=== PATIENT | female | born 1965 | race Caucasian/White ===

== ENCOUNTER 2018-04-13 11:20 | Observation (INO) | payer MEDICAID, SELFPAY ==
[2018-04-13] VITALS (14 sets, daily range): BP systolic 123–171; BP diastolic 70–100; PULSE 65–84; RESP 16–21; TEMP 36.6–37.1; O2SAT 92–99; BMI 29.0; BMI 29.3
--- NOTE | 2018-04-13 11:52 | EKG12_ITS ---
Test Reason : CP Blood Pressure : / mmHG Vent. Rate : 072 BPM Atrial Rate : 072 BPM P-R Int : 164 ms QRS Dur : 088 ms QT Int : 410 ms P-R-T Axes : 064 068 076 degrees QTc Int : 448 ms Normal sinus rhythm Normal ECG Confirmed by GABE FITZGERALD, DU ([id number]), editor [employer] MAI POTTS ([id number] on 04/16/2018 10:07:01 AM Referred By: Agustina Fine Confirmed By:DU BERNAL MD
--- NOTE | 2018-04-13 12:14 | RAD_ITS ---
STUDY: X-RAY CHEST REASON FOR EXAM: Female, 52 years old. Chest pain. TECHNIQUE: Single AP portable view of the chest. COMPARISON: 12/28/2013. FINDINGS: The lungs are clear and expanded. There is no demonstrated pleural abnormality. Normal size heart. Normal mediastinum and madhav. Normal visualized pulmonary arteries. Normal visualized aortic arch and descending thoracic aorta. There is mild levoscoliosis probably positional. Normal visualized ribs, clavicles, and shoulders. There is no demonstrated abnormality of the visualized soft tissue structures of the upper abdomen. RAD/Chest 1 View (Portable) IMPRESSION: No active pulmonary disease. Electronically Signed: Chance Menezes MD at 12:31 EDT Tel , Service support ,
[2018-04-13 12:19] LABS: Absolute Lymphocyte Count 3.41 X10^3/ul (0.83-4.51); Absolute Neutrophil Count 5.5 X10^3/uL (2.0-7.7); Basophil# 0.01 X10^3/uL; Basophil% 0.1 % (0-1); Eosinophil# 0.09 X10^3/uL; Eosinophils% 0.9 % (0-5); Hematocrit 44.2 % (37-47); Hemoglobin 14.3 g/dl (12.0-15.0); Lymphocyte # 3.41 X10^3/ul (4.0); Lymphocyte % 34.9 % (19-41); Mean Corp Hgb Conc 32.4 g/gl (32-36); Mean Corpuscular Hgb 30.6 pg (27.0-32.0); Mean Corpuscular Volume 94.6 fL (81-99); Monocyte# 0.72 X10^3/uL; Monocyte% 7.4 % (0-10); Neutrophil # 5.53 X10^3/uL (2.7-7.7); Neutrophil % 56.6 % (47-70); Platelet Count 231 K/mm3 (150-450); RBC Distribution Width SD 47.9 fl (35.1-43.9); Red Blood Count 4.67 M/mm3 (4.2-5.4); White Blood Count 9.8 K/mm3 (4.4-11.0)
[2018-04-13 12:23] LABS: Differential Indicated SCAN CRITERIA MET; POSITIVE COUNT NO; POSITIVE DIFFERENTIAL NO; POSITIVE MORPHOLOGY YES
[2018-04-13] MEDS: Aspirin 81 MG TAB.CHEW 324 MG PO (12:27)
[2018-04-13] MEDS: 0.9% Normal Saline 1,000 ML 150 ML IV ×2 (12:28→21:45)
[2018-04-13 12:35] LABS: Anion Gap 5 (5-15); BUN 13 mg/dL (7-18); BUN/Creat Ratio 15.6 RATIO (10-20); Calcium,Total 8.9 mg/dL (8.5-10.1); Chloride 108 mmol/L (98-107); Creatinine, Serum 0.83 mg/dL (0.55-1.02); EST Glomerular Filtration Rate 77 mL/min (>60); Est Glom Filt Rate - Afr Amer 93 mL/min (>60); Estimated Creatinine Clearance 75.91 ml/min; Glucose 89 mg/dL (74-106); Potassium 3.8 mmol/L (3.5-5.1); Sodium Level 141 mmol/L (136-145)
[2018-04-13 12:39] LABS: D-Dimer Quantitative (DVT/PE) 0.56 FEU/ug/m (0.27-0.49)
[2018-04-13 12:40] LABS: Differential Comment SCANNED
--- NOTE | 2018-04-13 12:40 | ED.RN ---
ELEVATED D-DIMER OF 0.56 RECEIVED FROM LAB. AWARE.
--- NOTE | 2018-04-13 12:50 | CT_ITS ---
STUDY: CTA CHEST REASON FOR EXAM: Female, 52 years old. Chest tightness and left shoulder pain. History of asthma. RADIATION DOSAGE (If Supplied By Facility): CTDIvol = ( 15.09 ) mGy, DLP = ( 601.54 ) mGycm TECHNIQUE: The examination was performed with the intravenous administration of 100 ml of Isovue 370 contrast material. Post-processing of the angiographic images was performed, with multiplanar reformation and 3D reconstruction. Individualized dose optimization techniques were used for this CT. COMPARISON: None. FINDINGS: Normal enhancement of the main pulmonary artery and right and left pulmonary arteries. Normal enhancement of the bilateral peripheral pulmonary arteries. There is no demonstrated pulmonary embolism. Normal thoracic aorta and visualized great vessels. There is no demonstrated aortic dissection. Normal heart and pericardium. Normal mediastinum. Normal hilar regions. Normal visualized trachea and bronchi. The lungs are well expanded. There are no pulmonary infiltrates. There are no pleural effusions. Normal chest wall structures. Normal osseous structures. The visualized portions of the upper abdomen demonstrate cysts in the upper pole of the right kidney, the largest measures about 5.8 cm. The visualized portion of the upper pole of the left kidney is markedly heterogeneous and lobulated. Solid mass cannot be entirely excluded. CT/CTA Chest W/WO Contrast IMPRESSION: 1. No demonstrated pulmonary embolism or dissecting aorta. 2. No infiltrate or pleural effusions are seen. 3. Lobulated heterogeneous upper pole of the left kidney and the right renal cysts. Further investigation is needed with CT scan of the kidneys or ultrasound. Electronically Signed: Chance Menezes MD at 14:17 EDT Tel , Service support ,
--- NOTE | 2018-04-13 15:01 | HP.PCM_ITS ---
Problem List (1) Chest pain Status: Acute History of Present Illness Date of Admission: 04/13/18 Chief Complaint: chest pain The patient is a 52 year old F with a history of asthma and depression. She was admitted through the ED on 04/13/2018 with a complaint of chest pain and tightness which started early this morning. She had assisted shortness of breath but denied any lightheadedness or dizziness or palpitations. She has not had such chest tightness in the past but states she has had pain under her left shoulder blade for a few days now. She denies any fever or chills, any abdominal pain, any diarrhea vomiting. She denies any trauma to her back. Review of systems otherwise negative. Vitals were significant for blood pressure 157/94 at time of admission and was 171/84 at time of my review; vitals were otherwise normal. Blood work was essentially unremarkable initial troponin was less than 0.015. Chest x-ray showed no active cardiopulmonary process, and CTA done showed no demonstrated pulmonary embolism or dissecting aorta or no infiltrate or pleural effusion seen. There was an incidental finding of a lobulated heterogeneous cysts of the upper pole of the left kidney and also right renal cyst. Further investigation recommended with CT of the kidneys ultrasound. She has been admitted for chest pain to rule out ACS. [] Past Medical History Allergies No Known Allergies Allergy (Verified 04/13/18 11:22) Home Medications: Ambulatory Orders Medication Instructions Recorded Albuterol Inhaler [Ventolin Hfa 1 puff INHALATION Q6H PRN PRN 04/13/18 (SP)] Fluoxetine HCl [Prozac] 20 mg PO DAILY 04/13/18 Fluticasone 44 Mcg [Flovent (SP)] 2 puff INHALATION BID 04/13/18 Surgical History: no surgical history Psychiatric History: Depression SOCIAL WORK ASSISTANT History: No pertinent SOCIAL WORK ASSISTANT history Lives: Spouse/ Significant Other Smoking Status: Current every day smoker Tobacco Use: Cigarettes - 1 pack daily Alcohol: Occasional - *Family History Maternal History Items: Unknown - is estranged from her family, so cannot give any history Paternal History Items: Unknown - is estranged from her family Review of Systems Constitutional: Denies: Chills, Fever, Malaise, Weakness, Weight Change Eyes: Denies: Blurred vision HEENT: Denies: Head Aches, Sinus Congestion, Sinus Drainage Cardiovascular: Reports: Chest Pain, Chest Tightness. Denies: Chest Pressure, Edema, Heaviness, Light Headedness, Orthopnea, Palpitations, Paroxysmal Noc. Dyspnea, Syncope Respiratory: Reports: Cough, Wheezing. Denies: Shortness of Breath, Shortness of breath at rest, Sputum production Gastrointestinal: Denies: Abdominal Pain, Nausea, Vomiting Genitourinary: Denies: Dysuria Musculoskeletal: Denies: Joint Pain, Joint Tenderness Skin: Denies: Rash, Wounds Neurological: Denies: Numbness, Tingling, Focal weakness Psychiatric: Denies: Anxiety, Depression, Homicidal Ideations, Suicidal Ideations Hematologic/ Lymphatic: Denies: Easy Bruising, Easy Bleeding VTE Information - Inpt Only VTE Present on Admission: No VTE Pharm Prophylaxis ordered?: Yes Patient Problems: Active and Suspected Problems Chest pain (Acute) - Physical Exam General: Alert, Oriented x3, Cooperative, No apparent distress HEENT: Atraumatic, PERRLA, EOMI, Normocephalic Oral: Dry Mucosa Neck: Supple, No JVD, Negative Carotid Bruits Lungs: - - decreased breath sounds bibasally, with mild wheezing auscultated in all lung gan. Cardiovascular: Regular rate, Regular Rhythm, Normal S1, Normal S2, No murmurs Abdomen: Bowel Sounds Present, Soft, Non Tender, Non-Distended, No Hepato- splenomegaly Extremities: No clubbing, No cyanosis, No edema, Capillary Refill Less than 3 Seconds Skin: No rashes, No breakdown Musculoskeletal: No Tenderness to Palpation of Joints or Extremities Lymphatic: No Cervical, Supraclavicular, or Inguinal Adenopathy Neurological: Cranial nerves II-XII grossly intact, Neuro grossly intact, Motor Exam 5/5 strength throughout Psych/Mental Status: Normal Affect, Appropriate, Alert and oriented to time, place, person, mood and affect Vital Signs Temp Pulse Resp BP Pulse Ox 98.5 F 66 21 H 151/88 H 96 04/13/18 11:21 04/13/18 14:04 04/13/18 14:04 04/13/18 14:04 04/13/18 14:04 Oxygen Delivery Method Room Air Weight: 180 lb Body Mass Index (BMI) 29.0 Finger Stick Blood Glucose 98 Laboratory Tests Past 24 Hrs 04/13/18 04/13/18 04/13/18 12:05 12:05 12:05 WBC 9.8 RBC 4.67 Hgb 14.3 Hct 44.2 MCV 94.6 MCH 30.6 MCHC 32.4 RDW 14.0 RDW Differential 47.9 H Plt Count 231 MPV 11.0 Immature Gran % (Auto) 0.100 Neut % (Auto) 56.6 Lymph % (Auto) 34.9 Sabine % (Auto) 7.4 Eos % (Auto) 0.9 Baso % (Auto) 0.1 Absolute Neuts (auto) 5.5 Absolute Lymphs (auto) 3.41 Total Counted Not Reportable Differential Comment SCANNED D-Dimer Quant (PE/DVT) 0.56 H* Sodium 141 Potassium 3.8 Chloride 108 H Carbon Dioxide 28.0 Anion Gap 5 BUN 13 Creatinine 0.83 Estim Creat Clear Calc 75.91 Est GFR (MDRD) Af Amer 93 Est GFR (MDRD) Non-Af 77 BUN/Creatinine Ratio 15.6 Glucose 89 Calcium 8.9 Troponin I < 0.015 Diagnostic Data Chest X-Ray 04/13/18 12:14 IMPRESSION: No active pulmonary disease. Electronically Signed: Chance Menezes MD at 12:31 EDT Tel , Service support , Chest CTA 04/13/18 12:50 IMPRESSION: 1. No demonstrated pulmonary embolism or dissecting aorta. 2. No infiltrate or pleural effusions are seen. 3. Lobulated heterogeneous upper pole of the left kidney and the right renal cysts. Further investigation is needed with CT scan of the kidneys or ultrasound. Electronically Signed: Chance Menezes MD at 14:17 EDT Tel , Service support , Assessment/Plan All Active Problems Chest pain (Acute) 52 y/o female presenting with chest pain 1. Atypical chest pain, to rule out ACS * States she has chest pain and chest tightness and pain in her left scapula to * Short troponin negative. EKG showed no acute ST changes. * Admit to PCU with telemetry * Cycle troponins. Aspirin 81 mg daily sublingual nitroglycerin as needed. * Check A1c and lipid panel. * For stress test to rule out ACS. * 2. Asthma: * lungs are tight with wheezing. Breathing treatments with duonebs * patient counselled to quit smoking * 4. Depression; on fluoxetine. Will continue 5. Nicotine dependence: Has over [id number] smoking history. Patient counseled extensively to quit. Will offer nicotine patch 21 mg daily. DVT prophylaxis: heparin * * Code status: full code. patient and partner counseled extensively about different types of CODE STATUS including DNR CCA, DNR CC and full code. Patient elects to be full code. Total [id number] time 60 minutes. Code Visit OBSV E&M: 37819 Initial observation care L2 Procedures: 52324 Advncd Care Plan 30 Min
--- NOTE | 2018-04-13 15:11 | ED.VISSUMM ---
- ER Visit Summary Date of Service: 04/13/18 Chief Complaint: [Chest pain] History of Present Illness: The patient is a 52 F [presents the emergency department complaint chest pain that started this morning. It started around 6 AM. Patient describes a tightness across her upper chest. Denies any real radiation of the pain however she states that she has had some discomfort in her left upper back just beneath her scapula for the last 5 or 6 days. Patient denies any trauma. Patient also has had some heartburn symptoms. Patient currently rates her chest pain is a 4 out of 10. Patient denies recent travel or surgery. No cancer history. Patient is a smoker. Patient has a history of asthma and depression. No family history of heart disease.] Physical Examination: [HEENT-PERRLA, EOMI. Cranial nerves II through XII grossly intact. TMs clear. Mucous membranes moist. No adenopathy. Cardiovascular-regular rate and rhythm without murmur or ectopy Lungs-good aeration bilaterally. Patient does have some faint X Tory wheezes bilaterally. No accessory muscle use or retractions. Abdomen-normoactive bowel sounds, soft, nontender, no rebound or rigidity, no peritoneal signs. Extremities-intact ?4, normal range of motion, normal pulses, atraumatic. Negative Homans sign.] Test Results: [EKG obtained on arrival shows sinus rhythm with a ventricular rate of 72 bpm with no acute ST segment changes. CBC with differential was normal. Chemistries unremarkable. Troponin is less than 0.015. D-dimer was 0.56. Chest x-ray showed nothing acute. CTA of the chest obtained showed no evidence of PE or dissection. Patient was noted incidentally to have right renal cysts and also homogenous masslike structure on the left kidney and recommendations were made for ultrasound or CT with IV contrast to evaluate further to rule out malignancy.] Emergency Department Course and Treatment: [Patient received aspirin in the department and nitroglycerin sublingual which really did not improve her pain. Patient was ordered a DuoNeb aerosol. I discussed results with patient.] Treatment Plan: [This point recommended admission for further workup and evaluation of her chest pain. I discussed with hospitalist the concerning findings on CTA of the chest regarding the left kidney mass. This finding will require further evaluation. Etiology of chest pain at this point is unclear.] Disposition: [Admit] Impression: [Chest pain-rule out acute coronary syndrome Left renal mass] This note was generated with [employer] dictation software. It may contain incorrect words, spelling, and punctuation that were not noted in review of the chart prior to signing ED Disposition - Plan for ED Patient: Chief Complaint: Upper Extremity Injury Referrals: Bucky Walters MD [Primary Care Provider] -
[2018-04-13] MEDS: Ipratropium/Albuterol Sulfate 3 ML AMPUL.NEB INHALATION ×2 (15:23→19:05)
[2018-04-13 18:47] LABS: Hemoglobin A1c 5.8 % (4.2-6.3)
[2018-04-13] MEDS: Budesonide Respules 0.5 MG/2 ML AMPUL.NEB. INHALATION (19:05)
[2018-04-13] MEDS: Heparin Injection (Vial) 5,000 UNIT/ML VIAL 5000 UNIT SC (22:14)
[2018-04-14] VITALS (14 sets, daily range): BP systolic 132–145; BP diastolic 62–78; PULSE 57–92; RESP 16–22; TEMP 36.5–37.1; O2SAT 96–98
[2018-04-14] MEDS: 0.9% Normal Saline 1,000 ML 150 ML IV ×2 (04:30→12:12)
[2018-04-14] MEDS: Heparin Injection (Vial) 5,000 UNIT/ML VIAL 5000 UNIT SC ×3 (06:05→21:00)
[2018-04-14 06:06] LABS: Absolute Lymphocyte Count 2.29 X10^3/ul (0.83-4.51); Absolute Neutrophil Count 4.1 X10^3/uL (2.0-7.7); Basophil# 0.01 X10^3/uL; Basophil% 0.1 % (0-1); Eosinophil# 0.04 X10^3/uL; Eosinophils% 0.6 % (0-5); Hematocrit 38.9 % (37-47); Hemoglobin 12.9 g/dl (12.0-15.0); Lymphocyte # 2.29 X10^3/ul (4.0); Lymphocyte % 33.8 % (19-41); Mean Corp Hgb Conc 33.2 g/gl (32-36); Mean Corpuscular Hgb 31.2 pg (27.0-32.0); Mean Corpuscular Volume 94.2 fL (81-99); Mean Platelet Vol. 11.3 fl (6.2-12.0); Monocyte# 0.38 X10^3/uL; Monocyte% 5.6 % (0-10); Neutrophil # 4.05 X10^3/uL (2.7-7.7); Neutrophil % 59.8 % (47-70); Platelet Count 164 K/mm3 (150-450); RBC Distribution Width CV 13.9 % (11.6-14.6); Red Blood Count 4.13 M/mm3 (4.2-5.4); White Blood Count 6.8 K/mm3 (4.4-11.0)
[2018-04-14 06:12] LABS: POSITIVE COUNT NO; POSITIVE DIFFERENTIAL NO; POSITIVE MORPHOLOGY NO
[2018-04-14 06:21] LABS: Anion Gap 7 (5-15); BUN 10 mg/dL (7-18); BUN/Creat Ratio 14.5 RATIO (10-20); Calcium,Total 7.9 mg/dL (8.5-10.1); Chloride 113 mmol/L (98-107); Creatinine, Serum 0.69 mg/dL (0.55-1.02); EST Glomerular Filtration Rate 96 mL/min (>60); Est Glom Filt Rate - Afr Amer 116 mL/min (>60); Estimated Creatinine Clearance 94.86 ml/min; Glucose 82 mg/dL (74-106); Sodium Level 146 mmol/L (136-145)
[2018-04-14 06:31] LABS: Cholesterol 172 mg/dL (200); High Density Lipoprotein 29 mg/dL; Triglycerides 153 mg/dL; Very Low Density Lipoprotein 31 mg/dL (5-40)
[2018-04-14] MEDS: Ipratropium/Albuterol Sulfate 3 ML AMPUL.NEB INHALATION ×4 (06:49→19:14)
[2018-04-14] MEDS: Budesonide Respules 0.5 MG/2 ML AMPUL.NEB. INHALATION ×2 (06:49→19:14)
[2018-04-14] MEDS: Aspirin 81 MG TAB.CHEW PO (08:26)
[2018-04-14] MEDS: amLODIPine 10 MG Tablet PO (08:27)
[2018-04-14] MEDS: FLUoxetine 20 MG Capsule PO (08:27)
--- NOTE | 2018-04-14 14:57 | PCM.PN.HOSP ---
Patient Problems: Active and Suspected Problems Chest pain (Acute) Subjective: Patient is a 52-year-old white female with known history of asthma, depression, who presented to the ED on 04/13/2018 with chest tightness and chest pain. CT of the chest showed some cysts of the kidneys, but no real other pathology. Recommend a ultrasound of the kidneys. Patient did not have stress test today have one tomorrow. Patient offered to do as an outpatient but does not wish. Currently has no nausea vomiting diarrhea constipation. No chest pain, otherwise no other symptoms. Vitals/I&O's: Vital Signs Temp Pulse Resp BP Pulse Ox 98.1 F 89 22 H 145/62 H 98 04/14/18 08:20 04/14/18 12:18 04/14/18 10:39 04/14/18 08:20 04/14/18 08:20 Oxygen Delivery Method Room Air Weight: 85 kg Body Mass Index (BMI) 29.3 Finger Stick Blood Glucose 98 Intake and Output for Last 24 Hours 04/12/18 04/13/18 04/14/18 23:59 23:59 23:59 Intake Total 560 / 560 2650 / 2650 Balance 560 / 560 2650 / 2650 General: Alert, Oriented x3, Cooperative HEENT: Atraumatic, PERRLA, EOMI, Normocephalic Oral: Moist Mucosa, No Gingival or Mucosal Lesions/ Ulcerations Neck: Supple, No JVD, Negative Carotid Bruits Lungs: No rhonchi, No wheeze, No rales, Diminished - Slightly diminished breath sounds bilaterally Cardiovascular: Regular rate, No murmurs Abdomen: Bowel Sounds Present, Soft, Non Tender Extremities: No edema, Capillary Refill Less than 3 Seconds Skin: No rashes, No breakdown Musculoskeletal: No Tenderness to Palpation of Joints or Extremities Lymphatic: No Cervical, Supraclavicular, or Inguinal Adenopathy Neurological: Cranial nerves II-XII grossly intact, Neuro grossly intact Psych/Mental Status: Normal Affect, Appropriate, Alert and oriented to time, place, person, mood and affect Laboratory Results 04/13/18 12:05: Hemoglobin A1c 5.8 04/13/18 17:32: Troponin I < 0.015 04/13/18 20:00: Troponin I < 0.015 04/14/18 05:35: Triglycerides 153, Cholesterol 172, LDL Cholesterol 112, VLDL Cholesterol 31, HDL Cholesterol 29 L 04/14/18 05:35: WBC 6.8, RBC 4.13 L, Hgb 12.9, Hct 38.9, MCV 94.2, MCH 31.2, MCHC 33.2, RDW 13.9, RDW Differential 46.0 H, Plt Count 164, MPV 11.3, Immature Gran % (Auto) 0.100, Neut % (Auto) 59.8, Lymph % (Auto) 33.8, Crisp % (Auto) 5.6, Eos % (Auto) 0.6, Baso % (Auto) 0.1, Absolute Neuts (auto) 4.1, Absolute Lymphs (auto) 2.29, Total Counted Not Reportable 04/14/18 05:35: Sodium 146 H, Potassium 4.0, Chloride 113 H, Carbon Dioxide 26.0, Anion Gap 7, BUN 10, Creatinine 0.69, Estim Creat Clear Calc 94.86, Est GFR (MDRD) Af Amer 116, Est GFR (MDRD) Non-Af 96, BUN/Creatinine Ratio 14.5, Glucose 82, Calcium 7.9 L Current Medications Albuterol Sulfate (Ventolin Aerosols) 2.5 mg INHALATION Q4H PRN PRN PRN Reason: shortness of breath Albuterol/Ipratropium (Duoneb) 3 ml INHALATION Q4HWA.RT ON LICENSE OF [facility] Last Admin: 04/14/18 14:40 Dose: 3 ml Amlodipine Besylate (Norvasc) 10 mg PO DAILY ON LICENSE OF [facility] Last Admin: 04/14/18 08:27 Dose: 10 mg Aspirin (Aspirin, Baby) 81 mg PO DAILY@0800 ON LICENSE OF [facility] Last Admin: 04/14/18 08:26 Dose: 81 mg Budesonide (Pulmicort Aerosol) 0.5 mg INHALATION Q12H.RT ON LICENSE OF [facility] Last Admin: 04/14/18 06:49 Dose: 0.5 mg Fluoxetine HCl (Prozac) 20 mg PO DAILY ON LICENSE OF [facility] Last Admin: 04/14/18 08:27 Dose: 20 mg Heparin Sodium (Porcine) (Heparin Na) 5,000 unit SC Q8 ON LICENSE OF [facility] Last Admin: 04/14/18 13:28 Dose: 5,000 unit Hydralazine HCl (Apresoline Iv) 10 mg IV Q6H PRN PRN PRN Reason: BLOOD PRESSURE ELEVATION Magnesium Hydroxide (Milk Of Magnesia) 30 ml PO DAILY PRN PRN PRN Reason: Constipation Nicotine (Nicoderm Cq (Pbkc)) 21 mg TRANSDERM. DAILY KAMILAH Last Admin: 04/14/18 08:26 Dose: 21 mg Nitroglycerin (Nitrostat) 0.4 mg SUBLINGUAL Q5M PRN PRN Reason: CARDIAC/CHEST PAIN Sodium Chloride () 5 - 30 ml IV UD PRN PRN Reason: SALINE FLUSH Medical Necessity - Tobacco Use Smoking Status: Current every day smoker Tobacco Use: Cigarettes Assessment/Plan All Active Problems Chest pain (Acute) Patient is a 52-year-old white female with known history of asthma, depression, who presented to the ED on 04/13/2018 with chest tightness and chest pain. CT of the chest showed some cysts of the kidneys, but no real other pathology. Recommend a ultrasound of the kidneys. Patient did not have stress test today have one tomorrow. Patient offered to do as an outpatient but does not wish. Atypical chest pain, to rule out ACS Patient unable to get stress test today, will get stress test tomorrow, will continue current treatment panel of aspirin and nitroglycerin as needed. Patient will likely be discharged after stress test. Hemoglobin A1c was 5.8, LDL was 112, Renal cysts Patient has a renal cyst on CT scan and monitor further workup can be probably done as an outpatient. Asthma: Seems to be doing better with breathing treatment and duo nebs, patient has probably increased bronchospasms due to smoking. Have counseled patient again to stop smoking. Depression fluoxetine Nicotine dependence: Has over 24-pcgk-ledq smoking history. Patient counseled extensively to quit. Offered nicotine patch 21 mg daily. Hyperchloremia and hyper natremia: Iatrogenic secondary to fluids have DC'd. DVT prophylaxis: heparin CODE STATUS full Disposition patient like to be discharged after stress tests, offered outpatient stress test but does not wish. We will give patient on low-dose of Lipitor, monitor ultrasound and stress test. Chart is dictated with lieutenant shift supervisor software. Errors may occur in dictation that may change providers meaning. This note was generated with [employer] dictation software. It may contain incorrect words, spelling, and punctuation that were not noted in checking the note before signing. Code Visit OBSV E&M: 28876 Subsequent observation care L3
--- NOTE | 2018-04-14 15:01 | PN_ITS ---
Patient Problems: Active and Suspected Problems Chest pain (Acute) Subjective: Patient is a 52-year-old white female with known history of asthma, depression, who presented to the ED on 04/13/2018 with chest tightness and chest pain. CT of the chest showed some cysts of the kidneys, but no real other pathology. Recommend a ultrasound of the kidneys. Patient did not have stress test today have one tomorrow. Patient offered to do as an outpatient but does not wish. Currently has no nausea vomiting diarrhea constipation. No chest pain, otherwise no other symptoms. Vitals/I&O's: Vital Signs Temp Pulse Resp BP Pulse Ox 98.1 F 89 22 H 145/62 H 98 04/14/18 08:20 04/14/18 12:18 04/14/18 10:39 04/14/18 08:20 04/14/18 08:20 Oxygen Delivery Method Room Air Weight: 85 kg Body Mass Index (BMI) 29.3 Finger Stick Blood Glucose 98 Intake and Output for Last 24 Hours 04/12/18 04/13/18 04/14/18 23:59 23:59 23:59 Intake Total 560 / 560 2650 / 2650 Balance 560 / 560 2650 / 2650 General: Alert, Oriented x3, Cooperative HEENT: Atraumatic, PERRLA, EOMI, Normocephalic Oral: Moist Mucosa, No Gingival or Mucosal Lesions/ Ulcerations Neck: Supple, No JVD, Negative Carotid Bruits Lungs: No rhonchi, No wheeze, No rales, Diminished - Slightly diminished breath sounds bilaterally Cardiovascular: Regular rate, No murmurs Abdomen: Bowel Sounds Present, Soft, Non Tender Extremities: No edema, Capillary Refill Less than 3 Seconds Skin: No rashes, No breakdown Musculoskeletal: No Tenderness to Palpation of Joints or Extremities Lymphatic: No Cervical, Supraclavicular, or Inguinal Adenopathy Neurological: Cranial nerves II-XII grossly intact, Neuro grossly intact Psych/Mental Status: Normal Affect, Appropriate, Alert and oriented to time, place, person, mood and affect Laboratory Results 04/13/18 12:05: Hemoglobin A1c 5.8 04/13/18 17:32: Troponin I < 0.015 04/13/18 20:00: Troponin I < 0.015 04/14/18 05:35: Triglycerides 153, Cholesterol 172, LDL Cholesterol 112, VLDL Cholesterol 31, HDL Cholesterol 29 L 04/14/18 05:35: WBC 6.8, RBC 4.13 L, Hgb 12.9, Hct 38.9, MCV 94.2, MCH 31.2, MCHC 33.2, RDW 13.9, RDW Differential 46.0 H, Plt Count 164, MPV 11.3, Immature Gran % (Auto) 0.100, Neut % (Auto) 59.8, Lymph % (Auto) 33.8, [place] % (Auto) 5.6, Eos % (Auto) 0.6, Baso % (Auto) 0.1, Absolute Neuts (auto) 4.1, Absolute Lymphs (auto) 2.29, Total Counted Not Reportable 04/14/18 05:35: Sodium 146 H, Potassium 4.0, Chloride 113 H, Carbon Dioxide 26.0, Anion Gap 7, BUN 10, Creatinine 0.69, Estim Creat Clear Calc 94.86, Est GFR (MDRD) Af Amer 116, Est GFR (MDRD) Non-Af 96, BUN/Creatinine Ratio 14.5, Glucose 82, Calcium 7.9 L Current Medications Albuterol Sulfate (Ventolin Aerosols) 2.5 mg INHALATION Q4H PRN PRN PRN Reason: shortness of breath Albuterol/Ipratropium (Duoneb) 3 ml INHALATION Q4HWA.RT [facility] Last Admin: 04/14/18 14:40 Dose: 3 ml Amlodipine Besylate (Norvasc) 10 mg PO DAILY [facility] Last Admin: 04/14/18 08:27 Dose: 10 mg Aspirin (Aspirin, Baby) 81 mg PO DAILY@0800 [facility] Last Admin: 04/14/18 08:26 Dose: 81 mg Budesonide (Pulmicort Aerosol) 0.5 mg INHALATION Q12H.RT [facility] Last Admin: 04/14/18 06:49 Dose: 0.5 mg Fluoxetine HCl (Prozac) 20 mg PO DAILY [facility] Last Admin: 04/14/18 08:27 Dose: 20 mg Heparin Sodium (Porcine) (Heparin Na) 5,000 unit SC Q8 [facility] Last Admin: 04/14/18 13:28 Dose: 5,000 unit Hydralazine HCl (Apresoline Iv) 10 mg IV Q6H PRN PRN PRN Reason: BLOOD PRESSURE ELEVATION Magnesium Hydroxide (Milk Of Magnesia) 30 ml PO DAILY PRN PRN PRN Reason: Constipation Nicotine (Nicoderm Cq (Pbkc)) 21 mg TRANSDERM. DAILY [facility] Last Admin: 04/14/18 08:26 Dose: 21 mg Nitroglycerin (Nitrostat) 0.4 mg SUBLINGUAL Q5M PRN PRN Reason: CARDIAC/CHEST PAIN Sodium Chloride () 5 - 30 ml IV UD PRN PRN Reason: SALINE FLUSH Medical Necessity - Tobacco Use Smoking Status: Current every day smoker Tobacco Use: Cigarettes Assessment/Plan All Active Problems Chest pain (Acute) Patient is a 52-year-old white female with known history of asthma, depression, who presented to the ED on 04/13/2018 with chest tightness and chest pain. CT of the chest showed some cysts of the kidneys, but no real other pathology. Recommend a ultrasound of the kidneys. Patient did not have stress test today have one tomorrow. Patient offered to do as an outpatient but does not wish. Atypical chest pain, to rule out ACS Patient unable to get stress test today, will get stress test tomorrow, will continue current treatment panel of aspirin and nitroglycerin as needed. Patient will likely be discharged after stress test. Hemoglobin A1c was 5.8, LDL was 112, Renal cysts Patient has a renal cyst on CT scan and monitor further workup can be probably done as an outpatient. Asthma: Seems to be doing better with breathing treatment and duo nebs, patient has probably increased bronchospasms due to smoking. Have counseled patient again to stop smoking. Depression fluoxetine Nicotine dependence: Has over [id number] smoking history. Patient counseled extensively to quit. Offered nicotine patch 21 mg daily. Hyperchloremia and hyper natremia: Iatrogenic secondary to fluids have DC'd. DVT prophylaxis: heparin CODE STATUS full Disposition patient like to be discharged after stress tests, offered outpatient stress test but does not wish. We will give patient on low-dose of Lipitor, monitor ultrasound and stress test. Chart is dictated with psychologist industrial organizational software. Errors may occur in dictation that may change providers meaning. This note was generated with [employer] dictation software. It may contain incorrect words, spelling, and punctuation that were not noted in checking the note before signing. Code Visit OBSV E&M: 20510 Subsequent observation care L3
[2018-04-14] MEDS: Atorvastatin Calcium 20 MG Tablet PO (21:00)
[2018-04-15] VITALS (7 sets, daily range): BP systolic 124–143; BP diastolic 64–90; PULSE 76–105; RESP 16–18; TEMP 36.5–37.2; O2SAT 94–96
--- NOTE | 2018-04-15 04:40 | RAD_ITS ---
STUDY: X-RAY CHEST REASON FOR EXAM: Female, 52 years old. Cough, chest pain. TECHNIQUE: AP portable chest. COMPARISON: April 13, 2018. FINDINGS: The lungs are clear and expanded. There is no demonstrated pleural abnormality. Normal size heart. Normal mediastinum and madhav. Normal visualized pulmonary arteries. Normal visualized aortic arch and descending thoracic aorta. Normal visualized thoracic spine. Normal visualized ribs, clavicles, and shoulders. There is no demonstrated abnormality of the visualized soft tissue structures of the upper abdomen. RAD/Chest 1 View (Portable) IMPRESSION: Normal x-ray examination of the chest. Electronically Signed: Jose Ramirez MD at 5:43 EDT , Service support ,
--- NOTE | 2018-04-15 05:55 | EKG12_ITS ---
Test Reason : AM EKG Blood Pressure : / mmHG Vent. Rate : 081 BPM Atrial Rate : 081 BPM P-R Int : 158 ms QRS Dur : 086 ms QT Int : 402 ms P-R-T Axes : 077 070 068 degrees QTc Int : 466 ms Normal sinus rhythm Normal ECG Confirmed by GABE FITZGERALD, DU ([id number]), business editor MAI POTTS ([id number] on 04/18/2018 3:58:50 PM Referred By: Agustina Fine Confirmed By:DU BERNAL MD
[2018-04-15 05:57] LABS: Absolute Lymphocyte Count 1.88 X10^3/ul (0.83-4.51); Absolute Neutrophil Count 4.1 X10^3/uL (2.0-7.7); Basophil# 0.01 X10^3/uL; Basophil% 0.2 % (0-1); Eosinophil# 0.05 X10^3/uL; Eosinophils% 0.8 % (0-5); Hemoglobin 12.4 g/dl (12.0-15.0); Lymphocyte # 1.88 X10^3/ul (4.0); Lymphocyte % 29.5 % (19-41); Mean Corp Hgb Conc 32.6 g/gl (32-36); Mean Corpuscular Hgb 30.9 pg (27.0-32.0); Mean Corpuscular Volume 94.8 fL (81-99); Monocyte# 0.29 X10^3/uL; Monocyte% 4.5 % (0-10); Neutrophil # 4.14 X10^3/uL (2.7-7.7); Neutrophil % 64.8 % (47-70); Platelet Count 171 K/mm3 (150-450); RBC Distribution Width CV 13.8 % (11.6-14.6); Red Blood Count 4.01 M/mm3 (4.2-5.4); White Blood Count 6.4 K/mm3 (4.4-11.0)
[2018-04-15 06:07] LABS: AST(SGOT) 10 U/L (15-37); Alanine Aminotransfer ALT/SGPT 17 U/L (13-56); Alkaline Phosphatase 72 U/L (45-117); Anion Gap 8 (5-15); BUN 10 mg/dL (7-18); BUN/Creat Ratio 15.1 RATIO (10-20); Calcium,Total 8.1 mg/dL (8.5-10.1); Chloride 111 mmol/L (98-107); Creatinine, Serum 0.66 mg/dL (0.55-1.02); EST Glomerular Filtration Rate 100 mL/min (>60); Est Glom Filt Rate - Afr Amer 121 mL/min (>60); Estimated Creatinine Clearance 99.17 ml/min; Globulin 3.1 g/dL (2.2-4.2); Glucose 92 mg/dL (74-106); Magnesium 1.8 mg/dL (1.6-2.6); Phosphorus 3.5 mg/dL (2.5-4.9); Potassium 3.6 mmol/L (3.5-5.1); Protein, Total 6.1 g/dL (6.4-8.2); Sodium Level 145 mmol/L (136-145)
[2018-04-15] MEDS: Aspirin 81 MG TAB.CHEW PO (06:08)
[2018-04-15 06:12] LABS: International Normalized Ratio 0.9; Prothrombin Time (Protime)PT. 12.2 SECONDS (11.7-14.9)
[2018-04-15 06:34] LABS: POSITIVE COUNT NO; POSITIVE DIFFERENTIAL NO; POSITIVE MORPHOLOGY NO
[2018-04-15 06:44] LABS: Partial Thromboplast Time 30.3 Seconds (24.1-36.2)
[2018-04-15] MEDS: amLODIPine 10 MG Tablet PO (08:40)
[2018-04-15] MEDS: FLUoxetine 20 MG Capsule PO (08:40)
--- NOTE | 2018-04-15 09:27 | STRESSREP ---
Stress Test Report Date: 04/15/2018 Procedure: Exercise tolerance test/imaging study Indications: Chest pain; shortness of breath/dyspnea Consent: Per the patient Procedure: The patient exercised on a Juliocesar protocol for 5 minutes and 30 seconds completing Stage I and 2 minutes and 30 seconds of Stage II achieving a peak heart rate of 162 bpm (95 % predicted maximal heart rate) with a peak blood pressure 160/80 mmHg and a peak MET capacity of 7 METs. The baseline ECG demonstrated normal sinus rhythm. The peak exercise ECG demonstrated no obvious ECG changes. Was an isolated ventricular couplet during exercise. The functional capacity was considered decreased. There was no complaint of chest discomfort during exercise or recovery. The examination was discontinued secondary to dyspnea. Impression: 1. Technically adequate (percent predicted maximal heart rate greater than 85%) exercise tolerance test 2. Peak exercise ECG demonstrated no obvious ECG changes 3. Isolated ventricular couplet during exercise 4. Nuclear images pending Myocardial perfusion imaging study: Technique: The patient was injected with 11.6 mCi of technetium 99m Cardiolite and subsequently rest SPECT Cardiolite nuclear imaging was obtained in the horizontal long, vertical long, and short axis views. The patient exercised on a Juliocesar protocol for 5 minutes and 30 seconds completing Stage I and 2 minutes and 30 seconds of Stage II achieving a peak heart rate of 162 bpm (95 % predicted maximal heart rate) with a peak blood pressure 160/80 mmHg and a peak MET capacity of 7 METs. The patient was injected with 34.5 mCi of technetium 99m Cardiolite and subsequently stress SPECT Cardiolite nuclear imaging was obtained in the horizontal long, vertical long, and short axis views. A gated Cardiolite study at peak stress was obtained. Interpretation: Rest and stress SPECT Cardiolite nuclear imaging status post realignment, normalization, and attenuation correction, demonstrates the appearance of relative uniform tracer uptake and myocardial perfusion appearing within normal limits. There is end systolic thickening and brightening. The gated Cardiolite study demonstrates myocardial thickening and inward wall motion. The reported LVEF is 68 %. Impression: 1. Rest and stress SPECT Cardiolite nuclear imaging demonstrate relative uniform tracer uptake and myocardial perfusion appearing within normal limits. 2. The gated Cardiolite study reports an LVEF of 68 %. This note was generated with 5 [employer] software. It may contain incorrect words, spelling, and punctuation that were not noted in checking the note before signing.
--- NOTE | 2018-04-15 10:22 | DCINST_ITS ---
- Discharge Diagnoses Current Active Problems: Current Active and Chronic Problems Chest pain (Acute) You will use the following diet at home:: Cardiac Discharge Activity: Return to Normal Activity Call your doctor if you observe: Shortness of breath, Dizziness, Fainting spells, Chest pain Additional Instructions: Recommend kidney ultrasound as outpatient for further evaluation of renal cysts, your primary care physician can order this test. Allergies/Adverse Reactions: Allergies No Known Allergies Allergy (Verified 04/13/18 11:22) Medications to take at Discharge Albuterol Inhaler [Ventolin Hfa] 1 puff INHALATION Q6H PRN PRN 04/13/18 Fluoxetine HCl [Prozac] 20 mg PO DAILY 04/13/18 Fluticasone 44 Mcg [Flovent 44 Mcg] 2 puff INHALATION BID 04/13/18 Amlodipine [Norvasc] 10 mg PO DAILY #30 tablet 04/15/18 The following prescriptions were given: Amlodipine [Norvasc] 10 mg PO DAILY #30 tablet Primary Care Physician: Bucky Walters MD [Primary Care Provider] - Please follow up with your Primary Care Physician in: 1 Week Test Results: Test results from this visit will be discussed in further detail at your follow- up appointment, if applicable. Proposed Discharge Date: 04/15/18
--- NOTE | 2018-04-15 10:38 | DS.PCM_ITS ---
<Rosita Gardner - Last Filed: 04/15/18 10:39> Discharge Date and Diagnosis - Problem List Patient Problems: Active and Suspected Problems Chest pain (Acute) Date of Admission: 04/13/18 Date of Discharge: 04/15/18 - Primary Discharge Diagnosis Active and Suspected Problems 1. Noncardiac chest pain, ACS ruled out 2. Bilateral renal cysts 3. Hypertension, new diagnosis 4. Asthma, no acute exacerbation 5. Tobacco dependence 6. Depression Hospital Course and Treatment Imaging Results: Diagnostic Data Chest CTA 04/13/18 12:50 IMPRESSION: 1. No demonstrated pulmonary embolism or dissecting aorta. 2. No infiltrate or pleural effusions are seen. 3. Lobulated heterogeneous upper pole of the left kidney and the right renal cysts. Further investigation is needed with CT scan of the kidneys or ultrasound. Electronically Signed: Chance Menezes MD at 14:17 EDT Tel , Service support , Chest X-Ray 04/15/18 04:40 IMPRESSION: Normal x-ray examination of the chest. Electronically Signed: Jose Ramirez MD at 5:43 EDT , Service support , Operations: None Procedures: Stress test Summary of Care Provided: The patient is a 52 year old F admitted 04/13/2018 due to chest pain. She has a past medical history of asthma, depression. EKG on admission with no ST-T changes. Troponin negative. Patient underwent stress test which was negative for ischemia. Chest x-ray negative. CT of chest obtained on admission due to elevated d-dimer. CT without evidence of pulmonary embolism or dissecting aorta. No infiltrate or pleural effusions. Lobulated heterogeneous upper pole of the left kidney and right renal cyst. Recommend renal ultrasound as outpatient. Patient was started on amlodipine 10 mg daily for hypertension. Recommend continued monitoring as outpatient with medication adjustments as necessary. Suspect symptoms on admission are due to bronchospasm secondary to history of asthma with heavy tobacco use. Counseled patient on tobacco cessation. Patient can continue home albuterol inhaler as needed at discharge. Follow-up with primary care physician in 1 week. General: Alert, Oriented x3, Cooperative HEENT: Atraumatic, PERRLA, EOMI, Normocephalic Oral: Moist Mucosa Neck: Supple, No JVD, Negative Carotid Bruits Lungs: Clear to auscultation, diminished Cardiovascular: Regular rate, No murmurs Abdomen: Bowel Sounds Present, Soft, Non Tender Extremities: No edema, Capillary Refill Less than 3 Seconds Skin: No rashes, No breakdown Musculoskeletal: No Tenderness to Palpation of Joints or Extremities Lymphatic: No Cervical, Supraclavicular, or Inguinal Adenopathy Neurological: Cranial nerves II-XII grossly intact, Neuro grossly intact Psych/Mental Status: Normal Affect, Appropriate Patient seen and examined prior to discharge. Physical assessment as noted above. Patient stable for discharge home with further follow-up with primary care physician. This patient was seen by KHANG Camacho under the supervision of Dr. Pratt. Patient Problems: Active and Suspected Problems Chest pain (Acute) - Physical Exam Vital Signs Temp Pulse Resp BP Pulse Ox 98.3 F 82 16 124/75 H 96 04/15/18 10:21 04/15/18 10:21 04/15/18 10:21 04/15/18 10:21 04/15/18 10:21 Oxygen Delivery Method Room Air Weight: 187 lb 6.287 oz Body Mass Index (BMI) 29.3 Finger Stick Blood Glucose 98 Intake and Output for Last 24 Hours 04/13/18 04/14/18 04/15/18 23:59 23:59 23:59 Intake Total 560 / 560 2650 / 2650 240 / 240 Balance 560 / 560 2650 / 2650 240 / 240 Laboratory Tests Past 24 Hrs 04/15/18 04/15/18 04/15/18 05:32 05:32 05:32 WBC 6.4 RBC 4.01 L Hgb 12.4 Hct 38.0 MCV 94.8 MCH 30.9 MCHC 32.6 RDW 13.8 RDW Differential 46.0 H Plt Count 171 MPV 11.0 Immature Gran % (Auto) 0.200 Neut % (Auto) 64.8 Lymph % (Auto) 29.5 [place] % (Auto) 4.5 Eos % (Auto) 0.8 Baso % (Auto) 0.2 Absolute Neuts (auto) 4.1 Absolute Lymphs (auto) 1.88 Total Counted Not Reportable PT 12.2 INR 0.9 APTT 30.3 Sodium 145 Potassium 3.6 Chloride 111 H Carbon Dioxide 26.0 Anion Gap 8 BUN 10 Creatinine 0.66 Estim Creat Clear Calc 99.17 Est GFR (MDRD) Af Amer 121 Est GFR (MDRD) Non-Af 100 BUN/Creatinine Ratio 15.1 Glucose 92 Calcium 8.1 L Phosphorus 3.5 Magnesium 1.8 Total Bilirubin 0.30 AST 10 L ALT 17 Alkaline Phosphatase 72 Total Protein 6.1 L Albumin 3.0 L Globulin 3.1 Albumin/Globulin Ratio 1.0 Discharge Diet: Low fat/ Low Cholesterol Discharge Activity: Return to Normal Activity Call your doctor if you observe: Shortness of breath, Dizziness, Fainting spells, Chest pain Home Medications: Medications to take at Discharge Albuterol Inhaler [Ventolin Hfa] 1 puff INHALATION Q6H PRN PRN 04/13/18 Fluoxetine HCl [Prozac] 20 mg PO DAILY 04/13/18 Fluticasone 44 Mcg [Flovent 44 Mcg] 2 puff INHALATION BID 04/13/18 Amlodipine [Norvasc] 10 mg PO DAILY #30 tablet 04/15/18 Following Prescrptions Were Given to Patient: Amlodipine [Norvasc] 10 mg PO DAILY #30 tablet Primary Care Physician: Bucky Walters MD [Primary Care Provider] - Please follow up with your Primary Care Physician in: 1 Week Disposition: Home Minutes spent on discharge:: 35 Patient Condition:: Stable Medical Necessity - Tobacco Use Smoking Status: Current every day smoker Tobacco Use: Cigarettes Meaningful Use Info Meaningful Use Diagnoses (Choose all that apply): None applicable <Jass Pratt - Last Filed: 04/15/18 16:39> Hospital Course and Treatment Operations: None Procedures: Stress test Summary of Care Provided: Patient seen and examined independently. Data reviewed. I agree with the above note by the nurse practitioner. The patient is a 52 year old F presents with left-sided sharp chest pain while coughing. Also, noted reciprocal back pain. Stress test was negative. Chest pain felt to be due to costochondritis. However, patient advised to still discontinue smoking given risks of future CAD, plus COPD, worsening asthma, etc. Discussed going cold turkey or using agents such a patches or Chantix. Advised her to speak further with her PCP. [] - Physical Exam General: Alert, No apparent distress, - - up in bed. no acute distress. HEENT: Atraumatic, Normocephalic Lungs: No rhonchi Psych/Mental Status: Normal Affect, Appropriate Vital Signs Temp Pulse Resp BP Pulse Ox 37.2 C 101 H 18 124/64 H 95 04/15/18 12:47 04/15/18 12:47 04/15/18 12:47 04/15/18 12:47 04/15/18 12:47 Oxygen Delivery Method Room Air Weight: 85 kg Body Mass Index (BMI) 29.3 Finger Stick Blood Glucose 98 Intake and Output for Last 24 Hours 04/13/18 04/14/18 04/15/18 23:59 23:59 23:59 Intake Total 560 / 560 2650 / 2650 490 / 490 Balance 560 / 560 2650 / 2650 490 / 490 Laboratory Tests Past 24 Hrs 04/15/18 04/15/18 04/15/18 05:32 05:32 05:32 WBC 6.4 RBC 4.01 L Hgb 12.4 Hct 38.0 MCV 94.8 MCH 30.9 MCHC 32.6 RDW 13.8 RDW Differential 46.0 H Plt Count 171 MPV 11.0 Immature Gran % (Auto) 0.200 Neut % (Auto) 64.8 Lymph % (Auto) 29.5 [place] % (Auto) 4.5 Eos % (Auto) 0.8 Baso % (Auto) 0.2 Absolute Neuts (auto) 4.1 Absolute Lymphs (auto) 1.88 Total Counted Not Reportable PT 12.2 INR 0.9 APTT 30.3 Sodium 145 Potassium 3.6 Chloride 111 H Carbon Dioxide 26.0 Anion Gap 8 BUN 10 Creatinine 0.66 Estim Creat Clear Calc 99.17 Est GFR (MDRD) Af Amer 121 Est GFR (MDRD) Non-Af 100 BUN/Creatinine Ratio 15.1 Glucose 92 Calcium 8.1 L Phosphorus 3.5 Magnesium 1.8 Total Bilirubin 0.30 AST 10 L ALT 17 Alkaline Phosphatase 72 Total Protein 6.1 L Albumin 3.0 L Globulin 3.1 Albumin/Globulin Ratio 1.0 Discharge Diet: Low fat/ Low Cholesterol Discharge Activity: Return to Normal Activity Call your doctor if you observe: Shortness of breath, Dizziness, Fainting spells, Chest pain Disposition: Home Minutes spent on discharge:: 35 Patient Condition:: Stable Medical Necessity - Tobacco Use Smoking Status: Heavy Smoker (>10/day) Tobacco Use: Cigarettes Meaningful Use Info Meaningful Use Diagnoses (Choose all that apply): None applicable Code Visit OBSV E&M: 52232 Observation care discharge
[2018-04-15] MEDS: Ipratropium/Albuterol Sulfate 3 ML AMPUL.NEB INHALATION (11:19)
== END 2018-04-15 10:20 | disposition home or self-care (01) ==
LOC: ED 12:46 → PCU 15:33
PROVIDERS: Internal Medicine; Admitting Provider Student in an Organized Health Care Education/Training Program; Emergency Provider Emergency Medicine; Family Provider Family Medicine; PCP Family Medicine; Referring Provider Student in an Organized Health Care Education/Training Program
DX: R07.89 Other chest pain (principal); I10 Essential (primary) hypertension; J45.909 Unspecified asthma, uncomplicated; F32.9 Major depressive disorder, single episode, unspecified; Z79.899 Other long term (current) drug therapy; F17.210 Nicotine dependence, cigarettes, uncomplicated; N28.1 Cyst of kidney, acquired
CPT/HCPCS: 36415; 71045; 71275; 78452; 80048; 80053; 80061; 83036; 83735; 84100; 84484; 85025; 85379; 85610; 85730; 93005; 93017; 94640; 96360; 96361; 96372; 99218; 99285; A9500; J7030; Q9967; A4216; G0378

== ENCOUNTER 2021-02-28 12:34 | Emergency (ER) | payer SELFPAY ==
[2021-02-28] VITALS (8 sets, daily range): BP systolic 107–131; BP diastolic 69–83; PULSE 81–107; RESP 16–23; TEMP 38.1–38.7; O2SAT 94–96; BMI 30.7
--- NOTE | 2021-02-28 12:40 | EKG12_ITS ---
Test Reason : CP Blood Pressure : / mmHG Vent. Rate : 109 BPM Atrial Rate : 109 BPM P-R Int : 122 ms QRS Dur : 080 ms QT Int : 374 ms P-R-T Axes : 039 060 085 degrees QTc Int : 503 ms Sinus tachycardia Nonspecific ST and T wave abnormality Abnormal ECG Confirmed by GABE FITZGERALD, DU ([id number]), graphics editor CAMILA ARGUETA ([id number]) on 03/02/2021 10:21:53 AM Referred By: LUIC Confirmed By:DU BERNAL MD
[2021-02-28 13:08] LABS: Absolute Lymphocyte Count 1.19 X10^3/uL (0.83-4.51); Absolute Neutrophil Count 15.4 X10^3/uL (2.0-7.7); Basophil# 0.04 X10^3/uL; Basophil% 0.2 % (0-1); Lymphocyte # 1.19 X10^3/ul (0.83-4.51); Lymphocyte % 6.7 % (19-41); Mean Corp Hgb Conc 33.3 g/dL (32-36); Mean Corpuscular Hgb 30.4 pg (27.0-32.0); Mean Corpuscular Volume 91.1 fL (81-99); Mean Platelet Vol. 10.7 fl (6.2-12.0); Monocyte# 1.03 X10^3/uL; Monocyte% 5.8 % (0-10); NRBC Flagged by Analyzer 0 % (0-5); Neutrophil % 86.8 % (47-70); Platelet Count 240 K/mm3 (150-450); RBC Distribution Width CV 13.4 % (11.6-14.6); RBC Distribution Width SD 45.5 fl (35.1-43.9); Red Blood Count 4.61 M/mm3 (4.2-5.4); White Blood Count 17.7 K/mm3 (4.4-11.0)
[2021-02-28 13:25] LABS: Anion Gap 7 (5-15); BUN 10 mg/dL (7-18); BUN/Creat Ratio 9.9 RATIO (10-20); Calcium,Total 9.5 mg/dL (8.5-10.1); Chloride 102 mmol/L (98-107); Creatinine, Serum 1.01 mg/dL (0.55-1.02); EST Glomerular Filtration Rate 61 mL/min (>60); Est Glom Filt Rate - Afr Amer 74 mL/min (>60); Glucose 118 mg/dL (74-106); Potassium 3.7 mmol/L (3.5-5.1); Sodium Level 137 mmol/L (136-145); Troponin-I HS 6 pg/mL (3.0-54.0)
--- NOTE | 2021-02-28 14:06 | RAD_ITS ---
STUDY: X-RAY CHEST REASON FOR EXAM: Female, 55 years old. Chest pain TECHNIQUE: Single AP portable view of the chest. COMPARISON: Comparison is made with prior study 04/15/2018. FINDINGS: EKG electrodes are seen. The lungs are clear and expanded. There is no demonstrated pleural abnormality. Normal size heart. Normal mediastinum and madhav. Normal visualized pulmonary arteries. Normal visualized aortic arch and descending thoracic aorta. Normal visualized thoracic spine. Normal visualized ribs, clavicles, and shoulders. There is no demonstrated abnormality of the visualized soft tissue structures of the upper abdomen. RAD/Chest 1 View (Portable) IMPRESSION: Normal x-ray examination of the chest. Electronically Signed: Say Ho MD at 14:34 EDT , Service support ,
--- NOTE | 2021-02-28 14:12 | EDS_ITS ---
HPI History of Present Illness Chief Complaint: Chest Pain Informant: patient Narrative Narrative: 55-year-old female presenting with chest pain. She states this started last night. She states she felt okay this morning and was able to go to work. She states she started having more chest pain and shortness of breath at work. She has a cough. She states the chest pain is worsened with coughing. She denies radiation of the pain. Denies nausea, vomiting, diarrhea. She has not been vaccinated for Covid. She did have a fever on arrival to the emergency department. She is a smoker. Denies PE/DVT risk factors. Prior similar symptoms: No Recent Illness/Hospitalization: No PFSH PFSH Medical History (Updated 02/28/21 @ 16:[address] Kenisha Castellon MD) Depression High cholesterol HTN (hypertension) Home Medications albuterol sulfate [Ventolin HFA] 1 puff INHALATION Q6H PRN PRN 04/13/18 [History Last Taken 04/09/18] fluoxetine [Prozac] 20 mg PO DAILY 04/13/18 [History Last Taken 04/13/18 20 MG] fluticasone propionate [Flovent HFA] 2 puff INHALATION BID 04/13/18 [History Last Taken 04/12/18 22:00] amlodipine 10 mg PO DAILY #30 tablet 04/15/18 [Rx Last Taken Unknown] Allergy/AdvReac Type Severity Reaction Status Date / Time No Known Allergies Allergy Verified 04/13/18 11:22 Social History Smoking Status: Current every day smoker tobacco type: cigarettes ROS ROS ED Constitutional Constitutional ED: Reports chills and fever(s) Eyes Eyes: Denies change in vision ENT ENT ED: Denies rhinorrhea or sore throat Cardiovascular Cardiovascular: Reports chest pain; Denies palpitations Respiratory/Chest Respiratory/Chest: Reports cough and dyspnea; Denies sputum Gastrointestinal Gastrointestinal: Denies abdominal pain, diarrhea, nausea or vomiting Genitourinary Genitourinary ED: Denies dysuria Musculoskeletal Musculoskeletal: Reports myalgias Integumentary Denies rash Neurologic Neurologic: Denies headache(s) Psychiatric Psychiatric: Denies suicidal thoughts EXAM Physical Exam Const Vital Signs: 02/28/21 12:37 02/28/21 14:04 02/28/21 14:06 Temperature 100.6 F H Temperature Source Temporal Pulse Rate 107 H 94 Respiratory Rate 20 H 23 H Respiratory Effort Normal Non-Labored Blood Pressure 107/69 130/77 H Blood Pressure Mean 81 94 Pulse Ox 94 96 96 Oxygen Delivery Method Room Air Room Air Room Air 02/28/21 14:08 02/28/21 15:48 02/28/21 16:12 Temperature 100.6 F H 101.6 F H Temperature Source Temporal Oral Pulse Rate 94 96 Respiratory Rate 23 H 20 H 16 Respiratory Effort Blood Pressure 130/77 H 129/83 H Blood Pressure Mean 94 98 Pulse Ox 96 94 Oxygen Delivery Method Room Air Room Air 02/28/21 16:35 Temperature Temperature Source Pulse Rate 81 Respiratory Rate 18 Respiratory Effort Blood Pressure 131/76 H Blood Pressure Mean Pulse Ox 95 Oxygen Delivery Method Positive well nourished and well developed General Appearance ED: well developed HEENT Reports normocephalic and head/scalp atraumatic Eyes PERRL and EOMs intact bilaterally Neck supple General: Negative for tenderness Chest Wall inspection of chest normal Resp normal respiratory effort and clear to auscultation bilaterally Cardio regular rate and regular rhythm GI non-tender and non-distended Palpation: soft; Negative for guarding or rebound tenderness present no CVA tenderness Extremity normal to inspection Neuro oriented x3 Sensorium / Orientation: alert Psych mental status grossly normal MDM MDM MDM Narrative Medical decision making narrative: Patient was given IV fluids. She was given aspirin and Tylenol. CBC shows white count 17.7. Chemistries unremarkable. D- dimer 0.98. Troponin is negative. Covid is negative. Due to elevated D-dimer, CTA chest was obtained and shows no evidence of pulmonary embolism. 3.2 cm x 2.8 cm soft tissue density in the posterior medial segment of the left lower lobe. A neoplastic process should be ruled out. Patient was advised of these findings and importance of close follow-up. Patient understands importance of follow-up. Delta troponin was obtained which was negative. Her ambulatory pulse ox is 94% on room air. She is resting comfortably on reevaluation. Advised to follow-up with her primary care physician. Advised return to ED for worsening complaints. Lab Data Attestation: I reviewed the patient's lab results. Labs: Laboratory Results - last 24 hr 02/28/21 02/28/21 02/28/21 12:55 12:55 14:34 WBC 17.7 H RBC 4.61 Hgb 14.0 Hct 42.0 MCV 91.1 MCH 30.4 MCHC 33.3 RDW Std Deviation 45.5 H RDW Coeff of Adrian 13.4 Plt Count 240 MPV 10.7 Immature Gran % (Auto) 0.500 Neut % (Auto) 86.8 H Lymph % (Auto) 6.7 L [place] % (Auto) 5.8 Eos % (Auto) 0.0 Baso % (Auto) 0.2 Absolute Neuts (auto) 15.4 H Absolute Lymphs (auto) 1.19 Nucleated RBC % 0 D-Dimer Quant (PE/DVT) 0.98 H* Sodium 137 Potassium 3.7 Chloride 102 Carbon Dioxide 28.0 Anion Gap 7 BUN 10 Creatinine 1.01 Estim Creat Clear Calc 60.30 Est GFR (MDRD) Af Amer 74 Est GFR (MDRD) Non-Af 61 BUN/Creatinine Ratio 9.9 L Glucose 118 H Calcium 9.5 Troponin I High Sens 6 02/28/21 15:57 WBC RBC Hgb Hct MCV MCH MCHC RDW Std Deviation RDW Coeff of Adrian Plt Count MPV Immature Gran % (Auto) Neut % (Auto) Lymph % (Auto) [place] % (Auto) Eos % (Auto) Baso % (Auto) Absolute Neuts (auto) Absolute Lymphs (auto) Nucleated RBC % D-Dimer Quant (PE/DVT) Sodium Potassium Chloride Carbon Dioxide Anion Gap BUN Creatinine Estim Creat Clear Calc Est GFR (MDRD) Af Amer Est GFR (MDRD) Non-Af BUN/Creatinine Ratio Glucose Calcium Troponin I High Sens 6 Radiography Chest X-Ray - ED: 1 View, Read by ED Physician and Read by Radiologist Diagnostic Testing: Radiology Impression Chest X-Ray 02/28/21 14:06 IMPRESSION: Normal x-ray examination of the chest. Electronically Signed: Say Ho MD at 14:34 EDT , Service support , Chest CTA 02/28/21 15:05 IMPRESSION: No evidence of pulmonary embolism. 3.2 cm x 2.8 cm soft tissue density in the posterior medial segment of the left lower lobe. A neoplastic process should be ruled out. Electronically Signed: Say Ho MD at 15:41 EDT , Service support , EKG Initial EKG: Attestation: I personally reviewed and interpreted this EKG as follows: Interpretation: Sinus Rhythm and No Acute Injury Pattern Discharge Plan Triage Chief Complaint: Chest Pain ED Provider: Kenisha Castellon Dx/Rx/DC Orders Clinical Impression: Bronchitis Instructions: ED Bronchitis, No Antibiotic (Adult) Prescriptions: No Action fluticasone propionate [Flovent HFA] 1 INHALER inhaler 2 puff inhalation BID RF: 0 albuterol sulfate [Ventolin HFA] 1 INHALER inhaler 1 puff inhalation Q6H PRN PRN (Reason: Shortness Of Breath) RF: 0 fluoxetine [Prozac] 20 MG capsule 20 mg PO DAILY RF: 0 amlodipine 10 MG tablet 10 mg PO DAILY Qty: 30 RF: 0 Primary Care Provider: Bucky Walters Referrals: Bucky Walters MD [Primary Care Provider] - Disposition Disposition: Home, Self Care Discharge Date/Time: 02/28/21 16:42
[2021-02-28] MEDS: Aspirin 81 MG TAB.CHEW 324 MG PO (14:33)
[2021-02-28] MEDS: 0.9% Normal Saline 1,000 ML 999 ML IV (14:33)
[2021-02-28 14:58] LABS: D-Dimer Quantitative (DVT/PE) 0.98 FEU/ug/m (0.27-0.49)
--- NOTE | 2021-02-28 15:05 | CT_ITS ---
STUDY: CTA CHEST REASON FOR EXAM: Female, 55 years old. Elevated d dimer RADIATION DOSAGE (If Supplied By Facility): CTDIvol = ( 9.95 ) mGy, DLP = ( 390.45 ) mGycm TECHNIQUE: The examination was performed with the intravenous administration of IV 100mL Isovue-370. Post-processing of the angiographic images was performed, with multiplanar reformation and 3D reconstruction. Individualized dose optimization techniques were used for this CT. COMPARISON: Comparison is made with prior study dated 04/13/2018. FINDINGS: Normal enhancement of the main pulmonary artery and right and left pulmonary arteries. Normal enhancement of the bilateral peripheral pulmonary arteries. There is no demonstrated pulmonary embolism. Normal thoracic aorta and visualized great vessels. There is no demonstrated aortic dissection. Normal heart and pericardium. Small pericardial effusion. Normal mediastinum. Normal hilar regions. Normal visualized trachea and bronchi. The lungs are well expanded. There now is evidence of a 3.2 cm x 2.8 cm soft tissue density in the posterior medial segment of the left lower lobe. A neoplastic process should be ruled out. Normal pleura. Normal chest wall structures. There are mild degenerative changes of thoracic spine. There are multiple bilateral renal cysts seen in the upper poles of both kidneys. Scattered small hepatic cysts. CT/CTA Chest W/WO Contrast IMPRESSION: No evidence of pulmonary embolism. 3.2 cm x 2.8 cm soft tissue density in the posterior medial segment of the left lower lobe. A neoplastic process should be ruled out. Electronically Signed: Say Ho MD at 15:41 EDT , Service support ,
[2021-02-28] MEDS: Acetaminophen 500 MG Tablet 1000 MG PO (15:49)
[2021-02-28 16:21] LABS: Troponin-I HS 6 pg/mL (3.0-54.0)
== END 2021-02-28 16:42 | disposition home or self-care (01) ==
PROVIDERS: Emergency Provider Emergency Medicine; PCP Family Medicine
DX: J40 Bronchitis, not specified as acute or chronic (principal); R79.89 Other specified abnormal findings of blood chemistry; Z20.822 Contact with and (suspected) exposure to COVID-19; I10 Essential (primary) hypertension; E78.00 Pure hypercholesterolemia, unspecified; F32.9 Major depressive disorder, single episode, unspecified; F17.210 Nicotine dependence, cigarettes, uncomplicated; Z79.51 Long term (current) use of inhaled steroids; Z79.899 Other long term (current) drug therapy
CPT/HCPCS: 71045; 71275; 80048; 84484; 85025; 85379; 87426; 93005; 96360; 99284; J7030; Q9967; A4216

== ENCOUNTER → 2021-11-03 | Outpatient (CLI) | payer MEDICAID, SELFPAY ==
[2021-11-03 13:23] LABS: Vitamin B12 308 pg/mL (211-911)
[2021-11-03 13:25] LABS: Hemoglobin A1c 5.4 % (3.8-5.6)
[2021-11-03 13:38] LABS: ALB/GLOB Ratio 1.1 RATIO (0.9-2.4); AST(SGOT) 13 U/L (15-37); Alanine Aminotransfer ALT/SGPT 21 U/L (13-56); Albumin, Serum 3.6 g/dL (3.2-5.0); Alkaline Phosphatase 107 U/L (45-117); Anion Gap 7 (5-15); BUN 13 mg/dL (7-18); BUN/Creat Ratio 13.9 RATIO (10-20); CRP 3.36 mg/L (0.0-3.0); Calcium,Total 8.4 mg/dL (8.5-10.1); Chloride 105 mmol/L (98-107); Creatinine, Serum 0.94 mg/dL (0.55-1.02); EST Glomerular Filtration Rate 66 mL/min (>60); Est Glom Filt Rate - Afr Amer 80 mL/min (>60); Free T3 2.5 pg/mL (2.18-3.98); Globulin 3.4 g/dL (2.2-4.2); Glucose 103 mg/dL (74-106); Potassium 3.5 mmol/L (3.5-5.1); Sodium Level 140 mmol/L (136-145); T4 Free Direct 0.96 ng/dL (0.76-1.46); T4 Total, Thyroxin 10.2 ug/dL (4.8-13.9); Thyroid Stim Hormone (TSH) 1.23 uIU/mL (0.358-3.74)
[2021-11-04 07:48] LABS: Absolute Lymphocyte Count 2.98 X10^3/uL (0.83-4.51); Absolute Neutrophil Count 4.7 X10^3/uL (2.0-7.7); Basophil# 0.05 X10^3/uL; Basophil% 0.6 % (0-1); Eosinophil# 0.05 X10^3/uL; Eosinophils% 0.6 % (0-5); Hematocrit 38.6 % (37-47); Hemoglobin 12.7 g/dL (12.0-15.0); Lymphocyte # 2.98 X10^3/ul (0.83-4.51); Lymphocyte % 35.9 % (19-41); Mean Corp Hgb Conc 32.9 g/dL (32-36); Mean Corpuscular Hgb 31.4 pg (27.0-32.0); Mean Corpuscular Volume 95.5 fL (81-99); Mean Platelet Vol. 12.2 fl (6.2-12.0); Monocyte# 0.49 X10^3/uL; Monocyte% 5.9 % (0-10); NRBC Flagged by Analyzer 0 % (0-5); Neutrophil # 4.71 X10^3/uL (2.7-7.7); Neutrophil % 56.6 % (47-70); POSITIVE MORPHOLOGY YES; Platelet Count 227 K/mm3 (150-450); RBC Distribution Width CV 13.2 % (11.6-14.6); RBC Distribution Width SD 47.4 fl (35.1-43.9); Red Blood Count 4.04 M/mm3 (4.2-5.4); White Blood Count 8.3 K/mm3 (4.4-11.0)
[2021-11-04 07:52] LABS: Differential Indicated SCAN CRITERIA MET
[2021-11-21 18:26] LABS: VITAMIN B6 4.5 ug/L (3.4-65.2); Vitamin B1, Thiamine 142.7 nmol/L (66.5-200.0)
== END | disposition home or self-care (01) ==
LOC: LAB 12:17
PROVIDERS: PCP Family Medicine; Referring Provider Student in an Organized Health Care Education/Training Program; Visit Provider Student in an Organized Health Care Education/Training Program
DX: G60.8 Other hereditary and idiopathic neuropathies (principal)
CPT/HCPCS: 36415; 80053; 82306; 82607; 82746; 83036; 84207; 84425; 84436; 84439; 84443; 84481; 85025; 86140

== ENCOUNTER → 2021-11-23 | Outpatient (CLI) | payer MEDICAID, SELFPAY ==
--- NOTE | 2021-11-23 10:59 | ART_ITS ---
Reason For Study: PVD Procedure A bilateral lower extremity continuous wave Doppler with analog waveform analysis,segmental pressures,and ankle brachial indexes without exercise. Left Segmental Pressures Left brachial= 143mmHg. Left thigh = 123mmHg. Left calf = 99mmHg. Left posterior tibial artery = 91mmHg. Left dorsalis pedis artery = 91mmHg. Left digit = 81 mmHg. The left dorsalis pedis waveforms are biphasic. The left posterior tibial artery waveforms are biphasic. Right Segmental Pressures Right brachial= 148mmHg. Right posterior tibial artery = 151mmHg. Right dorsalis pedis artery = 145mmHg. Right digit = 126 mmHg. The right dorsalis pedis waveforms are triphasic. The right posterior tibial artery waveforms are triphasic. Indices The right ankle brachial index by the posterior tibial artery is 1.02. The right ankle brachial index by the dorsalis pedis is .98. The right digital-brachial index is .85. The left ankle brachial index by the dorsalis pedis is .61. The left ankle brachial index by the posterior tibial artery is .61. The left digital-brachial index is .55. VL/Lower Ext Art Exam w/o Exercis Interpretation Summary Triphasic Doppler waveforms are noted at ankle level on the right. Biphasic Dop pler waveforms are noted at ankle level on the left. Pulse-volume recordings appear diminished at all levels on the left. The resting right ankle-brachial index is normal. The resting left ankle- brachial index is moderately diminished. The right digital-brachial index is normal. The left dig ital-brachial index is mildly diminished. Arterial flow appears normal in the right lower extremity. 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 Ordering Physician: Travis Brown Referring Physician: Travis Brown Performed By: Jerzy Crowell, RVT
== END | disposition home or self-care (01) ==
LOC: CVS 10:56
PROVIDERS: PCP Family Medicine; Referring Provider Student in an Organized Health Care Education/Training Program; Visit Provider Student in an Organized Health Care Education/Training Program
DX: I73.89 Other specified peripheral vascular diseases (principal)
CPT/HCPCS: 93923

== ENCOUNTER 2023-11-02 12:11 | Emergency (ER) | payer SELFPAY ==
[2023-11-02 12:12] VITALS: BP 139/90; PULSE 103; RESP 16; TEMP 35.9; O2SAT 99
[2023-11-02 12:13] VITALS: BP 139/90; PULSE 103; RESP 16; TEMP 35.8; O2SAT 96; BMI 28.5
--- NOTE | 2023-11-02 13:00 | EKG12_ITS ---
Test Reason : ROSALBA/SUE Blood Pressure : / mmHG Vent. Rate : 079 BPM Atrial Rate : 079 BPM P-R Int : 152 ms QRS Dur : 080 ms QT Int : 378 ms P-R-T Axes : 073 070 098 degrees QTc Int : 433 ms Normal sinus rhythm Nonspecific T wave abnormality Abnormal ECG Confirmed by Travis Montanez ([id number]), editor at large MAURICIO SHELTON ([id number]) on 11/05/2023 8:55:28 AM Referred By: Confirmed By:Travis Montanez
--- NOTE | 2023-11-02 13:01 | EX.ED.DYSGE1 ---
HPI <KHANG Painter - Last Filed: 11/02/23 15:19> History of Present Illness Chief Complaint: Fatigue Narrative Narrative: Patient is a 57-year-old female with history of hypertension, cyst on her kidneys who does not see a primary care physician. Patient states that she is supposed to be on a blood pressure medicine but over the last 2.5 years, she has had no insurance, therefore unable to see a PCP and unable to take her medication. Patient does smoke 1 pack/day. Patient states that this morning, she was feeling dizzy which she described as a lightheadedness feeling. Patient states when she was getting up and working, she felt like she might fall out. Patient denies any chest pain or shortness of breath. Patient states that this scared her because something like this happened 2 weeks ago, she is concerned. She denies any recent fever chills nausea or vomiting. PFS <KHANG Painter - Last Filed: 11/02/23 15:19> [facility] Medical History (Updated 11/02/23 @ 15:19 by KHANG Painter) Depression High cholesterol HTN (hypertension) Home Medications ?Medication ?Instructions ?Recorded ?Last Taken ?Type albuterol sulfate 90 mcg/actuation 1 puff inhalation Q6H PRN PRN 04/13/18 04/09/18 History aerosol inhaler (Ventolin HFA) Shortness Of Breath fluoxetine 20 mg capsule (Prozac) 20 mg PO DAILY 04/13/18 04/13/18 History 20 MG fluticasone propionate 44 2 puff inhalation BID 04/13/18 04/12/18 22:00 History mcg/actuation HFA aerosol inhaler (Flovent HFA) amlodipine 10 mg tablet 10 mg PO DAILY ##30 04/15/18 Unknown Rx Allergy/AdvReac Type Severity Reaction Status Date / Time No Known Allergies Allergy Verified 04/13/18 11:22 Social History Smoking Status: Current every day smoker tobacco type: cigarettes ROS <KHANG Painter - Last Filed: 11/02/23 15:19> ROS ED ROS Narrative Constitutional: Negative for fever, chills, weight loss. Positive for intermittent dizziness Eyes: Negative for vision loss, vision change, double vision ENT: Negative for any sore throat, ear pain, congestion Cardiovascular: Negative for any chest pain, tightness, palpitations. Positive for feeling dizziness, lightheadedness Respiratory: Negative for any cough, sputum production, hemoptysis, dyspnea, dyspnea on exertion, orthopnea Gastrointestinal: Negative for any abdominal pain, nausea, vomiting, diarrhea, constipation, blood in stool, blood in vomit : Negative for any urinary frequency, dysuria, retention, blood in urine Muscle skeletal: Negative for any neck pain, back pain Neurological: Negative for any headache, syncope, dizziness Skin: Negative for any rashes, itching, abrasions, lacerations Psychiatric: Negative for any depression, anxiety, stress, suicidal ideation, homicidal ideation Hematologic: Negative for any excessive bruising, easy bleeding EXAM <KHANG Painter - Last Filed: 11/02/23 15:19> Physical Exam Narrative Exam Narrative: Vital signs reviewed. When patient was sitting up from a laying position, patient had no dizziness. HEET: Head normocephalic atraumatic, TMs clear bilaterally. Posterior pharynx is clear, moist mucous membranes. Nares clear bilaterally. Neck: Supple with no lymphadenopathy or tenderness. No signs of meningismus. Cardiac: Regular rate and rhythm no murmurs gallops or rubs, equal peripheral pulses bilaterally. Respiratory: Lungs clear to auscultation bilaterally. No chest tenderness. Abdomen: Soft, nontender, nondistended. No abdominal bruit or pulsatile masses. No hepatosplenomegaly Extremities: No peripheral edema, no signs of gross trauma or deformity. Active full range of motion of all extremities. Neuro: Cranial nerves II through XII intact, no focal neurological deficits. NIH stroke scale 0. Skin: Clean dry and intact with no rash, purpura, petechiae, vesicles or pustules. Backs/flank: No CVA tenderness, no midline spinal tenderness, no deformity. Psych: Normal mood and affect. No SI, HI or acute psychosis. Const Vital Signs: 11/02/23 12:12 11/02/23 12:13 11/02/23 12:52 Temperature 96.7 F L 96.5 F L Temperature Source Temporal Temporal Pulse Rate 103 H 103 H Respiratory Rate 16 16 Respiratory Effort Normal Non-Labored Blood Pressure 139/90 H 139/90 H Blood Pressure Mean 106 106 Pulse Ox 99 96 Oxygen Delivery Method Room Air Room Air 11/02/23 13:26 11/02/23 14:12 11/02/23 15:35 Temperature 97.5 F L Temperature Source Pulse Rate 83 78 Respiratory Rate 18 19 H Respiratory Effort Blood Pressure 165/96 H 165/84 H Blood Pressure Mean 119 111 Pulse Ox 96 100 Oxygen Delivery Method Room Air Room Air <Dr. Olman Howe DO - Last Filed: 11/02/23 21:22> Physical Exam Const Vital Signs: 11/02/23 12:12 11/02/23 12:13 11/02/23 12:52 Temperature 96.7 F L 96.5 F L Temperature Source Temporal Temporal Pulse Rate 103 H 103 H Respiratory Rate 16 16 Respiratory Effort Normal Non-Labored Blood Pressure 139/90 H 139/90 H Blood Pressure Mean 106 106 Pulse Ox 99 96 Oxygen Delivery Method Room Air Room Air 11/02/23 13:26 11/02/23 14:12 11/02/23 15:35 Temperature 97.5 F L Temperature Source Pulse Rate 83 78 Respiratory Rate 18 19 H Respiratory Effort Blood Pressure 165/96 H 165/84 H Blood Pressure Mean 119 111 Pulse Ox 96 100 Oxygen Delivery Method Room Air Room Air [facility] <KHANG Painter - Last Filed: 11/02/23 15:19> [facility] Lab Data Labs: Laboratory Results - last 24 hr 11/02/23 13:16 WBC 9.7 RBC 4.56 Hgb 14.0 Hct 42.4 MCV 93.0 MCH 30.7 MCHC 33.0 RDW Std Deviation 44.4 H RDW Coeff of Adrian 13.0 Plt Count 238 MPV 10.6 Immature Gran % (Auto) 0.300 Neut % (Auto) 66.7 Lymph % (Auto) 26.6 [place] % (Auto) 5.7 Eos % (Auto) 0.3 Baso % (Auto) 0.4 Absolute Neuts (auto) 6.5 Absolute Lymphs (auto) 2.59 Nucleated RBC % 0 Sodium 141 Potassium 4.2 Chloride 112 H Carbon Dioxide 28.0 Anion Gap 1 L BUN 17 Creatinine 1.15 H Estim Creat Clear Calc 63.22 Est GFR (MDRD) Af Amer 63 Est GFR (MDRD) Non-Af 52 L BUN/Creatinine Ratio 14.8 Glucose 97 Calcium 9.0 Troponin I High Sens 6 TSH 1.15 Radiography Diagnostic Testing: Clinical Impression(s) from Imaging Studies Chest X-Ray 11/02/23 13:25 IMPRESSION: No radiographic evidence of acute cardiopulmonary disease. Electronically Signed: Chance Menezes MD at 13:43 EDT , Treatment and Re-Evaluation :: Differential diagnosis includes however is not limited to: ACS, UT, acute kidney failure, hypertensive urgency, orthostatic hypotension, anxiety Patient appears to be in no obvious respiratory distress vital signs are stable, patient appears nontoxic. Presenting to the emergency department with multiple vague symptoms. Patient is 57, she does not see PCP. Patient had episodes of near syncope today. Patient received a cardiac workup including 2 troponins. Basic laboratory values, CBC, BMP. I will provide a TSH, patient was given 1 L of normal saline as well as Zofran. EKG and a chest x-ray. All radiologic examinations were read, reviewed by the emergency department attending. From these reads, a plan of care will be put in place. Patient's chest x-ray was unremarked for any acute process. Patient's CBC was unremarkable, chemistries showed a creatinine of 1.15, patient's baseline 2 years ago was 0.94, patient's TSH was within normal limits. Patient's GFR is 52, troponin was negative. Repeat troponin will be ordered. On reevaluation, the patient was feeling much better. At this time, patient be stable for discharge. She instructed to follow-up with a PCP. I will give her 1 to follow-up with. She instructed return for any worsening symptoms. Patient is agreeable with the plan, instructed return for any worsening chest pain, shortness of breath. Stable for discharge. <Dr. Olman Howe, DO - Last Filed: 11/02/23 21:22> [facility] Narrative Medical decision making narrative: Differential diagnosis includes however is not limited to: ACS, UT, acute kidney failure, hypertensive urgency, orthostatic hypotension, anxiety Patient appears to be in no obvious respiratory distress vital signs are stable, patient appears nontoxic. Presenting to the emergency department with multiple vague symptoms. Patient is 57, she does not see PCP. Patient had episodes of near syncope today. Patient received a cardiac workup including troponins. Basic laboratory values, CBC, BMP. I will provide a TSH, patient was given 1 L of normal saline as well as Zofran. EKG and a chest x-ray. All radiologic examinations were read, reviewed by the emergency department attending. From these reads, a plan of care will be put in place. Patient's chest x-ray was unremarked for any acute process. Patient's CBC was unremarkable, chemistries showed a creatinine of 1.15, patient's baseline 2 years ago was 0.94, patient's TSH was within normal limits. Patient's GFR is 52, troponin was negative. Repeat troponin will be ordered. On reevaluation, the patient was feeling much better. At this time, patient be stable for discharge. She instructed to follow-up with a PCP. I will give her 1 to follow-up with. She instructed return for any worsening symptoms. Patient is agreeable with the plan, instructed return for any worsening chest pain, shortness of breath. Stable for discharge. This patient was seen with a PA/LEAD JAVA DEVELOPER ARCHITECT Individually assessed they patient including history and physical. I have reviewed everything on the chart that is available and agree with the documentation provided by the PA/LEAD JAVA DEVELOPER ARCHITECT including discussion about the assessment, treatment plan, discussion, and return precautions. Patient presenting with symptoms of generalized weakness. She states she has had some mild nausea headache upon awakening. She does have some dyspnea. Patient had cardiac workup today and her symptoms or not likely based on ACS based fact that her lab work and imaging are all normal. Chest x-ray showed no acute process. EKG normal sinus rhythm at a ventricular rate of 79 bpm without sign of ischemic change. Patient was given Zofran and IV fluids and she feels much better on reevaluation. At this point that she is feeling better I will discharge her home and she will follow-up with her PCP. Patient declines a prescription for Zofran. Lab Data Attestation: I reviewed the patient's lab results. Labs: Laboratory Results - last 24 hr 11/02/23 13:16 WBC 9.7 RBC 4.56 Hgb 14.0 Hct 42.4 MCV 93.0 MCH 30.7 MCHC 33.0 RDW Std Deviation 44.4 H RDW Coeff of Adrian 13.0 Plt Count 238 MPV 10.6 Immature Gran % (Auto) 0.300 Neut % (Auto) 66.7 Lymph % (Auto) 26.6 [place] % (Auto) 5.7 Eos % (Auto) 0.3 Baso % (Auto) 0.4 Absolute Neuts (auto) 6.5 Absolute Lymphs (auto) 2.59 Nucleated RBC % 0 Sodium 141 Potassium 4.2 Chloride 112 H Carbon Dioxide 28.0 Anion Gap 1 L BUN 17 Creatinine 1.15 H Estim Creat Clear Calc 63.22 Est GFR (MDRD) Af Amer 63 Est GFR (MDRD) Non-Af 52 L BUN/Creatinine Ratio 14.8 Glucose 97 Calcium 9.0 Troponin I High Sens 6 TSH 1.15 Radiography Diagnostic Testing: Clinical Impression(s) from Imaging Studies Chest X-Ray 11/02/23 13:25 IMPRESSION: No radiographic evidence of acute cardiopulmonary disease. Electronically Signed: Chance Menezes MD at 13:43 EDT , Discharge Plan Triage Chief Complaint: Fatigue Other Complaint: Dizziness ED Midlevel Provider: Ric Jose ED Provider: Olman Howe Dx/Rx/DC Orders Clinical Impression: Near syncope Instructions: ED Near-Fainting, Uncertain Cause Prescriptions: No Action fluticasone propionate [Flovent HFA] 1 INHALER inhaler 2 puff inhalation BID albuterol sulfate [Ventolin HFA] 1 INHALER inhaler 1 puff inhalation Q6H PRN PRN (Reason: Shortness Of Breath) fluoxetine [Prozac] 20 MG capsule 20 mg PO DAILY amlodipine 10 MG tablet 10 mg PO DAILY Qty: 30 0RF Primary Care Provider: Bucky Walters Referrals: Bucky Walters MD [Primary Care Provider] - Corina Butcher MD [Med Staff - Catalogue Maker] - Activity Restrictions/Additional Instructions: Ensure that you drink fluids. Follow-up with PCP. Print Language: Cuban Disposition Disposition: Home, Self Care Discharge Date/Time: 11/02/23 15:35
[2023-11-02] MEDS: 0.9% Normal Saline (1000mL) 1,000 ML 999 ML IV (13:25)
[2023-11-02] MEDS: Ondansetron 4 MG/2 ML Vial IV (13:25)
--- NOTE | 2023-11-02 13:25 | RAD_ITS ---
INDICATION: chest pain EXAMINATION/TECHNIQUE: X-RAY - XR Chest 1 View COMPARISON: No relevant prior comparison study available FINDINGS: LINES/DEVICES: None. LUNGS: No consolidation, edema or effusion. No pneumothorax. MEDIASTINUM AND CARDIOVASCULAR STRUCTURES: Cardiac silhouette not enlarged. Central airways and mediastinal contour are unremarkable. BONES AND SOFT TISSUES: Unremarkable. RAD/Chest 1 View (Portable) IMPRESSION: No radiographic evidence of acute cardiopulmonary disease. Electronically Signed: Chance Menezes MD at 13:43 EDT ,
[2023-11-02 13:26] LABS: Absolute Lymphocyte Count 2.59 X10^3/uL (0.83-4.51); Absolute Neutrophil Count 6.5 X10^3/uL (2.0-7.7); Basophil# 0.04 X10^3/uL; Basophil% 0.4 % (0-1); Eosinophil# 0.03 X10^3/uL; Eosinophils% 0.3 % (0-5); Hematocrit 42.4 % (37-47); Lymphocyte # 2.59 X10^3/ul (0.83-4.51); Lymphocyte % 26.6 % (19-41); Mean Corpuscular Hgb 30.7 pg (27.0-32.0); Mean Platelet Vol. 10.6 fl (6.2-12.0); Monocyte# 0.55 X10^3/uL; Monocyte% 5.7 % (0-10); NRBC Flagged by Analyzer 0 % (0-5); Neutrophil # 6.49 X10^3/uL (2.7-7.7); Neutrophil % 66.7 % (47-70); Platelet Count 238 K/mm3 (150-450); RBC Distribution Width SD 44.4 fl (35.1-43.9); Red Blood Count 4.56 M/mm3 (4.2-5.4); White Blood Count 9.7 K/mm3 (4.4-11.0)
[2023-11-02 13:52] LABS: Anion Gap 1 (5-15); BUN 17 mg/dL (7-18); BUN/Creat Ratio 14.8 RATIO (10-20); Chloride 112 mmol/L (98-107); Creatinine, Serum 1.15 mg/dL (0.55-1.02); EST Glomerular Filtration Rate 52 mL/min (>60); Est Glom Filt Rate - Afr Amer 63 mL/min (>60); Estimated Creatinine Clearance 63.22 ml/min; Glucose 97 mg/dL (74-106); Potassium 4.2 mmol/L (3.5-5.1); Sodium Level 141 mmol/L (136-145); Thyroid Stim Hormone (TSH) 1.15 uIU/mL (0.358-3.74); Troponin-I HS (w/2H Reflex) 6 pg/mL (3.0-54.0)
[2023-11-02 14:12] VITALS: BP 165/96; PULSE 83; RESP 18; O2SAT 96
[2023-11-02 15:18] LABS: Reflex Troponin-HS? (from REC) Y
[2023-11-02 15:35] VITALS: BP 165/84; PULSE 78; RESP 19; TEMP 36.4; O2SAT 100
== END 2023-11-02 15:35 | disposition home or self-care (01) ==
PROVIDERS: Nurse Practitioner; Emergency Provider Student in an Organized Health Care Education/Training Program; PCP Family Medicine; Visit Provider Student in an Organized Health Care Education/Training Program
DX: R55 Syncope and collapse (principal); F17.210 Nicotine dependence, cigarettes, uncomplicated; R53.83 Other fatigue; I10 Essential (primary) hypertension; R42 Dizziness and giddiness; E78.00 Pure hypercholesterolemia, unspecified
CPT/HCPCS: 71045; 80048; 84443; 84484; 85025; 93005; 96361; 96374; 99284; J7030; A4216; J2405

== ENCOUNTER 2024-11-05 17:12 | Observation (INO) | payer SELFPAY ==
[2024-11-05] VITALS (9 sets, daily range): BP systolic 99–157; BP diastolic 76–95; PULSE 68–144; RESP 11–26; TEMP 36.3–36.9; O2SAT 96–100; BMI 29.5; BMI 30.4
--- NOTE | 2024-11-05 17:19 | EKG12_ITS ---
Test Reason : CP Blood Pressure : */* mmHG Vent. Rate : 132 BPM Atrial Rate : * BPM P-R Int : * ms QRS Dur : 76 ms QT Int : 322 ms P-R-T Axes : * 77 118 degrees QTcB Int : 477 ms Supraventricular tachycardia Nonspecific ST abnormality Abnormal ECG Confirmed by ANDREW FITZGERALD, ELYSIA ([id number]), senior editor CAMILA ARGUETA ([id number]) on 11/11/2024 6:44:50 AM Referred By: Confirmed By: ELYSIA MORALES MD
--- NOTE | 2024-11-05 17:30 | RAD_ITS ---
PROCEDURE: CHEST 1 VIEW (PORTABLE) 11/05/2024 REASON FOR EXAM: CHEST PAIN TECHNIQUE: Frontal view of the chest. COMPARISON: None. FINDINGS: Hardware: None. Heart: The heart size is normal. Lungs: The lungs are clear. Bones: The bones are unremarkable. Other: None. RAD/Chest 1 View (Portable) IMPRESSION: No Acute Findings. Reading Location: [place] [id number]
[2024-11-05 17:47] LABS: Absolute Lymphocyte Count 4.17 X10^3/uL (0.83-4.51); Absolute Neutrophil Count 7.1 X10^3/uL (2.0-7.7); Basophil# 0.05 X10^3/uL; Basophil% 0.4 % (0-1); Eosinophil# 0.04 X10^3/uL; Eosinophils% 0.3 % (0-5); Hemoglobin 13.2 g/dL (12.0-15.0); Lymphocyte # 4.17 X10^3/ul (0.83-4.51); Lymphocyte % 33.8 % (19-41); Mean Corpuscular Hgb 30.6 pg (27.0-32.0); Mean Corpuscular Volume 92.8 fL (81-99); Mean Platelet Vol. 11.3 fl (6.2-12.0); Monocyte# 0.92 X10^3/uL; Monocyte% 7.5 % (0-10); NRBC Flagged by Analyzer 0 % (0-5); Neutrophil # 7.13 X10^3/uL (2.7-7.7); Neutrophil % 57.8 % (47-70); POSITIVE MORPHOLOGY YES; Platelet Count 258 K/mm3 (150-450); RBC Distribution Width CV 13.8 % (11.6-14.6); RBC Distribution Width SD 47.2 fl (35.1-43.9); Red Blood Count 4.31 M/mm3 (4.2-5.4); White Blood Count 12.3 K/mm3 (4.4-11.0)
[2024-11-05 17:52] LABS: Differential Indicated SCAN CRITERIA MET
[2024-11-05] MEDS: 0.9% Normal Saline (500mL Bag) 500 ML 999 ML IV (17:56)
[2024-11-05 17:57] LABS: Anion Gap 10 (5-15); BUN 19 mg/dL (4-19); BUN/Creat Ratio 16.4 RATIO (10-20); Carbon Dioxide 24.6 mmol/L (21.0-32.0); Chloride 107 mmol/L (98-108); Creatinine, Serum 1.17 mg/dL (0.70-1.20); EST Glomerular Filtration Rate 55 (>60); Glucose 104 mg/dL (70-99); Sodium Level 142 mmol/L (133-145); Troponin T High Sensitivity 157 ng/L (<=14)
[2024-11-05] MEDS: Adenosine 6 MG/2 ML Syringe IV (18:27)
--- NOTE | 2024-11-05 18:31 | EKG12_ITS ---
Test Reason : repeat Blood Pressure : */* mmHG Vent. Rate : 82 BPM Atrial Rate : 82 BPM P-R Int : 154 ms QRS Dur : 76 ms QT Int : 394 ms P-R-T Axes : 70 70 101 degrees QTcB Int : 460 ms Normal sinus rhythm Normal ECG Confirmed by ANDREW FITZGERALD, ELYSIA ([id number]), book editor CAMILA ARGUETA ([id number]) on 11/11/2024 6:45:04 AM Referred By: Confirmed By: ELYSIA MORALES MD
--- NOTE | 2024-11-05 18:32 | ED.VIS.CHEST ---
HPI History of Present Illness Chief Complaint: Chest Pain Informant: patient Narrative Narrative: Patient presents with left-sided burning to the chest substernal discomfort 4:30 PM while getting ready for dinner. No pain down the arms no nausea. She has been having on and off palpitations racing heart for last 3 months. Saw her PCP she currently has Zio patch day . Since having onset been more symptomatic. No lightheaded symptoms. No chest pains until today. Tobacco history mother with [place] in her 40s hypertension hyperlipidemia. Denies diabetes. Stress test years ago no history of heart caths. She has had a smoker's cough. No recent travel, surgeries, or immobilizations. No history of PE or DVT. She has had no recent vomiting or diarrhea. CVD Risk Factors: Positive for Hypertension, Hypercholesterolemia, Family History 1' </=55 and Smoking; Negative for Diabetes PE Risk Factors: Negative for Recent Travel/Surgery, Recent Immobilization or Prior DVT or [facility] (Updated 11/05/24 @ 22:[address] Eric Lazcano DO) Depression High cholesterol HTN (hypertension) Home Medications ?Medication ?Instructions ?Recorded ?Last Taken ?Type atorvastatin 20 mg tablet 20 mg PO QHS cholesterol 11/05/24 Unknown History cholecalciferol (vitamin D3) 1,250 1,250 mcg PO QWEEK 11/05/24 Unknown History mcg (50,000 unit) capsule losartan 25 mg tablet 25 mg PO QHS 11/05/24 Unknown History metoprolol succinate 25 mg 50 mg PO DAILY 11/05/24 Unknown History tablet,extended release 24 hr Allergy/AdvReac Type Severity Reaction Status Date / Time No Known Allergies Allergy Verified 11/05/24 17:13 Social History current occupational status: employed Smoking Status: Current every day smoker tobacco type: cigarettes ROS ROS ED Constitutional Constitutional ED: Denies chills, fever(s) or sweats ENT ENT ED: Denies sore throat Cardiovascular Cardiovascular: Reports chest pain, palpitations and racing heartbeat; Denies leg edema Respiratory/Chest Respiratory/Chest: Reports cough; Denies dyspnea or dyspnea on exertion Gastrointestinal Gastrointestinal: Denies abdominal pain, diarrhea, nausea or vomiting Genitourinary Genitourinary ED: Denies dysuria, hematuria or urinary frequency Musculoskeletal Musculoskeletal: Denies back pain, extremity pain or neck pain Integumentary Denies rash or wounds Neurologic Neurologic: Denies headache(s), paresthesias or weakness EXAM Physical Exam Const Vital Signs: 11/05/24 17:13 11/05/24 17:33 11/05/24 18:00 Temperature 97.4 F L Temperature Source Temporal Pulse Rate 144 H 130 H Respiratory Rate 26 H 20 H Blood Pressure 107/76 99/83 H Blood Pressure Mean 86 88 Pulse Ox 100 96 96 Oxygen Delivery Method Room Air Room Air Room Air 11/05/24 18:31 11/05/24 19:00 11/05/24 20:00 Temperature Temperature Source Pulse Rate 81 77 74 Respiratory Rate 11 L 24 H 17 Blood Pressure 120/79 133/86 H 157/93 H Blood Pressure Mean 92 99 113 Pulse Ox 97 96 97 Oxygen Delivery Method Room Air 11/05/24 21:00 Temperature Temperature Source Pulse Rate 73 Respiratory Rate 22 H Blood Pressure 152/84 H Blood Pressure Mean 106 Pulse Ox 98 Oxygen Delivery Method Positive well nourished and well developed General Appearance ED: well developed and NAD HEENT Reports moist mucous membranes normocephalic and atraumatic Eyes General Eye ED: Yes normal appearance of both eyes Neck full ROM Chest Wall Chest: Negative for tenderness Resp normal respiratory effort and normal air movement Effort and Inspection: symmetric chest movement; Negative for respiratory distress Cardio regular rhythm and no murmurs Rate: tachycardic Peripheral Pulses: pulses 2+ throughout GI normal to inspection, nondistended, normoactive bowel sounds and non-tender Palpation: Negative for guarding or rebound tenderness present Extremity normal to inspection General Extremety ED: Negative for edema or tenderness General Extremity: Negative for edema Neuro oriented x3 and no sensory deficits noted Sensorium / Orientation: awake and alert Skin no rashes or lesions noted and no wounds Heart Score History: Slightly/Non-Suspicious ECG: Normal Age: >45 - <65 years Risk Factors: >/= 3 Risk Factors or History of CAD Troponin: >/=3 x Normal Limit Score: 5 MDM MDM MDM Narrative Medical decision making narrative: Interventions / MDM: Differential diagnosis: SVT, a flutter, chest pain, elevated troponin Diagnosis considered but do not suspect: Pulmonary embolism however D-dimer negative. My EKG interpretation: Narrow complex tachycardia rate of 132, no ST changes, T wave inversions leads I and aVL. T wave similar from October 2023 Repeat EKG at 1834: Sinus rhythm rate of 82, no ST changes, T wave inversions noted in leads I and aVL. Imaging independently reviewed and interpreted by myself: 1 view chest x-ray: No acute process. External documents reviewed: N/A Test considered but not ordered:N/A ED course: Patient parent chest pains of burning however said palpitations for months worse over the last 2 weeks. Heart rate presenting 140s 130s in the room narrow complex tachycardia EKG questionable SVT in the 130s. Cardiac workup initiated by nursing. Added D-dimer due to tachycardia. Ordered for 500 cc of normal saline fluid to evaluate if will improve her heart rate. 1800: Initial troponin returned at 157. She is only had chest pain at 430. She has been having racing heart concern likely secondary to heart strain from her tachycardia. Heart rate did not improve with fluids. 1804: I did speak with operations executive Dr. Coburn, EKG sent to him through backline for evaluation. He recommended trial of adenosine 6 and 12 for therapeutic and diagnostic if possible underlying a flutter which show with adenosine. This was prepped. 1826: AP pads were placed, IV fluids, 6 mg adenosine was given. Brief pause return to sinus rhythm. Blood pressure stable. Creatinine 1.17 hemoglobin 13.2 white count 12.3. D-dimer pending. Repeat EKG sinus rhythm. 1939: D-dimer negative. Chest x-ray negative. Discussion with cardiology Dr. Coburn, did not recommend heparin at this time as likely type II strain from her SVT. She was given aspirin. Will plan for admission for echocardiogram with her cardiac risk factors. Repeat troponin up to 190. She had racing heart tachycardia up to chemical cardioversion. Symptom-free since then. I discussed with hospitalist Dr. Lopez for admission to PCU. Patient remains symptom-free. Re-evaluation: stable Disposition discussed with patient/family/significant other: Patient Case discussed with consulting clinician: Cardiology, hospitalist This note was generated with [employer]vt[employer] software. It may contain incorrect words, spelling, and punctuation that were not noted in checking the note before signing. Lab Data Attestation: I reviewed the patient's lab results. Labs: Laboratory Results - last 24 hr 11/05/24 11/05/24 17:20 19:48 WBC 12.3 H RBC 4.31 Hgb 13.2 Hct 40.0 MCV 92.8 MCH 30.6 MCHC 33.0 RDW Std Deviation 47.2 H RDW Coeff of Adrian 13.8 Plt Count 258 MPV 11.3 Immature Gran % (Auto) 0.200 Neut % (Auto) 57.8 Lymph % (Auto) 33.8 [place] % (Auto) 7.5 Eos % (Auto) 0.3 Baso % (Auto) 0.4 Absolute Neuts (auto) 7.1 Absolute Lymphs (auto) 4.17 Nucleated RBC % 0 Platelet Estimate ADEQUATE D-Dimer Quant (PE/DVT) 0.48 Sodium 142 Potassium 4.0 Chloride 107 Carbon Dioxide 24.6 Anion Gap 10 BUN 19 Creatinine 1.17 Estim Creat Clear Calc 62.40 Est GFR (MDRD) Non-Af 55 L BUN/Creatinine Ratio 16.4 Glucose 104 H Calcium 9.0 Troponin T High Sens 157 H* Troponin T Hi Sens 2 Hr 190 H* Critical Care Time Critical Care Time: Yes Critical care time (excluding procedures): 30-74 minutes, Discussing w/Patient &/or Family/Gravel Truck Driver, Discussing w/Consultants, Arranging Admission or Transfer, Performing Direct Patient Care at Bedside and - (40 minutes) Discharge Plan Dx/Rx/DC Orders Clinical Impression: Chest pain, SVT (supraventricular tachycardia), Elevated troponin, Palpitations Disposition Disposition: Acute Care [facility]
[2024-11-05 18:46] LABS: Platelet Estimate ADEQUATE (ADEQ)
[2024-11-05] MEDS: Aspirin 81 MG TAB.CHEW 324 MG PO (18:50)
[2024-11-05 19:09] LABS: D-Dimer Quantitative (DVT/PE) 0.48 FEU/ug/m (0.27-0.49)
[2024-11-05 20:46] LABS: Troponin T High Sens 2 HR 190 ng/L (<=14)
--- NOTE | 2024-11-05 21:29 | PCM.HP.STD ---
[facility] - General General Date of Admission: 11/05/24 Date of Service: 11/05/24 Chief Complaint: Chest Pain, Heart Racing and Palpitations. HPI Narrative SARANYA DONIS, is a 58 F with a past medical history of essential hypertension; on metoprolol, amlodipine and losartan, hyperlipidemia; on atorvastatin, chronic tobacco abuse, overweight; with BMI of 29.6 this admission, asthma; on fluticasone BID, depression; on fluoxetine and history of intermittent but frequent heart racing with palpitations for the past ~3 months; on Zio patch for 12/14 days who presents to [facility] ER complaining of chest pain, palpitations or heart racing. Ms. Donis reports her acute symptoms began around 16:30 hours while she was getting ready for dinner when she suddenly developed substernal chest pain that was moderate, burning and nonradiating and with nothing seeming to make the pain better or worse so she decided to come in for further evaluation and treatment. She denies chest pain until today. She also denies associated fever, chills, diaphoresis, lightheadedness, nausea, vomiting, abdominal pain, SOB, cough, headache, recent injury, recent illness, recent significant travel, HRT, headache or rash. In the ER she was noted to have SVT on her initial EKG @ ~132 bpm which converted back to NSR after adenosine 6 mg IV x 1 and with initial troponin T elevated at 157 pg/L with microfilm operator on-call suspected NSTEMI-II due to Acute Cardiac Strain from persistent SVT with further recommendation made to check echocardiogram in AM to evaluate LVEF. She was then given ECASA and was subsequently admitted to the PCU under observation status for a stay that is expected to be less than 2 midnights. [facility] Medical History (Updated 11/05/24 @ 22:[address] Eric Lazcano, DO) Depression High cholesterol HTN (hypertension) Home Medications ?Medication ?Instructions ?Recorded ?Last Taken ?Type atorvastatin 20 mg tablet 20 mg PO QHS cholesterol 11/05/24 11/04/24 History cholecalciferol (vitamin D3) 1,250 1,250 mcg PO QWEEK 11/05/24 11/01/24 History mcg (50,000 unit) capsule losartan 25 mg tablet 25 mg PO QHS 11/05/24 11/04/24 History metoprolol succinate 25 mg 50 mg PO DAILY 11/05/24 11/04/24 History tablet,extended release 24 hr Allergy/AdvReac Type Severity Reaction Status Date / Time sertraline (From Zoloft) AdvReac Abd Verified 11/05/24 22:58 cramps/diarrhea Social History current occupational status: employed Smoking Status: Current every day smoker tobacco type: cigarettes ROS ROS Narrative Review of Systems: Constitutional: Patient denies fever or chills. Eyes: Patient denies changes in vision or discharge from eyes. ENT: Patient denies runny nose, sore throat or ear pain. Resp: Patient denies SOB or cough. CV: Patient admits to chest pain, palpitations and heart racing as per HPI. She denies LE swlling. GI: Patient denies abdominal pain, nausea, vomiting, diarrhea or constipation. : Patient denies dysuria or hematuria. MSK: Patient denies arthralgias or myalgias. Skin: Patient denies rash, abscess, wounds or jaundice. Psych: Patient denies symptoms of uncontrolled depression or anxiety. Neuro: Patient denies headache, paresthesias or focal neurologic deficits. Allergy: Patient denies lip swelling, tongue swelling or urticaria. Hematology: Patient denies easy bleeding or easy bruisability. Endocrinology: Patient denies polyuria, polydipsia, polyphagia or heat/cold intolerance. 14 point ROS otherwise negative except for positives noted above in HPI. Vital Signs Vital Signs Vital Signs: 11/05/24 17:13 11/05/24 17:33 11/05/24 18:00 Temperature 97.4 F L Temperature Source Temporal Pulse Rate 144 H 130 H Respiratory Rate 26 H 20 H Blood Pressure 107/76 99/83 H Blood Pressure Mean 86 88 Pulse Ox 100 96 96 Oxygen Delivery Method Room Air Room Air Room Air 11/05/24 18:31 11/05/24 19:00 11/05/24 20:00 Temperature Temperature Source Pulse Rate 81 77 74 Respiratory Rate 11 L 24 H 17 Blood Pressure 120/79 133/86 H 157/93 H Blood Pressure Mean 92 99 113 Pulse Ox 97 96 97 Oxygen Delivery Method Room Air 11/05/24 21:00 Temperature Temperature Source Pulse Rate 73 Respiratory Rate 22 H Blood Pressure 152/84 H Blood Pressure Mean 106 Pulse Ox 98 Oxygen Delivery Method Weight Weight: 194 lb 7.163 oz Body Mass Index (BMI) 29.5 Physical Exam Const alert, oriented x3, no apparent distress and average body habitus General Appearance: cooperative HEENT normocephalic, head/scalp atraumatic, hearing grossly normal bilaterally and moist oral mucous membranes Eyes PERRL and EOMs intact bilaterally Neck no lymphadenopathy, supple and no JVD Resp normal respiratory effort, no retractions, no use of accessory muscles and clear to auscultation bilaterally Cardio regular rate and regular rhythm GI normal to inspection, nondistended, normoactive bowel sounds, soft to palpation, non-tender and non-distended Extremity normal to inspection, full ROM and no clubbing, cyanosis or edema Skin Skin Narrative: Patient has no evidence of rash, abscess, wounds or jaundice. Neuro oriented x3, CN's II-XII intact bilaterally, moves all extremities and no focal motor deficits Sensorium / Orientation: awake, alert, oriented to person, oriented to place and oriented to time Speech: speech normal Psych affect normal Results Medical Records Data Attestation: I reviewed the patient's medical records Lab / Micro Data Attestation: I reviewed the patient's lab results. 11/05/24 17:20 11/05/24 17:20 Labs: Laboratory Results - last 24 hr 11/05/24 17:20: WBC 12.3 H, RBC 4.31, Hgb 13.2, Hct 40.0, MCV 92.8, MCH 30.6, MCHC 33.0, RDW Std Deviation 47.2 H, RDW Coeff of Adrian 13.8, Plt Count 258, MPV 11.3, Immature Gran % (Auto) 0.200, Neut % (Auto) 57.8, Lymph % (Auto) 33.8, [place] % (Auto) 7.5, Eos % (Auto) 0.3, Baso % (Auto) 0.4, Absolute Neuts (auto) 7.1, Absolute Lymphs (auto) 4.17, Nucleated RBC % 0, Platelet Estimate ADEQUATE, D-Dimer Quant (PE/DVT) 0.48, Sodium 142, Potassium 4.0, Chloride 107, Carbon Dioxide 24.6, Anion Gap 10, BUN 19, Creatinine 1.17, Estim Creat Clear Calc 62.40, Est GFR (MDRD) Non-Af 55 L, BUN/Creatinine Ratio 16.4, Glucose 104 H, Calcium 9.0, Troponin T High Sens 157 H* 11/05/24 19:48: Troponin T Hi Sens 2 Hr 190 H* Assessment & Plan Assessment/Plan (1) SVT (supraventricular tachycardia): (2) Chest pain: QUALIFIERS: Chest pain type: unspecified Qualified Code(s): R07.9 - Chest pain, unspecified (3) Racing heart beat: (4) Palpitations: (5) Elevated troponin: (6) Tobacco abuse: (7) Overweight (BMI 25.0-29.9): (8) HTN (hypertension): QUALIFIERS: Hypertension type: primary hypertension Qualified Code(s): I10 - Essential (primary) hypertension PLAN: Plan 1. SVT on her initial EKG @ ~132 bpm which converted back to NSR after adenosine 6 mg IV x 1 - Admit to PCU under observation status. Give repeat adenosine IV for recurrent SVT and resume metoprolol as previous. Check echocardiogram to evaluate LVEF. Check TSH and UDS. Give acetaminophen prn for pain or fever. Give morphine IV prn for severe (level 6-10/10) pain. Finally, we will consult [facility] to see this patient on-rounds in the AM for further recommendations with help appreciated in advance. 2. Initial troponin T elevated at 157 pg/L with microfilm operator on-call suspecting NSTEMI-II due to Acute Cardiac Strain from persistent SVT arising from #1 - Serialized troponin with elevation to 190 ng/L and then to 254 ng/L. Continue ECASA plus maintain statin and add enoxaparin 90 mg sq x 1. Check Lipid Profile. 3. History of intermittent but frequent heart racing with palpitations for the past ~3 months; on Zio patch for 12/14 days complicating #1 & #2 - Noted with accelerating symptoms over the past ~2 weeks. 4. Chronic Tobacco Abuse compounding #1 - #3 - Tobacco Cessation will be strongly encouraged with Nicotine patch offered to control cravings. 5. Overweight; with BMI of 29.6 this admission adding to the burden of disease outlined from #1 - #4 - Weight loss will be recommended. Check TSH. Check HgbA1c. 6. Essential hypertension; on metoprolol, amlodipine and losartan - Maintain home regimen. 7. Hyperlipidemia; on atorvastatin - Resume statin and check Lipid Profile in light of #1 & #2. 8. Depression; on fluoxetine - Current therapy to continue as before. 9. DVT prophylaxis - Patient treated with full-dose Enoxaparin 90 mg sq x 1 for #1; plus SCD's. Total time: Approximately (but not less than) 85 minutes. Charges/Coding Visit Charges OBSV E&M: [id number] Observ/hosp same date L3
--- NOTE | 2024-11-05 22:31 | ECHOD_ITS ---
Reason For Study Reason For Study: ARRYTHMIA Procedure This was a 2D Doppler, Color Flow transthoracic echocardiogram. Exam performed portable in patient room. Left Ventricle Normal LV size. The estimated ejection fraction is 60 %. No evidence for diastolic dysfunction. No regional wall motion abnormalities noted. Right Ventricle Normal RV size. Normal systolic function. Atria The left and right atria are normal. No doppler evidence for ASD. Mitral Valve There is no mitral valve stenosis. Trivial mitral valve insufficiency. Tricuspid Valve There is no tricuspid stenosis. Unable to estimate RV systolic pressure due to inadequate jet, pulmonary artery pressure probably normal. Aortic Valve Trisinus/trileaflet aortic valve. There is no aortic stenosis. No aortic valve insufficiency. Pulmonic Valve There is no pulmonic valvular stenosis. No pulmonic valve insufficiency. Great Vessels Normal sized aortic root. Pericardium/Pleural Small (<1.0 cm) pericardial effusion. MMode/2D Measurements & Calculations LVIDd: 5.7 cm IVSd: 0.67 cm LVOT diam: 2.0 cm LVIDs: 4.1 cm LVPWd: 0.84 cm LVOT area: 3.1 cm2 RVDd: 3.2 cm FS: 28.5 % Ao root diam: 3.2 cm LAV(MOD-bp): 42.1 ml LVAd ap4: 23.7 cm2 LAV(MOD-bp) Indexed: 20.9 ml/m2 LVLd ap4: 7.1 cm LAV(MOD-sp2): 35.5 ml EDV(MOD-sp4): 68.7 ml LAV(MOD-sp4): 41.3 ml EDV(sp4-el): 67.0 ml LVAs ap4: 14.4 cm2 LVLs ap4: 5.8 cm ESV(MOD-sp4): 32.0 ml ESV(sp4-el): 30.4 ml EF(MOD-sp4): 53.4 % EF(sp4-el): 54.6 % SV(MOD-sp4): 36.7 ml SV(sp4-el): 36.6 ml LA A4 area: 15.4 cm2 SI(MOD-sp4): 18.2 ml/m2 LA dimension(2D): 3.1 cm RA A4 area: 9.2 cm2 Time Measurements MV dec time: 0.22 sec Doppler Measurements & Calculations MV E max marcus: 68.8 cm/sec Lat Peak E' Marcus: 7.5 cm/sec Med Peak E' Marcus: 5.4 cm/sec MV A max marcus: 78.0 cm/sec E/E' lat: 9.1 E/E' med: 12.8 MV E/A: 0.88 MV V2 max: 83.6 cm/sec Ao V2 max: 103.4 cm/sec MV max P.8 mmHg MV dec slope: 334.4 cm/sec2 Ao max P.3 mmHg MV V2 mean: 51.9 cm/sec Ao V2 mean: 72.7 cm/sec MV mean P.2 mmHg Ao mean P.4 mmHg MV V2 VTI: 23.3 cm Ao V2 VTI: 25.7 cm AV (velocity ratio): 0.83 MVA(VTI): 2.9 cm2 ALEXX(I,D): 2.6 cm2 ALEXX(V,D): 2.7 cm2 LV V1 max: 87.7 cm/sec SV(LVOT): 67.2 ml PA V2 max: 60.0 cm/sec LV V1 max P.1 mmHg PA V2 mean: 45.7 cm/sec LV V1 mean P.8 mmHg LV V1 mean: 63.5 cm/sec LV V1 VTI: 21.4 cm ECHO/Echo Complete Interpretation Summary The estimated ejection fraction is 60 %. No evidence for diastolic dysfunction. Trivial mitral valve insufficiency. Small (<1.0 cm) pericardial effusion. Ordering Physician: Stefan Armstrong Referring Physician: SHASTA ALTAMIRANO Performed By: Maren Garnett RCS
[2024-11-05 22:39] LABS: Troponin T High Sens 4 HR 254 ng/L (<=14)
[2024-11-05 22:41] LABS: Magnesium 1.8 mg/dL (1.5-2.2)
[2024-11-05 23:28] LABS: Hemoglobin A1c 5.9 % (<=5.6)
[2024-11-05] MEDS: 0.9% Normal Saline (1000mL) 1,000 ML 70 ML IV (23:33)
[2024-11-05] MEDS: Enoxaparin 100 MG/ML Syringe 90 MG SC (23:47)
[2024-11-05] MEDS: Losartan Potassium 25 MG Tablet PO (23:48)
[2024-11-05] MEDS: Atorvastatin Calcium 20 MG Tablet PO (23:48)
[2024-11-06] VITALS (8 sets, daily range): BP systolic 138–154; BP diastolic 84–95; PULSE 63–115; RESP 16–17; TEMP 36.5–36.9; O2SAT 94–97; BMI 30.5
[2024-11-06] MEDS: Metoprolol(XL)Succ 50 MG Tablet PO ×2 (00:19→10:18)
[2024-11-06 04:55] LABS: Absolute Lymphocyte Count 2.86 X10^3/uL (0.83-4.51); Absolute Neutrophil Count 7.3 X10^3/uL (2.0-7.7); Basophil# 0.01 X10^3/uL; Basophil% 0.1 % (0-1); Eosinophil# 0.05 X10^3/uL; Eosinophils% 0.5 % (0-5); Hematocrit 36.8 % (37-47); Lymphocyte # 2.86 X10^3/ul (0.83-4.51); Mean Corp Hgb Conc 32.6 g/dL (32-36); Mean Corpuscular Hgb 29.7 pg (27.0-32.0); Mean Corpuscular Volume 91.1 fL (81-99); Mean Platelet Vol. 11.1 fl (6.2-12.0); Monocyte# 0.75 X10^3/uL; Monocyte% 6.8 % (0-10); NRBC Flagged by Analyzer 0 % (0-5); Neutrophil # 7.29 X10^3/uL (2.7-7.7); Neutrophil % 66.2 % (47-70); Platelet Count 190 K/mm3 (150-450); RBC Distribution Width CV 13.6 % (11.6-14.6); RBC Distribution Width SD 46.1 fl (35.1-43.9); Red Blood Count 4.04 M/mm3 (4.2-5.4)
[2024-11-06] MEDS: Aspirin 325 MG Tablet PO (05:14)
[2024-11-06 05:33] LABS: ALB/GLOB Ratio 1.5 RATIO (0.9-2.4); AST(SGOT) 26 U/L (<=31); Alanine Aminotransfer ALT/SGPT 9 U/L (<=34); Albumin, Serum 3.3 g/dL (3.5-5.0); Alkaline Phosphatase 76 U/L (35-104); Anion Gap 9 (5-15); BUN 15 mg/dL (4-19); BUN/Creat Ratio 15.9 RATIO (10-20); Calcium,Total 8.1 mg/dL (7.6-11.0); Carbon Dioxide 20.8 mmol/L (21.0-32.0); Chloride 112 mmol/L (98-108); Cholesterol 105 mg/dL (<=200); Creatinine, Serum 0.91 mg/dL (0.70-1.20); EST Glomerular Filtration Rate 74 (>60); Estimated Creatinine Clearance 78.77 ml/min (50-250); Globulin 2.3 g/dL (2.2-4.2); Glucose 86 mg/dL (70-99); High Density Lipoprotein 29 mg/dL; Low Density Lipoprotein Calc. 52 mg/dL; Phosphorus 3.5 mg/dL (2.7-4.5); Potassium 3.9 mmol/L (3.3-5.1); Protein, Total 5.6 g/dL (5.9-8.4); Sodium Level 142 mmol/L (133-145); Total Bilirubin 0.24 mg/dL (0.00-1.30); Triglycerides 117 mg/dL; Very Low Density Lipoprotein 23 mg/dL (5-40); cholesterol:hdl ratio screen 3.57
[2024-11-06 05:37] LABS: Troponin T High Sens 4 HR 455 ng/L (<=14)
--- NOTE | 2024-11-06 05:55 | EKG12_ITS ---
Test Reason : AM EKG Blood Pressure : */* mmHG Vent. Rate : 72 BPM Atrial Rate : 72 BPM P-R Int : 164 ms QRS Dur : 82 ms QT Int : 424 ms P-R-T Axes : 72 75 97 degrees QTcB Int : 464 ms Normal sinus rhythm Normal ECG When compared with ECG of 05-Nov-2024 18:35, MANUAL COMPARISON REQUIRED DATA IS UNCONFIRMED Confirmed by ANDREW FITZGERALD, ELYSIA ([id number]), editor in chief newspaper CAMILA ARGUETA ([id number]) on 11/11/2024 6:57:27 AM Referred By: Confirmed By: ELYSIA MORALES MD
--- NOTE | 2024-11-06 07:16 | PCM.CONS.C ---
Assessment & Plan Assessment/Plan (1) SVT (supraventricular tachycardia): PLAN: She presents with a narrow complex tachycardia which is deemed to be a supraventricular tachycardia likely short RP tachycardia. I suspect the above will be amenable to ablation I have discussed with her about arranging for her to get this ablated as an outpatient. In the meantime she will continue on the beta-kristina with Toprol XL 50 mg a day Obtain an echocardiogram to assess her ventricular function. (2) Elevated troponin: PLAN: Her elevated troponin is likely secondary to demand ischemia with her persistent tachycardia. Will review the results of the echocardiogram and depending on those findings further recommendations will be made. (3) HTN (hypertension): QUALIFIERS: Hypertension type: primary hypertension Qualified Code(s): I10 - Essential (primary) hypertension PLAN: Her blood pressure is elevated at this time. My recommendation will be to continue with the losartan, obtain an echocardiogram and the beta-kristina. HPI Consult Data Date of Consult: 11/06/24 HPI Narrative HPI Narrative: SARANYA BERMUDEZ, is a 58 F who presents to the emergency room wearing a Zio patch who says that she has been having palpitations over the last 3 months or so. It comes and goes. Occasionally it has some chest burning with it. She had seen her primary care physician and they have put the above device on her. She presented to the emergency room and emergency room physician called me with concerns about her rhythm. Initially they thought it was a sinus tachycardia and on faxing the EKGs to me it was very suggestive of a supraventricular tachycardia, 6 mg of adenosine was given and the patient broke into sinus rhythm and is feeling much better. She says that she does not have any palpitations or chest discomfort anymore. She denies any neck arm or jaw discomfort suggest angina she has had no dizziness or diaphoresis near syncope or syncope. [facility] Medical History Depression High cholesterol HTN (hypertension) Home Medications ?Medication ?Instructions ?Recorded ?Last Taken ?Type atorvastatin 20 mg tablet 20 mg PO QHS cholesterol 11/05/24 11/04/24 History cholecalciferol (vitamin D3) 1,250 1,250 mcg PO QWEEK 11/05/24 11/01/24 History mcg (50,000 unit) capsule losartan 25 mg tablet 25 mg PO QHS 11/05/24 11/04/24 History metoprolol succinate 25 mg 50 mg PO DAILY 11/05/24 11/04/24 History tablet,extended release 24 hr Allergy/AdvReac Type Severity Reaction Status Date / Time sertraline (From Zoloft) AdvReac Abd Verified 11/05/24 22:58 cramps/diarrhea Social History current occupational status: employed Smoking Status: Current every day smoker tobacco type: cigarettes ROS Constitutional Constitutional: Denies fever(s) or weight loss Eyes Eyes: Reports systems reviewed and no addt'l complaints, except as documented ENT HEENT: Reports systems reviewed and no addt'l complaints, except as documented Cardiovascular Cardiovascular: Reports palpitations; Denies chest pain at rest, chest pain with activity, dyspnea at rest, dyspnea on exertion, edema or paroxysmal nocturnal dyspnea Respiratory/Chest Respiratory/Chest: Denies dyspnea on exertion, productive cough, shortness of breath at rest or shortness of breath with exertion Gastrointestinal Gastrointestinal: Denies change in bowel habits, nausea, vomiting or weight changes Genitourinary Genitourinary: Denies difficulty urinating Musculoskeletal Musculoskeletal: Denies joint stiffness or muscle weakness Integumentary Integumentary: Denies lesions Neurologic Neurologic: Denies dizziness or syncope Psychiatric Psychiatric: Denies anxiety Endocrine Endocrinology: Denies excessive sweating or fatigue Hematologic/Lymphatic Hematologic/Lymphatic: Denies anemia Allergic/Immunologic Allergic/Immunologic: Denies seasonal rhinorrhea Physical Exam Const alert, oriented x3 and no apparent distress General Appearance: cooperative HEENT hearing grossly normal bilaterally Head and Scalp: atraumatic Eyes EOMs intact bilaterally Neck General: normal visual inspection Chest inspection of chest normal and palpation of chest normal Resp normal respiratory effort Auscultation: clear to auscultation bilaterally Cardio regular rate, regular rhythm, S1 normal heart sound and S2 normal heart sound Jugular Venous Distention: JVD GI normal to inspection, nondistended, normoactive bowel sounds Extremity normal capillary refill and no pedal edema Peripheral Pulses: Yes pulses 2+ throughout and femoral pulses present Skin no rashes or lesions noted Neuro oriented x3 and CN's II-XII intact bilaterally Psych Appearance: grossly normal and appropriate Risk Stratification Risk Stratification Applicable: No Objective Data Vital Signs: Vital Signs Temp Pulse Resp BP Pulse Ox O2 Del Method 97.9 F 70 16 139/84 H 97 Room Air 11/06/24 04:20 11/06/24 04:20 11/06/24 04:20 11/06/24 04:20 11/06/24 05:45 11/06/24 05:45 Oxygen Delivery Method Room Air Weight: 195 lb 1.745 oz Body Mass Index (BMI) 30.5 Intake & Output: Intake and Output for Last 24 Hours 11/04/24 11/05/24 11/06/24 23:59 23:59 23:59 Intake Total 500 / 500 Balance 500 / 500 Lab / Micro Data 11/06/24 04:40 11/06/24 04:40 Labs: Laboratory Results - last 24 hr 11/05/24 17:20: WBC 12.3 H, RBC 4.31, Hgb 13.2, Hct 40.0, MCV 92.8, MCH 30.6, MCHC 33.0, RDW Std Deviation 47.2 H, RDW Coeff of Adrian 13.8, Plt Count 258, MPV 11.3, Immature Gran % (Auto) 0.200, Neut % (Auto) 57.8, Lymph % (Auto) 33.8, [place] % (Auto) 7.5, Eos % (Auto) 0.3, Baso % (Auto) 0.4, Absolute Neuts (auto) 7.1, Absolute Lymphs (auto) 4.17, Nucleated RBC % 0, Platelet Estimate ADEQUATE, D-Dimer Quant (PE/DVT) 0.48, Sodium 142, Potassium 4.0, Chloride 107, Carbon Dioxide 24.6, Anion Gap 10, BUN 19, Creatinine 1.17, Estim Creat Clear Calc 62.40, Est GFR (MDRD) Non-Af 55 L, BUN/Creatinine Ratio 16.4, Glucose 104 H, Calcium 9.0, Magnesium 1.8, Troponin T High Sens 157 H* 11/05/24 19:48: Troponin T Hi Sens 2 Hr 190 H* 11/05/24 21:50: Hemoglobin A1c 5.9 H, Troponin T Hi Sens 4Hr 254 H*, TSH 2.070 11/06/24 04:40: WBC 11.0, RBC 4.04 L, Hgb 12.0, Hct 36.8 L, MCV 91.1, MCH 29.7, MCHC 32.6, RDW Std Deviation 46.1 H, RDW Coeff of Adrian 13.6, Plt Count 190, MPV 11.1, Immature Gran % (Auto) 0.400, Neut % (Auto) 66.2, Lymph % (Auto) 26.0, [place] % (Auto) 6.8, Eos % (Auto) 0.5, Baso % (Auto) 0.1, Absolute Neuts (auto) 7.3, Absolute Lymphs (auto) 2.86, Nucleated RBC % 0, Sodium 142, Potassium 3.9, Chloride 112 H, Carbon Dioxide 20.8 L, Anion Gap 9, BUN 15, Creatinine 0.91, Estim Creat Clear Calc 78.77, Est GFR (MDRD) Non-Af 74, BUN/Creatinine Ratio 15.9, Glucose 86, Calcium 8.1, Phosphorus 3.5, Total Bilirubin 0.24, AST 26, ALT 9, Alkaline Phosphatase 76, Troponin T Hi Sens 4Hr 455 H*, Total Protein 5.6 L, Albumin 3.3 L, Globulin 2.3, Albumin/Globulin Ratio 1.5, Triglycerides 117, Cholesterol 105, LDL Cholesterol, Calc 52, VLDL Cholesterol 23, HDL Cholesterol 29 L, Cholesterol/HDL Ratio 3.57 Cardiology Labs/Tests 11/05/24 17:20: WBC 12.3 H, RBC 4.31, Hgb 13.2, Hct 40.0, MCV 92.8, MCH 30.6, MCHC 33.0, Plt Count 258, MPV 11.3, Immature Gran % (Auto) 0.200, Neut % (Auto) 57.8, Lymph % (Auto) 33.8, [place] % (Auto) 7.5, Eos % (Auto) 0.3, Baso % (Auto) 0.4, Absolute Neuts (auto) 7.1, Nucleated RBC % 0, D-Dimer Quant (PE/DVT) 0.48, Sodium 142, Potassium 4.0, Chloride 107, Carbon Dioxide 24.6, Anion Gap 10, BUN 19, Creatinine 1.17, Est GFR (MDRD) Non-Af 55 L, BUN/Creatinine Ratio 16.4, Glucose 104 H, Calcium 9.0, Magnesium 1.8 11/05/24 21:50: Hemoglobin A1c 5.9 H 11/06/24 04:40: WBC 11.0, RBC 4.04 L, Hgb 12.0, Hct 36.8 L, MCV 91.1, MCH 29.7, MCHC 32.6, Plt Count 190, MPV 11.1, Immature Gran % (Auto) 0.400, Neut % (Auto) 66.2, Lymph % (Auto) 26.0, [place] % (Auto) 6.8, Eos % (Auto) 0.5, Baso % (Auto) 0.1, Absolute Neuts (auto) 7.3, Nucleated RBC % 0, Sodium 142, Potassium 3.9, Chloride 112 H, Carbon Dioxide 20.8 L, Anion Gap 9, BUN 15, Creatinine 0.91, Est GFR (MDRD) Non-Af 74, BUN/Creatinine Ratio 15.9, Glucose 86, Calcium 8.1, Phosphorus 3.5, Total Bilirubin 0.24, Triglycerides 117, Cholesterol 105, VLDL Cholesterol 23, HDL Cholesterol 29 L, Cholesterol/HDL Ratio 3.57 Rhythm: EKG: ECHO: Stress Test: Cardiac Cath: PCI: CT Surgery: Holter monitor: EPS: PPM: CXR: Chest CT Scan: Radiography Diagnostic Testing: Radiology Impression Chest X-Ray 11/05/24 17:30 IMPRESSION: No Acute Findings. Reading Location: [place] [id number]
[2024-11-06 07:48] LABS: Bacteria 0 SEEN /hpf (None Seen); Mucous, Urine 0 SEEN /hpf (<or=2+); Red Blood Cells-Urine 0 SEEN /hpf (0-5); White Blood Cells 0 SEEN /hpf (0-5)
[2024-11-06 07:54] LABS: Troponin T High Sens 4 HR 518 ng/L (<=14)
[2024-11-06 08:53] LABS: Color, Urine Yellow (Yellow); Glucose, Dipstick Normal (Normal); Ketone-Dipstick Negative (Negative); Leukocyte Esterase-Dipstick Negative /ul (Negative); Nitrite-Dipstick Negative (Negative); Occult Blood-Urine 10 /ul (Negative); Protein-Dipstick 15 mg/dl (Negative); Urine Bilirubin Dipstick Negative (Negative); Urine Clarity Clear (Clear); Urine Urobilinogen Normal (Normal)
[2024-11-06 09:11] LABS: Squamous Epithelial Cells - UA 0-5 SEEN /hpf (5-10)
[2024-11-06] MEDS: 0.9% Saline Lock 10 ML Syringe IV (14:05)
--- NOTE | 2024-11-06 14:39 | CASEMGMT ---
SW spoke with Aisha from [employer] and she is over income for Medicaid. SW met with patient as she does not have insurance. SW introduced self and role at [facility]. Patient has a primary care doctor at [facility] and utilizes their financial assistance program. Patient has been okay with paying for scripts as she has only been on a couple of medications. SW provided patient with information on [employer], [employer], and a list of prescription assistance programs. Patient was appreciative. Khushbu BRITO
--- NOTE | 2024-11-06 16:16 | DS.PCM_ITS ---
Providers Date of Admission: 11/05/24 Date of Discharge: 11/06/24 Primary Care Physician: Dr. Bucky Walters MD Consultations 11/05/24 22:31 Consult: Cardiology Routine Consulting Provider: [facility] Reason for Consult: SVT, Chest Pain, Palpitations, Heart Racing and Elevated Troponin. EMERGENT Consult: No MD Notified: Yes Date Notified: 11/05/24 Time Notified: 22:02 Method of Notification: ED Physician Initiated Reason For Visit: SVT, CHEST PAIN, PALPATATIONS, HEART RACING Diagnosis Discharge Diagnosis (1) SVT (supraventricular tachycardia): Status: Acute Code(s): I47.10 - Supraventricular tachycardia, unspecified (2) Elevated troponin: Status: Acute Code(s): R79.89 - Other specified abnormal findings of blood chemistry (3) HTN (hypertension): Status: Chronic Code(s): I10 - Essential (primary) hypertension Qualifiers: Hypertension type: primary hypertension Qualified Code(s): I10 - Essential (primary) hypertension Medications at Discharge Home Medications atorvastatin 20 mg tablet 20 mg PO QHS cholesterol 11/05/24 cholecalciferol (vitamin D3) 1,250 mcg (50,000 unit) capsule 1,250 mcg PO QWEEK 11/05/24 losartan 25 mg tablet 25 mg PO QHS 11/05/24 metoprolol succinate 25 mg tablet,extended release 24 hr 50 mg PO DAILY 11/05/24 Hospital Course Operations None Procedures 2-D Echocardiogram, Cardioversion and - (CXR) Summary of Care Provided Minutes Spent on Discharge: 33 Hospital Course: Ms. Donis is a 58-year-old white female who presented to the emergency department at [facility] on 11/05/2024 with chief complaint of chest pain. Patient reported substernal chest pain at about 4:30 PM while she was getting dinner ready. She had no pain that radiated and no associated nausea or shortness of breath. Patient reported that she been having palpitations with a racing heart symptoms for about 3 months prior to presentation. She denied any lightheadedness. She never had chest pains associated with it until on the day of presentation. She does smoke and her mother had an OR in her 40s. She also has hypertension hyperlipidemia. She had a stress test about 10 years ago but no history of cardiac catheterization. She has a chronic cough associated with her tobacco abuse but nothing acute. Vital signs on presentation showed a temperature of 97.4, heart rate was 144, respiratory was 26, blood pressure was 107/76, pulse ox was 100% on room air. CBC showed a mild leukocytosis but was otherwise unremarkable. Initial troponin was 157 with a delta troponin of 190. Chemistry panel showed normal renal function, normal electrolytes and a blood glucose of 104. Due to her tachycardia she was given adenosine in the emergency department 6 mg IV push x 1 dose which converted her back into normal sinus rhythm. On-call supervisor home energy consultant suspected type II NSTEMI due to demand ischemia from persistent SVT and it was recommended she be admitted for echocardiogram and evaluation. She was admitted to telemetry and cardiology was consulted. She is on chronic metoprolol and losartan for her blood pressure at home. Echocardiogram was performed and showed an EF of 60% with no evidence of diastolic dysfunction and a small pericardial effusion. Case was discussed further with cardiology and the overall plan is to continue her outpatient beta-kristina and have her follow-up with cardiology for consideration of ablation for SVT. She has been instructed to come back to the emergency department if she has recurrent symptoms. No new prescriptions were given at the time of discharge and I have asked her to call the supervisor home energy consultant office on Sunday if they do not call her tomorrow to assist with outpatient follow-up for SVT ablation with EP. Patient discharged home in stable condition on 11/06/2024. Discharge diagnoses: Chest pain secondary to SVT Trope elevation secondary to demand ischemia from SVT Small pericardial effusion Essential hypertension Hyperlipidemia Tobacco abuse Obesity Physical Exam Const alert, oriented x3, no apparent distress, no limitations and well nourished; Negative for average body habitus or healthy appearing Constitutional Narrative: Obese, middle-aged, white female, appears older than stated age, sitting up in bed watching television, appears comfortable, nontoxic General Appearance: cooperative, comfortable, well kempt and well developed Exam Limitations: no limitations Nutritional Appearance: obese HEENT normocephalic, head/scalp atraumatic and moist oral mucous membranes HEENT Narrative: Edentulous, Mallampati 3, no thrush Neck supple Neck Narrative: Neck is short thick, trachea midline Resp normal respiratory effort, no retractions, no use of accessory muscles and No clear to auscultation bilaterally Resp Narrative: Few scattered end expiratory wheezes with no rales or rhonchi Cardio regular rate, regular rhythm, S1 normal heart sound, S2 normal heart sound, no murmurs, no rub, no gallops and no clicks GI normal to inspection, nondistended, normoactive bowel sounds, soft to palpation and non-tender Extremity no clubbing, cyanosis or edema Extremity Narrative: Pedal and radial pulses are 2+ Neuro oriented x3, moves all extremities and no focal motor deficits Speech: speech normal Psych affect normal Psych Narrative: Very pleasant, interacts appropriately Weight / BMI Weight Weight: 88.5 kg Body Mass Index (BMI) 30.5 ABG / Lab / Microbiology Data 11/06/24 04:40 11/06/24 04:40 Laboratory: Laboratory Results - last 24 hr 11/05/24 17:20: WBC 12.3 H, RBC 4.31, Hgb 13.2, Hct 40.0, MCV 92.8, MCH 30.6, MCHC 33.0, RDW Std Deviation 47.2 H, RDW Coeff of Adrian 13.8, Plt Count 258, MPV 11.3, Immature Gran % (Auto) 0.200, Neut % (Auto) 57.8, Lymph % (Auto) 33.8, [place] % (Auto) 7.5, Eos % (Auto) 0.3, Baso % (Auto) 0.4, Absolute Neuts (auto) 7.1, Absolute Lymphs (auto) 4.17, Nucleated RBC % 0, Platelet Estimate ADEQUATE, D-Dimer Quant (PE/DVT) 0.48, Sodium 142, Potassium 4.0, Chloride 107, Carbon Dioxide 24.6, Anion Gap 10, BUN 19, Creatinine 1.17, Estim Creat Clear Calc 62.40, Est GFR (MDRD) Non-Af 55 L, BUN/Creatinine Ratio 16.4, Glucose 104 H, Calcium 9.0, Magnesium 1.8, Troponin T High Sens 157 H* 11/05/24 19:48: Troponin T Hi Sens 2 Hr 190 H* 11/05/24 21:50: Hemoglobin A1c 5.9 H, Troponin T Hi Sens 4Hr 254 H*, TSH 2.070 11/06/24 04:40: WBC 11.0, RBC 4.04 L, Hgb 12.0, Hct 36.8 L, MCV 91.1, MCH 29.7, MCHC 32.6, RDW Std Deviation 46.1 H, RDW Coeff of Adrian 13.6, Plt Count 190, MPV 11.1, Immature Gran % (Auto) 0.400, Neut % (Auto) 66.2, Lymph % (Auto) 26.0, [place] % (Auto) 6.8, Eos % (Auto) 0.5, Baso % (Auto) 0.1, Absolute Neuts (auto) 7.3, Absolute Lymphs (auto) 2.86, Nucleated RBC % 0, Sodium 142, Potassium 3.9, Chloride 112 H, Carbon Dioxide 20.8 L, Anion Gap 9, BUN 15, Creatinine 0.91, Estim Creat Clear Calc 78.77, Est GFR (MDRD) Non-Af 74, BUN/Creatinine Ratio 15.9, Glucose 86, Calcium 8.1, Phosphorus 3.5, Total Bilirubin 0.24, AST 26, ALT 9, Alkaline Phosphatase 76, Troponin T Hi Sens 4Hr 455 H*, Total Protein 5.6 L, Albumin 3.3 L, Globulin 2.3, Albumin/Globulin Ratio 1.5, Triglycerides 117, Cholesterol 105, LDL Cholesterol, Calc 52, VLDL Cholesterol 23, HDL Cholesterol 29 L, Cholesterol/HDL Ratio 3.57 11/06/24 06:45: Troponin T Hi Sens 4Hr 518 H* 11/06/24 07:15: Urine Color Yellow, Urine Clarity Clear, Urine pH 6.0, Ur Specific [place] 1.010, Urine Protein 15 H, Urine Glucose (UA) Normal, Urine Ketones Negative, Urine Occult Blood 10 H, Urine Nitrite Negative, Urine Bilirubin Negative, Urine Urobilinogen Normal, Ur Leukocyte Esterase Negative, Urine RBC 0 SEEN, Urine WBC 0 SEEN, Ur Squamous Epith Cells 0-5 SEEN, Urine Bacteria 0 SEEN, Urine Mucus 0 SEEN Radiography Diagnostic Testing: Radiology Impression Chest X-Ray 11/05/24 17:30 IMPRESSION: No Acute Findings. Reading Location: [id number] Echocardiogram 11/05/24 22:31 Interpretation Summary The estimated ejection fraction is 60 %. No evidence for diastolic dysfunction. Trivial mitral valve insufficiency. Small (<1.0 cm) pericardial effusion. Ordering Physician: Stefan Armstrong Referring Physician: SHASTA ALTAMIRANO Performed By: Maren Garnett RCS D/C Instructions Discharge Diet: Low fat / Low cholesterol Discharge Activity: Return to Normal Activity Return to work on: 11/07/24 DC O2, CPAP, BIPAP Needs Home O2 Discharge instructions: No Meaningful Use Info Meaningful Use Meaningful Use Diagnoses (Choose all that apply): None applicable Ischemic Stroke Statin Dosing Therapy Reference: STATIN DOSE THERAPY REFERENCE: * Patients > 75 years receive moderate or high dose statin therapy. * Patients 75 years or YOUNGER should receive HIGH intensity statin dose unless contraindicated. You will be required to document reason for non-treatment if statin daily dose does not meet guidelines. HIGH DOSE STATIN THERAPY DAILY Atorvastatin > than or = to 40 mg Rosuvastatin > than or = to 20 mg Amlodipine + Atorvastatin > than or = to 2.5/40 mg Ezetimibe + Simvastatin 10/80 mg Simvastatin 80mg Discharge Plan Admission Admit Date/Time: 11/05/24 21:59 Primary Reason for Your Visit: palpitations Attending Provider: Glenny Moore Primary Care Provider: Bucky Walters Consulting Providers: Daria Jacques; Dereje Holguin; Ching San; Jonathan Smith; Micah Stahl; Jones Coburn; Bette Maier; Travis Montanez; Pablo Samano; Jonah Justice; Angel Hu; Jelani Abdi NP; Lorrie Dawkins; Jacob Pope; Stefan Armstrong Instructions Additional Instructions / Restrictions: 1. Continue all medications as noted below and you should hear from the Administrative Services Officer's office to set up ablation. If you don't hear from them tomorrow, call office on Sunday. Discharge Orders/Prescriptions Prescriptions: Continued atorvastatin 20 mg tablet 20 mg PO QHS losartan 25 mg tablet 25 mg PO QHS metoprolol succinate 25 mg tablet extended release 24 hr 50 mg PO DAILY cholecalciferol (vitamin D3) 1,250 mcg (50,000 unit) capsule 1,250 mcg PO QWEEK Referrals / Follow Up: Bucky Walters MD [Primary Care Provider] - Within 1 Week Jones Coburn MD [Med Staff - Active Staff] - Within 1 Week Disposition Disposition (needs filled in before D/C Order can be placed): Home, Self Care Charges/Coding Visit Charges Inpatient E&M: 13390 Disch Hosp
[2024-11-06 23:45] LABS: Amphetamine Urine NEGATIVE (<1000 ng/mL); Barbiturate Urine NEGATIVE (< 200 ng/mL); Benzodiazepine Urine NEGATIVE (< 200 ng/mL); Buprenorphine Urine NEGATIVE (< 200 ng/mL); Cocaine Urine NEGATIVE (< 300 ng/mL); Fentanyl, Urine NEGATIVE; Methadone Urine NEGATIVE (< 300 ng/mL); Opiates Urine NEGATIVE (< 300 ng/mL); Oxycodone, Urine NEGATIVE (< 100 ng/mL); PCP Urine NEGATIVE (< 25 ng/mL); THC Urine NEGATIVE (< 50 ng/mL)
== END 2024-11-06 16:23 | disposition home or self-care (01) ==
LOC: ED 19:42 → PCU 22:26
PROVIDERS: Admitting Provider Internal Medicine; Emergency Provider Emergency Medicine; PCP Family Medicine; Visit Provider Internal Medicine
DX: I47.10 Supraventricular tachycardia, unspecified (principal); J41.0 Simple chronic bronchitis; I24.89 Other forms of acute ischemic heart disease; E78.00 Pure hypercholesterolemia, unspecified; R79.89 Other specified abnormal findings of blood chemistry; Z68.29 Body mass index [BMI] 29.0-29.9, adult; I10 Essential (primary) hypertension; J45.909 Unspecified asthma, uncomplicated; E78.5 Hyperlipidemia, unspecified; E66.9 Obesity, unspecified; F32.A Depression, unspecified; F17.210 Nicotine dependence, cigarettes, uncomplicated; Z79.899 Other long term (current) drug therapy; Z82.49 Family history of ischemic heart disease and other diseases of the circulatory system
CPT/HCPCS: 36415; 71045; 80048; 80053; 80061; 80307; 81001; 83036; 83735; 84100; 84443; 84484; 85025; 85379; 93005; 93306; 94668; 96372; 96374; 97802; 99221; 99285; 99406; A4216; G0378; J0153

== ENCOUNTER 2025-01-06 16:41 | Observation (INO) | payer SELFPAY ==
[2025-01-06 07:53] LABS: Hematocrit 40.0 % (37-47); Hemoglobin 13.2 g/dL (12.0-15.0); Immature Granulocytes Count 0.030 X10^3/uL (0.0-0.0); Mean Corp Hgb Conc 33.0 g/dL (32-36); Mean Corpuscular Volume 91.7 fL (81-99); Mean Platelet Vol. 10.4 fl (6.2-12.0); NRBC Flagged by Analyzer 0 % (0-5); Platelet Count 222 K/mm3 (150-450); RBC Distribution Width CV 14.3 % (11.6-14.6); RBC Distribution Width SD 48.8 fl (35.1-43.9); Red Blood Count 4.36 M/mm3 (4.2-5.4); White Blood Count 8.8 K/mm3 (4.4-11.0)
--- OUTSIDE RECORDS SUMMARY | 2025-01-06 08:05 | XMS RPT_ITS | CCD ---
Author Organization [facility] Care Team Providers Care Powerhouse Tender Name Role Phone Shasta Walters MD Primary Care Provider SELF Referring Unavailable SHASTA WALTERS Primary Care Unavailab Shasta Hale MD Primary Care Provider Podlogar DERRICK BOAT LEVERMAN.MEMBER SERVICES COORDINATOR, Marilou Unavailable Knoble DERRICK BOAT LEVERMAN.MEMBER SERVICES COORDINATOR, Angelita Unavailable Dr. Bucky Walters MD Primary Care Provider Dr. Eric Lazcano DO Emergency Provider Armstrong DO, Dr. Aviles Admit Provider Unavail able Dr. Stefan Armstrong DO Attending Provider Unav saloniable Georgie FITZGERALD, Dr. Huff Other Provider Unavailable Chelsie FITZGERALD, Dr. Reyez Other Provider [phone] Ching San MD Other Provider Dr. Jonathan Smith MD Other Provider Maribeth FITZGERALD, Dr. Obrien Other Provider Unavailable Almas FITZGERALD, Dr. Goldman Other Provider Darrion FITZGERALD, Dr. Amos Other Provider Dr. Travis Montanez MD Other Provider Selwyn FITZGERALD, Dr. Shah Other Provider Vinh FITZGERALD, Dr. Mckenzie Other Provider Fritz FITZGERALD, Dr. Ortiz Other Provider Trinidad POLYMERIZATION ENGINEER-C, Jelani Davis Other Provider Lorrie Lamb Other Provider Jacob Clifford Other Provider Dr. Stefan Armstrong DO Other Provider Unavail able Oscar THORNTON, Dr. Murrieta Attending Provider Selwyn FITZGERALD, Dr. Shah Attending Provider Dr. Glenny Moore DO Other Provider Selena FITZGERALD, Dr. Lawler Referring Provider [phone] Lorrie Lamb Attending Provider Liana DERRICK BOAT LEVERMAN.MEMBER SERVICES COORDINATOR, Angelita Unavailable Liana DERRICK BOAT LEVERMAN.MEMBER SERVICES COORDINATOR, Angelita Unavailable SHASTA WALTERS Primary Care Unavailab le GEORGIA WHITE Referring Unavailable SHASTA WALTERS Primary Care Unavailab le SHASTA WALTERS Referring Unavailab le SHASTA WALTERS Primary Care Unavailab le SHASTA WALTERS Referring Unavailab le SHASTA WALTERS Primary Care Unavailab le SHASTA WALTERS Referring Unavailab le SHASTA WALTERS Primary Care Unavailab VALERIE Joseph Referring Unavailable SHASTA WALTERS Primary Care Unavailab le VALERIE CANTU Referring Unavailable SHASTA WALTERS Primary Care Unavailab le SELF Referring Unavailable SHASTA WALTERS Attending Unavailab le SHASTA WALTERS Primary Care Unavailab le SHASTA WALTERS Referring Unavailab le SHASTA WALTERS Primary Care Unavailab le JACINDA WALTERSER Dory Primary Care Unavailab le SELF Referring Unavailable SHASTA WALTERS Attending Unavailab le SHASTA WALTERS Primary Care Unavailab CELESTE Perez Attending Unavailable SHASTA WALTERS Primary Care Unavailab le PODLOGARMARILOU Referring Unavailable SHASTA WALTERS Primary Care Unavailab le PODLOGAR, MARILOU Referring Unavailable VALERIE CANTU Attending Unavailable SHASTA WALTERS Primary Care Unavailab le PODLOGARMARILOU Referring Unavailable BURSLEY, CHRISTOPHER B Primary Care Unavailab le HARPSTER, [place] Referring Unavailable SHASTA WALTERS Primary Care Unavailab le PODLOGAR, MARILOU Attending Unavailable SHASTA WALTERS Primary Care Unavailab le PODLOGAR, MARILOU Attending Unavailable SHASTA WALTERS Primary Care Unavailab le VALERIE CANTU Referring Unavailable VALERIE CANTU Attending Unavailable SELF Referring Unavailable JACINDA WALTERSER B Primary Care Unavailab le SHASTA WALTERS Attending Unavailab le SELENA, JACINDAER B Primary Care Unavailab le PODLOGAR, MARILOU Referring Unavailable HARPSTER, GEOR[place]IA Attending Unavailable Darrion FITZGERALD, Dr. Amos Other Provider Ar POLYMERIZATION ENGINEER-C, Reena Attending Provider Bucky Walters Referring Unavailable Selena, Bucky Primary Care Unavailable Ar RUIZ, Reena Attending Unavailable Selena, Bucky Primary Care Unavailable Pablo Samano Attending Unavailabl e Amro, Ahmed Consulting Unavailable Bursina, Bucky Primary Care Unavailable Stefan Armstrong Attending Unavailable Stefan Armstrong Admitting Unavailable Mostafa, Dereje Consulting Unavailable Jaswinder, Ching Consulting Unavailable Luis, Jonathan Consulting Unavailable Maribeth, Micah Consulting Unavailable Almas, Jones Consulting Unavailable Belal, Farouk Consulting Unavailable Travis Montanez Consulting Unavailable Nagajothi, Nagapradee Consulting Unavailabl e Satti, Ojnah Consulting Unavailable Corsica, Angel Consulting Unavailable Jelani Abid Consulting Unavailable Mariza PEREZ, Lorrie Crooks Consulting Unavail able Jacob Pope Consulting Unavailable Stefan Armstrong Consulting Unavailable Glenny Moore Attending Unavailable Glenny Moore Consulting Unavailable Corsica, Angel Attending Unavailable Bursley, Bucky Primary Care Unavailable Amro, Ahmed Consulting Unavailable Glenny Moore Attending Unavailable Selena, Bucky Primary Care Unavailable Stefan Armstrong Admitting Unavailable Mostafa, Dereje Consulting Unavailable Jaswinder, Ching Consulting Unavailable Smith, Jonathan Consulting Unavailable Maribeth, Micah Consulting Unavailable Almas, Pana Consulting Unavailable Belal, Farouk Consulting Unavailable Travis Montanez Consulting Unavailable Nagajothi, Nagapradee Consulting Unavailabl e Satti, Jonah Consulting Unavailable Angel Hu Consulting Unavailable Jelani Abdi Consulting Unavailable Lorrie Lamb Consulting Unavail Jacob Ellison Consulting Unavailable Stefan Armstrong Consulting Unavailable Lorrie Lamb Attending Unavail Bucky Alexander Primary Care Unavailable Bucky Walters Referring Unavailable Allergies Allergy Classification Reported Allergen(s) Allergy Type Date of Onset Reaction(s) Facility Serotonin Reuptake Inhibitors (SSRIs) (3 sources) Sertraline Drug Allergy 8 Diarrhea, GI Upset [facility] Work Phone: (20 sources) Sertraline; Translations: [SERTRALINE HCL] Drug Allergy 8 Diarrhea, GI Upset [facility] Work Phone: (2 sources) Sertraline Drug Allergy 5 Abd cramps/diarrhea [facility] (1 source) Sertraline Drug Allergy 5 [facility] Repository Medications Current Medications Medication Drug Class(es) Dates Sig (Normalized) Sig (Original) atorvastatin 20 mg oral tablet (20 sources) HMG-CoA Reductase Inhibitor Start: 12-26-2024 End: 06-24-2025 take 1 tablet by mouth once daily at bedtime for hyperlipidemia atorvastatin (LIPITOR) 20 mg tablet Indications: Mixed hyperlipidemia Take 1 tablet by mouth daily at bedtime. For cholesterol. 90 tablet 1 12/26/2024 06/24/2025 Active Start: 12-07-2023 End: 12-06-2024 take 1 tablet by mouth at bedtime Atorvastatin 20 mg t ablet Active 20 mg PO AT BEDTIME November 05, 2024 12:00am cholesterol Start: 09-25-2020 End: 11-06-2023 take 1 tablet by mouth once daily at bedtime for hyperlipidemia atorvastatin (LIPITOR) 20 mg tablet Indications: Mixed hyperlipidemia Take 1 tablet by mouth daily at bedtime. For cholesterol. 30 tablet 5 04/19/2021 12/09/2021 Discontinued Comment on above: Take 1 tablet by yvonne th daily at bedtime. For cholesterol. Blood Pressure Monitor kit (20 sources) Start: 05-16-2018 Blood Pressure Monitor kit Check BP at home. 1 Kit 05/16/2018 Active Start: 05-16-2018 Blood Pressure Monitor kit Check BP at home. 1 Kit 0 05/16/2018 Active Comment on above: Check BP at home. cholecalciferol 1.25 mg oral capsule (9 sources) Vitamin D Start: 11-06-19 take 1 capsule by mouth every week Cholecalciferol (Vitamin D3) 1,250 mcg (50,000 unit) capsule Active 1250 ug PO EVERY WEEK November 05, 2024 12:00am Start: 10-23-2024 End: 01-21-2025 take 1 capsule by mouth every week cholecalciferol, Vitamin D3, (VITAMIN D3) 1,250 mcg (50,000 unit) cap capsule Indications: Vitamin D deficiency Take 1 capsule by mouth one time a week. 12 capsule 10/23/2024 01/21/2025 Active ergocalciferol 1.25 mg oral capsule (20 sources) Provitamin D2 Compound Start: 12-07-2023 End: 06-09-2024 take 1 capsule by mouth every week ergocalciferol 50,000 unit capsule (VITAMIN D2, DRISDOL) Indications: Vitamin D deficiency Take 1 capsule by mouth one time a week. 12 capsule 12/07/2023 06/09/2024 Discontinued (Course of therapy completed) losartan potassium 25 mg oral tablet (20 sources) Angiotensin 2 Receptor Kristina Start: 12-26-2024 End: 06-24-2025 take 1 tablet by mouth once daily at bedtime losartan (COZAAR) 25 mg tablet Indications: Hypertension, essential Take 1 tablet by mouth daily at bedtime. 90 tablet 1 12/26/2024 06/24/2025 Active Start: 09-25-2020 End: 12-06-2024 take 1 tablet by mouth at bedtime Losartan 25 mg table t Active 25 mg PO AT BEDTIME November 05, 2024 12:00am Comment on above: Take 1 tablet by yvonne th daily at bedtime. 24 hr metoprolol succinate 25 mg extended release oral tablet (14 sources) beta-Adrenergic Kristina Start: 12-03-2024 take 1 tablet by mouth once daily Metoprolol Succinate 25 mg tablet extended release 24 hr Active 25 mg PO DAILY 1 December 03, 2024 7:08pm Start: 11-04-2024 End: 02-02-2025 take 1 tablet by mouth once daily metoprolol succinate ER (TOPROL XL) 50 mg 24 hr tablet Take 1 tablet by mouth once daily. 30 tablet 2 11/04/2024 02/02/2025 Active Start: 10-21-2024 End: 11-13-2024 Metoprolol Succinate 25 mg t ablet extended release 24 hr Discontinued 50 mg PO DAILY November 05, 2024 12:00am November 13, 2024 3:04pm Completed/Discontinued Medications Medication Drug Class(es) Dates Sig (Normalized) Sig (Original) [id number] 200 actuat albuterol 0.09 mg/actuat metered dose inhaler (17 sources) beta2-Adrenergic Agonist Start: 09-25-2020 End: 11-06-2023 take 2 puff(s) by inhalation every four hours as needed albuterol HFA (PROAIR HFA) 90 mcg/actuation inhaler Indications: Moderate persistent asthma without complication Inhale 2 Puffs as instructed every 4 hours as needed. 18 g 5 02/08/2021 11/06/2023 Discontinued (Course of therapy completed) Start: 04-13-2018 take 1 puff(s) by in halation every six hours as needed Albuterol Sulfate (Ventolin Hfa) 1 INHALER inhaler Active 1 PUFF INHALATION EVERY 6 HOURS NEEDED April 13, 2018 4:06pm Start: 04-13-2018 End: 11-05-2024 Albuterol Sulfate (Ventolin Hfa) 1 INHALER inhaler Discontinued 1 NMA INHALATION EVERY 6 HOURS NEEDED as needed for Shortness Of Breath April 13, 2018 12:00am November 05, 2024 9:51pm Comment on above: Inhale 2 Puffs as in structed every 4 hours as needed. amLODIPine 10 mg oral tablet (5 sources) Dihydropyridine Calcium Channel Kristina Start: 04-15-20 End: 11-06-19 take 1 tablet by mouth once daily Amlodipine 10 MG tablet Discontinued 10 mg PO DAILY 30 0 April 15, 2018 12:00am November 05, 2024 9:51pm aspirin 81 mg oral tablet (10 sources) Platelet Aggregation Inhibitor, Nonsteroidal Anti-inflammatory Drug End: 11-06-19 take 1 capsule by mouth once daily aspirin 81 mg cap Take 81 mg by mouth once daily. 11/06/2023 Discontinued (Course of therapy completed) Comment on above: Take 81 mg by mouth once daily. FLUoxetine 40 mg oral capsule (15 sources) Serotonin Reuptake Inhibitor Start: 09-26-19 End: 11-06-19 take 2 capsules by mouth once daily FLUoxetine HCl (PROZAC) 40 mg capsule Take 2 capsules by mouth once daily. 60 capsule 5 04/19/2021 12/09/2021 Discontinued Start: 04-13-2018 End: 11-05-2024 take 1 capsule by mouth once daily Fluoxetine (Prozac) 20 MG capsule Discontinued 20 mg PO DAILY April 13, 2018 12:00am November 05, 2024 9:50pm Comment on above: Take 2 capsules by m out once daily. 120 actuat fluticasone propionate 0.044 mg/actuat metered dose inhaler (17 sources) Corticosteroid Start: 09-26-19 End: 11-06-19 take 2 puff(s) by inhalation twice daily fluticasone (FLOVENT) 44 mcg/actuation inhaler Indications: Moderate persistent asthma without complication Inhale 2 Puffs as instructed twice daily. 1 Inhaler 5 02/08/2021 11/06/2023 Discontinued (Discontinued by Patient) Start: 04-13-2018 take 1 puff(s) by in halation twice daily Fluticasone Propionate (Flovent Hfa) 1 INHALER inhaler Active 2 PUFF INHALATION TWICE A DAY April 13, 2018 4:06pm Start: 04-13-2018 End: 11-05-2024 Fluticasone Propionate (Flov ent Hfa) 1 INHALER inhaler Discontinued 2 NMA INHALATION TWICE A DAY April 13, 2018 12:00am November 05, 2024 9:51pm Comment on above: Inhale 2 Puffs as in structed twice daily. 60 actuat formoterol fumarate 0.005 mg/actuat / mometasone furoate 0.1 mg/actuat metered dose inhaler (1 source) Corticosteroid, beta2-Adrenergic Agonist Start: End: take 2 puff(s) by inhalation twice daily mometasone-formotero l (DULERA) 100-5 mcg/actuation inhaler Indications: Moderate persistent asthma without complication Inhale 2 Puffs as instructed twice daily. 1 Inhaler 01/14/2021 04/19/2021 Discontinued hydrOXYzine pamoate 25 mg oral capsule (13 sources) Antihistamine Start: End: take 1 capsule by mouth every twelve hours as needed hydrOXYzine pamoate (VISTARIL) 25 mg capsule Take 1 capsule by mouth twice daily as needed for anxiety. 30 capsule 04/19/2021 12/09/2021 Discontinued Comment on above: Take 1 capsule by [facility] twice daily as needed for anxiety. 10 ml lidocaine hydrochloride 10 mg/ml injection (1 source) Antiarrhythmic, Amide Local Anesthetic Start: End: SUBCUTANEOUS, NEEDED, Starting on Sun02/19/24 at 1348, Until Sun02/19/24 at 1348, Intraprocedure pentoxifylline 400 mg extended release oral tablet (20 sources) Blood Viscosity Victims Advocate Clerk/Specialist Start: End: take 1 tablet by mouth three times daily at mealtime pentoxifylline ER (TRENTAL) 400 mg CR tablet Indications: PAD (peripheral artery disease) Take 1 tablet by mouth three times a day with meals. 90 tablet 1 12/07/2023 11/04/2024 Discontinued (Course of therapy completed) Start: 04-19-2021 End: 10-16-2021 take 1 tablet by mouth three times daily at mealtime pentoxifylline ER (TRENTAL) 400 mg CR tablet Take 1 tablet by mouth three times daily with meals. 90 tablet 5 04/19/2021 10/16/2021 Problems Active Problems Problem Classification Problem Date Documented Date Episodic/Chronic Acute myocardial infarction (2 sources) Myocardial infarction; Translations: [Non-ST elevation (NSTEMI) myocardial infarction] Onset: 11-18-2024 11-18-2024 Chronic Adjustment disorders (20 sources) Adjustment disorder with mixed anxiety and depressed mood; Translations: [Adjustment disorder with mixed anxiety and depressed mood] Onset: 12-13-2012 12-13-2012 Chronic Asthma (20 sources) Uncomplicated moderate persistent asthma; Translations: [Moderate persistent asthma, uncomplicated] Onset: 05-15-2005 11-05-2017 Chronic Cardiac dysrhythmias (20 sources) Paroxysmal tachycardia; Translations: [Paroxysmal tachycardia, unspecified] Onset: 10-24-2024 10-21-2024 Chronic Cardiac dysrhythmias (14 sources) Palpitations; Translations: [Palpitations] Onset: 11-06-2024 11-05-2024 Episodic Chronic obstructive pulmonary disease and bronchiectasis (20 sources) Chronic obstructive asthma co-occurrent with acute exacerbation of asthma; Translations: [Chronic obstructive pulmonary disease, unspecified] 01-25-2010 Chronic Chronic obstructive pulmonary disease and bronchiectasis (5 sources) Bronchitis; Translations: [Bronchitis, not specified as acute or chronic] 03-08-2021 Episodic Conditions associated with dizziness or vertigo (6 sources) Dizziness; Translations: [Dizziness and giddiness] Onset: 10-21-2024 11-02-2023 Episodic Disorders of lipid metabolism (20 sources) Hyperlipidemia; Translations: [Hyperlipidemia, unspecified] Onset: 08-28-2019 08-28-2019 Chronic Essential hypertension (20 sources) Essential hypertension; Translations: [Essential (primary) hypertension] Onset: 05-16-2018 05-16-2018 Chronic Fracture of lower limb (2 sources) Closed fracture of fifth metatarsal bone; Translations: [Nondisplaced fracture of fifth metatarsal bone, right foot, initial encounter for closed fracture] 08-19-2021 Episodic Genitourinary congenital anomalies (20 sources) Multiple renal cysts; Translations: [Polycystic kidney, unspecified] 05-03-2018 Chronic Malaise and fatigue (3 sources) Fatigue; Translations: [Other fatigue] Onset: 10-21-2024 10-21-2024 Episodic Mood disorders (20 sources) Major depression, single episode; Translations: [Major depressive disorder, single episode, unspecified] 01-25-2010 Chronic Nonmalignant breast conditions (3 sources) Mammographic calcification of right breast; Translations: [Mammographic calcification found on diagnostic imaging of breast] Onset: 02-19-2024 01-14-2024 Episodic Nonspecific chest pain (12 sources) Chest pain; Translations: [Chest pain, unspecified] Onset: 11-06-2024 11-05-2024 Episodic Nutritional deficiencies (3 sources) Vitamin D deficiency; Translations: [Vitamin D deficiency, unspecified] Onset: 03-22-2024 12-07-2023 Chronic Occlusion or stenosis of precerebral arteries (2 sources) Bilateral stenosis of carotid arteries; Translations: [Occlusion and stenosis of bilateral carotid arteries] 01-29-2024 Chronic Other aftercare (1 source) Post-discharge follow-up; Translations: [Encounter for follow-up examination after completed treatment for conditions other than malignant neoplasm] 11-18-2024 Episodic Other aftercare (1 source) Encounter for follow-up examination after completed treatment for conditions other than malignant neoplasm; Translations: [Hospital discharge follow-up] Onset: 11-18-2024 Episodic Other connective tissue disease (1 source) Pain in right foot; Translations: [Pain in right foot] 06-02-2021 Episodic Other lower respiratory disease (1 source) Multiple nodules of lung; Translations: [Other nonspecific abnormal finding of lung field] 02-25-2024 Episodic Other lower respiratory disease (1 source) Cough; Translations: [Cough] 01-12-2021 Episodic Other non-traumatic joint disorders (1 source) Acute ankle pain; Translations: [Pain in right ankle and joints of right foot] 06-02-2021 Episodic Other non-traumatic joint disorders (1 source) Hip pain; Translations: [Pain in left hip] 02-08-2021 Episodic Other nutritional; endocrine; and metabolic disorders (20 sources) Obese class I; Translations: [Obesity, unspecified] Onset: 05-16-2018 05-16-2018 Chronic Other nutritional; endocrine; and metabolic disorders (6 sources) Body mass index 25-29 - overweight; Translations: [Overweight] 11-05-2024 Episodic Other nutritional; endocrine; and metabolic disorders (1 source) Overweight; Translations: [Overweight] Onset: 11-06-2024 Episodic Other screening for suspected conditions (not mental disorders or infectious disease) (20 sources) Patient encounter status; Translations: [Encounter for screening mammogram for malignant neoplasm of breast] Onset: 12-12-2023 Episodic Peripheral and visceral atherosclerosis (20 sources) Peripheral vascular disease, unspecified; Translations: [Peripheral vascular disease, unspecified] Onset: 02-18-2021 04-19-2021 Chronic Residual codes; unclassified (2 sources) Tobacco use; Translations: [Tobacco use current] Onset: 04-02-2024 Episodic Syncope (3 sources) Near syncope; Translations: [Syncope and collapse] 11-10-2023 Episodic Unclassified (2 sources) Supraventricular tachycardia, unspecified; Translations: [Supraventricular tachycardia, unspecified] Onset: 11-06-2024 Past or Other Problems Problem Classification Problem Date Documented Da te Episodic/Chronic Deficiency and other anemia (20 sources) Iron deficiency anemia; Translations: [Iron deficiency anemia, unspecified] Onset: 01-06-2012 01-06-2012 Episodic Other diseases of kidney and ureters (20 sources) Hydronephrosis; Translations: [Unspecified hydronephrosis] Onset: 05-16-2018 05-16-2018 Episodic Other diseases of kidney and ureters (20 sources) Acquired renal cystic disease; Translations: [Cyst of kidney, acquired] Resolved: 05-16-2018 05-16-2018 Episodic Residual codes; unclassified (20 sources) Tobacco user; Translations: [Tobacco use] Onset: 05-16-2018 05-16-2018 Episodic Screening and history of mental health and substance abuse codes (1 source) Encounter for screening examination for other mental health and behavioral disorders; Translations: [Encounter for screening examination for other mental health and behavioral disorders] Onset: 06-09-2024 Episodic Results Test Name Value Interpretation Reference Range Facility Cardiology Visit Reporton Cardiology Visit Report [facility] [address] [place], [place] [address] OFFICE VISIT Date of Service: 12/16/24 MR#: [id number] Acct: [id number] Name: SARANYA BERMUDEZ Rep #: [id number] : 1965 Provider: KHANG diane Age/Sex: 59/F Location: [facility] [place] Status: Signed HPI HPI History of Present Illness Surgical H P: Yes Details: Saranya Bermudez is a 59-year-old female who presents to the office today for cardiovascular follow- up visit. She had presented to [facility] on 11/05/2024 for palpitations and chest pain. Initial troponin was 157, delta troponin was 190. She did require an adenosine cardioversion for her SVT. It was felt that her troponins were elevated to her tachycardia. She did undergo an echocardiogram which demonstrated an EF of 60% with small pericardial effusion and evidence of diastolic dysfunction. Patient was started on a beta-kristina and recommended to follow-up with us in the office for possible EP referral for ablation. From a cardiac standpoint, the patient is doing well. She does acknowledge palpitations-racing sensation. She denies any palpitations, chest pain, pressure or heaviness. She denies SOB, Orthopnea, and PND. She does not have bleeding issues; no blood in urine, stool, or nosebleeds. She does acknowledge fatigue, sakina. after heart racing. She denies myalgias, or claudication. She does not have edema, or sudden weight gain. She denies lightheadedness, dizziness, syncopal or near syncopal episodes, and headaches. Intake Vital Signs 11/13/24 09:37 12/16/24 07:43 12/16/24 09:11 Height 5 ft 7 in 5 ft 7 in 5 ft 7 in Weight: 194 lb BMI 30.4 BP 132/85 H Blood Pressure Location Lt brachial Position Sitting Respiration 18 Pulse 70 Pulse Source Monitor Pulse Oximetry (%) 99 Intake Visit Reasons: UPDATE H P Database Design Analyst Required: No Is patient in pain?: No Allergies sertraline (From Zoloft) Adverse Reaction (Verified 12/16/24 09:26) Abd cramps/diarrhea Medications ???Medication ???Instructions ???Recorded ???Confirmed ???Type atorvastatin 20 mg tablet 20 mg PO QHS cholesterol 11/05/24 12/16/24 History cholecalciferol (vitamin D3) 1,250 1,250 mcg PO QWEEK 11/05/2407/12 History mcg (50,000 unit) capsule losartan 25 mg tablet 25 mg PO QHS 11/05/24 12/16/24 His tory metoprolol succinate 25 mg 25 mg PO DAILY #1 TAB 12/03/2407/12 Rx tablet,extended release 24 hr Have you fallen in the past year?: No PFSH Medical History (Reviewed 12/16/24 @ 09:48 by Reena Joyner POLYMERIZATION ENGINEER, POLYMERIZATION ENGINEER-C) HTN (hypertension) Overweight (BMI 25.0-29.9) Tobacco abuse SVT (supraventricular tachycardia) Depression High cholesterol Social History current occupational status: employed Smoking Status: Current every day smoker tobacco type: cigarettes ROS Const Const: Positive for fatigue; Negative for weakness, headache(s) or frequent falls Eyes Eyes: Negative for blurry vision ENT ENT: Negative for headache(s), dizziness or Nosebleed/epistaxis Cardio Chest Pain: No Palpitations: Yes feels like its: fast Edema: None Muscle aches with walking: None Resp Respiratory: Negative for SOB with activity, SOB at rest or SOB orthopnea SOB lying down GI GI: Negative nausea, vomiting, heartburn, bright, red blood in stools or black,tarry stools : Negative for hematuria Neuro Neuro: Negative for dizziness, lightheadedness, near syncope, syncope, frequent falls, headache(s), weakness or blurry vision Endo Endo: Positive for fatigue Cardiology Exam Const Appearance: cooperative, no acute distress and well developed Nutritional Appearance: obese Orientation: alert, awake and oriented x3 Head Head: normocephalic and atraumatic Ears: hearing grossly normal bilaterally Nose: external nose normal Face and Sinus: face symmetric Eyes General: appearance normal, both eyes and all related structures Eyelids: eyelids normal Conjunctivae: conjunctivae normal Pupils: PERRL EOM: EOM intact bilaterally Neck Neck: normal visual inspection, no lymphadenopathy and no JVD Carotids: Negative bruit Neck Mass: Negative Neck mass Chest Chest inspection: normal inspection of the chest and symmetric chest movement Auscultation: Bilateral: Clear to Auscultation Cardio Palpation: normal PMI Rate: regular rate Rhythm: regular rhythm Heart sounds: S1 normal and S2 normal; Negative rub, gallop or murmur GI GI: normal to inspection, soft and obese; Negative tender Neuro General: patient alert, patient awake, patient oriented x3, CN's II-XI intact bilaterally and moves all extremities Skin Skin: no rashes or lesions noted Extremities Pulses: Normal: Right Posterior Tibial Pu (more content not included)... [facility] Telephone (FAMPWS) SARANYA BERMUDEZ ([id number]) 1965 F Date Time Provider Department 12/01/24 SHASTA WALTERSWS During your visit today, we recorded the following information about you: Keyur Whitaker RN 12/01/2024 2:01 PM Signed Sushila- I Rhythm- reporting zio results show SVT 171 bpm for 60 sec on 10-30-24 @ 4:11 pm. Doctor can find these results on page 15 strip # 6. Reports patient had 71 episodes throughout the 2 weeks of wear. Shasta Walters MD 12/01/2024 2:08 PM Signed Reviewed. Patient was admitted for this on 11/05. Allergies As of Date: 12/01/2024 Noted Allergy Reaction ZOLOFT (SERTRALINE HCL) 12/03/2017 6 - Diarrhea 8 - GI Upset Date Reviewed: 11/18/2024 Reviewed by: Roma Bolaños LPN - Fully Assessed Reason for Visit: Zio patch report [Other] Prescriptions as of 12/02/2024 - metoprolol succinate ER (TOPROL XL) 50 mg 24 hr tablet Take 1 tablet by mouth once daily. - cholecalciferol, Vitamin D3, (VITAMIN D3) 1,250 mcg (50,000 unit) cap capsule Take 1 capsule by mouth one time a week. - atorvastatin (LIPITOR) 20 mg tablet Take 1 tablet by mouth daily at bedtime. For cholesterol. - losartan (COZAAR) 25 mg tablet Take 1 tablet by mouth daily at bedtime. - Blood Pressure Monitor kit Check BP at home. Problem List As Of Date 12/01/2024 Noted Resolved Moderate persistent asthma without complication* 5 Major Depressive Disorder, Single Episode, Unsp* Acquired cyst of kidney [N28.1] 05/16/2018 Chronic Obstructive Asthma with Status Asthmati* Routine Gynecological Examination [Z01.419] 01/25/2010 Class: Chronic Iron deficiency anemia [D50.9] 01/06/2012 Adjustment disorder with mixed anxiety and depr*12/13/2012 Polycystic kidney disease [Q61.3] Obesity, Class I, BMI 30-34.9 [E66.811] 05/16/2018 Hypertension, essential [I10] 05/16/2018 Tobacco abuse [Z72.0] 05/16/2018 Hydronephrosis, left [N13.30] 05/16/2018 Hyperlipidemia [E78.5] PAD (peripheral artery disease) ([facility]) [I73.9] 02/18/2021 SVT (supraventricular tachycardia) ([facility]) [I47.1* Encounter Status:Closed by Keyur WHITAKER on 12/02/24 [facility] CNOVon 11-18-2024 CNOV Office Visit (FAMPWS ) SARANYA BERMUDEZ ([id number]) 1965 F Date Time Provider Department 11/18/24 7:20 AM [facility] During your visit today, we recorded the following information about you: Pulse Respiration Blood pressure Weight 62/minute 16/minute 120/70 87 kg Shasta Walters MD 11/18/2024 8:32 AM Signed Chief Complaint Patient presents with: Transition Of Care Blood Pressure: recheck Follow Up: HR and BP recheck Recording using Tivity software for draft documentation of the visit was discussed with the patient/authorized customer operations representative; all questions welcomed and answered. Patient/authorized customer operations representative agreed to proceed HPI Saranya Bermudez is a 58 year old female who presents here today for Above Complaints. SVT: - Hospitalized at [facility] from 11/05 to 11/06 for SVT with HR of 144 bpm. - Treated with adenosine, which restored normal sinus rhythm. - Echocardiogram showed EF of 60% and a small pericardial effusion. - No changes made to current medication regimen. - Follow-up with cardiology; ablation scheduled for 01/06. - Two episodes of palpitations since discharge, lasting all day. - HR reached 150 bpm during the most recent episode. Has not had any symptoms in over a week. - Cardiology recommended using ice on neck and breathing through a straw provided some relief. - Denies current chest pain, palpitations, dyspnea, lightheadedness, or dizziness. - No side effects from medications; adherent to metoprolol 50 mg. - Zio patch returned a week ago; awaiting results. - Denies fevers, chills, nausea, emesis, or rashes. - Avoiding caffeine. Continues to smoke and is refusing help with cessation today. TRANSITION CARE MANAGEMENT (TCM) INITIAL CONTACT Micro Paleontologist Outreach Provider Action/FYI: 11/06/24 [facility] Discharge Initial contact with patient post discharge, spoke to patient. Patient identified by name and . TRANSITION CARE MANAGEMENT INITIAL OUTREACH DOCUMENTATION: 11/07/2024 Date of Outreach: Outreach Attempt 1: Contact Made Date of Discharge 11/06/2024 SUMMARY: -Pt discharged from [facility] on 11/06/24. -Admitted for: SVT, chest pain, palpitations, racing heart Do you have a hospital follow up appointment with your PCP? Appointment on 11/18/[address] Walters. Yes. Remind patient of appointment date, time, and location. If not within 14 calendar days of discharge - please reschedule accordingly. MEDICATIONS: Many patients have questions or concerns about their medications once they are home. Were you prescribed any new medications? No Were you told to hold any medications? No Were any of your medications discontinued? No Do you have any questions about getting or taking your medications? No Your discharge instructions/After visit Summary (AVS) are important in guiding you through the recovery process. Is there anything I might help you understand? No Do you have all the necessary equipment and supplies at home? Yes Medical records from recent hospitalization: Received and placed on provider's desk for review. Past medical history, appointments, medications, allergies reviewed. Previous Medical History PAST MEDICAL HISTORY Diagnosis Date Anxiety Chronic obstructive asthma with status asthmaticus (HCC) DVT (deep venous thrombosis) (HCC) History of COVID-19 03/2021 History of heavy periods s/p hysterectomy Hyperlipidemia Hypertension 2016 Iron deficiency anemia 01/06/2012 Major depressive disorder, single episode, unspecified Obesity (BMI 30.0-34.9) PAD (peripheral artery disease) 02/18/2021 moderate on left LE Polycystic kidney disease SVT (supraventricular tachycardia) (HCC) Tobacco use Previous Surgical History PAST SURGICAL HISTORY Procedure Laterality Date COLONOSCOPY FLX DX W/COLLJ SPEC WHEN PFRMD 11/04/2018 Colonoscopy DILATION AND CURETTAGE DXAND/THER NONOBSTETRIC LAPARO-VAG HYST, COMPLEX 10/19/11 vag hysterectomy with bladder sling and posterior repair, bladder tear repaired LIG/TRNSXJ FLP TUBE ABDL/VAG APPR UNI/BI PAST SURGICAL HISTORY OF 2006 upper teeth removed UNSPECIFIED ORAL SURGERY PROCEDURE, BY REPORT WISDOM TEETH REMOVED Family History FAMILY HISTORY Problem Relation Age of Onset Heart Mother no communication with patient, doesn't have details Drug abuse Sister ??? patient doesn't know for sure. Colon Cancer Maternal Grandmother Diabetes Other no details known Colon Cancer Other no details known Coronary Artery Disease Other no details known Patient Allergies ALLERGIES Allergen Reactions Zoloft [Sertraline * Diarrhea, GI Upset Current Medications Current Outpatient Medications on File Prior to Visit Medication Sig metoprolol succinate ER (TOPROL XL) 50 mg 24 hr tablet Take 1 tablet by mouth once daily. ch (more content not included)... Normal [facility] Cardiology Visit Reporton Cardiology Visit Report [facility] [address] [place] [address] OFFICE VISIT Date of Service: 11/13/24 MR#: [id number] Acct: [id number] Name: SARANYA BERMUDEZ Rep #: [id number] : 1965 Provider: ANA Woo Age/Sex: 58/F Location: [facility] Status: Signed HPI HPI History of Present Illness Details: Saranya Bermudez is a 58-year-old female who presented to [facility] on 11/05/2024 for palpitations and chest pain. Initial troponin was 157, delta troponin was 190. She did require an adenosine cardioversion for her SVT. It was felt that her troponins were elevated to her tachycardia. She did undergo an echocardiogram which demonstrated an EF of 60% with small pericardial effusion and evidence of diastolic dysfunction. Patient was started on a beta-kristina and recommended to follow-up with us in the office for possible EP referral for ablation. Pt notes that this past sunday she had an episode that lasted most of the day. Her HRs were around 130-150. She notes that she was having an increase in this over the last few months. Earlier is was a few times a month now its a few times a week.These can last several hours. What brought her into the ER on 11/05, was that it was going faster, she was tired and just felt off. She did have a zio patch on at the time of her hospital stay that was ordered by her PCP. Intake Vital Signs 11/06/24 10:58 11/13/24 09:37 Height 5 ft 7 in 5 ft 7 in Weight: 195 lb 1.745 oz 192 lb BMI 30.0 BP 119/77 Blood Pressure Location Lt brachial Position Sitting Respiration 18 Pulse 74 Pulse Source Monitor Pulse Oximetry (%) 95 Intake Visit Reasons: S/P [facility] 11/06 Database Design Analyst Required: No Is patient in pain?: No Allergies sertraline (From Zoloft) Adverse Reaction (Verified 11/13/24 14:36) Abd cramps/diarrhea Medications ???Medication ???Instructions ???Recorded ???Confirmed ???Type atorvastatin 20 mg tablet 20 mg PO QHS cholesterol 11/05/24 11/13/24 History cholecalciferol (vitamin D3) 1,250 1,250 mcg PO QWEEK 11/05/2410/17 History mcg (50,000 unit) capsule losartan 25 mg tablet 25 mg PO QHS 11/05/24 11/13/24 His tory metoprolol succinate 50 mg 50 mg PO DAILY #30 tabs 11/13/24 0 11/13/24 Rx tablet,extended release 24 hr Have you fallen in the past year?: No [facility] (Updated 11/13/24 @ 14:48 by Lorrie PEREZ, PA) SVT (supraventricular tachycardia) Depression High cholesterol HTN (hypertension) Social History current occupational status: employed Smoking Status: Current every day smoker tobacco type: cigarettes ROS Const Const: Negative for fatigue, weakness, headache(s) or frequent falls Eyes Eyes: Negative for blurry vision ENT ENT: Negative for headache(s), dizziness or Nosebleed/epistaxis Cardio Chest Pain: No Palpitations: Yes Edema: None Muscle aches with walking: None Resp Respiratory: Negative for SOB with activity, SOB at rest or SOB orthopnea SOB lying down GI GI: Negative nausea, vomiting, heartburn, bright, red blood in stools or black,tarry stools : Negative for hematuria Neuro Neuro: Negative for dizziness, lightheadedness, near syncope, syncope, frequent falls, headache(s), weakness or blurry vision Endo Endo: Negative for fatigue Cardiology Exam Const Appearance: cooperative, no acute distress and well developed Orientation: alert, awake and oriented x3 Head Head: normocephalic and atraumatic Mouth: moist mucous membranes Eyes General: appearance normal, both eyes and all related structures Conjunctivae: conjunctivae normal Pupils: PERRL EOM: EOM intact bilaterally Neck Neck: normal visual inspection, no lymphadenopathy and no JVD Carotids: Negative bruit Neck Mass: Negative Neck mass Chest Chest inspection: normal inspection of the chest and symmetric chest movement Auscultation: Bilateral: Clear to Auscultation Cardio Palpation: normal PMI Rate: regular rate Rhythm: regular rhythm Heart sounds: S1 normal and S2 normal; Negative rub, gallop or murmur GI GI: normal to inspection, soft, no hepatosplenomegaly and bowel sounds present; Negative tender Neuro General: patient alert, patient awake, patient oriented x3, CN's II-XI intact bilaterally and moves all extremities Extremities Pulses: Normal: Right Posterior Tibial Pulse, Left Posterior Tibial Pulse, Right Radial Pulse and Left Radial Pulse Lower Extremity Edema: None: Bilateral Psych Psychological: normal affect Supplemental Info Supplemental Information Echo Complete 10/2024 Interpretation Summary The estimated ejection fraction is 60 %. No evidence for diastolic dysfunction. Trivial mitral valv (more content not included)... Normal [facility] 12 Lead EKGon 11-06-2024 12 Lead EKG [facility] Cardi[facility] Services [address] [place] [address] 12 Lead EKG 11/06/24 0550 MR#: [id number] Acct: [id number] Name: SARANYA BERMUDEZ Rep #: [id number] : 1965 58 From: Pablo Samano MD Attending Dr: Dr. Glenny Moore, Status: DIS I NO Ordering Dr: Stefan Armstrong DO Date: 11/06/24 Location: [facility] Sex: F C Admitted: 11/05/24 Test Reason : AM EKG Blood Pressure : */* mmHG Vent. Rate : 72 BPM Atrial Rate : 72 BPM P-R Int : 164 ms QRS Dur : 82 ms QT Int : 424 ms P-R-T Axes : 72 75 97 degrees QTcB Int : 464 ms Normal sinus rhythm Normal ECG When compared with ECG of 05-Nov-2024 18:35, MANUAL COMPARISON REQUIRED DATA IS UNCONFIRMED Confirmed by SELWYN FITZGERALD, DIAMOND ([id number]), photograph editor JANEL ARGUETA ([id number]) on 11/11/2024 6:57:27 AM Referred By: Confirmed By: DIAMOND SAMANO MD 11/11/24656 Date Pablo Samano MD CC: Dr. Bucky Walters MD; Dr. Stefan Armstrong DO; Dr. Glenny Moore DO Signed Normal [facility] Absolute lymphocyte countOrd ered By: Stefan Jerez on 11-06-2024 Lymphocytes Auto (Unsp spec) [#/Vol] 2.86 10*3/uL 0.83-4.51 [facility] Absolute neutrophil countOrd ered By: Stefan Jerez on 11-06-2024 Neutrophils (Bld) [#/Vol] 7.3 10*3/uL 2.0-7.7 [facility] Anion gap in Serum or Plasma Ordered By: Stefan Jerez on 11-06-2024 Anion gap [Moles/Vol] 9 mmol/L 5- [facility] Automated lymphocyte count a s percentage of total leukocytesOrdered By: Stefan Jerez on 11-06-2024 Lymphocytes/100 WBC Auto (Unsp spec) 26.0 % - [facility] BUN/creatinine ratioOrdered By: Stefan Jerez on 11-06-2024 Urea nitrogen/Creatinine [Mass ratio] 15.9 mg/mg 10- [facility] Basophil percentageOrdered B y: Stefan Jerez on 11-06-2024 Basophils/100 WBC (Bld) 0.1 % 0-1 [facility] Bilirubin Test strip Ql (U)O rdered By: Stefan Jerez on 05-22-2025 Bilirubin Ql (U) Negative Negative [facility] Bilirubin, totalOrdered By: Stefan Jerez on 11-06-2024 Bilirubin [Mass/Vol] 0.24 mg/dL 0.00-1.30 [facility] CBC W/Diff, Automatedon 10-17 Absolute Lymph 2.86 X10 3/uL Normal 0.83-4.51 [facility] Comment on above: Performed By: #### L 500.4100, L501.2300, L100.0100, L500.4050 #### [facility] [address] [place], [address] Absolute Neut 7.3 X10 3/uL Normal 2.0-7.7 [facility] Comment on above: Performed By: #### L 500.4100, L501.2300, L100.0100, L500.4050 #### [facility] [address] [place], [address] Basophils/100 WBC (Bld) 0.1 % Normal 0-1 [facility] Comment on above: Performed By: #### L 500.4100, L501.2300, L100.0100, L500.4050 #### [facility] [address] [place], [address] Eosinophils/100 WBC (Bld) 0.5 % Normal 0-5 [facility] Comment on above: Performed By: #### L 500.4100, L501.2300, L100.0100, L500.4050 #### [facility] [address] [place], [address] Erythrocyte distribution width (RBC) [Ratio] 13.6 % Normal 11.6-14.6 [facility] Comment on above: Performed By: #### L 500.4100, L501.2300, L100.0100, L500.4050 #### [facility] [address] [place], [address] Hematocrit (Bld) [Volume fraction] 36.8 % Low 37-47 [facility] Comment on above: Performed By: #### L 500.4100, L501.2300, L100.0100, L500.4050 #### [facility] [address] [place], [address] Hemoglobin (Bld) [Mass/Vol] 12.0 g/dL Normal 12.0-15.0 [facility] Comment on above: Performed By: #### L 500.4100, L501.2300, L100.0100, L500.4050 #### [facility] [address] [place], [address] IG% 0.400 Normal 0.0-0.9 [facility] Comment on above: Result Comment: IG% - Immature Granulocytes (promyelocytes, myelocytes and metamyelocytes) > 1% indicates that a LEFT SHIFT is Present. Performed By: #### L 500.4100, L501.2300, L100.0100, L500.4050 #### [facility] [address] [place], [address] Lymphocytes/100 WBC (Bld) 26.0 % Normal 19-41 [facility] Comment on above: Performed By: #### L 500.4100, L501.2300, L100.0100, L500.4050 #### [facility] [address] [place], [address] MCH (RBC) [Entitic mass] 29.7 pg Normal 27.0-32.0 [facility] Comment on above: Performed By: #### L 500.4100, L501.2300, L100.0100, L500.4050 #### [facility] [address] [place], [address] MCHC (RBC) [Mass/Vol] 32.6 g/dL Normal 32-36 [facility] Comment on above: Performed By: #### L 500.4100, L501.2300, L100.0100, L500.4050 #### [facility] [address] [place], [address] MCV (RBC) [Entitic vol] 91.1 fL Normal 81-99 [facility] Comment on above: Performed By: #### L 500.4100, L501.2300, L100.0100, L500.4050 #### [facility] [address] [place], [address] Monocytes/100 WBC (Bld) 6.8 % Normal 0-10 [facility] Comment on above: Performed By: #### L 500.4100, L501.2300, L100.0100, L500.4050 #### [facility] [address] [place], [address] Neutrophils/100 WBC (Bld) 66.2 % Normal 47-70 [facility] Comment on above: Performed By: #### L 500.4100, L501.2300, L100.0100, L500.4050 #### [facility] [address] [place], [address] Nucleated RBC (Bld) [#/Vol] 0 10*3/uL Normal 0-5 [facility] Comment on above: Performed By: #### L 500.4100, L501.2300, L100.0100, L500.4050 #### [facility] [address] [place], [address] Platelet mean volume (Bld) [Entitic vol] 11.1 fL Normal 6.2-12.0 [facility] Comment on above: Performed By: #### L 500.4100, L501.2300, L100.0100, L500.4050 #### [facility] [address] [place], [address] Platelets (Bld) [#/Vol] 190 10*3/uL Normal 150-450 [facility] Comment on above: Performed By: #### L 500.4100, L501.2300, L100.0100, L500.4050 #### [facility] [address] [place], [address] RBC (Bld) [#/Vol] 4.04 10*6/uL Low 4.2-5.4 [facility] Comment on above: Performed By: #### L 500.4100, L501.2300, L100.0100, L500.4050 #### [facility] [address] [place], [address] RDW SD 46.1 fl High 35.1-43.9 [facility] Comment on above: Performed By: #### L 500.4100, L501.2300, L100.0100, L500.4050 #### [facility] [address] [place], [address] WBC (Bld) [#/Vol] 11.0 10*3/uL Normal 4.4-11.0 [facility] Comment on above: Performed By: #### L 500.4100, L501.2300, L100.0100, L500.4050 #### [facility] [address] [place], [address] Calculated very low density lipoprotein (VLDL) cholesterol measurementOrdered By: Stefan Jerez on 11-06-2024 Calculated very low density lipoprotein (VLDL) cholesterol measurement 23 mg/dL 5-40 [facility] Carbon dioxide, total [Moles /volume] in Central venous bloodOrdered By: Stefan Jerez on 11-06-2024 CO2 [Moles/Vol] 20.8 mmol/L Low 21.0-32.0 [facility] Chloride assayOrdered By: Tereso Jerez on 11-06-2024 Chloride [Moles/Vol] 112 mmol/L High 98-108 [facility] Comprehensive Metabolic Prof ilon 11-06-2024 Albumin [Mass/Vol] 3.3 g/dL Low 3.5-5.0 [facility] Comment on above: Performed By: #### L 500.4100, L501.2300, L100.0100, L500.4050 #### [facility] [address] [place], [address] Albumin/Globulin [Mass ratio] 1.5 {ratio} Normal 0.9-2.4 [facility] Comment on above: Performed By: #### L 500.4100, L501.2300, L100.0100, L500.4050 #### [facility] [address] [place], [address] ALK PHOS 76 U/L Normal 35-104 [facility] Comment on above: Performed By: #### L 500.4100, L501.2300, L100.0100, L500.4050 #### [facility] [address] [place], [address] ALT [Catalytic activity/Vol] 9 U/L Normal <=34 [facility] Comment on above: Performed By: #### L 500.4100, L501.2300, L100.0100, L500.4050 #### [facility] [address] [place], [address] AST [Catalytic activity/Vol] 26 U/L Normal <=31 [facility] Comment on above: Performed By: #### L 500.4100, L501.2300, L100.0100, L500.4050 #### [facility] [address] [place], [address] Bilirubin [Mass/Vol] 0.24 mg/dL Normal 0.00-1.30 [facility] Comment on above: Performed By: #### L 500.4100, L501.2300, L100.0100, L500.4050 #### [facility] [address] [place], [address] BUN/CRE 15.9 RATIO Normal 10-20 [facility] Comment on above: Performed By: #### L 500.4100, L501.2300, L100.0100, L500.4050 #### [facility] [address] [place], [address] Calcium [Mass/Vol] 8.1 mg/dL Normal 7.6-11.0 [facility] Comment on above: Performed By: #### L 500.4100, L501.2300, L100.0100, L500.4050 #### [facility] [address] [place], [address] Chloride [Moles/Vol] 112 mmol/L High 98-108 [facility] Comment on above: Performed By: #### L 500.4100, L501.2300, L100.0100, L500.4050 #### [facility] [address] [place], [address] CO2 [Moles/Vol] 20.8 mmol/L Low 21.0-32.0 [facility] Comment on above: Performed By: #### L 500.4100, L501.2300, L100.0100, L500.4050 #### [facility] [address] [place], [address] Creatinine [Mass/Vol] 0.91 mg/dL Normal 0.70-1.20 [facility] Comment on above: Performed By: #### L 500.4100, L501.2300, L100.0100, L500.4050 #### [facility] [address] [place], [address] ECRCL 78.77 ml/min Normal 50-250 [facility] Comment on above: Performed By: #### L 500.4100, L501.2300, L100.0100, L500.4050 #### [facility] [address] [place], [address] GAP 9 Normal 5-15 [facility] Comment on above: Performed By: #### L 500.4100, L501.2300, L100.0100, L500.4050 #### [facility] [address] [place], [address] GFR/1.73 sq M.predicted among non-blacks MDRD (S/P/Bld) [Vol rate/Area] 74 mL/min/{1.73_m2} Normal >60 [facility] Comment on above: Result Comment: mL/m in/1.73m2 CKD-EPI Creatinine Equation (2020) Performed By: #### L 500.4100, L501.2300, L100.0100, L500.4050 #### [facility] [address] [place], [address] Globulin (S) [Mass/Vol] 2.3 g/dL Normal 2.2-4.2 [facility] Comment on above: Performed By: #### L 500.4100, L501.2300, L100.0100, L500.4050 #### [facility] [address] [place], [address] Glucose [Mass/Vol] 86 mg/dL Normal 70-99 [facility] Comment on above: Performed By: #### L 500.4100, L501.2300, L100.0100, L500.4050 #### [facility] Laboratory [address] [place], [address] Potassium [Moles/Vol] 3.9 mmol/L Normal 3.3-5.1 [facility] Comment on above: Performed By: #### L 500.4100, L501.2300, L100.0100, L500.4050 #### [facility] [address] [place], [address] Sodium [Moles/Vol] 142 mmol/L Normal 133-145 [facility] Comment on above: Performed By: #### L 500.4100, L501.2300, L100.0100, L500.4050 #### [facility] [address] [place], [address] T PROT 5.6 g/dL Low 5.9-8.4 [facility] Comment on above: Performed By: #### L 500.4100, L501.2300, L100.0100, L500.4050 #### [facility] [address] [place], [address] Urea nitrogen [Mass/Vol] 15 mg/dL Normal 4-19 [facility] Comment on above: Performed By: #### L 500.4100, L501.2300, L100.0100, L500.4050 #### [facility] [address] [place], [address] Consultation - Cardiologyon 11-06-2024 Consultation - Cardiology [facility] Medical Records Department [address] [place] [address] Consultation - Cardiology 11/06/24 0716 MR#: [id number] Acct: [id number] Name: SARANYA BERMUDEZ Rep #: [id number] : 1965 58 From: Jones Coburn MD PCP: Dr. Bucky Walters MD Status:DIS CHERYL Location: [place] [address] Assessment Plan Assessment/Plan (1) SVT (supraventricular tachycardia): PLAN: She presents with a narrow complex tachycardia which is deemed to be a supraventricular tachycardia likely short RP tachycardia. I suspect the above will be amenable to ablation I have discussed with her about arranging for her to get this ablated as an outpatient. In the meantime she will continue on the beta-kristina with Toprol XL 50 mg a day Obtain an echocardiogram to assess her ventricular function. (2) Elevated troponin: PLAN: Her elevated troponin is likely secondary to demand ischemia with her persistent tachycardia. Will review the results of the echocardiogram and depending on those findings further recommendations will be made. (3) HTN (hypertension): QUALIFIERS: Hypertension type: primary hypertension Qualified Code(s): I10 - Essential (primary) hypertension PLAN: Her blood pressure is elevated at this time. My recommendation will be to continue with the losartan, obtain an echocardiogram and the beta-kristina. HPI Consult Data Date of Consult: 11/06/24 HPI Narrative HPI Narrative: SARANYA BERMUDEZ, is a 58 F who presents to the emergency room wearing a Zio patch who says that she has been having palpitations over the last 3 months or so. It comes and goes. Occasionally it has some chest burning with it. She had seen her primary care physician and they have put the above device on her. She presented to the emergency room and emergency room physician called me with concerns about her rhythm. Initially they thought it was a sinus tachycardia and on faxing the EKGs to me it was very suggestive of a supraventricular tachycardia, 6 mg of adenosine was given and the patient broke into sinus rhythm and is feeling much better. She says that she does not have any palpitations or chest discomfort anymore. She denies any neck arm or jaw discomfort suggest angina she has had no dizziness or diaphoresis near syncope or syncope. [facility] Medical History Depression High cholesterol HTN (hypertension) Home Medications ???Medication ???Instructions ???Recorded ???Last Taken ???Type atorvastatin 20 mg tablet 20 mg PO QHS cholesterol 11/05/24 11/04/24 History cholecalciferol (vitamin D3) 1,250 1,250 mcg PO QWEEK 11/05/2410/16 History mcg (50,000 unit) capsule losartan 25 mg tablet 25 mg PO QHS 11/05/24 11/04/24 His tory metoprolol succinate 25 mg 50 mg PO DAILY 11/05/24 11/04/24 H istory tablet,extended release 24 hr Allergy/AdvReac Type Severity Reaction Status Date / Time sertraline (From Zoloft) AdvReac Abd Verified 11/05/24 22:58 cramps/diarrhea Social History current occupational status: employed Smoking Status: Current every day smoker tobacco type: cigarettes ROS Constitutional Constitutional: Denies fever(s) or weight loss Eyes Eyes: Reports systems reviewed and no addt'l complaints, except as documented ENT HEENT: Reports systems reviewed and no addt'l complaints, except as documented Cardiovascular Cardiovascular: Reports palpitations; Denies chest pain at rest, chest pain with activity, dyspnea at rest, dyspnea on exertion, edema or paroxysmal nocturnal dyspnea Respiratory/Chest Respiratory/Chest: Denies dyspnea on exertion, productive cough, shortness of breath at rest or shortness of breath with exertion Gastrointestinal Gastrointestinal: Denies change in bowel habits, nausea, vomiting or weight changes Genitourinary Genitourinary: Denies difficulty urinating Musculoskeletal Musculoskeletal: Denies joint stiffness or muscle weakness Integumentary Integumentary: Denies lesions Neurologic Neurologic: Denies dizziness or syncope Psychiatric Psychiatric: Denies anxiety Endocrine Endocrinology: Denies excessive sweating or fatigue Hematologic/Lymphatic Hematologic/Lymphatic: Denies anemia Allergic/Immunologic Allergic/Immunologic: Denies seasonal rhinorrhea Physical Exam Const alert, oriented x3 and no apparent distress General Appearance: cooperative HEENT hearing grossly normal bilaterally Head and Scalp: atraumatic Eyes EOMs intact bilaterally Neck General: normal visual inspection Chest inspection of chest normal and palpation of chest normal Resp normal respiratory effort Auscultation: clear to auscultation bilaterally Cardio regular rate, regular rhythm, S1 normal heart sound and S2 normal heart sound Jugul (more content not included)... Normal [facility] Eosinophil percentageOrdered By: Stefan Jerez on 11-06-2024 Eosinophils/100 WBC (Bld) 0.5 % 0-5 [facility] Erythrocyte distribution wid th ratioOrdered By: Stefan Jerez on 11-06-2024 Erythrocyte distribution width (RBC) [Ratio] 13.6 % 11.6-14.6 [facility] Erythrocyte distribution wid th standard deviationOrdered By: Stefan Jerez on 11-06-2024 Erythrocyte distribution width (RBC) [Ratio] 46.1 fl High 35.1-43.9 [facility] Glomerular filtration rate ( GFR) estimation/1.73 sq m using serum, plasma, or whole bOrdered By: Stefan Jerez on 11-06-2024 GFR/1.73 sq M.predicted among non-blacks MDRD (S/P/Bld) [Vol rate/Area] 74 mL/min/{1.73_m2} >60 [facility] Comment on above: mL/min/1.73m2 CKD-EP I Creatinine Equation (2020) Hematocrit Auto (Bld) [Volum e fraction]Ordered By: Stefan Jerez on 11-06-2024 Hematocrit (Bld) [Volume fraction] 36.8 % Low 37-47 [facility] Hemoglobin measurementOrdere d By: Stefan Jerez on 11-06-2024 Hemoglobin (Bld) [Mass/Vol] 12.0 g/dL 12.0-15.0 [facility] Immature granulocytes/100 WB C Auto (Bld)Ordered By: Stefan Jerez on 11-06-2024 Immature granulocytes/100 WBC (Bld) 0.400 % 0.0-0.9 [facility] Comment on above: IG% - Immature Granu locytes (promyelocytes, myelocytes and metamyelocytes) > 1% indicates that a LEFT SHIFT is Present. Ketones Test strip Ql (U)Ord ered By: Stefan Jerez on 11-06-2024 Ketones Ql (U) Negative Negative [facility] L499.0043on 11-06-2024 Trop T High Sen 518 ng/L Invalid Interpretation Code <=14 [facility] Comment on above: Result Comment: CRIT ICAL RESULT CALLED TO [facility] BY DEMETRICE WOOD. RESULTS READ BACK BY SAME. 0754 Performed By: #### L 499.0043 ####[facility] [address] [place], [place], [id number] Trop T High Sen 455 ng/L Invalid Interpretation Code <=14 [facility] Comment on above: Result Comment: Crit ical Result(s) Called at:0536 by:??IRA HAVEN TO [facility] [place] Results read back by same. Performed By: #### L 499.0043 ####[facility] [address] [place], [place], [id number] LDL calc ser/plasOrdered By: Stefan Jerez on 11-06-2024 Cholesterol in LDL [Mass/Vol] 52 mg/dL [facility] Comment on above: Cafbzeugas=987-005 m g/dL & Higher Wkbq=521 mg/dL or greater Laboratory - Chemistry and C hemistry - challengeOrdered By: Stefan Jerez on 11-06-2024 AST [Catalytic activity/Vol] 26 U/L <32 [facility] Lipid Profileon 11-06-2024 CHOL:HDL 3.57 Normal [facility] Comment on above: Performed By: #### L 500.4100, L501.2300, L100.0100, L500.4050 #### [facility] [address] [place], [address] Cholesterol [Mass/Vol] 105 mg/dL Normal <=200 [facility] Comment on above: Result Comment: Chol esterol level, Desirable <200 mg/dL Borderline high cholesterol 200-239 mg/dL High cholesterol >=240 mg/dL Recommendations of the NCEP Adult Treatment Panel for the following risk-cutoff thresholds for the [place] population. Performed By: #### L 500.4100, L501.2300, L100.0100, L500.4050 #### [facility] [address] [place], [address] Cholesterol in HDL [Mass/Vol] 29 mg/dL Low [facility] Comment on above: Result Comment: Jia onal Cholesterol Education Program (NCEP) guidelines: <40 mg/dL: Low HDL-cholesterol (major risk factor for CHD) >= 60 mg/dL: High HDL-cholesterol (negative risk factor for CHD) HDL-cholesterol is affected by a number of factors, e.g. smoking, exercise, hormones, sex and age. Performed By: #### L 500.4100, L501.2300, L100.0100, L500.4050 #### [facility] [address] [place], [address] Cholesterol in LDL [Mass/Vol] 52 mg/dL Normal [facility] Comment on above: Result Comment: Bord goyhjt=681-137 mg/dL Higher Eopb=417 mg/dL or greater Performed By: #### L 500.4100, L501.2300, L100.0100, L500.4050 #### [facility] [address] [place], [address] Cholesterol in VLDL [Mass/Vol] 23 mg/dL Normal 5-40 [facility] Comment on above: Performed By: #### L 500.4100, L501.2300, L100.0100, L500.4050 #### [facility] [address] [place], [address] Triglyceride [Mass/Vol] 117 mg/dL Normal [facility] Comment on above: Result Comment: The drugs N-Acetylcysteine and Metamizole may falsely depress this assay. Normal range: <150 mg/dL Borderline High: 150-199 mg/dL High: 200-499 mg/dL Very High: >500 mg/dL Performed By: #### L 500.4100, L501.2300, L100.0100, L500.4050 #### [facility] [address] [place], [address] MCV (mean corpuscular volume ) determinationOrdered By: Stefan Jerez on 11-06-2024 MCV (RBC) [Entitic vol] 91.1 fL 81-99 [facility] Mean corpuscular hemoglobin (MCH) determinationOrdered By: Stefan Jerez on 11-06-2024 MCH (RBC) [Entitic mass] 29.7 pg 27.0-32.0 [facility] Mean corpuscular hemoglobin concentration (MCHC) determinationOrdered By: Stefan Jerez on 11-06-2024 MCHC (RBC) [Mass/Vol] 32.6 g/dL 32-36 [facility] Mean platelet volume determi nationOrdered By: Stefan Jerez on 11-06-2024 Platelet mean volume (Bld) [Entitic vol] 11.1 fL 6.2-12.0 [facility] Microscopic analysis of urin e for red blood cells (RBC)Ordered By: Stefan Jerez on 11-06-2024 Microscopic analysis of urine for red blood cells (RBC) 0 SEEN /hpf 0-5 [facility] Monocyte percentageOrdered B y: Stefan Jerez on 11-06-2024 Monocytes/100 WBC (Bld) 6.8 % 0-10 [facility] Mucus LM Ql (Urine sed)Order ed By: Stefan Jerez on 11-06-2024 Mucus Ql (Urine sed) 0 SEEN /hpf [facility] Neutrophil percentageOrdered By: Stefan Jerez on 11-06-2024 Neutrophils/100 WBC (Bld) 66.2 % 47-70 [facility] Nitrite Test strip Ql (U)Ord ered By: Stefan Jerez on 11-06-2024 Nitrite Ql (U) Negative Negative [facility] Nucleated red blood cell per centageOrdered By: Stefan Jerez on 11-06-2024 Nucleated RBC/100 WBC (Bld) [Ratio] 0 % 0-5 [facility] Phosphoruson 11-06-2024 Phosphate [Mass/Vol] 3.5 mg/dL Normal 2.7-4.5 [facility] Comment on above: Performed By: #### L 500.4100, L501.2300, L100.0100, L500.4050 #### [facility] [address] [place], [address] Platelet countOrdered By: Tereso Jerez on 11-06-2024 Platelets (Bld) [#/Vol] 190 10*3/uL 150-450 [facility] Potassium measurement (mass/ volume)Ordered By: Stefan Jerez on 11-06-2024 Potassium (Unsp spec) [Mass/Vol] 3.9 mmol/L 3.3-5.1 [facility] Protein Test strip Ql (U)Ord ered By: Stefan Jerez on 11-06-2024 Protein Ql (U) 15 mg/dl High Negative [facility] RBC Auto (Bld) [#/Vol]Ordere d By: Stefan Jerez on 11-06-2024 RBC (Bld) [#/Vol] 4.04 10*6/uL Low 4.2-5.4 [facility] Screening total cholesterol/ high density lipoprotein (HDL) cholesterol ratioOrdered By: Stefan Jerez on 11-06-2024 Cholesterol.total/Marina sterol in HDL [Mass ratio] 3.57 {ratio} [facility] Serum creatinine measurement (mass/volume)Ordered By: Stefan Jerez on 11-06-2024 Creatinine [Mass/Vol] 0.91 mg/dL 0.70-1.20 [facility] Serum globulin measurementOr dered By: Stefan Jerez on 11-06-2024 Globulin (S) [Mass/Vol] 2.3 g/dL 2.2-4.2 [facility] Serum glucose measurement (m ass/volume)Ordered By: Stefan Jerez on 11-06-2024 Glucose [Mass/Vol] 86 mg/dL 70-99 [facility] Serum or plasma alanine purvis otransferase (ALT) measurementOrdered By: Stefan Jerez on 11-06-2024 ALT [Catalytic activity/Vol] 9 U/L <35 [facility] Serum or plasma albumin bernard urement (mass/volume)Ordered By: Stefan Jerez on 11-06-2024 Albumin [Mass/Vol] 3.3 g/dL Low 3.5-5.0 [facility] Serum or plasma albumin/glob ulin mass ratioOrdered By: Stefan Jerez on 11-06-2024 Albumin/Globulin [Mass ratio] 1.5 {ratio} 0.9-2.4 [facility] Serum or plasma alkaline mateus sphatase measurementOrdered By: Stefan Jerez on 11-06-2024 ALP [Catalytic activity/Vol] 76 U/L 35-104 [facility] Serum or plasma calcium bernard urement (mass/volume)Ordered By: Stefan Jerez on 11-06-2024 Calcium [Mass/Vol] 8.1 mg/dL 7.6-11.0 [facility] Serum or plasma cholesterol in HDL measurement (mass/volume)Ordered By: Stefan Jerez on 11-06-2024 Cholesterol in HDL [Mass/Vol] 29 mg/dL Low >40 [facility] Comment on above: National Cholesterol Education Program (NCEP) guidelines:<40 mg/dL: Low HDL-cholesterol (major risk factor for CHD)>= 60 mg/dL: High HDL-cholesterol (negative risk factor for CHD)HDL-cholesterol is affected by a number of factors, e.g. smoking, exercise, hormones, sex and age. Serum or plasma cholesterol measurement (mass/volume)Ordered By: Stefan Jerez on 11-06-2024 Cholesterol [Mass/Vol] 105 mg/dL <201 [facility] Comment on above: Cholesterol level, D esirable <200 mg/dLBorderline high cholesterol 200-239 mg/dLHigh cholesterol >=240 mg/dLRecommendations of the NCEP Adult Treatment Panel for the following risk-cutoff thresholds for the [place] population. Serum or plasma urea nitroge n measurement (mass/volume)Ordered By: Stefan Jerez on 11-06-2024 Urea nitrogen [Mass/Vol] 15 mg/dL 4-19 [facility] Sodium levelOrdered By: Michael Jerez on 11-06-2024 Sodium [Moles/Vol] 142 mmol/L 133-145 [facility] Squamous epithelial cells de tection in urine sediment by light microscopyOrdered By: Stefan Jerez on 11-06-2024 Epithelial cells.squamous LM Ql (Urine sed) 0-5 SEEN /hpf 5-10 [facility] Total proteinOrdered By: Lucas Jerez on 11-06-2024 Protein [Mass/Vol] 5.6 g/dL Low 5.9-8.4 [facility] Triglycerides measurementOrd ered By: Stefan Jerez on 11-06-2024 Triglyceride [Mass/Vol] 117 mg/dL <199 [facility] Comment on above: The drugs N-Acetylcy steine and Metamizole may falsely depress this assay. Normal range: <150 mg/dLBorderline High: 150-199 mg/dLHigh: 200-499 mg/dLVery High: >500 mg/dL Troponin T.cardiac [Mass/vol ume] in Serum or Plasma by High sensitivity methodOrdered By: Stefan Jerez on 11-06-2024 Troponin T.cardiac High sensitivity method [Mass/Vol] 518 ng/L High <14 [facility] Comment on above: CRITICAL RESULT CALL ED TO [facility] BY DEMETRICE WOOD. RESULTS READ BACK BY SAME. 0754 Urinalysis, Completeon 05-22 -2025 EPI,SQUAMOUS 0-5 SEEN Normal 5-10 [facility] Comment on above: Order Comment: CLEAN CATCH Performed By: #### L 400.0001 #### [facility] [address] [place], [address] BACTERIA 0 SEEN Normal None Seen [facility] Comment on above: Order Comment: CLEAN CATCH Performed By: #### L 400.0001 #### [facility] [address] [place], [address] Mucus Ql (Urine sed) 0 SEEN Normal [facility] Comment on above: Order Comment: CLEAN CATCH Performed By: #### L 400.0001 #### [facility] [address] [place], [address] RBC 0 SEEN Normal 0-5 [facility] Comment on above: Order Comment: CLEAN CATCH Performed By: #### L 400.0001 #### [facility] [address] [place], [address] WBC 0 SEEN Normal 0-5 [facility] Comment on above: Order Comment: CLEAN CATCH Performed By: #### L 400.0001 #### [facility] [address] [place], [address] Urine Drug Screen (VISTA)on 11-06-2024 AMPHETAMINES Negative Normal <1000 ng/mL [facility] Comment on above: Performed By: #### L 501.9985, L505.5000, L501.9520 ####[facility] [address] [place], [address] BARBITIURATES Negative Normal < 200 ng/mL [facility] Comment on above: Performed By: #### L 501.9985, L505.5000, L501.9520 ####[facility] [address] [place], [address] BENZODIAZIPINE Negative Normal < 200 ng/mL [facility] Comment on above: Performed By: #### L 501.9985, L505.5000, L501.9520 ####[facility] [address] [place], [address] BUP Ur Drug Scr Negative Normal < 200 ng/mL [facility] Comment on above: Performed By: #### L 501.9985, L505.5000, L501.9520 ####[facility] [address] [place], [address] COCAINE Negative Normal < 300 ng/mL [facility] Comment on above: Performed By: #### L 501.9985, L505.5000, L501.9520 ####[facility] [address] [place], [address] Fentanyl Negative Normal [facility] Comment on above: Performed By: #### L 501.9985, L505.5000, L501.9520 ####[facility] [address] [place], [address] METHADONE Negative Normal < 300 ng/mL [facility] Comment on above: Performed By: #### L 501.9985, L505.5000, L501.9520 ####[facility] [address] [place], [address] OPIATES Negative Normal < 300 ng/mL [facility] Comment on above: Performed By: #### L 501.9985, L505.5000, L501.9520 ####[facility] [address] [place], [address] OXYCODONE Negative Normal < 100 ng/mL [facility] Comment on above: Performed By: #### L 501.9985, L505.5000, L501.9520 ####[facility] [address] [place], [address] PCP Negative Normal < 25 ng/mL [facility] Comment on above: Performed By: #### L 501.9985, L505.5000, L501.9520 ####[facility] [address] [place], [address] THC Negative Normal < 50 ng/mL [facility] Comment on above: Performed By: #### L 501.9985, L505.5000, L501.9520 ####[facility] [address] [place] [place], [address] Urine clarityOrdered By: Lucas Jerez on 11-06-2024 Clarity (U) Clear Clear [facility] Urine color determinationOrd ered By: Stefan Jerez on 11-06-2024 Color (U) Yellow Yellow [facility] Urine glucose detectionOrder ed By: Stefan Jerez on 11-06-2024 Glucose Ql (U) Normal mg/dl Normal [facility] Urine leukocyte esterase det ection by dipstickOrdered By: Stefan Jerez on 11-06-2024 Leukocyte esterase Test strip Ql (U) Negative Negative [facility] Urine pHOrdered By: Stefan corona on 11-06-2024 pH (U) 6.0 [pH] 5.0 - 8.0 [facility] Urine sediment bacteria coun t by microscopy (number/high power field)Ordered By: Stefan Jerez on 11-06-2024 Bacteria LM.HPF (Urine sed) [#/Area] 0 /[HPF] None Seen [facility] Urine specific gravity measu rementOrdered By: Stefan Jerez on 11-06-2024 Specific gravity (U) [Rel density] 1.010 1.002-1.030 [facility] Urine urobilinogen measureme ntOrdered By: Stefan Jerez on 11-06-2024 Urobilinogen Ql (U) Normal mg/dl Normal [facility] White blood cell (WBC) count Ordered By: Stefan Jerez on 11-06-2024 WBC (Bld) [#/Vol] 11.0 10*3/uL 4.4-11.0 [facility] White blood cell countOrdere d By: Stefan Jerez on 11-06-2024 White blood cell count 0 SEEN /hpf 0-5 [facility] 12 Lead EKGon 11-05-2024 12 Lead EKG [facility] Cardiovascular Services [address] [place] [address] 12 Lead EKG 11/05/24 1835 MR#: [id number] Acct: [id number] Name: LAURABEBASARANYA Rep #: [id number] : 1965 58 From: Pablo Samano MD Attending Dr: Dr. Glenny Moore DO Status: DIS I NO Ordering Dr: Eric Lazcano DO Date: 11/05/24 Location: U Sex: F C Admitted: 11/05/24 Test Reason : repeat Blood Pressure : */* mmHG Vent. Rate : 82 BPM Atrial Rate : 82 BPM P-R Int : 154 ms QRS Dur : 76 ms QT Int : 394 ms P-R-T Axes : 70 70 101 degrees QTcB Int : 460 ms Normal sinus rhythm Normal ECG Confirmed by SELWYN FITZGERALD, DIAMOND ([id number]), photograph editor JANEL ARGUETA ([id number]) on 11/11/2024 6:45:04 AM Referred By: Confirmed By: DIAMOND SAMANO MD 11/11/24 0645 Date Pablo Samano MD CC: Dr. Bucky Walters MD; Dr. Glenny Moore DO; Dr. Eric Lazcano DO Signed Normal [facility] 12 Lead EKG [facility] Cardiovascular Services [address] [place] [address] 12 Lead EKG 11/05/24 1724 MR#: [id number] Acct: [id number] Name: AIDANSARANYA L Rep #: [id number] : 1965 58 From: Pablo Samano MD Attending Dr: Dr. Glenny Moore DO Status: DIS I NO Ordering Dr: Eric Lazcano DO Date: 11/05/24 Location: [facility] Sex: F C Admitted: 11/05/24 Test Reason : CP Blood Pressure : */* mmHG Vent. Rate : 132 BPM Atrial Rate : * BPM P-R Int : * ms QRS Dur : 76 ms QT Int : 322 ms P-R-T Axes : * 77 118 degrees QTcB Int : 477 ms Supraventricular tachycardia Nonspecific ST abnormality Abnormal ECG Confirmed by SELWYN FITZGERALD, DIAMOND ([id number]), photograph editor JANEL ARGUETA ([id number]) on 11/11/2024 6:44:50 AM Referred By: Confirmed By: DIAMOND SAMANO MD 11/11/24 0644 Date Pablo Samano MD CC: Dr. Bucky Walters MD; Dr. Glenny Moore DO; Dr. Eric Lazcano DO Signed Normal [facility] Absolute lymphocyte countOrd ered By: Eric Lazcano on 11-05-2024 Lymphocytes Auto (Unsp spec) [#/Vol] 4.17 10*3/uL 0.83-4.51 [facility] Absolute neutrophil countOrd ered By: Eric Lazcano on 11-05-2024 Neutrophils (Bld) [#/Vol] 7.1 10*3/uL 2.0-7.7 [facility] Amphetamine detection with 1 000 ng/mL as cutoffOrdered By: Stefan Jerez on 11-05-2024 Amphetamines Screen method >1000 ng/mL Ql (U) Negative < 200 ng/mL [facility] Anion gap in Serum or Plasma Ordered By: Eric Lazcano on 11-05-2024 Anion gap [Moles/Vol] 10 mmol/L 10-30 [facility] Automated lymphocyte count a s percentage of total leukocytesOrdered By: Eric Lazcano on 11-05-2024 Lymphocytes/100 WBC Auto (Unsp spec) 33.8 % [facility] BUN/creatinine ratioOrdered By: Eric Lazcano on 11-05-2024 Urea nitrogen/Creatinine [Mass ratio] 16.4 mg/mg - [facility] Basic Metabolic Profile (BMP )on 11-05-2024 BUN/CRE 16.4 RATIO Normal 10-20 [facility] Comment on above: Performed By: #### L 500.2500, L501.4021, L100.0100 #### [facility] [address] [place], [address] Calcium [Mass/Vol] 9.0 mg/dL Normal 7.6-11.0 [facility] Comment on above: Performed By: #### L 500.2500, L501.4021, L100.0100 #### [facility] [address] [place], [address] Chloride [Moles/Vol] 107 mmol/L Normal 98-108 [facility] Comment on above: Performed By: #### L 500.2500, L501.4021, L100.0100 #### [facility] [address] [place], [address] CO2 [Moles/Vol] 24.6 mmol/L Normal 21.0-32.0 [facility] Comment on above: Performed By: #### L 500.2500, L501.4021, L100.0100 #### [facility] [address] [place], [address] Creatinine [Mass/Vol] 1.17 mg/dL Normal 0.70-1.20 [facility] Comment on above: Performed By: #### L 500.2500, L501.4021, L100.0100 #### [facility] [address] [place], [address] ECRCL 62.40 ml/min Normal 50-250 [facility] Comment on above: Performed By: #### L 500.2500, L501.4021, L100.0100 #### [facility] [address] [place], [address] GAP 10 Normal 5-15 [facility] Comment on above: Performed By: #### L 500.2500, L501.4021, L100.0100 #### [facility] [address] [place], [address] GFR/1.73 sq M.predicted among non-blacks MDRD (S/P/Bld) [Vol rate/Area] 55 mL/min/{1.73_m2} Low >60 [facility] Comment on above: Result Comment: mL/m in/1.73m2 CKD-EPI Creatinine Equation (2020) Performed By: #### L 500.2500, L501.4021, L100.0100 #### [facility] [address] [place], [address] Glucose [Mass/Vol] 104 mg/dL High 70-99 [facility] Comment on above: Performed By: #### L 500.2500, L501.4021, L100.0100 #### [facility] [address] [place], [address] Potassium [Moles/Vol] 4.0 mmol/L Normal 3.3-5.1 [facility] Comment on above: Performed By: #### L 500.2500, L501.4021, L100.0100 #### [facility] [address] [place], [address] Sodium [Moles/Vol] 142 mmol/L Normal 133-145 [facility] Comment on above: Performed By: #### L 500.2500, L501.4021, L100.0100 #### [facility] [address] [place], [address] Urea nitrogen [Mass/Vol] 19 mg/dL Normal 4-19 [facility] Comment on above: Performed By: #### L 500.2500, L501.4021, L100.0100 #### [facility] [address] [place], [address] Basophil percentageOrdered B y: Eric Lazcano on 11-05-2024 Basophils/100 WBC (Bld) 0.4 % 0-1 [facility] CBC W/Diff, Automatedon 05-2 PLT EST ADEQUATE Normal ADEQ [facility] Comment on above: Performed By: #### L 500.2500, L501.4021, L100.0100 #### [facility] [address] [facility] [place], [place], [address] Carbon dioxide, total [Moles /volume] in Central venous bloodOrdered By: Eric Lazcano on 11-05-2024 CO2 [Moles/Vol] 24.6 mmol/L 21.0-32.0 [facility] Chest 1 View (Portable)on Chest 1 View (Portable) [facility] Imaging Services [address] [place], [place] [address] Chest 1 View (Portable) MR#: [id number] Acct: [id number] Name: SARANYA BERMUDEZ Rep #: [id number] : 1965 F 58 From: Deandre Howard MD PCP: Dr. Bucky Walters MD Status: ADM CHERYL Study: Chest 1 View (Portable) Date of Exam: 11/05/24 Exam# [id number] Ordering Dr: Eric Lazcano DO PROCEDURE: CHEST 1 VIEW (PORTABLE) 11/05/2024 REASON FOR EXAM: CHEST PAIN TECHNIQUE: Frontal view of the chest. COMPARISON: None. FINDINGS: Hardware: None. Heart: The heart size is normal. Lungs: The lungs are clear. Bones: The bones are unremarkable. Other: None. RAD/Chest 1 View (Portable) IMPRESSION: No Acute Findings. Reading Location: [id number] CC: Dr. Bucyk Walters MD; Dr. Eric Lazcano DO Maid Housekeeper: Signed Normal [facility] Chloride assayOrdered By: Sarath Lazcano on 11-05-2024 Chloride [Moles/Vol] 107 mmol/L 98-108 [facility] D-Dimer Quantitative (DVT/PE )on 11-05-2024 D-DIMER QUANT 0.48 FEU/ug/m Normal 0.27-0.49 [facility] Comment on above: Result Comment: NORM AL D-Dimer level (<0.50) indicates no DVT or PE. Performed By: #### L 300.8000 ####[facility] [address] [place], [address] Echo Completeon 11-05-2024 Echo Complete [facility] [address] [place] [address] Echo Complete 11/06/24 0954 MR#: [id number] Acct: [id number] Name: SARANYA BERMUDEZ Rep #: [id number] : 1965 58 From: Pablo Samano MD Attending Dr: Dr. Glenny Moore DO Status: ADM I NO Ordering Dr: Stefan Armstrong DO Date: 11/05/24 Location: [facility] Sex: F C Admitted: 11/05/24 Reason For Study Reason For Study: ARRYTHMIA Procedure This was a 2D Doppler, Color Flow transthoracic echocardiogram. Exam performed portable in patient room. Left Ventricle Normal LV size. The estimated ejection fraction is 60 %. No evidence for diastolic dysfunction. No regional wall motion abnormalities noted. Right Ventricle Normal RV size. Normal systolic function. Atria The left and right atria are normal. No doppler evidence for ASD. Mitral Valve There is no mitral valve stenosis. Trivial mitral valve insufficiency. Tricuspid Valve There is no tricuspid stenosis. Unable to estimate RV systolic pressure due to inadequate jet, pulmonary artery pressure probably normal. Aortic Valve Trisinus/trileaflet aortic valve. There is no aortic stenosis. No aortic valve insufficiency. Pulmonic Valve There is no pulmonic valvular stenosis. No pulmonic valve insufficiency. Great Vessels Normal sized aortic root. Pericardium/Pleural Small (<1.0 cm) pericardial effusion. MMode/2D Measurements Calculations LVIDd: 5.7 cm IVSd: 0.67 cm LVOT diam: 2.0 cm LVIDs: 4.1 cm LVPWd: 0.84 cm LVOT area: 3.1 cm2 RVDd: 3.2 cm FS: 28.5 % Ao root diam: 3.2 cm LAV(MOD-bp): 42.1 ml LVAd ap4: 23.7 cm2 LAV(MOD-bp) Indexed: 20.9 ml/m2 LVLd ap4: 7.1 cm LAV(MOD-sp2): 35.5 ml EDV(MOD-sp4): 68.7 ml LAV(MOD-sp4): 41.3 ml EDV(sp4-el): 67.0 ml LVAs ap4: 14.4 cm2 LVLs ap4: 5.8 cm ESV(MOD-sp4): 32.0 ml ESV(sp4-el): 30.4 ml EF(MOD-sp4): 53.4 % EF(sp4-el): 54.6 % SV(MOD-sp4): 36.7 ml SV(sp4-el): 36.6 ml LA A4 area: 15.4 cm2 SI(MOD-sp4): 18.2 ml/m2 LA dimension(2D): 3.1 cm RA A4 area: 9.2 cm2 Time Measurements MV dec time: 0.22 sec Doppler Measurements Calculations MV E max sloane: 68.8 cm/sec Lat Peak E' Sloane: 7.5 cm/sec Med Peak E' Sloane: 5.4 cm/sec MV A max sloane: 78.0 cm/sec E/E' lat: 9.1 E/E' med: 12.8 MV E/A: 0.88 MV V2 max: 83.6 cm/sec Ao V2 max: 103.4 cm/sec MV max P.8 mmHg MV dec slope: 334.4 cm/sec2 Ao max P.3 mmHg MV V2 mean: 51.9 cm/sec Ao V2 mean: 72.7 cm/sec MV mean P.2 mmHg Ao mean P.4 mmHg MV V2 VTI: 23.3 cm Ao V2 VTI: 25.7 cm AV (velocity ratio): 0.83 MVA(VTI): 2.9 cm2 ALEXX(I,D): 2.6 cm2 ALEXX(V,D): 2.7 cm2 LV V1 max: 87.7 cm/sec SV(LVOT): 67.2 ml PA V2 max: 60.0 cm/sec LV V1 max P.1 mmHg PA V2 mean: 45.7 cm/sec LV V1 mean P.8 mmHg LV V1 mean: 63.5 cm/sec LV V1 VTI: 21.4 cm ECHO/Echo Complete Interpretation Summary The estimated ejection fraction is 60 %. No evidence for diastolic dysfunction. Trivial mitral valve insufficiency. Small (<1.0 cm) pericardial effusion. Ordering Physician: Stefan Armstrong Referring Physician: SHASTA ALTAMIRANO Performed By: Maren Garnett RCS 11/06/24 1141 Date Pablo Samano MD CC: Dr. Bucky Walters MD; Dr. Stefan Armstrong DO; Dr. Glenny Moore DO Date Dictated: 11/06/24 0954 Date Transcribed: 11/06/24 1141 Maid Housekeeper: Signed [facility] Emergency Department Summary on 11-05-2024 Emergency Department Summary [facility] Medical Records Department [address] [place] [id number] Emergency Department Summary 11/05/24 MR#: [id number] Acct: [id number] Name: SARANYA BERMUDEZ Rep #: [id number] : 1965 58 From: Eric Loaiza PCP: Dr. Bucky Walters MD Status:ADM CHERYL Location: [address] History of Present Illness Chief Complaint: Chest Pain Informant: patient Narrative Narrative: Patient presents with left-sided burning to the chest substernal discomfort 4:30 PM while getting ready for dinner. No pain down the arms no nausea. She has been having on and off palpitations racing heart for last 3 months. Saw her PCP she currently has Serena patch day . Since having onset been more symptomatic. No lightheaded symptoms. No chest pains until today. Tobacco history mother with [place] in her 40s hypertension hyperlipidemia. Denies diabetes. Stress test years ago no history of heart caths. She has had a smoker's cough. No recent travel, surgeries, or immobilizations. No history of PE or DVT. She has had no recent vomiting or diarrhea. CVD Risk Factors: Positive for Hypertension, Hypercholesterolemia, Family History 1' Smoking; Negative for Diabetes PE Risk Factors: Negative for Recent Travel/Surgery, Recent Immobilization or Prior DVT or PE [facility] Medical History (Updated 11/05/24 @ 22:[address] Eric Lazcano, DO) Depression High cholesterol HTN (hypertension) Home Medications ???Medication ???Instructions ???Recorded ???Last Taken ???Type atorvastatin 20 mg tablet 20 mg PO QHS cholesterol 11/05/24 Unknown History cholecalciferol (vitamin D3) 1,250 1,250 mcg PO QWEEK 11/05/24 Unkn own History mcg (50,000 unit) capsule losartan 25 mg tablet 25 mg PO QHS 11/05/24 Unknown Hist ory metoprolol succinate 25 mg 50 mg PO DAILY 11/05/24 Unknown Hi story tablet,extended release 24 hr Allergy/AdvReac Type Severity Reaction Status Date / Time No Known Allergies Allergy Verified 11/05/24 17:13 Social History current occupational status: employed Smoking Status: Current every day smoker tobacco type: cigarettes ROS ROS ED Constitutional Constitutional ED: Denies chills, fever(s) or sweats ENT ENT ED: Denies sore throat Cardiovascular Cardiovascular: Reports chest pain, palpitations and racing heartbeat; Denies leg edema Respiratory/Chest Respiratory/Chest: Reports cough; Denies dyspnea or dyspnea on exertion Gastrointestinal Gastrointestinal: Denies abdominal pain, diarrhea, nausea or vomiting Genitourinary Genitourinary ED: Denies dysuria, hematuria or urinary frequency Musculoskeletal Musculoskeletal: Denies back pain, extremity pain or neck pain Integumentary Denies rash or wounds Neurologic Neurologic: Denies headache(s), paresthesias or weakness EXAM Physical Exam Const Vital Signs: 11/05/24 17:13 11/05/24 17:33 11/05/24 18:00 Temperature 97.4 F L Temperature Source Temporal Pulse Rate 144 H 130 H Respiratory Rate 26 H 20 H Blood Pressure 107/76 99/83 H Blood Pressure Mean 86 88 Pulse Ox 100 96 96 Oxygen Delivery Method Room Air Room Air Room Air 11/05/24 18:31 11/05/24 19:00 11/05/24 20:00 Temperature Temperature Source Pulse Rate 81 77 74 Respiratory Rate 11 L 24 H 17 Blood Pressure 120/79 133/86 H 157/93 H Blood Pressure Mean 92 99 113 Pulse Ox 97 96 97 Oxygen Delivery Method Room Air 11/05/24 21:00 Temperature Temperature Source Pulse Rate 73 Respiratory Rate 22 H Blood Pressure 152/84 H Blood Pressure Mean 106 Pulse Ox 98 Oxygen Delivery Method Positive well nourished and well developed General Appearance ED: well developed and NAD HEENT Reports moist mucous membranes normocephalic and atraumatic Eyes General Eye ED: Yes normal appearance of both eyes Neck full ROM Chest Wall Chest: Negative for tenderness Resp normal respiratory effort and normal air movement Effort and Inspection: symmetric chest movement; Negative for respiratory distress Cardio regular rhythm and no murmurs Rate: tachycardic Peripheral Pulses: pulses 2+ throughout GI normal to inspection, nondistended, normoactive bowel sounds and non-tender Palpation: Negative for guarding or rebound tenderness present Extremity normal to inspection General Extremety ED: Negative for edema or tenderness General Extremity: Negative for edema Neuro oriented x3 and no sensory deficits noted Sensorium / Orientation: awake and alert Skin no rashes or lesions noted and no wounds Heart Score History: Slightly/Non-Suspiciou s ECG: Normal Age: >45 - <65 years Risk Factors: >/= 3 Risk Factors or History of CAD Troponin: >/=3 x Normal Limit Score: 5 MD (more content not included)... Normal [facility] Eosinophil percentageOrdered By: Eric Lazcano on 11-05-2024 Eosinophils/100 WBC (Bld) 0.3 % 0-5 [facility] Erythrocyte distribution wid th ratioOrdered By: Eric Lazcano on 11-05-2024 Erythrocyte distribution width (RBC) [Ratio] 13.8 % 11.6-14.6 [facility] Erythrocyte distribution wid th standard deviationOrdered By: Eric Lazcano on 11-05-2024 Erythrocyte distribution width (RBC) [Ratio] 47.2 fl High 35.1-43.9 [facility] Glomerular filtration rate ( GFR) estimation/1.73 sq m using serum, plasma, or whole bOrdered By: Eric Lazcano on 11-05-2024 GFR/1.73 sq M.predicted among non-blacks MDRD (S/P/Bld) [Vol rate/Area] 55 mL/min/{1.73_m2} Low >60 [facility] Comment on above: mL/min/1.73m2 CKD-EP I Creatinine Equation (2020) H AND P Exam - [facility] 11-05-2024 H&P Exam - Hospitalist [facility] Medical Records Department [address] [place] [address] H P Exam - Hospitalist 11/05/242128 MR#: [id number] Acct: [id number] Name: SARANYA BERMUDEZ Rep #: [id number] : 1965 58 From: Stefan Armstrong DO PCP: Dr. Bucky Walters MD Status:ADM CHERYL Location: [place] [address] HPI - General General Date of Admission: 11/05/24 Date of Service: 11/05/24 Chief Complaint: Chest Pain, Heart Racing and Palpitations. HPI Narrative SARANYA BERMUDEZ, is a 58 F with a past medical history of essential hypertension; on metoprolol, amlodipine and losartan, hyperlipidemia; on atorvastatin, chronic tobacco abuse, overweight; with BMI of 29.6 this admission, asthma; on fluticasone BID, depression; on fluoxetine and history of intermittent but frequent heart racing with palpitations for the past 3 months; on Zio patch for 12/14 days who presents to [facility] ER complaining of chest pain, palpitations or heart racing. Ms. Bermudez reports her acute symptoms began around 16:30 hours while she was getting ready for dinner when she suddenly developed substernal chest pain that was moderate, burning and nonradiating and with nothing seeming to make the pain better or worse so she decided to come in for further evaluation and treatment. She denies chest pain until today. She also denies associated fever, chills, diaphoresis, lightheadedness, nausea, vomiting, abdominal pain, SOB, cough, headache, recent injury, recent illness, recent significant travel, HRT, headache or rash. In the ER she was noted to have SVT on her initial EKG @ 132 bpm which converted back to NSR after adenosine 6 mg IV x 1 and with initial troponin T elevated at 157 pg/L with senior quality control inspector on-call suspected NSTEMI-II due to Acute Cardiac Strain from persistent SVT with further recommendation made to check echocardiogram in AM to evaluate LVEF. She was then given ECASA and was subsequently admitted to the PCU under observation status for a stay that is expected to be less than 2 midnights. [facility] Medical History (Updated 11/05/24 @ 22:[address] Eric Lazcano, DO) Depression High cholesterol HTN (hypertension) Home Medications ???Medication ???Instructions ???Recorded ???Last Taken ???Type atorvastatin 20 mg tablet 20 mg PO QHS cholesterol 11/05/24 11/04/24 History cholecalciferol (vitamin D3) 1,250 1,250 mcg PO QWEEK 11/05/2410/16 History mcg (50,000 unit) capsule losartan 25 mg tablet 25 mg PO QHS 11/05/24 11/04/24 His tory metoprolol succinate 25 mg 50 mg PO DAILY 11/05/24 11/04/24 H istory tablet,extended release 24 hr Allergy/AdvReac Type Severity Reaction Status Date / Time sertraline (From Zoloft) AdvReac Abd Verified 11/05/24 22:58 cramps/diarrhea Social History current occupational status: employed Smoking Status: Current every day smoker tobacco type: cigarettes ROS ROS Narrative Review of Systems: Constitutional: Patient denies fever or chills. Eyes: Patient denies changes in vision or discharge from eyes. ENT: Patient denies runny nose, sore throat or ear pain. Resp: Patient denies SOB or cough. CV: Patient admits to chest pain, palpitations and heart racing as per HPI. She denies LE swlling. GI: Patient denies abdominal pain, nausea, vomiting, diarrhea or constipation. : Patient denies dysuria or hematuria. MSK: Patient denies arthralgias or myalgias. Skin: Patient denies rash, abscess, wounds or jaundice. Psych: Patient denies symptoms of uncontrolled depression or anxiety. Neuro: Patient denies headache, paresthesias or focal neurologic deficits. Allergy: Patient denies lip swelling, tongue swelling or urticaria. Hematology: Patient denies easy bleeding or easy bruisability. Endocrinology: Patient denies polyuria, polydipsia, polyphagia or heat/cold intolerance. 14 point ROS otherwise negative except for positives noted above in HPI. Vital Signs Vital Signs Vital Signs: 11/05/24 17:13 11/05/24 17:33 11/05/24 18:00 Temperature 97.4 F L Temperature Source Temporal Pulse Rate 144 H 130 H Respiratory Rate 26 H 20 H Blood Pressure 107/76 99/83 H Blood Pressure Mean 86 88 Pulse Ox 100 96 96 Oxygen Delivery Method Room Air Room Air Room Air 11/05/24 18:31 11/05/24 19:00 11/05/24 20:00 Temperature Temperature Source Pulse Rate 81 77 74 Respiratory Rate 11 L 24 H 17 Blood Pressure 120/79 133/86 H 157/93 H Blood Pressure Mean 92 99 113 Pulse Ox 97 96 97 Oxygen Delivery Method Room Air 11/05/24 21:00 Temperature Temperature Source Pulse Rate 73 Respiratory Rate 22 H Blood Pressure 152/84 H Blood Pressure Mean 106 Pulse Ox 98 Oxygen Delivery Method Weight We (more content not included)... Normal [facility] Hematocrit Auto (Bld) [Volum e fraction]Ordered By: Eric Lazcano on 11-05-2024 Hematocrit (Bld) [Volume fraction] 40.0 % 37-47 [facility] Hemoglobin A1con 11-05-2024 HbA1c (Bld) [Mass fraction] 5.9 % High <=5.6 [facility] Comment on above: Result Comment: Norm al < 5.7 % Prediabetic 5.7 - 6.4 % Diabetic >or= 6.5 % Please note range changes. Performed By: #### L 501.5168, L505.5000, L501.6723 ####[facility] [address] [place], [place], [id number] Hemoglobin A1c percentageOrd ered By: Stefan Jerez on 11-05-2024 HbA1c (Bld) [Mass fraction] 5.9 % High <5.7 [facility] Comment on above: Normal < 5.7 % Predi abetic 5.7 - 6.4 % Diabetic >or= 6.5 % Please note range changes. Hemoglobin measurementOrdere d By: Eric Lazcano on 11-05-2024 Hemoglobin (Bld) [Mass/Vol] 13.2 g/dL 12.0-15.0 [facility] Immature granulocytes/100 WB C Auto (Bld)Ordered By: Eric Lazcano on 11-05-2024 Immature granulocytes/100 WBC (Bld) 0.200 % 0.0-0.9 [facility] Comment on above: IG% - Immature Granu locytes (promyelocytes, myelocytes and metamyelocytes) > 1% indicates that a LEFT SHIFT is Present. L499.0042on 11-05-2024 Trop T High Sen 190 ng/L Invalid Interpretation Code <=14 [facility] Comment on above: Result Comment: Crit ical Result(s) Called at: 2044 by:??IRA DUNHAMN TO ROJELIO BECK Results read back by same. Performed By: #### L 499.0042 #### [facility] [address] [place], [address] L499.0043on 11-05-2024 Trop T High Sen 254 ng/L Invalid Interpretation Code <=14 [facility] Comment on above: Order Comment: CHECK ED WITH FLOOR, STILL IN ED AT 2200. SENT STICKER Result Comment: Crit ical Result(s) Called at:2238 by: IRA DUNHAMN SARATH WORTHINGTON??Results read back by same. Performed By: #### L 499.0043 ####[facility] [address] [place], [address] L501.4021on 11-05-2024 Trop T High Sen 157 ng/L Invalid Interpretation Code <=14 [facility] Comment on above: Result Comment: Crit ical Result(s) Called to Adolfo RN (ER): by Phani:??Results read back by same. Performed By: #### L 500.2500, L501.4021, L100.0100 ####[facility] [address] [place], [place], [id number] MCV (mean corpuscular volume ) determinationOrdered By: Eric Lazcano on 11-05-2024 MCV (RBC) [Entitic vol] 92.8 fL 81-99 [facility] Magnesiumon 11-05-2024 Magnesium [Mass/Vol] 1.8 mg/dL Normal 1.5-2.2 [facility] Comment on above: Performed By: #### L 400.0001 #### [facility] [address] [place], [place], [id number] Magnesium measurement (mass/ volume)Ordered By: Stefan Jerez on 11-05-2024 Magnesium (Unsp spec) [Mass/Vol] 1.8 mg/dL 1.5-2.2 [facility] Mean corpuscular hemoglobin (MCH) determinationOrdered By: Eric Lazcano on 11-05-2024 MCH (RBC) [Entitic mass] 30.6 pg 27.0-32.0 [facility] Mean corpuscular hemoglobin concentration (MCHC) determinationOrdered By: Eric Lazcano on 11-05-2024 MCHC (RBC) [Mass/Vol] 33.0 g/dL 32-36 [facility] Mean platelet volume determi nationOrdered By: Eric Lazcano on 11-05-2024 Platelet mean volume (Bld) [Entitic vol] 11.3 fL 6.2-12.0 [facility] Monocyte percentageOrdered B y: Eric Lazcano on 11-05-2024 Monocytes/100 WBC (Bld) 7.5 % 0-10 [facility] Neutrophil percentageOrdered By: Eric Lazcano on 11-05-2024 Neutrophils/100 WBC (Bld) 57.8 % 47-70 [facility] No Panel InformationOrdered By: Stefan Jerez on 11-05-2024 Urine Buprenorphine Qualitative Negative < 200 ng/mL [facility] Urine Oxycodone Screen Negative < 100 ng/mL [facility] Nucleated red blood cell per centageOrdered By: Eric Lazcano on 11-05-2024 Nucleated RBC/100 WBC (Bld) [Ratio] 0 % 0-5 [facility] Platelet countOrdered By: Sarath Lazcano on 11-05-2024 Platelets (Bld) [#/Vol] 258 10*3/uL 150-450 [facility] Platelet estimateOrdered By: Eric Lazcano on 11-05-2024 Platelets LM Ql (Bld) ADEQUATE ADEQ [facility] Potassium measurement (mass/ volume)Ordered By: Eric Lazcano on 11-05-2024 Potassium (Unsp spec) [Mass/Vol] 4.0 mmol/L 3.3-5.1 [facility] Quantitative urine opiates m easurementOrdered By: Stefan Jerez on 11-05-2024 Opiates Ql (U) Negative < 300 ng/mL [facility] RBC Auto (Bld) [#/Vol]Ordere d By: Eric Lazcano on 11-05-2024 RBC (Bld) [#/Vol] 4.31 10*6/uL 4.2-5.4 [facility] Screening urine fentanyl ginger surementOrdered By: Stefan Jerez on 11-05-2024 fentaNYL Screen Ql (U) Negative [facility] Serum creatinine measurement (mass/volume)Ordered By: Eric Lazcano on 11-05-2024 Creatinine [Mass/Vol] 1.17 mg/dL 0.70-1.20 [facility] Serum glucose measurement (m ass/volume)Ordered By: Eric Lazcano on 11-05-2024 Glucose [Mass/Vol] 104 mg/dL High 70-99 [facility] Serum or plasma calcium bernard urement (mass/volume)Ordered By: Eric Lazcano on 11-05-2024 Calcium [Mass/Vol] 9.0 mg/dL 7.6-11.0 [facility] Serum or plasma urea nitroge n measurement (mass/volume)Ordered By: Eric Lazcano on 11-05-2024 Urea nitrogen [Mass/Vol] 19 mg/dL 4-19 [facility] Sodium levelOrdered By: Eric Lazcano on 11-05-2024 Sodium [Moles/Vol] 142 mmol/L 133-145 [facility] TSH DL <= 0.005 mIU/L QnOrde red By: Stefan Jerez on 11-05-2024 TSH Qn 2.070 uIU/mL 0.300-4.200 [facility] Thyroid Stim Hormone (TSH)on 11-05-2024 TSH 2.070 uIU/mL Normal 0.300-4.200 [facility] Comment on above: Performed By: #### L 501.9985, L505.5000, L501.9520 ####[facility] [id number] [place], [address] Troponin T.cardiac [Mass/vol ume] in Serum or Plasma by High sensitivity methodOrdered By: Eric Lazcano on 11-05-2024 Troponin T.cardiac High sensitivity method [Mass/Vol] 254 ng/L High <14 [facility] Comment on above: Critical Result(s) C alled at:2238 by: IRA KING TO MITCHELL WORTHINGTON Results read back by same. Troponin T.cardiac High sensitivity method [Mass/Vol] 190 ng/L High <14 [facility] Comment on above: Critical Result(s) C alled at: 2044 by: IRA KING TO ROJELIO BECK Results read back by same. Troponin T.cardiac High sensitivity method [Mass/Vol] 157 ng/L High <14 [facility] Comment on above: Critical Result(s) C alled to Adolfo CALLE (ER): by Phani: Results read back by same. Urine benzodiazepine levelOr dered By: Stefan Jerez on 11-05-2024 Benzodiazepines Ql (U) Negative < 200 ng/mL [facility] Urine cocaine levelOrdered B y: Stefan Jerez on 11-05-2024 Cocaine Ql (U) Negative < 300 ng/mL [facility] Urine lutwa-4-wbiitstxehzkgy abinol (THC) measurementOrdered By: Stefan Jerez on 11-05-2024 Cannabinoids Screen Ql (U) Negative < 50 ng/mL [facility] Urine phencyclidine (PCP) de tectionOrdered By: Stefan Jerez on 11-05-2024 Phencyclidine Ql (U) Negative < 25 ng/mL [facility] White blood cell (WBC) count Ordered By: Eric Laczano on 11-05-2024 WBC (Bld) [#/Vol] 12.3 10*3/uL High 4.4-11.0 [facility] CNOVon 11-04-2024 CNOV Office Visit (FAMPWS ) SARANYA BERMUDEZ ([id number]) 1965 F Date Time Provider Department 11/04/24 7:00 AM [facility] During your visit today, we recorded the following information about you: Pulse Respiration Blood pressure Weight 71/minute 16/minute 128/74 87 kg Shasta Walters MD 11/04/2024 7:24 AM Signed Chief Complaint Patient presents with: Follow Up: HR and BP recheck Recording using Tivity software for draft documentation of the visit was discussed with the patient/authorized customer operations representative; all questions welcomed and answered. Patient/authorized customer operations representative agreed to proceed HPI Saranya Bermudez is a 58 year old female who presents here today for Above Complaints. Tachycardia: - Previously reported heart rates of 150-160 bpm. - Started on metoprolol; taking 25 mg daily. - Current heart rates range from 70-85 bpm. - Occasional episodes of tachycardia up to 120 bpm, 1-2 times per week, lasting ~15 minutes. - Sometimes experiences fatigue during episodes. - Denies chest pain, dyspnea, or palpitations. - Wearing a Zio patch for 2 weeks; has been on for 1 week. - Contact [employer] appointment scheduled for February. - Decreased caffeine intake; continues to smoke cigarettes. Hypertension: - Home blood pressure readings: 120s/80s mmHg. - Denies lightheadedness, dizziness, or leg swelling. Past medical history, appointments, medications, allergies reviewed. Previous Medical History PAST MEDICAL HISTORY Diagnosis Date Anxiety Chronic obstructive asthma with status asthmaticus (HCC) DVT (deep venous thrombosis) ([facility]LY [facility]) History of COVID-19 03/2021 History of heavy periods s/p hysterectomy Hyperlipidemia Hypertension 2016 Iron deficiency anemia 01/06/2012 Major depressive disorder, single episode, unspecified Obesity (BMI 30.0-34.9) PAD (peripheral artery disease) ([facility]) 02/18/2021 moderate on left LE Polycystic kidney disease Tobacco use Previous Surgical History PAST SURGICAL HISTORY Procedure Laterality Date COLONOSCOPY FLX DX W/COLLJ SPEC WHEN PFRMD 11/04/2018 Colonoscopy DILATION AND CURETTAGE DXAND/THER NONOBSTETRIC LAPARO-VAG HYST, COMPLEX 10/19/11 vag hysterectomy with bladder sling and posterior repair, bladder tear repaired LIG/TRNSXJ FLP TUBE ABDL/VAG APPR UNI/BI PAST SURGICAL HISTORY OF 2006 upper teeth removed UNSPECIFIED ORAL SURGERY PROCEDURE, BY REPORT WISDOM TEETH REMOVED Family History FAMILY HISTORY Problem Relation Age of Onset Heart Mother no communication with patient, doesn't have details Drug abuse Sister ??? patient doesn't know for sure. Colon Cancer Maternal Grandmother Diabetes Other no details known Colon Cancer Other no details known Coronary Artery Disease Other no details known Patient Allergies ALLERGIES Allergen Reactions Zoloft [Sertraline * Diarrhea, GI Upset Current Medications Current Outpatient Medications on File Prior to Visit Medication Sig cholecalciferol, Vitamin D3, (VITAMIN D3) 1,250 mcg (50,000 unit) cap capsule Take 1 capsule by mouth one time a week. metoprolol succinate ER (TOPROL XL) 25 mg 24 hr tablet Take 1 tablet by mouth once daily. atorvastatin (LIPITOR) 20 mg tablet Take 1 tablet by mouth daily at bedtime. For cholesterol. losartan (COZAAR) 25 mg tablet Take 1 tablet by mouth daily at bedtime. pentoxifylline ER (TRENTAL) 400 mg CR tablet Take 1 tablet by mouth three times a day with meals. (Patient not taking: Reported on 10/21/2024) Blood Pressure Monitor kit Check BP at home. No current facility-administered medications on file prior to visit. Social History Social History Tobacco Use Smoking status: Every Day Current packs/day: 1.00 Average packs/day: 1 pack/day for 30.0 years (30.0 ttl pk-yrs) Types: Cigarettes Smokeless tobacco: Never Vaping Use Vaping status: Never Used Substance Use Topics Alcohol use: No Drug use: No Review of Symptoms REVIEW OF SYSTEMS GENERAL: No weight loss, malaise or fevers RESPIRATORY: Negative for cough, hemoptysis, wheezing, COPD, dyspnea or shortness of breath CARDIOVASCULAR: Negative for chest pain, leg swelling, hypertension, CHF or palpitations GI: No nausea, vomiting, or diarrhea SKIN: Negative for lesions, rash, and itching EXAM: BP 128/74 Pulse 71 Resp 16 Wt 87 kg (191 lb 12.8 oz) LMP 05/05/2011 SpO2 98% BMI 31.92 kg/m? General Appearance: Well appearing, alert, in no acute distress, well-hydrated, well nourished.. Skin: Skin color, texture, turgor normal, no suspicious rashes or lesions. Lungs: Lungs clear to auscultation. No wheezing, rhonchi, rales.. Heart: RRR without murmur, gallop, or rubs. No ectopy. Extremities: No deformities, edema, skin discoloration, clubbing or cyanosis. Good capillary refill. Health Maintenance List Hepati (more content not included)... Normal [facility] ECHOon 10-24-2024 Echocardiography Echocardiography Report: Transthoracic Echo [facility] Date of service: 10/24/2024 7:57:45 AM OPERATOR FINISHING Indication: Palpitations Technologist: Fabiola Antonio [facility] Interpreting physician: John Monroe MD PATIENT: Name: SARANYA BERMUDEZ : 1965 Age: 58 years Gender: F History of hypertension and dyslipidemia. Primary rhythm: sinus. Height: 165.10 cm BSA: 2.01 m Weight: 88.00 kg BMI: 32.3 kg/m Heart rate 67 bpm Blood pressure 151/84 mmHg Color Doppler was utilized to interrogate the cardiac valves assessed and spectral Doppler was utilized to determine the flow velocities and pressure gradients reported in this exam. Myocardial strain analysis was performed in this exam to aid in the assessment of cardiac function. MEASUREMENTS: Value Indexed Normal Max aortic dimension 3.3 cm Ao < 3.8 Left atrial volume 41 ml (biplane A-L) 20 ml/m Demetrio <= 34 LV ID (diastole) 4.8 cm (2D) 2.40 cm/m LV ID (systole) 3.3 cm (2D) 1.64 cm/m IVS, leaflet tips 1.0 cm (2D) Posterior wall thickness 0.9 cm (2D) Left ventricular mass 166 g (2D) 83 g/m Global peak long strain -18.3 % LV stroke volume 52 ml (2D biplane) LV end diastolic volume 94 ml (2D biplane) 46.6 ml/m 29<=EDVi<62 LV end systolic volume 41 ml (2D biplane) 20.5 ml/m Ejection Fraction 56 % (2D biplane) EF > 54 FINDINGS: LEFT VENTRICLE The left ventricle is normal in size. Left ventricular systolic function is normal. Global LV myocardial strain is normal. Grade I left ventricular diastolic dysfunction. Mitral annular lateral E/e': 8.6. Mitral annular septal E/e': 10.0. Wall Motion: All scored segments are normal. RIGHT VENTRICLE The right ventricle is normal in size. Right ventricular systolic function is normal. RV systolic tissue Doppler velocity is 10.0 cm/s. Tricuspid annular displacement is 1.8 cm. Estimated right atrial pressure is 3 mmHg (although IVC not seen). LEFT ATRIUM The left atrial cavity is normal in size. RIGHT ATRIUM The right atrial cavity is normal in size. Inferior Vena Cava: The inferior vena cava appears normal measuring 1.4 cm. MITRAL VALVE The mitral valve leaflets are structurally normal. There is no mitral valve regurgitation. The pressure half time is 69 msec. The peak mitral E/A ratio is 0.71. The average mitral E/e' ratio is 9.3. The mitral flow deceleration time is 238 msec. TRICUSPID VALVE The tricuspid valve leaflets are structurally normal. There is no tricuspid valve regurgitation. AORTIC VALVE The aortic valve cusps are structurally normal. There is no aortic valve regurgitation. Tricuspid aortic valve. The peak gradient is 7 mmHg (peak velocity = 128.3 cm/s). PULMONIC VALVE The pulmonic valve cusps are structurally normal. There is trace pulmonic valve regurgitation. AORTA The visualized aorta is normal in size. Measurements - Mid ascending aorta 3.3 cm. INTERATRIAL SEPTUM There is no evidence of intracardiac shunting as detected by Doppler. PERICARDIUM There is a small pericardial effusion adjacent to the right ventricle and right atrium. CONCLUSIONS: - Exam indication: Palpitations - The left ventricle is normal in size. Left ventricular systolic function is normal. EF = 56 5% (2D biplane) Grade I left ventricular diastolic dysfunction. - The right ventricle is normal in size. Right ventricular systolic function is normal. - There are no significant valvular abnormalities. - The patient has not had a prior CC echocardiographic exam for comparison. * * * Final * * * CC [email or web address] [facility] Image : [id number] [id number] Normal [facility] 25(OH)D3 SerPl-mCncon 2024 25-hydroxyvitamin D3 [Mass/Vol] 16.6 ng/mL Low 31.0-80.0 [facility] Comment on above: Order Comment: Speci men Type: BLOOD SPECIMENOrdering Facility: [facility] Address: [address] [place] [address] Performed By: #### 1 989-3 ####[facility] LABCLIA [id number] [place] [address] [place] CBC W Auto Differential pane l (Bld)on 10-21-2024 Basophils (Bld) [#/Vol] 0.03 10*3/uL [facility] Basophils/100 WBC (Bld) 0.4 % [facility] Differential cell count method Nom (Bld) Auto [facility] Eosinophils (Bld) [#/Vol] [facility] Eosinophils/100 WBC (Bld) 0.2 % [facility] Erythrocyte distribution width (RBC) [Ratio] 13.6 % 11.5 - 15.0 % [facility] Hematocrit (Bld) [Volume fraction] 38.5 % 36.0 - 46.0 % [facility] Hemoglobin (Bld) [Mass/Vol] 12.5 g/dL 11.5 - 15.5 g/dL [facility] Immature granulocytes (Bld) [#/Vol] [facility] Immature granulocytes/100 WBC (Bld) 0.2 % [facility] Lymphocytes (Bld) [#/Vol] 2.83 10*3/uL [facility] Lymphocytes/100 WBC (Bld) 33 % [facility] MCH (RBC) [Entitic mass] 30.2 pg 26.0 - 34.0 pg [facility] MCHC (RBC) [Mass/Vol] 32.5 g/dL 30.5 - 36.0 g/dL [facility] MCV (RBC) [Entitic vol] 93 fL 80.0 - 100.0 fL [facility] Monocytes (Bld) [#/Vol] 0.57 10*3/uL [facility] Monocytes/100 WBC (Bld) 6.7 % C [facility] Neutrophils (Bld) [#/Vol] 5.1 10*3/uL [facility] Neutrophils/100 WBC (Bld) 59.5 % [facility] Nucleated RBC (Bld) [#/Vol] NINF [facility] Nucleated RBC/100 WBC (Bld) [Ratio] 0 % /100 WBC [facility] Platelet mean volume (Bld) [Entitic vol] 11.7 fL 9.0 - 12.7 fL [facility] Platelets (Bld) [#/Vol] 257 10*3/uL [facility] RBC (Bld) [#/Vol] 4.14 10*6/uL 3.90 - 5.2 0 m/uL [facility] WBC (Bld) [#/Vol] 8.57 10*3/uL [facility] Basophils (Bld) [#/Vol] 0.03 10*3/uL Normal <0.11 [facility] Comment on above: Order Comment: Speci men Type: BLOOD SPECIMENOrdering Facility: [facility] Address: [address] [place] [address] Performed By: #### 5 7021-8 ####[facility] LABCLIA [id number] [place] [address] [place] Basophils/100 WBC (Bld) 0.4 % Normal [place] Comment on above: Order Comment: Speci men Type: BLOOD SPECIMENOrdering Facility: [facility] Address: [address] [place] [address] Performed By: #### 5 7021-8 ####[facility] LABCLIA [id number] [place] [address] [place] Differential cell count method Nom (Bld) Auto Normal [facility] Comment on above: Order Comment: Speci men Type: BLOOD SPECIMENOrdering Facility: [facility] Address: [address] [place] [address] Performed By: #### 5 7021-8 ####[facility] LABCLIA [id number] [address] [address] [place] Eosinophils (Bld) [#/Vol] 10*3/uL Normal <0.46 [facility] Comment on above: Order Comment: Speci men Type: BLOOD SPECIMENOrdering Facility: [facility] Address: [address] [place] [address] Performed By: #### 5 7021-8 ####[facility] LABCLIA [id number] [place] [address] [place] Eosinophils/100 WBC (Bld) 0.2 % Normal [facility] Comment on above: Order Comment: Speci men Type: BLOOD SPECIMENOrdering Facility: [facility] Address: [address] [place] [address] Performed By: #### 5 7021-8 ####[facility] LABCLIA [id number] [place] [address] [place] Erythrocyte distribution width (RBC) [Ratio] 13.6 % Normal 11.5-15.0 [facility] Comment on above: Order Comment: Speci men Type: BLOOD SPECIMENOrdering Facility: [facility] Address: [address] [place] [address] Performed By: #### 5 7021-8 ####[facility] LABCLIA [id number] [place] [id number] [place] Hematocrit (Bld) [Volume fraction] 38.5 % Normal 36.0-46.0 [facility] Comment on above: Order Comment: Speci men Type: BLOOD SPECIMENOrdering Facility: [facility] Address: [address] [place] [address] Performed By: #### 5 7021-8 ####[facility] LABCLIA [id number] [address] [address] [place] Hemoglobin (Bld) [Mass/Vol] 12.5 g/dL Normal 11.5-15.5 [facility] Comment on above: Order Comment: Speci men Type: BLOOD SPECIMENOrdering Facility: [facility] Address: [address] [place] [address] Performed By: #### 5 7021-8 ####[facility] LABCLIA [id number] [place] [address] [place] Immature granulocytes (Bld) [#/Vol] 10*3/uL Normal <0.10 [facility] Comment on above: Order Comment: Speci men Type: BLOOD SPECIMENOrdering Facility: [facility] Address: [address] [place] [address] Performed By: #### 5 7021-8 ####[facility] LABCLIA [id number] [place] [address] [place] Immature granulocytes/100 WBC (Bld) 0.2 % Normal [facility] Comment on above: Order Comment: Speci men Type: BLOOD SPECIMENOrdering Facility: [facility] Address: [address] [place] [address] Performed By: #### 5 7021-8 ####[facility] LABCLIA [id number] [place] [address] [place] Lymphocytes (Bld) [#/Vol] 2.83 10*3/uL Normal 1.00-4.00 [facility] Comment on above: Order Comment: Speci men Type: BLOOD SPECIMENOrdering Facility: [facility] Address: [address] [place] [address] Performed By: #### 5 7021-8 ####[facility] LABCLIA [id number] [place] [id number] [place] Lymphocytes/100 WBC (Bld) 33.0 % Normal [facility] Comment on above: Order Comment: Speci men Type: BLOOD SPECIMENOrdering Facility: [facility] Address: [address] [place] [address] Performed By: #### 5 7021-8 ####[facility] [id number] [place] [address] [place] MCH (RBC) [Entitic mass] 30.2 pg Normal 26.0-34.0 [facility] Comment on above: Order Comment: Speci men Type: BLOOD SPECIMENOrdering Facility: [facility] Address: [address] [place] [address] Performed By: #### 5 7021-8 ####[facility] [id number] [place] [address] [place] MCHC (RBC) [Mass/Vol] 32.5 g/dL Normal 30.5-36.0 [facility] Comment on above: Order Comment: Speci men Type: BLOOD SPECIMENOrdering Facility: [facility] Address: [address] [place] [address] Performed By: #### 5 7021-8 ####[facility] [id number] [place] [address] [place] MCV (RBC) [Entitic vol] 93.0 fL Normal 80.0-100.0 C [facility] Comment on above: Order Comment: Speci men Type: BLOOD SPECIMENOrdering Facility: [facility] Address: [address] [place] [address] Performed By: #### 5 7021-8 ####[facility] [id number] [place] [address] [place] Monocytes (Bld) [#/Vol] 0.57 10*3/uL Normal <0.87 [facility] Comment on above: Order Comment: Speci men Type: BLOOD SPECIMENOrdering Facility: [facility] Address: [address] [place] [address] Performed By: #### 5 7021-8 ####[facility] LABCLIA [id number] [place] [address] [place] Monocytes/100 WBC (Bld) 6.7 % Normal [place] Comment on above: Order Comment: Speci men Type: BLOOD SPECIMENOrdering Facility: [facility] Address: [address] [place] [address] Performed By: #### 5 7021-8 ####[facility] LABCLIA [id number] [place] [address] [place] Neutrophils (Bld) [#/Vol] 5.10 10*3/uL Normal 1.45-7.50 [facility] Comment on above: Order Comment: Speci men Type: BLOOD SPECIMENOrdering Facility: [facility] Address: [address] [place] [address] Performed By: #### 5 7021-8 ####[facility] LABIA [id number] [place] [address] [place] Neutrophils/100 WBC (Bld) 59.5 % Normal [facility] Comment on above: Order Comment: Speci men Type: BLOOD SPECIMENOrdering Facility: [facility] Address: [address] [place] [address] Performed By: #### 5 7021-8 ####[facility] LABCLIA [id number] [place] [address] [place] Nucleated RBC (Bld) [#/Vol] 10*3/uL Normal <0.01 [facility] Comment on above: Order Comment: Speci men Type: BLOOD SPECIMENOrdering Facility: [facility] Address: [address] [place] [address] Performed By: #### 5 7021-8 ####[facility] LABCLIA [id number] [place] [address] [place] Nucleated RBC/100 WBC (Bld) [Ratio] 0.0 /100 WBC Normal [facility] Comment on above: Order Comment: Speci men Type: BLOOD SPECIMENOrdering Facility: [facility] Address: [address] [place] [address] Performed By: #### 5 7021-8 ####[facility] LABCLIA [id number] [place] [id number] [place] Platelet mean volume (Bld) [Entitic vol] 11.7 fL Normal 9.0-12.7 [facility] Comment on above: Order Comment: Speci men Type: BLOOD SPECIMENOrdering Facility: [facility] Address: [address] [place] [address] Performed By: #### 5 7021-8 ####[facility] LABIA [id number] [place] [address] [place] Platelets (Bld) [#/Vol] 257 10*3/uL Normal 150-400 [facility] Comment on above: Order Comment: Speci men Type: BLOOD SPECIMENOrdering Facility: [facility] Address: [address] [place] [address] Performed By: #### 5 7021-8 ####[facility] LABCLIA [id number] [place] [address] [place] RBC (Bld) [#/Vol] 4.14 10*6/uL Normal 3.90-5.20 [facility] Comment on above: Order Comment: Speci men Type: BLOOD SPECIMENOrdering Facility: [facility] Address: [address] [place] [address] Performed By: #### 5 7021-8 ####[facility] LABCLIA [id number] [place] [address] [place] WBC (Bld) [#/Vol] 8.57 10*3/uL Normal 3.70-11.00 [facility] Comment on above: Order Comment: Speci men Type: BLOOD SPECIMENOrdering Facility: [facility] Address: [facility] [place] [address] Performed By: #### 5 7021-8 ####[facility] COURTNEY [id number] [place] [address] [place] CNOVon 10-21-2024 CNOV Office Visit (FAMPWS ) SARANYA BERMUDEZ ([id number]) 1965 F Date Time Provider Department 10/21/24 7:20 AM [facility] During your visit today, we recorded the following information about you: Pulse Respiration Blood pressure Weight 80/minute 16/minute 150/84 88 kg Shasta Walters MD 10/21/2024 10:26 AM Signed Chief Complaint Patient presents with: Dizziness Fatigue elevated heart rate HPI Saranya Neftaly Patelfeng is a 58 year old female who presents here today for Above Complaints. Patient here today with complaint of episodes of feeling lightheaded and fatigue which started about 4 months ago. Episodes occur about every 2 weeks and can last a couple of hours. Most recent episode was yesterday. States that she got a watch yesterday which showed her HR was in the 150's to 160's. Was sitting at her desk while this was going on. Drinks 2 cups of coffee in the morning. Does smoke 1 pack per day. Denies chest pain, SOB, palpitations, nausea, vomiting, diarrhea, syncope, anxiety symptoms, bleeding/bruising. BP elevated today. Compliant with losartan as prescribed. Past medical history, appointments, medications, allergies reviewed. Previous Medical History PAST MEDICAL HISTORY Diagnosis Date Anxiety Chronic obstructive asthma with status asthmaticus (HCC) DVT (deep venous thrombosis) ([facility]) History of COVID-19 03/2021 History of heavy periods s/p hysterectomy Hyperlipidemia Hypertension 2016 Iron deficiency anemia 01/06/2012 Major depressive disorder, single episode, unspecified Obesity (BMI 30.0-34.9) PAD (peripheral artery disease) ([facility]) 02/18/2021 moderate on left LE Polycystic kidney disease Tobacco use Previous Surgical History PAST SURGICAL HISTORY Procedure Laterality Date COLONOSCOPY FLX DX W/COLLJ SPEC WHEN PFRMD 11/04/2018 Colonoscopy DILATION AND CURETTAGE DXAND/THER NONOBSTETRIC LAPARO-VAG HYST, COMPLEX 10/19/11 vag hysterectomy with bladder sling and posterior repair, bladder tear repaired LIG/TRNSXJ FLP TUBE ABDL/VAG APPR UNI/BI PAST SURGICAL HISTORY OF 2006 upper teeth removed UNSPECIFIED ORAL SURGERY PROCEDURE, BY REPORT WISDOM TEETH REMOVED Family History FAMILY HISTORY Problem Relation Age of Onset Heart Mother no communication with patient, doesn't have details Drug abuse Sister ??? patient doesn't know for sure. Colon Cancer Maternal Grandmother Diabetes Other no details known Colon Cancer Other no details known Coronary Artery Disease Other no details known Patient Allergies ALLERGIES Allergen Reactions Zoloft [Sertraline * Diarrhea, GI Upset Current Medications Current Outpatient Medications on File Prior to Visit Medication Sig atorvastatin (LIPITOR) 20 mg tablet Take 1 tablet by mouth daily at bedtime. For cholesterol. losartan (COZAAR) 25 mg tablet Take 1 tablet by mouth daily at bedtime. pentoxifylline ER (TRENTAL) 400 mg CR tablet Take 1 tablet by mouth three times a day with meals. (Patient not taking: Reported on 10/21/2024) Blood Pressure Monitor kit Check BP at home. No current facility-administered medications on file prior to visit. Social History Social History Tobacco Use Smoking status: Every Day Current packs/day: 1.00 Average packs/day: 1 pack/day for 30.0 years (30.0 ttl pk-yrs) Types: Cigarettes Smokeless tobacco: Never Vaping Use Vaping status: Never Used Substance Use Topics Alcohol use: No Drug use: No Review of Symptoms REVIEW OF SYSTEMS See HPI EXAM: BP 150/84 Pulse 80 Resp 16 Wt 88 kg (194 lb) LMP 05/05/2011 SpO2 99% BMI 32.28 kg/m? BP w/Orthostatic Vitals Date and Time Orthostatic BP Orthostatic Pulse BP Pulse BP Position BP Site BP Cuff Size 10/21/24 0758 142/94 79 -- -- Standing Right Arm Large Adult 10/21/24 0757 138/86 72 -- -- Sitting Right Arm Large Adult 10/21/24 0756 142/90 72 -- -- Supine Right Arm Large Adult 10/21/24 0711 -- -- 150/84 80 -- -- -- Peak Flow Date and Time PF Resp 10/21/24 0711 -- 16 General Appearance: Well appearing, alert, in no acute distress, well-hydrated, well nourished.. Skin: Skin color, texture, turgor normal, no suspicious rashes or lesions. Neck: Supple, no adenopathy; thyroid symmetric, normal size, no bruits. Lungs: Lungs clear to auscultation. No wheezing, rhonchi, rales.. Heart: RRR without murmur, gallop, or rubs. No ectopy. Abdomen: Normal abdominal exam, Abdomen soft, non-tender. Bowel sounds normal. No masses, organomegaly. Extremities: No deformities, edema, skin discoloration, clubbing or cyanosis. Good capillary refill. . Health Maintenance List Hepatitis B Vaccine(1 of 3 - 19+ 3-dose series) Never done Mammogram Screening due on 12/11/2024 Shingrix Vaccine(1 of 2) due on 12/06/2024 Covid-19 Vaccine(2023- season) due on 06/09/2025 Pneumococcal V (more content not included)... Normal [facility] Comprehensive metabolic 2000 panelon 10-21-2024 Albumin [Mass/Vol] 4.2 g/dL Normal 3.9-4.9 [facility] Comment on above: Order Comment: Speci men Type: BLOOD SPECIMENOrdering Facility: [facility] Address: [address] [place] [address] Performed By: #### 3 016-3, 81290-1, 2132-9, 72430-1 ####[facility] LABCLIA [id number] [place] [address] [place] ALP [Catalytic activity/Vol] 94 U/L Normal 34-123 [facility] Comment on above: Order Comment: Speci men Type: BLOOD SPECIMENOrdering Facility: [facility] Address: [address] [place] [address] Performed By: #### 3 016-3, 35512-9, 2132-02, 58337-7 ####[facility] LABCLIA [id number] [address] [address] [place] ALT [Catalytic activity/Vol] 9 U/L Normal 7-38 [facility] Comment on above: Order Comment: Speci men Type: BLOOD SPECIMENOrdering Facility: [facility] Address: [address] [place], [place] [address] Performed By: #### 3 016-3, 67405-0, 2132-02, 51005-3 ####[facility] LABIA [id number] [place] [id number] [place] Anion gap [Moles/Vol] 12 mmol/L Normal 8-15 [facility] Comment on above: Order Comment: Speci men Type: BLOOD SPECIMENOrdering Facility: [facility] Address: [address] [place], [place] [address] Performed By: #### 3 016-3, , 2132-02, 44934-5 ####[facility] LABIA [id number] [place] [id number] [place] AST [Catalytic activity/Vol] 16 U/L Normal 13-35 [facility] Comment on above: Order Comment: Speci men Type: BLOOD SPECIMENOrdering Facility: [facility] Address: [address] [place], [place] [address] Performed By: #### 3 016-3, , 2132-02, 35082-2 ####[facility] LABIA [id number] [address] [address] [place] Bilirubin [Mass/Vol] 0.2 mg/dL Normal 0.2-1.3 [facility] Comment on above: Order Comment: Speci men Type: BLOOD SPECIMENOrdering Facility: [facility] Address: [address] [place], [place] [address] Performed By: #### 3 016-3, 91519-1, 2132-02, 36088-4 ####[facility] LABCLIA [id number] [address] [address] [place] Calcium [Mass/Vol] 9.4 mg/dL Normal 8.5-10.2 [facility] Comment on above: Order Comment: Speci men Type: BLOOD SPECIMENOrdering Facility: [facility] Address: [address] [place], [place] [address] Performed By: #### 3 016-3, 56450-2, 2132-02, 44181-0 ####[facility] LABCLIA [id number] [address] [address] [place] Chloride [Moles/Vol] 107 mmol/L Normal 98-107 [facility] Comment on above: Order Comment: Speci men Type: BLOOD SPECIMENOrdering Facility: [facility] Address: [address] [place], [place] [address] Performed By: #### 3 016-3, , 2132-02, 28396-6 ####[facility] LABIA [id number] [address] [address] [place] CO2 [Moles/Vol] 24 mmol/L Normal 22-30 [facility] Comment on above: Order Comment: Speci men Type: BLOOD SPECIMENOrdering Facility: [facility] Address: [address] [place] [address] Performed By: #### 3 016-3, 32640-7, 2132-02, 11948-5 ####[facility] LABIA [id number] [address] [address] [place] Creatinine [Mass/Vol] 0.96 mg/dL Normal 0.58-0.96 [facility] Comment on above: Order Comment: Speci men Type: BLOOD SPECIMENOrdering Facility: [facility] Address: [address] [place] [address] Performed By: #### 3 016-3, , 2132-02, ####[facility] LABIA [id number] [place] [id number] [place] Creatinine and Glomerular filtration rate.predicted panel (S/P/Bld) 70 mL/min/1.73m??? Normal >=60 [facility] Comment on above: Order Comment: Lorenzo yoon Type: BLOOD SPECIMENOrdering Facility: [facility] Address: [address] [place] [address] Result Comment: Kika mated Glomerular Filtration Rate (eGFR) is calculated using the 2020 CKD-EPI creatinine equation. This equation utilizes serum creatinine, sex, and age as parameters. The creatinine assay has traceable calibration to isotope dilution-mass spectrometry. Refer to KDIGO guidelines for clinical interpretation. In patients with unstable renal function, e.g. those with acute kidney injury, the eGFR may not accurately reflect actual GFR. Performed By: #### 3 016-3, , 2132-02, ####[facility] LABIA [id number] [place] [id number] [place] Glucose [Mass/Vol] 99 mg/dL Normal 74-99 [facility] Comment on above: Order Comment: Lorenzo yoon Type: BLOOD SPECIMENOrdering Facility: [facility] Address: [address] [place] [address] Result Comment: The [place] Diabetes Association (ADA) provides guidance for cutoff values for fasting glucose and random glucose. The ADA defines fasting as no caloric intake for at least 8 hours. Fasting plasma glucose results between 100 to 125 mg/dL indicate increased risk for diabetes (prediabetes). Fasting plasma glucose results greater than or equal to 126 mg/dL meet the criteria for diagnosis of diabetes. In the absence of unequivocal hyperglycemia, results should be confirmed by repeat testing. In a patient with classic symptoms of hyperglycemia or hyperglycemic crisis, random plasma glucose results greater than or equal to 200 mg/dL meet the criteria for diagnosis of diabetes. Reference: Standards of Medical Care in Diabetes 2016, [place] [employer] Association. Diabetes Care. 2016.39(Suppl 1). Performed By: #### 3 016-3, , 2132-02, ####[facility] LABCLIA [id number] [address] [address] [place] Potassium [Moles/Vol] 4.2 mmol/L Normal 3.7-5.1 [facility] Comment on above: Order Comment: Speci men Type: BLOOD SPECIMENOrdering Facility: [facility] Address: [address] [place], [place] [address] Performed By: #### 3 016-3, , 2132-02, ####[facility] LABIA [id number] [address] [address] [place] Protein [Mass/Vol] 6.7 g/dL Normal 6.3-8.0 [facility] Comment on above: Order Comment: Speci men Type: BLOOD SPECIMENOrdering Facility: [facility] Address: [address] [place], [place] [address] Performed By: #### 3 016-3, , 2132-02, ####[facility] LABIA [id number] [address] [address] [place] Sodium [Moles/Vol] 143 mmol/L Normal 136-144 [facility] Comment on above: Order Comment: Speci men Type: BLOOD SPECIMENOrdering Facility: [facility] Address: [address] [place], [place] [address] Performed By: #### 3 016-3, , 2132-02, ####[facility] LABIA [id number] [address] [address] [place] Urea nitrogen [Mass/Vol] 11 mg/dL Normal 7-21 [facility] Comment on above: Order Comment: Speci men Type: BLOOD SPECIMENOrdering Facility: [facility] Address: [address] [place], [place] [address] Performed By: #### 3 016-3, , 2132-02, ####[facility] [id number] [place] [id number] [place] QTK40ov 10-21-2024 ECG01 Ventricular Rate : 7 3 BPM Atrial Rate : 73 BPM P-R Interval : 158 ms QRS Duration : 80 ms Q-T Interval : 394 ms QTC Calculation(Bazett) : 434 ms Calculated P [place] : 69 degrees Calculated R [place] : 67 degrees Calculated T [place] : 71 degrees NORMAL SINUS RHYTHM NORMAL ECG Confirmed by MD WATKINS QARAB ([id number]) on 10/22/2024 2:06:09 PM NAME : SARANYA BERMUDEZ PID : [id number] : 1965 Gender : Female Race : ORD : Procedure Date : Oct 21 2024 07:52:16 Edit Date : Oct 22 2024 14:06:10 Diagnosis: NORMAL SINUS RHYTHM NORMAL ECG Confirmed by MD WATKINS QARAB ([id number]) on 10/22/2024 2:06:09 PM Test Reason : Location : 136 : [facility] Overread By : MD WATKINS QARAB Edited By : MD WATKINS QARAB Referred By : SHASTA WALTERS Acquired by : [id number], Normal [facility] Magnesium SerPl-mCncon 10-21 Magnesium [Mass/Vol] 2.0 mg/dL Normal 1.7-2.3 [facility] Comment on above: Order Comment: Speci men Type: BLOOD SPECIMENOrdering Facility: [facility] Address: [address] [place] [address] Performed By: #### 3 016-3, 00954-8, 2132-02, ####[facility] [id number] [place] [id number] [facility] [place] TSH SerPl-aCncon 10-21-2024 TSH Qn 1.420 m[IU]/L Normal 0.270-4.200 [facility] Comment on above: Order Comment: Speci men Type: BLOOD SPECIMENOrdering Facility: [facility] Address: [address] [place], [place] [address], [place] [address] Performed By: #### 3 016-3, 10231-9, 2132-02, ####[facility] LABIA [id number] [place] [id number] [place] [facility] 025 Cobalamin (Vitamin B12) [Mass/Vol] 262 pg/mL Normal 232-1245 [facility] Comment on above: Order Comment: Speci men Type: BLOOD SPECIMENOrdering Facility: [facility] Address: [address] [place] [address] Performed By: #### 3 016-3, , 2132-02, ####[facility] LABCLIA [id number] [place] [id number] [facility] [place] CNOVon 08-05-2024 CNOV Office Visit (VASSWS ) SARANYA BERMUDEZ ([id number]) 1965 F Date Time Provider Department 08/05/24 10:15 AM VALERIE CANTU VASSWS During your visit today, we recorded the following information about you: Pulse Blood pressure 82/minute 142/76 Valerie Cantu, 08/05/2024 10:51 AM Signed [facility] [place] DEPARTMENT OF VASCULAR SURGERY OUTPATIENT VISIT DATE August 05, 2024 OUTPATIENT VISIT TYPE ESTABLISHED SERVICE DATE: 08/05/2024 SERVICE TIME: 10:34 AM PRIMARY CARE PHYSICIAN: Shasta Walters MD HISTORY OF PRESENT ILLNESS: Ms. Bermudez is a 58 year old female who presents today for a vascular surgery follow-up visit for peripheral arterial disease. She has known left iliac occlusion. Denies significant lifestyle limiting claudication. She will get episodes of significant left leg pain especially with long distance walking like [place] the zoo. PAST MEDICAL HISTORY Diagnosis Date Anxiety Chronic obstructive asthma with status asthmaticus (HCC) DVT (deep venous thrombosis) ([facility]) History of COVID-19 03/2021 History of heavy periods s/p hysterectomy Hyperlipidemia Hypertension 2016 Iron deficiency anemia 01/06/2012 Major depressive disorder, single episode, unspecified Obesity (BMI 30.0-34.9) PAD (peripheral artery disease) ([facility]) 02/18/2021 moderate on left LE Polycystic kidney disease Tobacco use PAST SURGICAL HISTORY Procedure Laterality Date COLONOSCOPY FLX DX W/COLLJ SPEC WHEN PFRMD 11/04/2018 Colonoscopy DILATION AND CURETTAGE DXAND/THER NONOBSTETRIC LAPARO-VAG HYST, COMPLEX 10/19/11 vag hysterectomy with bladder sling and posterior repair, bladder tear repaired LIG/TRNSXJ FLP TUBE ABDL/VAG APPR UNI/BI PAST SURGICAL HISTORY OF 2006 upper teeth removed UNSPECIFIED ORAL SURGERY PROCEDURE, BY REPORT WISDOM TEETH REMOVED SOCIAL HISTORY Social History Tobacco Use Smoking status: Every Day Current packs/day: 1.00 Average packs/day: 1 pack/day for 30.0 years (30.0 ttl pk-yrs) Types: Cigarettes Smokeless tobacco: Never Vaping Use Vaping status: Never Used Substance Use Topics Alcohol use: No Drug use: No MEDICATIONS: atorvastatin (LIPITOR) 20 mg tablet Take 1 tablet by mouth daily at bedtime. For cholesterol. losartan (COZAAR) 25 mg tablet Take 1 tablet by mouth daily at bedtime. Blood Pressure Monitor kit Check BP at home. pentoxifylline ER (TRENTAL) 400 mg CR tablet Take 1 tablet by mouth three times a day with meals. ALLERGIES: ALLERGIES Allergen Reactions Zoloft [Sertraline * Diarrhea, GI Upset PHYSICAL EXAM: BP 142/76 (BP Site: Left Arm, BP Position: Sitting, BP Cuff Size: Regular Adult) Pulse 82 LMP 05/05/2011 SpO2 100% Gen- no distress Ext- no ulceration, no edema, non palpable distal pulse Diagnostic tests reviewed for today's visit: Most recent labs Most recent imaging PVRs Compared to prior study of 01/18/2024, Right ankle brachial index was 1.06 and left was 0.59. RIGHT SIDE Resting right ankle brachial index: 1.13 Normal ankle brachial index at rest in the right leg. Right ankle: Normal at rest. LEFT SIDE Resting left ankle brachial index: 0.68 Abnormal ankle brachial index at rest diagnostic of peripheral artery disease. Left ankle: Moderate disease at rest. Carotid Duplex RIGHT SIDE Internal carotid artery: <50% stenosis consistent with mild carotid artery disease. Vertebral artery: Patent and antegrade flow noted. Subclavian artery: Plaque visualized without evidence of hemodynamically significant stenosis. LEFT SIDE Internal carotid artery: <50% stenosis consistent with mild carotid artery disease. -Moderate homogeneous plaque noted appearing >50%; however, velocity and ICA/CCA Ratio do not meet >50% stenosis criteria. Vertebral artery: Patent and antegrade flow noted. Subclavian artery: Patent. IMPRESSION: Ms. Bermudez is a 58 year old female with carotid artery disease and peripheral arterial disease . PLAN and RECOMMENDATIONS: Recommend continue antiplatelet agent and statin Discussed importance of smoking cessation Continue walking and exercise as tolerated Follow up in 6 months for leg check Recommend repeat imaging in one year SIGNATURE: Valerie Cantu DO PATIENT NAME: Saranya Bermudez DATE: August 05, 2024 TIME: 10:34 AM Referring Provider: VALERIE CANTU [[id number]] Allergies As of Date: 08/05/2024 Noted Allergy Reaction ZOLOFT (SERTRALINE HCL) 12/03/2017 6 - Diarrhea 8 - GI Upset Date Reviewed: 08/05/2024 Reviewed by: Jackie Bunn OCCA - Fully Assessed Reason for Visit: Established Patient [175] Primary Visit Diagnosis:Carotid stenosis, asymptomatic, bilateral [I65.23] Other Visit Diagnosis:PAD (peripheral artery disease) ([facility]) [I73.9] Prescriptions as of 08/05/2024 - atorvastatin (more content not included)... Normal [facility] PVR ANK/KNOWLES/TOE YUNG [facility] LAB on 07-29-2024 PVR ANK/KNOWLES/TOE YUNG [facility]AS LAB Non-Invasive Vascular Laboratory [facility] Lower Extremity Arterial Physiology Study Bilateral/Complete Date of service/time: 07/29/2024 9:10:08 AM Name: MS. SARANYA BERMUDEZ Date of : 1965 Age: 58 years Gender: F Clinical Indication Peripheral arterial disease. TECHNIQUE -------- An arterial physiological examination was performed, including measurement of blood pressures using continuous wave Doppler and recording of plethysmographic with or without Doppler waveforms at the below-mentioned limb segments. FINDINGS -------- RIGHT SIDE AT REST Right Doppler Waveforms Dorsalis pedis: Multiphasic. Post tibial: Multiphasic. Right Pressures Brachial: 157 mmHg Ankle dorsalis pedis: 169 mmHg NOHELIA: 1.08 Ankle posterior tibial: 178 mmHg NOHELIA: 1.13 Right PVR Waveforms Ankle: Normal. Transmetatarsal: Normal. Digit: Normal. LEFT SIDE AT REST Left Doppler Waveforms Dorsalis pedis: Monophasic. Post tibial: Monophasic. Left Pressures Brachial: 150 mmHg Ankle dorsalis pedis: 88 mmHg NOHELIA: 0.56 Ankle posterior tibial: 107 mmHg NOHELIA: 0.68 Left PVR Waveforms Ankle: Moderately dampened. Transmetatarsal: Moderately dampened. Digit: Mildly dampened. IMPRESSION Compared to prior study of 01/18/2024, Right ankle brachial index was 1.06 and left was 0.59. RIGHT SIDE Resting right ankle brachial index: 1.13 Normal ankle brachial index at rest in the right leg. Right ankle: Normal at rest. LEFT SIDE Resting left ankle brachial index: 0.68 Abnormal ankle brachial index at rest diagnostic of peripheral artery disease. Left ankle: Moderate disease at rest. Technologist: Yamilet Valera RVT, [facility] Ordering physician: VALERIE CANTU Interpreting physician: JACOB Torre MD Final CC [email or web address] Medical Image : [id number] csSISUID See Link below for Image Normal [facility] US CAROTID ARTERIES YUNG VAS LABon 07-29-2024 US CAROTID ARTERIES YUNG [facility]AS LAB Non-Invasive Vascular Laboratory [facility] Carotid Duplex Bilateral/Complete Date of service/time: 07/29/2024 9:10:56 AM Name: MS. SARANYA BERMUDEZ Date of : 1965 Age: 58 years Gender: F Clinical Indication Hypertension, hyperlipidemia, peripheral vascular disease. TECHNIQUE -------- A carotid duplex ultrasound examination was performed, including grayscale imaging and color Doppler and spectral Doppler examination of the below mentioned arteries. FINDINGS -------- RIGHT SIDE Common carotid artery: Origin: PSV: 132 cm/s. EDV: 27 cm/s. Proximal: PSV: 109 cm/s. EDV: 21 cm/s. Mid: PSV: 89 cm/s. EDV: 25 cm/s. Distal: PSV: 73 cm/s. EDV: 23 cm/s. Internal carotid artery: Origin: PSV: 63 cm/s. EDV: 22 cm/s. Proximal: PSV: 58 cm/s. EDV: 22 cm/s. Mid: PSV: 66 cm/s. EDV: 32 cm/s. Distal: PSV: 95 cm/s. EDV: 38 cm/s. Mild heterogeneous plaque at origin. ICA/CCA Ratio: 0.9 External carotid artery: Origin: PSV: 54 cm/s. EDV: 15 cm/s. Mild heterogeneous plaque at origin. Subclavian artery: Origin: PSV: 133 cm/s. EDV: 0 cm/s. Mild heterogeneous plaque at origin. Innominate artery: PSV: 136 cm/s. EDV: 19 cm/s. Vertebral artery: PSV: 68 cm/s. EDV: 25 cm/s. LEFT SIDE Common carotid artery: Proximal: PSV: 100 cm/s. EDV: 37 cm/s. Mid: PSV: 89 cm/s. EDV: 32 cm/s. Distal: PSV: 87 cm/s. EDV: 34 cm/s. Internal carotid artery: Origin: PSV: 126 cm/s. EDV: 52 cm/s. Proximal: PSV: 116 cm/s. EDV: 41 cm/s. Mid: PSV: 63 cm/s. EDV: 24 cm/s. Distal: PSV: 74 cm/s. EDV: 32 cm/s. Moderate homogeneous plaque at origin. ICA/CCA Ratio: 1.4 External carotid artery: Origin: PSV: 80 cm/s. EDV: 20 cm/s. Mild homogeneous plaque at origin. Subclavian artery: Proximal: PSV: 121 cm/s. EDV: 0 cm/s. Vertebral artery: PSV: 68 cm/s. EDV: 22 cm/s. IMPRESSION Please note: the new carotid interpretation criteria are used as recommended by [employer] [employer]. RIGHT SIDE Internal carotid artery: <50% stenosis consistent with mild carotid artery disease. Vertebral artery: Patent and antegrade flow noted. Subclavian artery: Plaque visualized without evidence of hemodynamically significant stenosis. LEFT SIDE Internal carotid artery: <50% stenosis consistent with mild carotid artery disease. -Moderate homogeneous plaque noted appearing >50%; however, velocity and ICA/CCA Ratio do not meet >50% stenosis criteria. Vertebral artery: Patent and antegrade flow noted. Subclavian artery: Patent. Technologist: Yamilet Valera RVT, [facility] Interpreting physician: Cruzito Michaud MD, JACOB Final CC [email or web address] Medical Image : [id number] See Link below for Image Normal [facility] CNOVon 07-07-2024 CNOV Office Visit (AYDENWS ) SARANYA BERMUDEZ ([id number]) 1965 F Date Time Provider Department 07/07/24 9:00 AM JUAN MIGUELLOGARMARILOU During your visit today, we recorded the following information about you: Pulse Respiration Blood pressure Weight 103/minute 18/minute 112/82 83.6 kg Marilou Singh APRN.PALOMA 07/07/2024 9:07 AM Signed 07/04/2024 Patient presents with: BP Check SUBJECTIVE: This is a 58 year old that is here today for Above Complaints. BP elevated at last office appointment. No medication changes made. Taking and toleating medication without side effects.Checking BP at home with range of 128/80's.Denies visual changes, headaches lightheadedness, dizziness, slurred speech, facial drooping, extremity numbness tingling or weakness PAST MEDICAL HISTORY Diagnosis Date Anxiety Chronic obstructive asthma with status asthmaticus ([facility]) DVT (deep venous thrombosis) ([facility]) History of COVID-19 03/2021 History of heavy periods s/p hysterectomy Hyperlipidemia Hypertension 2016 Iron deficiency anemia 01/06/2012 Major depressive disorder, single episode, unspecified Obesity (BMI 30.0-34.9) PAD (peripheral artery disease) ([facility]) 02/18/2021 moderate on left LE Polycystic kidney disease Tobacco use ALLERGIES Zoloft [Sertraline Hcl] MEDICATIONS Current Outpatient Medications Medication Sig atorvastatin (LIPITOR) 20 mg tablet Take 1 tablet by mouth daily at bedtime. For cholesterol. losartan (COZAAR) 25 mg tablet Take 1 tablet by mouth daily at bedtime. pentoxifylline ER (TRENTAL) 400 mg CR tablet Take 1 tablet by mouth three times a day with meals. Blood Pressure Monitor kit Check BP at home. No current facility-administered medications for this visit. Medications and allergies reviewed by this provider. SOCIAL HISTORY Social History Tobacco Use Smoking status: Every Day Current packs/day: 1.00 Average packs/day: 1 pack/day for 30.0 years (30.0 ttl pk-yrs) Types: Cigarettes Smokeless tobacco: Never Vaping Use Vaping status: Never Used Substance Use Topics Alcohol use: No Drug use: No REVIEW OF SYSTEMS All other reviewed and negative other than HPI. OBJECTIVE: BP 112/82 Pulse 103 Resp 18 Wt 83.6 kg (184 lb 6.4 oz) LMP 05/05/2011 SpO2 95% BMI 30.69 kg/m? . Vital signs reviewed by this provider. APPEARANCE Well appearing, alert, in no acute distress, well-hydrated, well nourished. Hepatitis B Vaccine(1 of 3 - 19+ 3-dose series) Never done Mammogram Screening due on 12/11/2024 Shingrix Vaccine(1 of 2) due on 12/06/2024 Influenza Vaccine(1) due on 12/15/2024 Covid-19 Vaccine(1 - season) due on 06/09/2025 Pneumococcal Vaccine: 50+(2 of 2 - PCV) due on 06/09/2025 Lung Cancer Screening due on 04/02/2025 Annual PCP Team Chronic Disease Visit due on 06/09/2025 Anxiety Screening due on 06/09/2025 BP Controlled (<130/80) due on 07/07/2025 DTaP,Tdap,Td Vaccine(2 - Td or Tdap) due on 09/07/2026 Diabetes Screening due on 03/22/2027 Colorectal Cancer Screening due on 11/04/2028 Lipid Screening due on 03/22/2029 Spirometry Completed Hepatitis C Screening Completed HIV Screening Completed Cervical Cancer Screening Discontinued ASSESSMENT/PLAN: 1. Hypertension, essential - ICD9: 401.9, ICD10: I10 - Controlled - Continue current medications - Recommend home blood pressure monitoring, to bring results to next visit - Encouraged sodium restriction, DASH or Mediterranean diet - Recommend regular aerobic exercise - Discussed need for and benefit of weight loss. BMI 30.69 kg/(m2) - Smoking cessation encouraged; discussed risks to health and quitting strategies. Patient is not ready to quit - Follow up in 5 months for annual physical Marilou BurgerlogarJHONY.MEMBER SERVICES COORDINATOR Prescription instructions reviewed with patient as applicable. Patient advised if symptoms do not improve or if symptoms worsen sooner, to contact their primary care physician. Potential red flag symptoms discussed with the patient. Reviewed appropriate action plan to take if red flag symptoms occur. Patient agreeable to treatment plan. Medical Decision Making: Problems: Low: Stable chronic illness Risk: Moderate: Moderate risk from testing/treatment Medical Decision Making Level: 3 - Low Allergies As of Date: 07/07/2024 Noted Allergy Reaction ZOLOFT (SERTRALINE HCL) 12/03/2017 6 - Diarrhea 8 - GI Upset Date Reviewed: 07/07/2024 Reviewed by: Lorrie Encarnacion LPN - Fully Assessed Reason for Visit: BP Check [142] Primary Visit Diagnosis:Hypertension , essential [I10] Prescriptions as of 07/07/2024 - atorvastatin (LIPITOR) 20 mg tablet Take 1 tablet by mouth daily at bedtime. For cholesterol. - losartan (COZAAR) 25 mg tablet Take 1 tablet by mouth daily at bedtime. - pentoxifylline ER (TRENTAL) 400 mg CR tablet Take 1 tablet by mouth three times a day wi (more content not included)... Normal [facility] CNOVon 06-09-2024 CNOV Office Visit (FAMPWS ) SARANYA BERMUDEZ ([id number]) 1965 F Date Time Provider Department 06/09/24 7:20 AM MARILOU SINGH During your visit today, we recorded the following information about you: Pulse Respiration Blood pressure Weight 74/minute 18/minute 150/87 85.9 kg Marilou Singh APRN.CNP 06/09/2024 8:01 AM Signed 06/09/2024 Patient presents with: F/U 6 Month SUBJECTIVE: This is a 58 year old that is here today for Above Complaints. HTN: Patient is compliant with meds Yes Monitors bp at home: Yes 128-132/82-85 Denies side effects: Yes. Chest pain: No. Dyspnea: No. Edema: No. Palpitations: No. Syncope: No. Headache: No. Dizziness: Yes at times HYPERLIPIDEMIA: Patient is taking medications: Yes. Patient is watching diet: Yes. Patient denies myalgias: Yes. Patient denies gi upset: Yes PAD: following with vascular with last office appointment on 01/29/2024. No changes in current regime. Recommended follow-up in 6 months which is scheduled for 07/29/2024. Taking Trental as prescribed. Smoking: up to date on lung cancer screening. Still smoking about 3/4 pack of cigarettes a day PAST MEDICAL HISTORY Diagnosis Date Anxiety Chronic obstructive asthma with status asthmaticus (HCC) DVT (deep venous thrombosis) (HCC) History of COVID-19 03/2021 History of heavy periods s/p hysterectomy Hyperlipidemia Hypertension 2016 Iron deficiency anemia 01/06/2012 Major depressive disorder, single episode, unspecified Obesity (BMI 30.0-34.9) PAD (peripheral artery disease) ([facility]) 02/18/2021 moderate on left LE Polycystic kidney disease Tobacco use ALLERGIES Zoloft [Sertraline Hcl] MEDICATIONS Current Outpatient Medications Medication Sig losartan (COZAAR) 25 mg tablet Take 1 tablet by mouth daily at bedtime. atorvastatin (LIPITOR) 20 mg tablet Take 1 tablet by mouth daily at bedtime. For cholesterol. pentoxifylline ER (TRENTAL) 400 mg CR tablet Take 1 tablet by mouth three times a day with meals. ergocalciferol 50,000 unit capsule (VITAMIN D2, DRISDOL) Take 1 capsule by mouth one time a week. (Patient not taking: Reported on 02/25/2024) Blood Pressure Monitor kit Check BP at home. No current facility-administered medications for this visit. Medications and allergies reviewed by this provider. SOCIAL HISTORY Social History Tobacco Use Smoking status: Every Day Current packs/day: 1.00 Average packs/day: 1 pack/day for 30.0 years (30.0 ttl pk-yrs) Types: Cigarettes Smokeless tobacco: Never Vaping Use Vaping status: Never Used Substance Use Topics Alcohol use: No Drug use: No REVIEW OF SYSTEMS All other reviewed and negative other than HPI. OBJECTIVE: BP 154/92 Pulse 86 Resp 18 Wt 85.9 kg (189 lb 6 oz) LMP 05/05/2011 SpO2 97% BMI 31.51 kg/m? . Vital signs reviewed by this provider. APPEARANCE Well appearing, alert, in no acute distress, well-hydrated, well nourished. EYES conjunctiva and sclera normal. EARS External ears normal, canals clear NECK Supple, no adenopathy; thyroid symmetric, normal size, no bruits HEART RRR with normal S1 and S2, no murmurs, no gallops, no JVD appreciated LUNG clear to auscultation. No wheezes, rhonchi or rales EXTREMITIES Extremities normal, No deformities, No skin discoloration, and No edema SKIN Skin color, texture, turgor normal, no suspicious rashes or lesions to exposed skin Latest Ref Rng 03/22/2024 Protein, Total 6.3 - 8.0 g/dL 6.3 Albumin 3.9 - 4.9 g/dL 3.8 (L) Calcium 8.5 - 10.2 mg/dL 8.9 Bilirubin, Total 0.2 - 1.3 mg/dL 0.2 Alkaline Phosphatase 34 - 123 U/L 88 AST 13 - 35 U/L 17 ALT 7 - 38 U/L 10 Glucose 74 - 99 mg/dL 87 BUN 7 - 21 mg/dL 15 Creatinine 0.58 - 0.96 mg/dL 1.17 (H) Sodium 136 - 144 mmol/L 143 Potassium 3.7 - 5.1 mmol/L 4.3 Chloride 98 - 107 mmol/L 109 (H) CO2 22 - 30 mmol/L 23 Anion Gap 8 - 15 mmol/L 11 eGFR >=60 mL/min/1.73m? 55 (L) Cholesterol, Total <200 mg/dL 134 Triglyceride <150 mg/dL 118 HDL Cholesterol >39 mg/dL 31 (L) Non HDL Cholesterol <130 mg/dL 103 Fasting Time hrs 12 VLDL Cholesterol <30 mg/dL 24 TC:HDL Ratio <5.10 4.32 LDL Cholesterol <100 mg/dL 79 LDL:HDL Ratio <2.54 2.55 (H) Vitamin D 25 Hydroxy 31.0 - 80.0 ng/mL 42.5 Legend: (L) Low (H) High ASSESSMENT/PLAN: 1. Hypertension, essential - ICD9: 401.9, ICD10: I10 (primary diagnosis) - Uncontrolled - Continue current medications - Recommend home blood pressure monitoring, to bring results to next visit - Encouraged sodium restriction, DASH or Mediterranean diet - Recommend regular aerobic exercise - Discussed need for and benefit of weight loss. BMI 31.51 kg/(m2) - Smoking cessation encouraged; discussed risks to health and quitting strategies. Patient is not ready to quit - Follow up in 1 month for hypertension visit - LOSARTAN 25 MG TABLET 2. Mixe (more content not included)... Normal [facility] CT Chest for screening WO co ntraston 04-02-2024 IMPRESSION: LungRADS category: 2 LungRADS modifier: None LungRADS 0 reason: n/a Recommendations: Continue annual screening with LDCT in 12 months. Other actionable findings: Innumerable bilateral renal cysts are consistent with polycystic kidney disease. ========= Reference: [employer]. Lung CT Screening Reporting and Data System (Lung-RADS). Available at: http://[email or web address].org/Dustin lity-Safety/Resources/ LungRADS Maid Housekeeper: CHRISTINA Transcribe Date/Time: Apr 02 2024 9:45A Dictated by : VIKASH DE LA ROSA MD This examination was interpreted and the report reviewed and electronically signed by: VIKASH DE LA ROSA MD on Apr 02 2024 10:03AM [facility] [[email or web address]] DIVISION OF RADIOLOGY * * *Final Report* * * DATE OF EXAM: Apr 02 2024 8:31AM [facility] 0562 - CT LUNG SCREEN [facility] / PROCEDURE REASON: multiple diagnoses * * * * Physician Interpretation * * * * EXAMINATION: CHEST CT WITHOUT CONTRAST (LOW-DOSE CT LUNG CANCER SCREENING PROTOCOL) CLINICAL HISTORY: Lung cancer LDCT screening ? absence of signs or symptoms of lung cancer. Nicotine dependence (cigarettes). Baseline (initial) Technique: Spiral CT acquisition of the chest from the thoracic inlet to the upper abdomen without contrast. MQ: CTLCS_6 Patient characteristics: * Quvq-im-Qdlrd: 1965; Age at exam: 58 years * Gender: Female * Lung Disease: Asymptomatic (no signs or symptoms of lung disease) * Number of Pack Years: 37 * Current smoker (=0) or Number of Years since Quit: 0 * Ordering provider and NPI: GEORGIA WHITE [id number] * Interpreting radiologist and NPI: James [id number] Exam acquisition parameters: * Exam Date: 04/02/2024 8:31 AM * Site: [facility] * * CT System Chicle Grinder Feeder: Siemens * CT System Model: Sensation * Tube Current-Time (mA-sec): 27 * Peak Voltage (kV): 120V * Scan Time (sec): 10.65 * Scan Volume (z-length, cm): -28.25 * Pitch: 0.75 * Slice Thickness (mm): 1.5 * CT Dose-Length Product: 86 mGy*cm * CT Dose Index: 2.09mGy * CT Dose Reduction Method: Automated exposure control(AEC) and iterative recon COMPARISON: Chest CT exams dated 02/26/2024 and 02/28/2021 RESULT: Are nodules present? Yes, 1-5 nodules Nodule 1: This Solid nodule is located in the Right Lower Lobe on slice number 107 with an average diameter of 2.5 mm (3.0 mm x 1.9 mm). Unchanged since 02/28/2021. Nodule 2: This Calcified nodule is located in the Right Upper Lobe on slice number 86 with an average diameter of 2.3 mm (2.7 mm x 1.9 mm). Unchanged since 02/28/2021, consistent with a granuloma. Other lung nodule comments: Other findings: There is mild upper lobe predominant centrilobular emphysema, which is associated with diffuse bronchial wall thickening. No enlarged thoracic lymph nodes. Mild atherosclerosis is present within the thoracic aorta which is normal in caliber measuring 3 cm in the mid ascending segment. No distinct coronary artery atherosclerotic calcification, however, this exam is not optimized for coronary artery assessment. A small anterior pericardial effusion seen for example on image 125 of series 7 is similar to the prior chest CT from 02/28/2021. Innumerable cysts are present within both kidneys, some of which are high attenuation on the left, are consistent with polycystic kidney disease. A few low-attenuation hepatic lesions seen for example on image 154 and 166 of series 7 are unchanged, likely cysts. No destructive lytic or blastic bony lesion. Emphysema: Mild (5-25%), Centrilobular, Upper lobe Coronary Artery Calcifications: Circumflex None; Left Anterior Descending None; Right Coronary None Localizer images: No additional findings. DIVISION OF RADIOLOGY Provider, [facility] - 04/02/2024 * * *Final Report* * * DATE OF EXAM: Apr 02 2024 8:31AM [facility] 0562 - CT LUNG SCREEN WO IVCON / PROCEDURE REASON: multiple diagnoses * * * * Physician Interpretation * * * * EXAMINATION: CHEST CT WITHOUT CONTRAST (LOW-DOSE CT LUNG CANCER SCREENING PROTOCOL) CLINICAL HISTORY: Lung cancer LDCT screening ? absence of signs or symptoms of lung cancer. Nicotine dependence (cigarettes). Baseline (initial) Technique: Spiral CT acquisition of the chest from the thoracic inlet to the upper abdomen without contrast. MQ: CTLCS_6 Patient characteristics: * Wnbw-iq-Qbpah: 1965; Age at exam: 58 years * Gender: Female * Lung Disease: Asymptomatic (no signs or symptoms of lung disease) * Number of Pack Years: 37 * Current smoker (=0) or Number of Years since Quit: 0 * Ordering provider and NPI: GEORGIA WHITE [id number] * Interpreting radiologist and NPI: James [id number] Exam acquisition parameters: * Exam Date: 04/02/2024 8:31 AM * Site: [facility] * * CT System Chicle Grinder Feeder: Siemens * CT System Model: Sensation * Tube Current-Time (mA-sec): 27 * Peak Voltage (kV): 120V * Scan Time (sec): 10.65 * Scan Volume (z-length, cm): -28.25 * Pitch: 0.75 * Slice Thickness (mm): 1.5 * CT Dose-Length Product: 86 mGy*cm * CT Dose Index: 2.09mGy * CT Dose Reduction Method: Automated exposure control(AEC) and iterative recon COMPARISON: Chest CT exams dated 02/26/2024 and 02/28/2021 RESULT: Are nodules present? Yes, 1-5 nodules Nodule 1: This Solid nodule is located in the Right Lower Lobe on slice number 107 with an average diameter of 2.5 mm (3.0 mm x 1.9 mm). Unchanged since 02/28/2021. Nodule 2: This Calcified nodule is located in the Right Upper Lobe on slice number 86 with an average diameter of 2.3 mm (2.7 mm x 1.9 mm). Unchanged since 02/28/2021, consistent with a granuloma. Other lung nodule comments: Other findings: There is mild upper lobe predominant centrilobular emphysema, which is associated with diffuse bronchial wall thickening. No enlarged thoracic lymph nodes. Mild atherosclerosis is present within the thoracic aorta which is normal in caliber measuring 3 cm in the mid ascending segment. No distinct coronary artery atherosclerotic calcification, however, this exam is not optimized for coronary artery assessment. A small anterior pericardial effusion seen for example on image 125 of series 7 is similar to the prior chest CT from 02/28/2021. Innumerable cysts are present within both kidneys, some of which are high attenuation on the left, are consistent with polycystic kidney disease. A few low-attenuation hepatic lesions seen for example on image 154 and 166 of series 7 are unchanged, likely cysts. No destructive lytic or blastic bony lesion. Emphysema: Mild (5-25%), Centrilobular, Upper lobe Coronary Artery Calcifications: Circumflex None; Left Anterior Descending None; Right Coronary None Localizer images: No additional findings. IMPRESSION IMPRESSION: LungRADS category: 2 LungRADS modifier: None LungRADS 0 reason: n/a Recommendations: Continue annual screening with LDCT in 12 months. Other actionable findings: Innumerable bilateral renal cysts are consistent with polycystic kidney disease. ========= Reference: [employer]. Lung CT Screening Reporting and Data System (Lung-RADS). Available at: http://www.acr.org/Dustin lity-Safety/Resources/ LungRADS Maid Housekeeper: CHRISTINA Transcribe Date/Time: Apr 02 2024 9:45A Dictated by : VIKASH DE LA ROSA MD This examination was interpreted and the report reviewed and electronically signed by: VIKASH DE LA ROSA MD on Apr 02 2024 10:03AM EST [facility] Radiology Study observation (narrative) [facility] CT Chest for screening WO co ntrastOrdered By: [facility]cf Provider on 04-02-[address] [facility] [address] LUNG SCREEN WO IVCONon CT LUNG SCREEN WO IVCON * * *Final Repor t* * * DATE OF EXAM: Apr 02 2024 8:31AM [facility] 0562 - CT LUNG SCREEN WO IVCON / PROCEDURE REASON: multiple diagnoses * * * * Physician Interpretation * * * * EXAMINATION: CHEST CT WITHOUT CONTRAST (LOW-DOSE CT LUNG CANCER SCREENING PROTOCOL) CLINICAL HISTORY: Lung cancer LDCT screening ? absence of signs or symptoms of lung cancer. Nicotine dependence (cigarettes). Baseline (initial) Technique: Spiral CT acquisition of the chest from the thoracic inlet to the upper abdomen without contrast. MQ: CTLCS_6 Patient characteristics: * Uvkh-wy-Hqfcu: 1965; Age at exam: 58 years * Gender: Female * Lung Disease: Asymptomatic (no signs or symptoms of lung disease) * Number of Pack Years: 37 * Current smoker (=0) or Number of Years since Quit: 0 * Ordering provider and NPI: GEORGIA WHITE [id number] * Interpreting radiologist and NPI: James [id number] Exam acquisition parameters: * Exam Date: 04/02/2024 8:31 AM * Site: [facility] * * CT System Chicle Grinder Feeder: Siemens * CT System Model: Sensation * Tube Current-Time (mA-sec): 27 * Peak Voltage (kV): 120V * Scan Time (sec): 10.65 * Scan Volume (z-length, cm): -28.25 * Pitch: 0.75 * Slice Thickness (mm): 1.5 * CT Dose-Length Product: 86 mGy*cm * CT Dose Index: 2.09mGy * CT Dose Reduction Method: Automated exposure control(AEC) and iterative recon COMPARISON: Chest CT exams dated 02/26/2024 and 02/28/2021 RESULT: Are nodules present? Yes, 1-5 nodules Nodule 1: This Solid nodule is located in the Right Lower Lobe on slice number 107 with an average diameter of 2.5 mm (3.0 mm x 1.9 mm). Unchanged since 02/28/2021. Nodule 2: This Calcified nodule is located in the Right Upper Lobe on slice number 86 with an average diameter of 2.3 mm (2.7 mm x 1.9 mm). Unchanged since 02/28/2021, consistent with a granuloma. Other lung nodule comments: Other findings: There is mild upper lobe predominant centrilobular emphysema, which is associated with diffuse bronchial wall thickening. No enlarged thoracic lymph nodes. Mild atherosclerosis is present within the thoracic aorta which is normal in caliber measuring 3 cm in the mid ascending segment. No distinct coronary artery atherosclerotic calcification, however, this exam is not optimized for coronary artery assessment. A small anterior pericardial effusion seen for example on image 125 of series 7 is similar to the prior chest CT from 02/28/2021. Innumerable cysts are present within both kidneys, some of which are high attenuation on the left, are consistent with polycystic kidney disease. A few low-attenuation hepatic lesions seen for example on image 154 and 166 of series 7 are unchanged, likely cysts. No destructive lytic or blastic bony lesion. Emphysema: Mild (5-25%), Centrilobular, Upper lobe Coronary Artery Calcifications: Circumflex None; Left Anterior Descending None; Right Coronary None Localizer images: No additional findings. IMPRESSION: LungRADS category: 2 LungRADS modifier: None LungRADS 0 reason: n/a Recommendations: Continue annual screening with LDCT in 12 months. Other actionable findings: Innumerable bilateral renal cysts are consistent with polycystic kidney disease. ========= Reference: [employer]. Lung CT Screening Reporting and Data System (Lung-RADS). Available at: http://www.acr.org/Dustin lity-Safety/Resources/ LungRADS Maid Housekeeper: CHRISTINA Transcribe Date/Time: Apr 02 2024 9:45A Dictated by : VIKASH DE LA ROSA MD This examination was interpreted and the report reviewed and electronically signed by: VIKASH DE LA ROSA MD on Apr 02 2024 10:03AM EST [id number] [facility] SAR[facility] BER[facility]DEZ ([id number]) 1965 F Date Time Provider Department 03/24/24 [facility] During your visit today, we recorded the following information about you: Roma Bolaños LPN 03/24/2024 3:53 PM Signed ----- Message from Marilou Singh APRN.MEMBER SERVICES COORDINATOR sent at 03/24/2024 3:44 PM EDT ----- Cholesterol has improved- continue medication, diet and exercise. Kidney function down slightly- eat low salt diet, avoid NSAID products and stay well hydrated. Marilou Singh APRN.Roma Sosa LPN 03/24/2024 3:55 PM Signed Phoned patient and reviewed results and recommendations with her. She voiced understanding. Roma Bolaños LPN Allergies As of Date: 03/24/2024 Noted Allergy Reaction ZOLOFT (SERTRALINE HCL) 12/03/2017 6 - Diarrhea 8 - GI Upset Date Reviewed: 02/25/2024 Reviewed by: Sarah Beth Buckner RT(R) - Fully Assessed Prescriptions as of 03/24/2024 - atorvastatin (LIPITOR) 20 mg tablet Take 1 tablet by mouth daily at bedtime. For cholesterol. - pentoxifylline ER (TRENTAL) 400 mg CR tablet Take 1 tablet by mouth three times a day with meals. - ergocalciferol 50,000 unit capsule (VITAMIN D2, DRISDOL) Take 1 capsule by mouth one time a week. - losartan (COZAAR) 25 mg tablet Take 1 tablet by mouth daily at bedtime. - Blood Pressure Monitor kit Check BP at home. Problem List As Of Date 03/24/2024 Noted Resolved Moderate persistent asthma without complication* 5 Major Depressive Disorder, Single Episode, Unsp* Acquired cyst of kidney [N28.1] 05/16/2018 Chronic Obstructive Asthma with Status Asthmati* Routine Gynecological Examination [Z01.419] 01/25/2010 Class: Chronic Iron deficiency anemia [D50.9] 01/06/2012 Adjustment disorder with mixed anxiety and depr*12/13/2012 Polycystic kidney disease [Q61.3] Obesity, Class I, BMI 30-34.9 [E66.811] 05/16/2018 Hypertension, essential [I10] 05/16/2018 Tobacco abuse [Z72.0] 05/16/2018 Hydronephrosis, left [N13.30] 05/16/2018 Hyperlipidemia [E78.5] PAD (peripheral artery disease) (HCC) [I73.9] 02/18/2021 Encounter Status:Closed by ROMA BOLAÑOS on 03/24/24 Normal [facility] 25(OH)D3 [facility] 25-hydroxyvitamin D3 [Mass/Vol] 42.5 ng/mL Normal 31.0-80.0 [facility] Comment on above: Order Comment: Speci men Type: BLOOD SPECIMENOrdering Facility: [facility] Address: [address] [place] [address] Result Comment: Clas sification of 25 [place] Vitamin D status: Deficiency/Insufficiency: < or = 30 ng/ml. Sufficiency/Optimal Levels: 31-80 ng/mL Toxicity: > 100 ng/mL. Test performed by chemiluminescent immunoassay. Performed By: #### 1 989-3 ####[facility] LABCLIA [id number] [place] [address] [place] [facility] Comprehensive metabolic 2000 panelon 03-22-2024 Albumin [Mass/Vol] 3.8 g/dL Low 3.9-4.9 [facility] Comment on above: Order Comment: Speci men Type: BLOOD SPECIMENOrdering Facility: [facility] Address: [address] [place] [address] Performed By: #### 2 4323-8, 33612-4 ####[facility] LABCLIA [id number] [address] [place] ALP [Catalytic activity/Vol] 88 U/L Normal 34-123 [facility] Comment on above: Order Comment: Speci men Type: BLOOD SPECIMENOrdering Facility: [facility] Address: [address] [place] [address] Performed By: #### 2 4323-8, 50773-7 ####[facility] LABIA [id number] [place] [address] [place] ALT [Catalytic activity/Vol] 10 U/L Normal 7-38 [facility] Comment on above: Order Comment: Speci men Type: BLOOD SPECIMENOrdering Facility: [facility] Address: [address] [place] [address] Performed By: #### 2 4323-8, 94527-9 ####[facility] LABCLIA [id number] [place] [address] [place] Anion gap [Moles/Vol] 11 mmol/L Normal 8-15 [facility] Comment on above: Order Comment: Speci men Type: BLOOD SPECIMENOrdering Facility: [facility] Address: [address] [place] [address] Performed By: #### 2 4323-8, 93795-0 ####[facility] LABCLIA [id number] [facility] [address] [place] AST [Catalytic activity/Vol] 17 U/L Normal 13-35 [facility] Comment on above: Order Comment: Speci men Type: BLOOD SPECIMENOrdering Facility: [facility] Address: [address] [place] [address] Performed By: #### 2 4323-8, 49428-0 ####[facility] LABCLIA [id number] [place] [address] [place] Bilirubin [Mass/Vol] 0.2 mg/dL Normal 0.2-1.3 [facility] Comment on above: Order Comment: Speci men Type: BLOOD SPECIMENOrdering Facility: [facility] Address: [address] [place] [address] Performed By: #### 2 4323-8, 28043-6 ####[facility] LABCLIA [id number] [place] [address] [place] Calcium [Mass/Vol] 8.9 mg/dL Normal 8.5-10.2 [facility] Comment on above: Order Comment: Speci men Type: BLOOD SPECIMENOrdering Facility: [facility] Address: [address] [place] [address] Performed By: #### 2 4323-8, 16203-8 ####[facility] LABCLIA [id number] [place] [address] [place] Chloride [Moles/Vol] 109 mmol/L High 98-107 [facility] Comment on above: Order Comment: Speci men Type: BLOOD SPECIMENOrdering Facility: [facility] Address: [address] [place] [address] Performed By: #### 2 4323-8, 12294-8 ####[facility] LABCLIA [id number] [place] [address] [place] CO2 [Moles/Vol] 23 mmol/L Normal 22-30 [facility] Comment on above: Order Comment: Speci men Type: BLOOD SPECIMENOrdering Facility: [facility] Address: [address] [place] [address] Performed By: #### 2 4323-8, 69750-2 ####[facility] LABCLIA [id number] [place] [address] [place] Creatinine [Mass/Vol] 1.17 mg/dL High 0.58-0.96 [facility] Comment on above: Order Comment: Speci men Type: BLOOD SPECIMENOrdering Facility: [facility] Address: [address] [place] [address] Performed By: #### 2 4323-8, 32367-4 ####[facility] LABIA [id number] [place] [address] [place] Creatinine and Glomerular filtration rate.predicted panel (S/P/Bld) 55 mL/min/1.73m??? Low >=60 [facility] Comment on above: Order Comment: Speci men Type: BLOOD SPECIMENOrdering Facility: [facility] Address: [address] [place] [address] Result Comment: Kika mated Glomerular Filtration Rate (eGFR) is calculated using the 2020 CKD-EPI creatinine equation. This equation utilizes serum creatinine, sex, and age as parameters. The creatinine assay has traceable calibration to isotope dilution-mass spectrometry. Refer to KDIGO guidelines for clinical interpretation. In patients with unstable renal function, e.g. those with acute kidney injury, the eGFR may not accurately reflect actual GFR. Performed By: #### 2 4323-8, 09576-0 ####[facility] LABCLIA [id number] [place] [id number] [place] Glucose [Mass/Vol] 87 mg/dL Normal 74-99 [facility] Comment on above: Order Comment: Speci men Type: BLOOD SPECIMENOrdering Facility: [facility] Address: [address] [place] [address] Result Comment: The [place] Diabetes Association (ADA) provides guidance for cutoff values for fasting glucose and random glucose. The ADA defines fasting as no caloric intake for at least 8 hours. Fasting plasma glucose results between 100 to 125 mg/dL indicate increased risk for diabetes (prediabetes). Fasting plasma glucose results greater than or equal to 126 mg/dL meet the criteria for diagnosis of diabetes. In the absence of unequivocal hyperglycemia, results should be confirmed by repeat testing. In a patient with classic symptoms of hyperglycemia or hyperglycemic crisis, random plasma glucose results greater than or equal to 200 mg/dL meet the criteria for diagnosis of diabetes. Reference: Standards of Medical Care in Diabetes 2016, [place] Diabetes Association. Diabetes Care. 2016.39(Suppl 1). Performed By: #### 2 4323-8, 98169-5 ####[facility] LABIA [id number] [place] [address] [place] Potassium [Moles/Vol] 4.3 mmol/L Normal 3.7-5.1 [facility] Comment on above: Order Comment: Sumayai men Type: BLOOD SPECIMENOrdering Facility: [facility] Address: [address] [place] [address] Performed By: #### 2 4323-8, 65635-3 ####[facility] LABIA [id number] [place] [address] [place] Protein [Mass/Vol] 6.3 g/dL Normal 6.3-8.0 [facility] Comment on above: Order Comment: Speci men Type: BLOOD SPECIMENOrdering Facility: [facility] Address: [address] [place] [address] Performed By: #### 2 4323-8, 82116-9 ####[facility] LABCLIA [id number] [place] [address] [place] Sodium [Moles/Vol] 143 mmol/L Normal 136-144 [facility] Comment on above: Order Comment: Speci men Type: BLOOD SPECIMENOrdering Facility: [facility] Address: [address] [place] [address] Performed By: #### 2 4323-8, 66516-3 ####[facility] LABIA [id number] [place] [address] [place] Urea nitrogen [Mass/Vol] 15 mg/dL Normal 7-21 [facility] Comment on above: Order Comment: Speci men Type: BLOOD SPECIMENOrdering Facility: [facility] Address: [address] [place] [address] Performed By: #### 2 4323-8, 00402-8 ####[facility] LABIA [id number] [place] [address] [place] Lipid 1996 panelon 4 Cholesterol [Mass/Vol] 134 mg/dL Normal <200 [facility] Comment on above: Order Comment: Speci men Type: BLOOD SPECIMENOrdering Facility: [facility] Address: [address] [place] [address] Result Comment: <200 mg/dL, Desirable 200-239 mg/dL, Borderline high >239 mg/dL, High Performed By: #### 2 4323-8, 55931-0 ####[facility] LABIA [id number] [place] [address] [place] Cholesterol in HDL [Mass/Vol] 31 mg/dL Low >39 [facility] Comment on above: Order Comment: Speci men Type: BLOOD SPECIMENOrdering Facility: [facility] Address: [address] [place] [address] Result Comment: 40-5 9 mg/dL, Acceptable >59 mg/dL, High: Negative risk factor for coronary heart disease <40 mg/dL, Low: Positive risk factor for coronary heart disease Performed By: #### 2 4323-8, 55937-4 ####[facility] LABCLIA [id number] [place] [address] [place] Cholesterol in LDL [Mass/Vol] 79 mg/dL Normal <100 [facility] Comment on above: Order Comment: Speci men Type: BLOOD SPECIMENOrdering Facility: [facility] Address: [address] [place] [address] Result Comment: <100 mg/dL, Optimal 100-129 mg/dL, Near optimal/above optimal 130-159 mg/dL, Borderline high 160-189 mg/dL, High >189 mg/dL, Very high Secondary prevention optimal LDL Cholesterol levels are recommended to be < 70 mg/dL Performed By: #### 2 4323-8, 41546-2 ####[facility] LABCLIA [id number] [place] [address] [place] Cholesterol in LDL/Cholesterol in HDL [Mass ratio] 2.55 {ratio} High <2.54 [facility] Comment on above: Order Comment: Speci men Type: BLOOD SPECIMENOrdering Facility: [facility] Address: [address] [place] [address] Result Comment: Kathryn peng: 1. National Cholesterol Education Program ATP III Guideline At-A-Glance Quick Desk Reference: National Heart, Lung, and Blood [place]. National Institutes of Health. 2001: NIH Publication No. 01-3305. 2. An International Atherosclerosis Society position paper: global recommendations for the management of dyslipidemia: executive summary, Atherosclerosis. 2014: 232(2):410-413. Performed By: #### 2 4323-8, 10189-7 ####[facility] LABCLIA [id number] [place] [id number] [place] Cholesterol in VLDL [Mass/Vol] 24 mg/dL Normal <30 [facility] Comment on above: Order Comment: Speci men Type: BLOOD SPECIMENOrdering Facility: [facility] Address: [address] [place] [address] Performed By: #### 2 4323-8, 09629-1 ####[facility] LABCLIA [id number] [address] [address] [place] Cholesterol non HDL [Mass/Vol] 103 mg/dL Normal <130 [facility] Comment on above: Order Comment: Speci men Type: BLOOD SPECIMENOrdering Facility: [facility] Address: [address] [place] [address] Result Comment: <130 mg/dL, Optimal 130-159 mg/dL, Near optimal/above optimal 160-189 mg/dL, Borderline high 190-219 mg/dL, High >219 mg/dL, Very high Secondary prevention optimal non HDL Cholesterol levels are recommended to be <100 mg/dL Performed By: #### 2 4323-8, ####[facility] LABCLIA [id number] [place] [address] [place] Cholesterol.total/Marina sterol in HDL [Mass ratio] 4.32 {ratio} Normal <5.10 [facility] Comment on above: Order Comment: Speci men Type: BLOOD SPECIMENOrdering Facility: [facility] Address: [address] [place] [address] Performed By: #### 2 4323-8, ####[facility] LABCLIA [id number] [place] [id number] [place] FASTING TIME 12 hrs Normal [facility] Comment on above: Order Comment: Speci men Type: BLOOD SPECIMENOrdering Facility: [facility] Address: [address] [place] [id number] Performed By: #### 2 4323-8, 02481-2 ####[facility] LABCLIA [id number] [place] [address] [place] Triglyceride [Mass/Vol] 118 mg/dL Normal <150 [facility] Comment on above: Order Comment: Speci men Type: BLOOD SPECIMENOrdering Facility: [facility] [address]: [address] [facility] [place] [id number] Result Comment: <150 mg/dL, Normal 150-199 mg/dL, Borderline high 200-499 mg/dL, High >499 mg/dL, Very high Performed By: #### 2 4323-8, 21275-2 ####[facility] LABCLIA [id number] [id number] [address] [place] Chest WO contraston 02-26 IMPRESSION: Nodular opacity seen medially left lower lobe on the prior examination has resolved in the interval. There are stable tiny pulmonary nodules seen within the lungs. Mild, diffuse bronchiectasis, with region of bronchial wall thickening seen within both lungs. Groundglass attenuation and air-trapping within both lungs suggests reactive airways disease. Prominent, less than 1 cm bilateral hilar lymph nodes, likely reactive. Incidentally noted is a lesion containing punctate calcification within the right lateral breast. Patient has undergone prior diagnostic imaging. Maid Housekeeper: PSCB Transcribe Date/Time: Feb 27 2024 4:18P Dictated by : MAL KING MD This examination was interpreted and the report reviewed and electronically signed by: MAL KING MD on Feb 27 2024 4:27PM [facility] [[email or web address] DIVISION OF RADIOLOGY * * *Final Report* * * DATE OF EXAM: Feb 26 2024 3:51PM [facility] 0541 - CT CHEST WO IVCON / PROCEDURE REASON: Lung nodules * * * * Physician Interpretation * * * * EXAMINATION: CHEST CT WITHOUT CONTRAST CLINICAL HISTORY: Lung nodules Technique: Spiral CT acquisition of the chest from the thoracic inlet to the upper abdomen without contrast. MQ: CTCWO_6 CT Radiation dose: Integrated Dose-length product (DLP) for this visit = 441 mGy*cm CT Dose Reduction Employed: Automated exposure control(AEC) and iterative recon Comparison: Outside, imported chest CT dated 02/28/2021 RESULT: Limitations: None. Lines, tubes, and devices: None. Lung parenchyma and airways: There is no pneumothorax or endobronchial lesion. Mild, diffuse bronchiectasis with mild bronchial wall thickening. Regions of groundglass attenuation and air-trapping within both lungs suggests reactive airways disease. Mild biapical fibrosis. There is no pneumothorax or endobronchial lesion. Mild secretions are seen within the trachea and mainstem bronchi. Stable tiny pulmonary nodules. For example, there is a stable, approximately 2 mm subpleural nodule within the superior segment of the right lower lobe (series 5, image #43). Please note that the nodular opacity seen medially within left lower lobe on the prior examination has resolved in the interval. Pleural space: There are trace bilateral pleural effusions. Lower neck, lymph nodes, and mediastinum: There are no pathologically enlarged axillary or mediastinal lymph nodes. There are prominent, less than 1 cm bilateral hilar lymph nodes, likely reactive. Heart, pericardium, and thoracic vessels: Incidentally noted is a lesion containing punctate calcification within the right lateral breast, measuring approximately 3.4 x 1.1 cm (series 5, image #118). Patient is undergone prior diagnostic imaging. The heart is normal in size. There is a small pericardial effusion. Atherosclerotic calcifications are present within the thoracic aorta. Bones and soft tissues: There is no destructive bony lesion. Upper abdomen: Nonspecific wall thickening of the stomach likely relates to underdistention. There is a dilated left external pelvis. Multiple bilateral renal cysts as well as hyperdense lesion seen within the kidneys. Consider polycystic kidney disease. A cyst within the upper pole of the right kidney has a calcified septation. Gallbladder is grossly unremarkable. There are hepatic cysts. Additionally, there are subcentimeter, low-attenuation lesions seen within liver, which are too small to characterize but statistically relate to subcentimeter cysts. DIVISION OF RADIOLOGY Provider, [facility] - 02/27/2024 * * *Final Report* * * DATE OF EXAM: Feb 26 2024 3:51PM [facility] 0541 - CT CHEST WO IVCON / PROCEDURE REASON: Lung nodules * * * * Physician Interpretation * * * * EXAMINATION: CHEST CT WITHOUT CONTRAST CLINICAL HISTORY: Lung nodules Technique: Spiral CT acquisition of the chest from the thoracic inlet to the upper abdomen without contrast. MQ: CTCWO_6 CT Radiation dose: Integrated Dose-length product (DLP) for this visit = 441 mGy*cm CT Dose Reduction Employed: Automated exposure control(AEC) and iterative recon Comparison: Outside, imported chest CT dated 02/28/2021 RESULT: Limitations: None. Lines, tubes, and devices: None. Lung parenchyma and airways: There is no pneumothorax or endobronchial lesion. Mild, diffuse bronchiectasis with mild bronchial wall thickening. Regions of groundglass attenuation and air-trapping within both lungs suggests reactive airways disease. Mild biapical fibrosis. There is no pneumothorax or endobronchial lesion. Mild secretions are seen within the trachea and mainstem bronchi. Stable tiny pulmonary nodules. For example, there is a stable, approximately 2 mm subpleural nodule within the superior segment of the right lower lobe (series 5, image #43). Please note that the nodular opacity seen medially within left lower lobe on the prior examination has resolved in the interval. Pleural space: There are trace bilateral pleural effusions. Lower neck, lymph nodes, and mediastinum: There are no pathologically enlarged axillary or mediastinal lymph nodes. There are prominent, less than 1 cm bilateral hilar lymph nodes, likely reactive. Heart, pericardium, and thoracic vessels: Incidentally noted is a lesion containing punctate calcification within the right lateral breast, measuring approximately 3.4 x 1.1 cm (series 5, image #118). Patient is undergone prior diagnostic imaging. The heart is normal in size. There is a small pericardial effusion. Atherosclerotic calcifications are present within the thoracic aorta. Bones and soft tissues: There is no destructive bony lesion. Upper abdomen: Nonspecific wall thickening of the stomach likely relates to underdistention. There is a dilated left external pelvis. Multiple bilateral renal cysts as well as hyperdense lesion seen within the kidneys. Consider polycystic kidney disease. A cyst within the upper pole of the right kidney has a calcified septation. Gallbladder is grossly unremarkable. There are hepatic cysts. Additionally, there are subcentimeter, low-attenuation lesions seen within liver, which are too small to characterize but statistically relate to subcentimeter cysts. IMPRESSION IMPRESSION: Nodular opacity seen medially left lower lobe on the prior examination has resolved in the interval. There are stable tiny pulmonary nodules seen within the lungs. Mild, diffuse bronchiectasis, with region of bronchial wall thickening seen within both lungs. Groundglass attenuation and air-trapping within both lungs suggests reactive airways disease. Prominent, less than 1 cm bilateral hilar lymph nodes, likely reactive. Incidentally noted is a lesion containing punctate calcification within the right lateral breast. Patient has undergone prior diagnostic imaging. Maid Housekeeper: PSCDory Transcribe Date/Time: Feb 27 2024 4:18P Dictated by : MAL KING MD This examination was interpreted and the report reviewed and electronically signed by: MAL KING MD on Feb 27 2024 4:27PM EST [facility] CT Chest WO contrastOrdered By: [facility] Provider on 02-27-[address] [facility] [address] CHEST WO IVCONon 02-26-20 CT CHEST WO IVCON * * *Final Report* * * DATE OF EXAM: Feb 26 2024 3:51PM [facility] 0541 - CT CHEST WO IVCON / PROCEDURE REASON: Lung nodules * * * * Physician Interpretation * * * * EXAMINATION: CHEST CT WITHOUT CONTRAST CLINICAL HISTORY: Lung nodules Technique: Spiral CT acquisition of the chest from the thoracic inlet to the upper abdomen without contrast. MQ: CTCWO_6 CT Radiation dose: Integrated Dose-length product (DLP) for this visit = 441 mGy*cm CT Dose Reduction Employed: Automated exposure control(AEC) and iterative recon Comparison: Outside, imported chest CT dated 02/28/2021 RESULT: Limitations: None. Lines, tubes, and devices: None. Lung parenchyma and airways: There is no pneumothorax or endobronchial lesion. Mild, diffuse bronchiectasis with mild bronchial wall thickening. Regions of groundglass attenuation and air-trapping within both lungs suggests reactive airways disease. Mild biapical fibrosis. There is no pneumothorax or endobronchial lesion. Mild secretions are seen within the trachea and mainstem bronchi. Stable tiny pulmonary nodules. For example, there is a stable, approximately 2 mm subpleural nodule within the superior segment of the right lower lobe (series 5, image #43). Please note that the nodular opacity seen medially within left lower lobe on the prior examination has resolved in the interval. Pleural space: There are trace bilateral pleural effusions. Lower neck, lymph nodes, and mediastinum: There are no pathologically enlarged axillary or mediastinal lymph nodes. There are prominent, less than 1 cm bilateral hilar lymph nodes, likely reactive. Heart, pericardium, and thoracic vessels: Incidentally noted is a lesion containing punctate calcification within the right lateral breast, measuring approximately 3.4 x 1.1 cm (series 5, image #118). Patient is undergone prior diagnostic imaging. The heart is normal in size. There is a small pericardial effusion. Atherosclerotic calcifications are present within the thoracic aorta. Bones and soft tissues: There is no destructive bony lesion. Upper abdomen: Nonspecific wall thickening of the stomach likely relates to underdistention. There is a dilated left external pelvis. Multiple bilateral renal cysts as well as hyperdense lesion seen within the kidneys. Consider polycystic kidney disease. A cyst within the upper pole of the right kidney has a calcified septation. Gallbladder is grossly unremarkable. There are hepatic cysts. Additionally, there are subcentimeter, low-attenuation lesions seen within liver, which are too small to characterize but statistically relate to subcentimeter cysts. IMPRESSION: Nodular opacity seen medially left lower lobe on the prior examination has resolved in the interval. There are stable tiny pulmonary nodules seen within the lungs. Mild, diffuse bronchiectasis, with region of bronchial wall thickening seen within both lungs. Groundglass attenuation and air-trapping within both lungs suggests reactive airways disease. Prominent, less than 1 cm bilateral hilar lymph nodes, likely reactive. Incidentally noted is a lesion containing punctate calcification within the right lateral breast. Patient has undergone prior diagnostic imaging. Maid Housekeeper: PSCB Transcribe Date/Time: Feb 27 2024 4:18P Dictated by : MAL KING MD This examination was interpreted and the report reviewed and electronically signed by: MAL KING MD on Feb 27 2024 4:27PM EST [id number] Normal [facility] CT Chest WO contraston 02-25 Radiology Study observation (narrative) [facility] CNOV 02-25-2024 CNOV Office Visit (PULMWS ) SARANYA BERMUDEZ ([id number]) 1965 F Date Time Provider Department 02/25/24 8:30 AM [facility] During your visit today, we recorded the following information about you: Pulse Blood pressure Weight Height 82/minute 113/62 86.2 kg 1.651 m [place]ie [email or web address] nevarez.MEMBER SERVICES COORDINATOR 02/25/2024 10:45 AM Signed LUNG SCREENING VISIT PRIMARY CARE PHYSICIAN: Shasta Walters MD PULMONARY PROVIDER: none Results will be communicated via letter or electronic record if applicable. Visit Delivery: In Person Patient Visit Type: New to Screening Current or Ex-smoker? [Current Exam Type: baseline LDCT Number of Pack Years: 37 Current smoker (=0) REQUESTER: The referring provider advised the patient to have screening. HISTORY OF PRESENT ILLNESS: Saranya Bermudez is a 58 year old Active smoker who presents for lung screening. Currently smoking 20 cigarettes daily. Pt has previously noted 3.2 x 2.8 cm LLL density on [facility] CTA scan from 02/28/2021. Pt does not recall this finding or any follow up. She had URI 12/2020, and she had COVID 03/24/2021. She was seen in ER for chest pain and CTA was done for elevated D Dimer. Respiratory symptoms include: SOB: No Chest tightness: No Coughing: Yes: Without mucus, occasionally Hemoptysis: No Wheezing: Yes, sometimes with asthma Fever/Chills: No Recent Respiratory Infection: No Unintentional weight loss: No Last 6 Encounter Wt Readings: Date: Wt: 02/25/2024 86.2 kg (190 lb) 01/14/2024 85.2 kg (187 lb 12.8 oz) 12/07/2023 85.4 kg (188 lb 3.2 oz) 11/06/2023 85.5 kg (188 lb 9.6 oz) 06/02/2021 83.9 kg (185 lb) 04/19/2021 87.1 kg (192 lb) ECOG PERFORMANCE STATUS: 0- Fully active, able to carry on all pre-disease performance w/o restriction. Modified Medical Research [place] Dyspnea Scale (MMRC) I only get breathless with strenous exercise 0 PAST MEDICAL HISTORY No date: Anxiety No date: Chronic obstructive asthma with status asthmaticus (HCC) No date: DVT (deep venous thrombosis) ([facility]) 03/2021: History of COVID-19 No date: History of heavy periods Comment: s/p hysterectomy No date: Hyperlipidemia 2016: Hypertension 01/06/2012: Iron deficiency anemia No date: Major depressive disorder, single episode, unspecified No date: Obesity (BMI 30.0-34.9) 02/18/2021: PAD (peripheral artery disease) (HCC) Comment: moderate on left LE No date: Polycystic kidney disease No date: Tobacco use PAST SURGICAL HISTORY 11/04/2018: COLONOSCOPY FLX DX W/COLLJ SPEC WHEN PFRMD Comment: Colonoscopy : DILATION AND CURETTAGE DXAND/THER NONOBSTETRIC 10/19/11: LAPARO-VAG HYST, COMPLEX Comment: vag hysterectomy with bladder sling and posterior repair, bladder tear repaired No date: LIG/TRNSXJ FLP TUBE ABDL/VAG APPR UNI/BI 2006: PAST SURGICAL HISTORY OF Comment: upper teeth removed No date: UNSPECIFIED ORAL SURGERY PROCEDURE, BY REPORT Comment: WISDOM TEETH REMOVED FAMILY HISTORY Problem Relation Age of Onset Heart Mother no communication with patient, doesn't have details Drug abuse Sister ??? patient doesn't know for sure. Colon Cancer Maternal Grandmother Diabetes Other no details known Colon Cancer Other no details known Coronary Artery Disease Other no details known atorvastatin (LIPITOR) 20 mg tablet Take 1 tablet by mouth daily at bedtime. For cholesterol. pentoxifylline ER (TRENTAL) 400 mg CR tablet Take 1 tablet by mouth three times a day with meals. losartan (COZAAR) 25 mg tablet Take 1 tablet by mouth daily at bedtime. Blood Pressure Monitor kit Check BP at home. ergocalciferol 50,000 unit capsule (VITAMIN D2, DRISDOL) Take 1 capsule by mouth one time a week. (Patient not taking: Reported on 02/25/2024) ALLERGIES Allergen Reactions Zoloft [Sertraline * Diarrhea, GI Upset The medications and allergies were reviewed and reconciled for this patient and deemed current. Lung Cancer Risk Factors: 1.Tobacco Use: Start Age 21, Quit Age: N/A, Average packs per day 1, Pack Years 39 2. Passive Smoke Exposure: Yes, as a Child and as an Adult 3. Personal hx of malignancy: No, Type of Cancer: 4. Significant exposures (1 year or more of exposure): Dusts, 5. Race: White 6. Education: Some College 7. BMI:Body mass index is 31.62 kg/m?. Patient-entered Height: 5'5 Patient-entered Weight: 187 pounds 8. COPD: Yes 9. Pneumonia in the past 5 years: No 10. Is there a history of lung cancer in a first degree relative? No 11. Is there a history of lung cancer in a non-first degree relative? No 12. Is there a history of any other cancer in a first degree relative? No Health Maintenance Immunization History Administered Date(s) Administered influenza (IIV3) vaccine, age 6 mo - 64 yr, trivalent (AFLURIA, FLULAVAL, FLUVIRIN, FLUZONE) 03/09/2014 influenza (IIV4) vaccine, age 6 mo - (more content not included)... Normal [facility] CNPNon 02-23-2024 CNPN Telephone ([employer]) SARANYA BERMUDEZ ([id number]) 1965 F Date Time Provider Department 02/23/24 CELESTE BRADY During your visit today, we recorded the following information about you: Celeste Brady MD 02/23/2024 10:05 AM Signed Told patient pathology from breast biopsy done on 02/19/2024 reveals no evidence of malignancy. Patient acknowledges above. Allergies As of Date: 02/23/2024 Noted Allergy Reaction ZOLOFT (SERTRALINE HCL) 12/03/2017 6 - Diarrhea 8 - GI Upset Date Reviewed: 02/19/2024 Reviewed by: Carrol Syed RT(R) - Fully Assessed Reason for Visit: Results [95] Prescriptions as of 02/23/2024 - atorvastatin (LIPITOR) 20 mg tablet Take 1 tablet by mouth daily at bedtime. For cholesterol. - pentoxifylline ER (TRENTAL) 400 mg CR tablet Take 1 tablet by mouth three times a day with meals. - ergocalciferol 50,000 unit capsule (VITAMIN D2, DRISDOL) Take 1 capsule by mouth one time a week. - losartan (COZAAR) 25 mg tablet Take 1 tablet by mouth daily at bedtime. - Blood Pressure Monitor kit Check BP at home. Problem List As Of Date 02/23/2024 Noted Resolved Moderate persistent asthma without complication* 5 Major Depressive Disorder, Single Episode, Unsp* Acquired cyst of kidney [N28.1] 05/16/2018 Chronic Obstructive Asthma with Status Asthmati* Routine Gynecological Examination [Z01.419] 01/25/2010 Class: Chronic Iron deficiency anemia [D50.9] 01/06/2012 Adjustment disorder with mixed anxiety and depr*12/13/2012 Polycystic kidney disease [Q61.3] Obesity, Class I, BMI 30-34.9 [E66.9] 05/16/2018 Hypertension, essential [I10] 05/16/2018 Tobacco abuse [Z72.0] 05/16/2018 Hydronephrosis, left [N13.30] 05/16/2018 Hyperlipidemia [E78.5] PAD (peripheral artery disease) (HCC) [I73.9] 02/18/2021 Encounter Status:Closed by CELESTE BRADY on 02/23/24 [facility] STEREO BX BREAST RTon [facility] STEREO BX BREAST RT * * *Final Repor t* * * * * * SEE BOTTOM OF REPORT FOR ADDENDED TEXT * * * DATE OF EXAM: Feb 19 2024 2:32PM SAGAR 0631 - [facility] STEREO BX BREAST RT / PROCEDURE REASON: Calcification of right breast on mammography * * * * Physician Interpretation * * * * FINAL REPORT #[id number] - [facility] STEREO BX BREAST RT DIGITAL TOMOGRAPHIC MAMMOGRAPHY GUIDED STEREOTACTIC GUIDED BIOPSY RIGHT BREAST USING VACUUM DEVICE WITH MARKING DEVICE INSERTED AND POST DIGITAL MAMMOGRAPHIC IMAGIN02/19/2024 HISTORY: Calcification Of Right Breast On Mammography/ Patient presents for a stereotactic guided biopsy of the right breast. PATIENT CONSENT: The risks, benefits and alternatives were discussed with the patient. Written and verbal consent was obtained from the patient before the procedure began. The patient was identified by name and date of . Site verification was done prior to the procedure. Audible Time Out: 1337 hrs Procedure Start: 1338 hrs Procedure End: 1355 hrs PROCEDURE: Correlation is made to exams dated: 01/08/2024 mammogram, 12/12/2023 mammogram - [facility], 09/09/2019 mammogram - [facility], and 09/10/[address] [facility]. A stereotactic guided biopsy was performed for the concerning area of calcifications located in the right breast upper outer aspect anterior depth. This was described on the previous mammography report. The skin was prepped in the usual manner. Local anesthetic was administered to the access site. A skin trudi was made in the breast. The abnormality was approached from the lateral aspect using an upright digital tomographic mammography unit. A 9 gauge biopsy needle was placed adjacent to the abnormality under computer guidance and confirmatory stereotactic mammography images were obtained to document needle placement. Once the needle was documented to be in the correct location, seven specimens were obtained using a vacuum assisted device. A top hat clip was inserted into the biopsy cavity. A skin closure strip was applied to the access site. Post procedure digital mammographic imaging demonstrates the location device at the targeted area. The specimens were sent to the laboratory for pathological analysis. IMPRESSION: STEREOTACTIC GUIDED BIOPSY BENIGN Stereotactic guided biopsy of the area of calcifications in the right breast upper outer aspect anterior depth with placement of a clip was performed. Pathology indicates benign finding with calcifications present. Pathology results are concordant with imaging findings. FINAL DIAGNOSIS Breast, right breast upper outer aspect calcifications (Top-Hat clip), biopsy: - Benign breast tissue and blood vessels with focal hyalinization with associated histiocytes and microcalcifications. The patient is under the care of DR. Celeste Brady for these benign biopsy results. Return to annual mammogram screening schedule is recommended. Regi Morris M.D. 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 With representation from Breast Imaging, Internal Medicine, Women's Health, Family Medicine, and Medical/Surgical Oncology, the [facility] has carefully reviewed the data and reached the following consensus: 1) All women should engage in shared decision-making with their providers to decide when to start and how often to screen; 2) All women should have the opportunity to start screening mammography at age 40; 3) For women ages 45-55, we recommend annual screening mammograms; 4) For women ages 55 and over, we support both the transition from an annual to a biennial interval if this aligns more with patient's values and preferences, or continuation with annual screening; 5) All women should discuss with their providers when to stop screening mammograms. Maid Housekeeper: Caleb Transcribe Date/Time: Feb 19 2024 1:26P Dictated by : REGI MORRIS MD This examination was interpreted and the report reviewed and electronically signed by: REGI MORRIS MD on Feb 19 2024 2:40PM EST This document has been addended by: REGI MORRIS MD on Mar 03 2024 7:39AM EST [id number] [facility] MG stereo Guidance for biops y of Breast - righton 02-19-2024 IMPRESSION: STEREOTACTIC GUIDED BIOPSY Stereotactic guided biopsy of the area of calcifications in the right breast upper outer aspect anterior depth with placement of a clip was performed. Waiting for pathology results. A final report will be issued when these become available. Follow-up with ACR/NCCN guidelines. Regi josue/caleb:02/19/2024 14:40:57 Motorcycle Mechanic(s): [employer](R)(M), [employer] Multiple national specialty organizations have released breast cancer screening guidelines for women at average risk for developing breast cancer - guidelines that are based on both evidence and opinion, yet differ on when to start and how often to screen for breast cancer. With representation from Breast Imaging, Internal Medicine, Women's Health, Family Medicine, and Medical/Surgical Oncology, the [facility] has carefully reviewed the data and reached the following consensus: 1) All women should engage in shared decision-making with their providers to decide when to start and how often to screen; 2) All women should have the opportunity to start screening mammography at age 40; 3) For women ages 45-55, we recommend annual screening mammograms; 4) For women ages 55 and over, we support both the transition from an annual to a biennial interval if this aligns more with patient's values and preferences, or continuation with annual screening; 5) All women should discuss with their providers when to stop screening mammograms. Maid Housekeeper: Caleb Transcrinash Date/Time: Feb 19 2024 1:26P Dictated by : REGI MORRIS MD This examination was interpreted and the report reviewed and electronically signed by: REGI MORRIS MD on Feb 19 2024 2:40PM EST [employer] * * *Final Report* * * DATE OF EXAM: Feb 19 2024 2:32PM AAW 0631 - [facility] STEREO BX BREAST RT / PROCEDURE REASON: Calcification of right breast on mammography * * * * Physician Interpretation * * * * #[id number] - [facility] STEREO BX BREAST RT DIGITAL TOMOGRAPHIC MAMMOGRAPHY GUIDED STEREOTACTIC GUIDED BIOPSY RIGHT BREAST USING VACUUM DEVICE WITH MARKING DEVICE INSERTED AND POST DIGITAL MAMMOGRAPHIC IMAGIN02/19/2024 HISTORY: Calcification Of Right Breast On Mammography/ Patient presents for a stereotactic guided biopsy of the right breast. PATIENT CONSENT: The risks, benefits and alternatives were discussed with the patient. Written and verbal consent was obtained from the patient before the procedure began. The patient was identified by name and date of . Site verification was done prior to the procedure. Audible Time Out: 1337 hrs Procedure Start: 1338 hrs Procedure End: 1355 hrs PROCEDURE: Correlation is made to exams dated: 01/08/2024 mammogram, 12/12/2023 mammogram - [facility], 09/09/2019 mammogram - [facility], and 09/10/2014 mammogram - [facility]. A stereotactic guided biopsy was performed for the concerning area of calcifications located in the right breast upper outer aspect anterior depth. This was described on the previous mammography report. The skin was prepped in the usual manner. Local anesthetic was administered to the access site. A skin trudi was made in the breast. The abnormality was approached from the lateral aspect using an upright digital tomographic mammography unit. A 9 gauge biopsy needle was placed adjacent to the abnormality under computer guidance and confirmatory stereotactic mammography images were obtained to document needle placement. Once the needle was documented to be in the correct location, seven specimens were obtained using a vacuum assisted device. A top hat clip was inserted into the biopsy cavity. A skin closure strip was applied to the access site. Post procedure digital mammographic imaging demonstrates the location device at the targeted area. The specimens were sent to the laboratory for pathological analysis. [employer] [facility] Provider, [facility] 02/19/[facility]24 * * *Final Report* * * DATE OF EXAM: Feb 19 2024 2:32PM [facility]W 0631 - [facility] STEREO BX BREAST RT / PROCEDURE REASON: Calcification of right breast on mammography * * * * Physician Interpretation * * * * #[id number] - [facility] STEREO BX BREAST RT DIGITAL TOMOGRAPHIC MAMMOGRAPHY GUIDED STEREOTACTIC GUIDED BIOPSY RIGHT BREAST USING VACUUM DEVICE WITH MARKING DEVICE INSERTED AND POST DIGITAL MAMMOGRAPHIC IMAGIN02/19/2024 HISTORY: Calcification Of Right Breast On Mammography/ Patient presents for a stereotactic guided biopsy of the right breast. PATIENT CONSENT: The risks, benefits and alternatives were discussed with the patient. Written and verbal consent was obtained from the patient before the procedure began. The patient was identified by name and date of . Site verification was done prior to the procedure. Audible Time Out: 1337 hrs Procedure Start: 1338 hrs Procedure End: 1355 hrs PROCEDURE: Correlation is made to exams dated: 01/08/2024 mammogram, 12/12/2023 mammogram - [facility], 09/09/2019 mammogram - [facility], and 09/10/2014 mammogram - [facility]. A stereotactic guided biopsy was performed for the concerning area of calcifications located in the right breast upper outer aspect anterior depth. This was described on the previous mammography report. The skin was prepped in the usual manner. Local anesthetic was administered to the access site. A skin trudi was made in the breast. The abnormality was approached from the lateral aspect using an upright digital tomographic mammography unit. A 9 gauge biopsy needle was placed adjacent to the abnormality under computer guidance and confirmatory stereotactic mammography images were obtained to document needle placement. Once the needle was documented to be in the correct location, seven specimens were obtained using a vacuum assisted device. A top hat clip was inserted into the biopsy cavity. A skin closure strip was applied to the access site. Post procedure digital mammographic imaging demonstrates the location device at the targeted area. The specimens were sent to the laboratory for pathological analysis. IMPRESSION IMPRESSION: STEREOTACTIC GUIDED BIOPSY Stereotactic guided biopsy of the area of calcifications in the right breast upper outer aspect anterior depth with placement of a clip was performed. Waiting for pathology results. A final report will be issued when these become available. Follow-up with ACR/NCCN guidelines. 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 With representation from Breast Imaging, Internal Medicine, Women's Health, Family Medicine, and Medical/Surgical Oncology, the [facility] has carefully reviewed the data and reached the following consensus: 1) All women should engage in shared decision-making with their providers to decide when to start and how often to screen; 2) All women should have the opportunity to start screening mammography at age 40; 3) For women ages 45-55, we recommend annual screening mammograms; 4) For women ages 55 and over, we support both the transition from an annual to a biennial interval if this aligns more with patient's values and preferences, or continuation with annual screening; 5) All women should discuss with their providers when to stop screening mammograms. Maid Housekeeper: Caleb Transcribe Date/Time: Feb 19 2024 1:26P Dictated by : REGI MORRIS MD This examination was interpreted and the report reviewed and electronically signed by: REGI MORRIS MD on Feb 19 2024 2:40PM [facility] Radiology Study observation (narrative) [facility] stereo Guidance for biops y of Breast - rightOrdered By: [facility] Provider on 02-19-2024 [facility] SURGICAL PATHOLOGYon 024 CASE REPORT Normal [facility] Comment on above: Order Comment: Speci men Type: TISSUE SPECIMEN Ordering Facility: [facility] Address: [address] [place] [address] Result Comment: Surg ica Pathology Report Case: [id number] Authorizing Provider: Regi Morris MD Collected: 02/19/2024 01:57 PM Ordering Location: [facility] Received: 02/20/2024 09:09 AM [facility] Pathologist: Janell Friedman MD Specimen: Breast, Right, Core Biopsy, . Biopsy collected 1354 In formalin 1357 Top hat clip Performed By: #### S #### [facility] CLIA [id number] [address] CLINICAL HISTORY Right breast grouped calcifications. [facility] Comment on above: Order Comment: Speci men Type: TISSUE SPECIMEN Ordering Facility: [facility] Address: [address] [place] [address] Performed By: #### S #### [facility] CLIA [id number] [address] DIAGNOSIS COMMENT [facility] Comment on above: Order Comment: Speci men Type: TISSUE SPECIMEN Ordering Facility: [facility] Address: [address] [place] [address] Result Comment: Mult iple deeper levels for all blocks were evaluated. Immunohistochemical stain for cytokeratin AE1-3 performed on block A3 highlight the benign ducts and elastic stain highlights the blood vessels. Dealership Manager slides were reviewed in consultation with Dr. Liana Kumar who concurs. Laboratory Developed Test (LDT) Disclaimer: Performance characteristics of immunohistochemical, immunofluorescent and chromogenic in-situ hybridization tests have been determined by the performing laboratory within [facility]???[facility] Pathology and Laboratory Medicine Department ([facility], [facility], [facility], [facility], [facility], or [facility]) in a manner consistent with CLIA requirements. One or more of these tests have not been cleared or approved by the FDA. [facility] is regulated under CLIA as qualified to perform high-complexity testing. These tests are used for clinical purposes. They should not be regarded as investigational or for research. Positive and negative controls stain appropriately. Performed By: #### S #### [facility] CLIA [id number] [address] FINAL DIAGNOSIS Normal [facility] Comment on above: Order Comment: Speci men Type: TISSUE SPECIMEN Ordering Facility: [facility] Address: [address] [place] [address] Result Comment: [address], right breast upper outer aspect calcifications (Top-Hat clip), biopsy: - Benign breast tissue and blood vessels with focal hyalinization with associated histiocytes and microcalcifications. - See comment. Performed By: #### S #### [facility] CLIA [id number] [address] [place] [address] FINAL PERFORMING LAB Normal [facility] Comment on above: Order Comment: Speci men Type: TISSUE SPECIMEN Ordering Facility: [facility] Address: [address] [place] [address] Result Comment: Diag nostic interpretation performed at [facility], [address] [place] [address] CLIA# [id number] [employer] Supervisor: Jass Quevedo M.D. Performed By: #### S #### [facility] CLIA [id number] [address] [place] [address] GROSS DESCRIPTION [facility] Comment on above: Order Comment: Speci [facility] Type: TISSUE SPECIMEN Ordering Facility: [facility] Address: [address] [place] [address] Result Comment: [place], Right, Core Biopsy Received in formalin labeled as ``right breast upper outer aspect calcifications (Top-Hat clip)? are multiple segments of fibrofatty tissue aggregating to 3.5 x 3.5 x 0.3 cm. Totally submitted in 4 cassettes The specimen was removed from the patient at 1354 hrs. on 02/19/2024. On the same day, the specimen was placed in formalin at 1357 hrs. Gross examination performed at [facility], [address] [place] [address] CLIA#[id number] [facility] February 20, 2024 3:53 PM Performed By: #### S #### [facility] CLIA [id number] [address] [place] [address] CNOVon 01-29-2024 CNOV Office Visit (KELLYSWS ) SARANYA BERMUDEZ ([id number]) 1965 F Date Time Provider Department 01/29/24 8:30 AM VALERIE CANTU During your visit today, we recorded the following information about you: Pulse Blood pressure 71/minute 115/75 Valerie Cantu, DO 01/29/2024 9:20 AM [facility] [place] DEPARTMENT OF VASCULAR SURGERY OUTPATIENT VISIT DATE January 29, 2024 OUTPATIENT VISIT TYPE CONSULTATION SERVICE DATE: 01/29/2024 SERVICE TIME: 8:33 AM PRIMARY CARE PHYSICIAN: Shasta Walters MD REFERRING PROVIDER: Marilou Singh [address] [facility] [address] Consult requested for an opinion regarding the evaluation and treatment of the above. My final impression and recommendations will be communicated back to the requesting physician by way of the shared medical record or letter via US mail. CHIEF COMPLAINT: Patient presents with: New Patient History of Present Illness: Patient is a 58 year old White female presenting for consultation, evaluation and possible treatment of peripheral arterial disease with claudication. Since last visit with Dr. Goodson she had experienced significant loss and is now getting back for follow up. She describes short distance claudication at work and must use elevator to walk up stairs but able to walk down. She does admit to left hip numbness and tingling which can get aggravated at night when sleeping on left side. PAIN ASSESSMENT: PAIN EVALUATION No data found in the last 1 encounters. Obstetric History T4 L4 SAB1 IAB0 Ectopic0 Multiple0 Live Births0 Comment: ONE CHILD, A DAUGHTER WAS PUT UP FOR ADOPTION. Name of Baby 1: Not recorded Date: Not recorded GA: Not recorded Delivery: Not recorded Apgar1: Not recorded Apgar5: Not recorded Living: Not recorded Name of Baby 2: Not recorded Date: Not recorded GA: Not recorded Delivery: Not recorded Apgar1: Not recorded Apgar5: Not recorded Living: Not recorded Name of Baby 3: Not recorded Date: Not recorded GA: Not recorded Delivery: Not recorded Apgar1: Not recorded Apgar5: Not recorded Living: Not recorded Name of Baby 4: Not recorded Date: Not recorded GA: Not recorded Delivery: Not recorded Apgar1: Not recorded Apgar5: Not recorded Living: Not recorded Name of Baby 5: Not recorded Date: Not recorded GA: Not recorded Delivery: Not recorded Apgar1: Not recorded Apgar5: Not recorded Living: Not recorded PAST MEDICAL HISTORY No date: Anxiety No date: Chronic obstructive asthma with status asthmaticus ([facility]) No date: DVT (deep venous thrombosis) ([facility]) 03/2021: History of COVID-19 No date: History of heavy periods Comment: s/p hysterectomy No date: Hyperlipidemia 2016: Hypertension 01/06/2012: Iron deficiency anemia No date: Major depressive disorder, single episode, unspecified No date: Obesity (BMI 30.0-34.9) 02/18/2021: PAD (peripheral artery disease) ([facility]) Comment: moderate on left LE No date: Polycystic kidney disease No date: Tobacco use PAST SURGICAL HISTORY 11/04/2018: COLONOSCOPY FLX DX W/COLLJ SPEC WHEN PFRMD Comment: Colonoscopy : DILATION AND CURETTAGE DXAND/THER NONOBSTETRIC 10/19/11: LAPARO-VAG HYST, COMPLEX Comment: vag hysterectomy with bladder sling and posterior repair, bladder tear repaired No date: LIG/TRNSXJ FLP TUBE ABDL/VAG APPR UNI/BI 2007: PAST SURGICAL HISTORY OF Comment: upper teeth removed No date: UNSPECIFIED ORAL SURGERY PROCEDURE, BY REPORT Comment: WISDOM TEETH REMOVED SOCIAL HISTORY: Social History Tobacco Use Smoking status: Every Day Packs/day: 1.00 Years: 30.00 Additional pack years: 0.00 Total pack years: 30.00 Types: Cigarettes Smokeless tobacco: Never Vaping Use Vaping Use: Never used Substance Use Topics Alcohol use: No Drug use: No FAMILY HISTORY Problem Relation Age of Onset Heart Mother no communication with patient, doesn't have details Drug abuse Sister ??? patient doesn't know for sure. Colon Cancer Maternal Grandmother Diabetes Other no details known Colon Cancer Other no details known Coronary Artery Disease Other no details known MEDICATIONS: atorvastatin (LIPITOR) 20 mg tablet Take 1 tablet by mouth daily at bedtime. For cholesterol. pentoxifylline ER (TRENTAL) 400 mg CR tablet Take 1 tablet by mouth three times a day with meals. ergocalciferol 50,000 unit capsule (VITAMIN D2, DRISDOL) Take 1 capsule by mouth one time a week. losartan (COZAAR) 25 mg tablet Take 1 tablet by mouth daily at bedtime. Blood Pressure Monitor kit Check BP at home. ALLERGIES: ALLERGIES Allergen Reactions Zoloft [Sertraline * Diarrhea, GI Upset REVIEW of SYSTEMS: Constitutional: No weight loss, malaise or fevers. HEENT: Negative for frequent or significant headaches, No changes in hearing or vision, no nose bleeds or (more content not included)... Normal [facility] PVR LEG YUNG VAS LABon 2023 PVR LEG YUNG VAS LAB Non-Invasive Vascula r Laboratory [facility] Lower Extremity Arterial Physiology Study Bilateral/Complete Date of service/time: 01/18/2024 2:32:14 PM Name: MS. SARANYA BERMUDEZ Date of : 1965 Age: 58 years Gender: F Clinical Indication Claudication. TECHNIQUE -------- An arterial physiological examination was performed, including measurement of blood pressures using continuous wave Doppler and recording of plethysmographic with or without Doppler waveforms at the below-mentioned limb segments. FINDINGS -------- RIGHT SIDE AT REST Right Doppler Waveforms Dorsalis pedis: Multiphasic. Post tibial: Multiphasic. Right Pressures Brachial: 123 mmHg High thigh: 156 mmHg Low thigh: 137 mmHg Calf: 132 mmHg Ankle dorsalis pedis: 123 mmHg NOHELIA: 0.98 Ankle posterior tibial: 133 mmHg NOHELIA: 1.06 Right PVR Waveforms High thigh: Normal. Low thigh: Normal. Calf: Normal. Ankle: Normal. Transmetatarsal: Normal. Digit: Normal. LEFT SIDE AT REST Left Doppler Waveforms Dorsalis pedis: Multiphasic. Post tibial: Monophasic. Left Pressures Brachial: 126 mmHg High thigh: 81 mmHg Low thigh: 80 mmHg Calf: 79 mmHg Ankle dorsalis pedis: 69 mmHg NOHELIA: 0.55 Ankle posterior tibial: 74 mmHg NOHELIA: 0.59 Left PVR Waveforms High thigh: Moderately dampened. Low thigh: Moderately dampened. Calf: Moderately dampened. Ankle: Moderately dampened. Transmetatarsal: Moderately dampened. Digit: Moderately dampened. POST EXERCISE Toe raises. Onset of claudication: 0 min 0 sec Maximal walking time: 5 min 0 sec No symptoms with exercise. Reason test was terminated: end of protocol. Post Exercise: Immediate Right Pressures and Waveform Ankle: 123 mmHg NOHELIA: 0.98 Ankle waveform: Mildly dampened. Left Pressures and Waveform Brachial: 126 mmHg Ankle: 65 mmHg NOHELIA: 0.52 Ankle waveform: Moderately dampened. IMPRESSION Compared to prior study of 02/16/2021, Right ankle brachial index was 1.12 and left was 0.62. RIGHT SIDE Resting right ankle brachial index: 1.06 Post exercise right ankle brachial index: 0.98 Normal ankle brachial index at rest in the right leg. Right ankle: Normal at rest. Note mild drop in pressure and/or ankle-brachial index after exercise, consistent with peripheral artery disease. Unable to determine exact area of narrowing. LEFT SIDE Resting left ankle brachial index: 0.59 Post exercise left ankle brachial index: 0.52 Abnormal ankle brachial index at rest diagnostic of peripheral artery disease. Left ankle: Moderate disease at rest. Left iliofemoral disease. No significant change in pressure and/or ankle-brachial index with exercise. Technologist: Yamilet Valera RVT [facility] Ordering physician: MARILOU PODLOGJASON Interpreting physician: Cory Monsalve MD, JACOB Final CC [email or web address] Medical Image : [id number] [id number] See Link below for Image [facility] ([facility]ONATH[facility] ) SARANYA BERMUDEZ ([id number]) 1965 F Date Time Provider Department 01/14/24 10:00 AM CELESTE BRADY During your visit today, we recorded the following information about you: Temperature Pulse Blood pressure Weight 98 degrees 93/minute 130/88 85.2 kg Height 1.651 m Celeste Brady MD 01/15/2024 3:07 PM Signed Saranya Bermudez 1965 REFERRING PHYSICIAN: Self CHIEF COMPLAINT: right breast abnormal mammograms HPI: The patient is a 58 year old female presents with abnormal right breast mammograms. She denies palpable breast masses She denies nipple discharge She denies previous breast surgeries She denies breast pain She denies breast or ovarian cancer in family. Her gynecological history is as follows: menarche onset at age 15, , first at age 20, breast feeding 8-9 months, BCP use initially early 20s for 7 years, surgical menopause age 45 with ovaries maintained, , denies HRT use Mammograms 01/08/2024 - grouped punctate calcifications in the right breast are at a low suspicion for malignancy. PAST MEDICAL HISTORY Diagnosis Date Anxiety Chronic obstructive asthma with status asthmaticus (HCC) DVT (deep venous thrombosis) ([facility]) History of COVID-19 03/2021 History of heavy periods s/p hysterectomy Hyperlipidemia Hypertension 2016 Iron deficiency anemia 01/06/2012 Major depressive disorder, single episode, unspecified Obesity (BMI 30.0-34.9) PAD (peripheral artery disease) ([facility]) 02/18/2021 moderate on left LE Polycystic kidney disease Tobacco use PAST SURGICAL HISTORY Procedure Laterality Date COLONOSCOPY FLX DX W/COLLJ SPEC WHEN PFRMD 11/04/2018 Colonoscopy DILATION AND CURETTAGE DXAND/THER NONOBSTETRIC LAPARO-VAG HYST, COMPLEX 10/19/11 vag hysterectomy with bladder sling and posterior repair, bladder tear repaired LIG/TRNSXJ FLP TUBE ABDL/VAG APPR UNI/BI PAST SURGICAL HISTORY OF 2006 upper teeth removed UNSPECIFIED ORAL SURGERY PROCEDURE, BY REPORT WISDOM TEETH REMOVED Current Outpatient Medications Medication Sig atorvastatin (LIPITOR) 20 mg tablet Take 1 tablet by mouth daily at bedtime. For cholesterol. pentoxifylline ER (TRENTAL) 400 mg CR tablet Take 1 tablet by mouth three times a day with meals. ergocalciferol 50,000 unit capsule (VITAMIN D2, DRISDOL) Take 1 capsule by mouth one time a week. losartan (COZAAR) 25 mg tablet Take 1 tablet by mouth daily at bedtime. Blood Pressure Monitor kit Check BP at home. No current facility-administered medications for this visit. ALLERGIES: Zoloft [Sertraline Hcl] PERSONAL HISTORY: Social History Tobacco Use Smoking status: Every Day Packs/day: 1.00 Years: 30.00 Additional pack years: 0.00 Total pack years: 30.00 Types: Cigarettes Smokeless tobacco: Never Vaping Use Vaping Use: Never used Substance Use Topics Alcohol use: No Drug use: No FAMILY HISTORY Problem Relation Age of Onset Heart Mother no communication with patient, doesn't have details Drug abuse Sister ??? patient doesn't know for sure. Colon Cancer Maternal Grandmother Diabetes Other no details known Colon Cancer Other no details known Coronary Artery Disease Other no details known The review of systems data was entered by the nurse and reviewed by me Nursing Notes: Ruthy Das RN 01/14/2024 10:18 AM Signed REVIEW OF SYSTEMS: General: The patient NOTES fatigue, denies weight loss, NOTES weight gain, NOTES feeling hot, and NOTES feelings of cold. Eyes: The patient denies glaucoma, denies eye injury/surgery, wears glasses or contacts. Ear/Nose/Throat: The patient denies allergies, denies hayfever, denies ear infections, and denies bloody noses. Cardiovascular: The patient denies chest pain, denies heart disease, NOTES high blood pressure,denies cardiac stent, denies prior heart attack, denies irregular heart beat, NOTES high cholesterol, NOTES poor circulation, denies heart failure, other cardiac issues, NOTES claudication, denies cold feet, denies peripheral arterial stent. Respiratory: The patient denies tuberculosis, denies pneumonia, denies frequent cough, denies pulmonary embolism, denies shortness of breath, and denies coughing up blood. Gastrointestinal: The patient denies difficulty swallowing, denies acid reflux, denies ulcers, denies vomiting, denies jaundice/hepatitis, denies gallbladder problems, denies black or tarry stools, NOTES hemorrhoids, denies bleeding from rectum, denies diverticulitis, denies constipation, denies diarrhea, denies loss of stool control, and denies hernias. Kidney/Bladder: The patient denies kidney stones, denies urine infections, and denies bloody urine. Skin: The patient denies a history of skin cancer, denies bleeding/changing moles, and denies a history of skin rash. Neurologic: T (more content not included)... Normal [facility] DBT Breast - right diagnosti c for implanton 01-08-2024 IMPRESSION: SUSPICIO US The grouped punctate calcifications in the right breast are at a low suspicion for malignancy. A stereotactic biopsy is recommended. Vincent tillman/caleb:01/08/2024 09:12:26 Motorcycle Mechanic(s): RT Deep(R)(M), [facility] Mammogram BI-RADS: Category 4A: Suspicious Multiple national specialty organizations have released breast cancer screening guidelines for women at average risk for developing breast cancer - guidelines that are based on both evidence and opinion, yet differ on when to start and how often to screen for breast cancer. With representation from Breast Imaging, Internal Medicine, Women's Health, Family Medicine, and Medical/Surgical Oncology, the [facility] has carefully reviewed the data and reached the following consensus: 1) All women should engage in shared decision-making with their providers to decide when to start and how often to screen; 2) All women should have the opportunity to start screening mammography at age 40; 3) For women ages 45-55, we recommend annual screening mammograms; 4) For women ages 55 and over, we support both the transition from an annual to a biennial interval if this aligns more with patient's values and preferences, or continuation with annual screening; 5) All women should discuss with their providers when to stop screening mammograms. Maid Housekeeper: Caleb Transcribe Date/Time: Jan 08 2024 8:35A Dictated by: VINCENT VARGAS MD This examination was interpreted and the report reviewed and electronically signed by: VINCENT VARGAS MD on Jan 08 2024 9:12AM [facility] [[email or web address]] DIVISION OF RADIOLOGY * * *Final Report* * * DATE OF EXAM: Jan 08 2024 8:35AM W 0629 - JOJO GIL / PROCEDURE REASON: Abnormal mammogram * * * * Physician Interpretation * * * * RESULT: #[id number] - JOJO JOHNSON RT UNILATERAL RIGHT DIGITAL DIAGNOSTIC MAMMOGRAM TOMOSYNTHESIS WITH CAD: 01/08/2024 HISTORY: Abnormal Mammogram/call back right /priors available for comparison. RESULT: TECHNIQUE: The study was acquired using full field digital technology and interpreted from soft copy. Digital Breast Tomosynthesis (DBT) images were obtained and used to assist in the interpretation of this examination. Current study was also evaluated with a Computer Aided Detection (CAD). Comparison is made to exam dated: 12/12/2023 mammogram - [facility]. There are scattered areas of fibroglandular density in the right breast. There is a benign normal lymph node in the right axilla. There are grouped punctate calcifications in the right breast superior lateral quadrant anterior depth. No other significant masses or calcifications are seen in the breast. DIVISION OF RADIOLOGY Provider, [facility] - 01/08/2024 * * *Final Report* * * DATE OF EXAM: Jan 08 2024 8:35AM WRW 0629 - JOJO JOHNSON RT / PROCEDURE REASON: Abnormal mammogram * * * * Physician Interpretation * * * * RESULT: #[id number] - JOJO YOUNGG Esteban ELIZABETH RT UNILATERAL RIGHT DIGITAL DIAGNOSTIC MAMMOGRAM TOMOSYNTHESIS WITH CAD: 01/08/2024 HISTORY: Abnormal Mammogram/call back right /priors available for comparison. RESULT: TECHNIQUE: The study was acquired using full field digital technology and interpreted from soft copy. Digital Breast Tomosynthesis (DBT) images were obtained and used to assist in the interpretation of this examination. Current study was also evaluated with a Computer Aided Detection (CAD). Comparison is made to exam dated: 12/12/2023 mammogram - [facility]. There are scattered areas of fibroglandular density in the right breast. There is a benign normal lymph node in the right axilla. There are grouped punctate calcifications in the right breast superior lateral quadrant anterior depth. No other significant masses or calcifications are seen in the breast. IMPRESSION IMPRESSION: SUSPICIOUS The grouped punctate calcifications in the right breast are at a low suspicion for malignancy. A stereotactic biopsy is recommended. Vincent tillman/caleb:01/08/2024 09:12:26 Motorcycle Mechanic(s): RT Deep(R)(M), [facility] Mammogram BI-RADS: Category 4A: Suspicious Multiple national specialty organizations have released breast cancer screening guidelines for women at average risk for developing breast cancer - guidelines that are based on both evidence and opinion, yet differ on when to start and how often to screen for breast cancer. With representation from Breast Imaging, Internal Medicine, Women's Health, Family Medicine, and Medical/Surgical Oncology, the [facility] has carefully reviewed the data and reached the following consensus: 1) All women should engage in shared decision-making with their providers to decide when to start and how often to screen; 2) All women should have the opportunity to start screening mammography at age 40; 3) For women ages 45-55, we recommend annual screening mammograms; 4) For women ages 55 and over, we support both the transition from an annual to a biennial interval if this aligns more with patient's values and preferences, or continuation with annual screening; 5) All women should discuss with their providers when to stop screening mammograms. Maid Housekeeper: Caleb Transcribe Date/Time: Jan 08 2024 8:35A Dictated by: VINCENT VARGAS MD This examination was interpreted and the report reviewed and electronically signed by: VINCENT VARGAS MD on Jan 08 2024 9:12AM EST [facility] Radiology Study observation (narrative) [facility] DBT Breast - right diagnosti c for implantOrdered By: [facility] Provider on 01-08-2024 [facility] JOJO DIAG W ELIZABETH RTon 024 JOJO DIAG W ELIZABETH RT * * *Final Report* * * DATE OF EXAM: Jan 08 2024 8:35AM WRW 0629 - JOJO DIAG W ELIZABETH RT / PROCEDURE REASON: Abnormal mammogram * * * * Physician Interpretation * * * * RESULT: #[id number] - JOJO DIAG W ELIZABETH RT UNILATERAL RIGHT DIGITAL DIAGNOSTIC MAMMOGRAM TOMOSYNTHESIS WITH CAD: 01/08/2024 HISTORY: Abnormal Mammogram/call back right /priors available for comparison. RESULT: TECHNIQUE: The study was acquired using full field digital technology and interpreted from soft copy. Digital Breast Tomosynthesis (DBT) images were obtained and used to assist in the interpretation of this examination. Current study was also evaluated with a Computer Aided Detection (CAD). Comparison is made to exam dated: 12/12/2023 mammogram - [facility]. There are scattered areas of fibroglandular density in the right breast. There is a benign normal lymph node in the right axilla. There are grouped punctate calcifications in the right breast superior lateral quadrant anterior depth. No other significant masses or calcifications are seen in the breast. IMPRESSION: SUSPICIOUS The grouped punctate calcifications in the right breast are at a low suspicion for malignancy. A stereotactic biopsy is recommended. Vincent tillman/caleb:01/08/2024 09:12:26 Motorcycle Mechanic(s): RT Deep(R)(M), [facility] Mammogram BI-RADS: Category 4A: Suspicious Multiple national specialty organizations have released breast cancer screening guidelines for women at average risk for developing breast cancer - guidelines that are based on both evidence and opinion, yet differ on when to start and how often to screen for breast cancer. With representation from Breast Imaging, Internal Medicine, Women's Health, Family Medicine, and Medical/Surgical Oncology, the [facility] has carefully reviewed the data and reached the following consensus: 1) All women should engage in shared decision-making with their providers to decide when to start and how often to screen; 2) All women should have the opportunity to start screening mammography at age 40; 3) For women ages 45-55, we recommend annual screening mammograms; 4) For women ages 55 and over, we support both the transition from an annual to a biennial interval if this aligns more with patient's values and preferences, or continuation with annual screening; 5) All women should discuss with their providers when to stop screening mammograms. Maid Housekeeper: Caleb Transcribe Date/Time: Jan 08 2024 8:35A Dictated by: VINCENT VARGAS MD This examination was interpreted and the report reviewed and electronically signed by: VINCENT VARGAS MD on Jan 08 2024 9:12AM EST [id number] Normal [facility] CNPSakina 12-13-2023 CNPN Telephone (FAMPWS) SARANYA BERMUDEZ ([id number]) 1965 F Date Time Provider Department 12/13/23 SHASTA WALTERS During your visit today, we recorded the following information about you: Shasta aWlters MD 12/13/2023 7:02 AM Signed Screening mammogram incomplete. Needs additional imaging to further characterize asymmetry in right breast. Diagnostic mammogram and US ordered. Please assist patient with scheduling. Judit Gallagher OCCA 12/13/2023 9:15 AM Signed TC to patient who is informed of below and is agreeable to additional imaging. Please contact patient to assist in scheduling. Thank you. KLAUDIA Manriquez Julie, APRN.MEMBER SERVICES COORDINATOR 01/21/2024 2:26 PM Signed PVR testing shows peripheral artery disease. Continue trental and follow-up with vascular as scheduled. Marilou Singh APRN.Lorrie Garcia LPN 01/21/2024 3:03 PM Signed Patient telephoned, mailbox is full and unable to accept any further messages at this time. Please try back later. LAMBERT Contreras Kathryn, MA 01/22/2024 9:50 AM Signed Pt notified of results via Rolith. Glenny Hi Ma Allergies As of Date: 12/13/2023 Noted Allergy Reaction ZOLOFT (SERTRALINE HCL) 12/03/2017 6 - Diarrhea 8 - GI Upset Date Reviewed: 12/07/2023 Reviewed by: Marilou Singh APRN.MEMBER SERVICES COORDINATOR - Fully Assessed Reason for Visit: Results [95] Primary Visit Diagnosis:Abnormal mammogram [R92.8] Order(s):US BREAST LTD RIGHT [[id number]] Order #: [id number] [facility] ELIZABETH RIGHT [[id number]] Order #: [id number]. #:[id number] Prescriptions as of 01/22/2024 - atorvastatin (LIPITOR) 20 mg tablet Take 1 tablet by mouth daily at bedtime. For cholesterol. - pentoxifylline ER (TRENTAL) 400 mg CR tablet Take 1 tablet by mouth three times a day with meals. - ergocalciferol 50,000 unit capsule (VITAMIN D2, DRISDOL) Take 1 capsule by mouth one time a week. - losartan (COZAAR) 25 mg tablet Take 1 tablet by mouth daily at bedtime. - Blood Pressure Monitor kit Check BP at home. Problem List As Of Date 12/13/2023 Noted Resolved Moderate persistent asthma without complication* 5 Major Depressive Disorder, Single Episode, Unsp* Acquired cyst of kidney [N28.1] 05/16/2018 Chronic Obstructive Asthma with Status Asthmati* Routine Gynecological Examination [Z01.419] 01/25/2010 Class: Chronic Iron deficiency anemia [D50.9] 01/06/2012 Adjustment disorder with mixed anxiety and depr*12/13/2012 Polycystic kidney disease [Q61.3] Obesity, Class I, BMI 30-34.9 [E66.9] 05/16/2018 Hypertension, essential [I10] 05/16/2018 Tobacco abuse [Z72.0] 05/16/2018 Hydronephrosis, left [N13.30] 05/16/2018 Hyperlipidemia [E78.5] PAD (peripheral artery disease) (HCC) [I73.9] 02/18/2021 Encounter Status:[facility] by GLENNY HI [facility] [id number] Author: COORDINATOR, MAMMOGRAPHY, ? Service: ? Author Type: Physician Type: Letter Filed: 12/12/2023 17:10 Note Text: December 12, 2023 PID: [id number] Saranya Bermudez [address] [place] [address] Dear Ms. Bermudez, Your recent breast imaging exam on 12/12/2023 showed a possible finding that requires additional imaging studies for a complete evaluation. Most such findings are probably benign (not cancer). If you have a healthcare provider who ordered/prescribed your screening mammogram: Please call [phone] or EXT: [phone] to schedule an appointment for your additional imaging (if you have not already done so). If you DO NOT have a healthcare provider (ie you did not have an order/prescription for your screening mammogram): Please call to schedule an appointment for your additional imaging (if you have not already done so). You must have an order/prescription from your physician when calling to schedule your appointment. If your order/prescription is not electronic, you must bring the hard copy with you on the day of your exam to avoid delays. Your imaging studies and reports are kept on file at [facility] as part of your permanent medical record, and are available for your continuing care. Thank you for allowing us to help in meeting your health care needs. Sincerely, Dr. Eric Interpreting Radiologist [facility] (Additional imaging) Normal [facility] SCREENINGon 12-12-2023 [facility] SCREENING * * *Final Report* * * DATE OF EXAM: Dec 12 2023 8:02AM WRW 0581 - [facility] SCREENING / PROCEDURE REASON: Encounter for screening mammogram for breast cancer * * * * Physician Interpretation * * * * RESULT: #[id number] - [facility] SCREENING BILATERAL DIGITAL SCREENING MAMMOGRAM WITH CAD: 12/12/2023 HISTORY: Encounter For Screening Mammogram For Breast Cancer / Screening Mammogram-Patient reports NO symptoms. /priors available for comparison. RESULT: TECHNIQUE: The study was acquired using full field digital technology and interpreted from soft copy. Current study was also evaluated with a Computer Aided Detection (CAD). Comparison is made to exams dated: 09/09/2019 mammogram - [facility] and 09/10/2014 mammogram - [facility]. There are scattered areas of fibroglandular density. There is a cluster of calcifications in the right breast upper outer aspect anterior depth. There also is a possible asymmetry in the right breast posterior depth upper region seen on the mediolateral oblique view only. No other significant masses, calcifications, or other findings are seen in either breast. IMPRESSION: INCOMPLETE: NEEDS ADDITIONAL IMAGING EVALUATION The cluster of calcifications in the right breast upper outer aspect anterior depth is indeterminate. Magnification views are recommended. The possible asymmetry in the right breast posterior depth upper region seen on the mediolateral oblique view only is indeterminate. Additional views are recommended. Marilou Eric M.D., jr/caleb:12/12/2023 17:10:46 Motorcycle Mechanic(s): RT Deep(Yeison)(M), [facility] letter sent: Additional Imaging Needed Mammogram BI-RADS: 0 Incomplete: needs additional imaging evaluation If this report indicates you need additional imaging, and it has NOT yet been performed, please call , to schedule. We sincerely thank you for choosing the [facility] for your breast imaging needs. Multiple national specialty organizations have released breast cancer screening guidelines for women at average risk for developing breast cancer - guidelines that are based on both evidence and opinion, yet differ on when to start and how often to screen for breast cancer. With representation from Breast Imaging, Internal Medicine, Women's Health, Family Medicine, and Medical/Surgical Oncology, the [facility] has carefully reviewed the data and reached the following consensus: 1) All women should engage in shared decision-making with their providers to decide when to start and how often to screen; 2) All women should have the opportunity to start screening mammography at age 40; 3) For women ages 45-55, we recommend annual screening mammograms; 4) For women ages 55 and over, we support both the transition from an annual to a biennial interval if this aligns more with patient's values and preferences, or continuation with annual screening; 5) All women should discuss with their providers when to stop screening mammograms. Maid Housekeeper: Caleb Transcribe Date/Time: Dec 12 2023 7:14A Dictated by: MARILOU ERIC MD This examination was interpreted and the report reviewed and electronically signed by: MARILOU ERIC MD on Dec 12 2023 5:10PM EST [id number] Normal [facility] Breast Screeningon 2023 * * *Final Report* * * DATE OF EXAM: Dec 12 2023 8:02AM RUST 0581 - [facility] SCREENING / PROCEDURE REASON: Encounter for screening mammogram for breast cancer * * * * Physician Interpretation * * * * RESULT: #[id number] - JOJO SCREENING BILATERAL DIGITAL SCREENING MAMMOGRAM WITH CAD: 12/12/2023 HISTORY: Encounter For Screening Mammogram For Breast Cancer / Screening Mammogram-Patient reports NO symptoms. /priors available for comparison. RESULT: TECHNIQUE: The study was acquired using full field digital technology and interpreted from soft copy. Current study was also evaluated with a Computer Aided Detection (CAD). Comparison is made to exams dated: 09/09/2019 mammogram - [facility] and 09/10/2014 mammogram - [facility]. There are scattered areas of fibroglandular density. There is a cluster of calcifications in the right breast upper outer aspect anterior depth. There also is a possible asymmetry in the right breast posterior depth upper region seen on the mediolateral oblique view only. No other significant masses, calcifications, or other findings are seen in either breast. DIVISION OF RADIOLOGY Provider, [facility] - 12/12/2023 * * *Final Report* * * DATE OF EXAM: Dec 12 2023 8:02AM [facility] - [facility] SCREENING / PROCEDURE REASON: Encounter for screening mammogram for breast cancer * * * * Physician Interpretation * * * * RESULT: #[id number] - [facility] SCREENING BILATERAL DIGITAL SCREENING MAMMOGRAM WITH CAD: 12/12/2023 HISTORY: Encounter For Screening Mammogram For Breast Cancer / Screening Mammogram-Patient reports NO symptoms. /priors available for comparison. RESULT: TECHNIQUE: The study was acquired using full field digital technology and interpreted from soft copy. Current study was also evaluated with a Computer Aided Detection (CAD). Comparison is made to exams dated: 09/09/2019 mammogram - [facility] and 09/10/2014 mammogram - [facility]. There are scattered areas of fibroglandular density. There is a cluster of calcifications in the right breast upper outer aspect anterior depth. There also is a possible asymmetry in the right breast posterior depth upper region seen on the mediolateral oblique view only. No other significant masses, calcifications, or other findings are seen in either breast. IMPRESSION IMPRESSION: INCOMPLETE: NEEDS ADDITIONAL IMAGING EVALUATION The cluster of calcifications in the right breast upper outer aspect anterior depth is indeterminate. Magnification views are recommended. The possible asymmetry in the right breast posterior depth upper region seen on the mediolateral oblique view only is indeterminate. Additional views are recommended. Marilou Eric M.D., jr/caleb:12/12/2023 17:10:46 Motorcycle Mechanic(s): RT Deep(Yeison)(M), [facility] letter sent: Additional Imaging Needed Mammogram BI-RADS: 0 Incomplete: needs additional imaging evaluation If this report indicates you need additional imaging, and it has NOT yet been performed, please call , to schedule. We sincerely thank you for choosing the [facility] for your breast imaging needs. Multiple national specialty organizations have released breast cancer screening guidelines for women at average risk for developing breast cancer - guidelines that are based on both evidence and opinion, yet differ on when to start and how often to screen for breast cancer. With representation from Breast Imaging, Internal Medicine, Women's Health, Family Medicine, and Medical/Surgical Oncology, the [facility] has carefully reviewed the data and reached the following consensus: 1) All women should engage in shared decision-making with their providers to decide when to start and how often to screen; 2) All women should have the opportunity to start screening mammography at age 40; 3) For women ages 45-55, we recommend annual screening mammograms; 4) For women ages 55 and over, we support both the transition from an annual to a biennial interval if this aligns more with patient's values and preferences, or continuation with annual screening; 5) All women should discuss with their providers when to stop screening mammograms. Maid Housekeeper: Caleb Transcribe Date/Time: Dec 12 2023 7:14A Dictated by: MARILOU ERIC MD This examination was interpreted and the report reviewed and electronically signed by: MARILOU ERIC MD on Dec 12 2023 5:10PM EST [facility] Radiology Study observation (narrative) [facility] MG Breast ScreeningOrdered B y: [facility] Provider on 12-12-2023 [facility] Absolute lymphocyte counton 11-03-2021 Lymphocytes Auto (Unsp spec) [#/Vol] 2.98 10*3/uL 0.83-4.51 [facility] Work Phone: Basophil percentageon 2021 Basophils/100 WBC (Bld) 0.6 % 0-1 [facility] Work Phone: Bilirubin [Mass/Vol] 0.30 mg/dL 0.20-1.00 [facility] Work Phone: Comment on above: For patients on eltr ombopag therapy, use of Dimension [place] TBIL is not recommended. Chloride [Moles/Vol] 105 mmol/L 98-107 [facility] Work Phone: Eosinophils/100 WBC (Bld) 0.6 % 0-5 [facility] Work Phone: Glucose [Mass/Vol] 103 mg/dL 74-106 [facility] Work Phone: Comment on above: Fasting Glucose resu lt from 100 to 125 mg/dL suggests IMPAIRED HOMEOSTASIS per A.D.A. criteria. Neutrophils (Bld) [#/Vol] 4.7 10*3/uL 2.0-7.7 [facility] Work Phone: Neutrophils/100 WBC (Bld) 56.6 % 47-70 [facility] Work Phone: Potassium [Moles/Vol] 3.5 mmol/L 3.5-5.1 [facility] Work Phone: Protein [Mass/Vol] 7.0 g/dL 6.4-8.2 [facility] Work Phone: Sodium [Moles/Vol] 140 mmol/L 136-145 [facility] Work Phone: WBC (Bld) [#/Vol] 8.3 10*3/uL 4.4-11.0 [facility] Work Phone: [phone] Blood erythrocytes count (nu mber/volume)on 11-03-2021 RBC (Bld) [#/Vol] 4.04 10*6/uL 4.2-5.4 [facility] Work Phone: Blood hemoglobin measurement (mass/volume)on 11-03-2021 Hemoglobin (Bld) [Mass/Vol] 12.7 g/dL 12.0-15.0 [facility] Work Phone: Blood lymphocytes/100 leukoc yteson 11-03-2021 Lymphocytes/100 WBC (Bld) 35.9 % 19-41 [facility] Work Phone: Blood monocytes/100 leukocyt eson 11-03-2021 Monocytes/100 WBC (Bld) 5.9 % 0-10 [facility] Work Phone: Blood platelet mean volumeon 11-03-2021 Platelet mean volume (Bld) [Entitic vol] 12.2 fL 6.2-12.0 [facility] Work Phone: Determination of erythrocyte mean corpuscular volume (MCV)on 11-03-2021 MCV (RBC) [Entitic vol] 95.5 fL 81-99 [facility] Work Phone: Hematocrit Auto (Bld) [Volum e fraction]on 11-03-2021 Hematocrit (Bld) [Volume fraction] 38.6 % 37-47 [facility] Work Phone: [phone] Laboratory - Chemistry and C hemistry - challengeon 11-03-2021 ALP [Catalytic activity/Vol] 107 U/L 45-117 [facility] Work Phone: ALT [Catalytic activity/Vol] 21 U/L 13-56 [facility] Work Phone: CO2 [Moles/Vol] 28.0 mmol/L 21.0-32.0 [facility] Work Phone: Cobalamin (Vitamin B12) [Mass/Vol] 308 pg/mL 211-911 [facility] Work Phone: Free T4 [Mass/Vol] 0.96 ng/dL 0.76-1.46 [facility] Work Phone: Globulin (S) [Mass/Vol] 3.4 g/dL 2.2-4.2 [facility] Work Phone: T4 [Mass/Vol] 10.2 ug/dL 4.8-13.9 [facility] Work Phone: Urea nitrogen/Creatinine [Mass ratio] 13.9 mg/mg 10-20 [facility] Work Phone: Laboratory - Hematology and Cell countson 11-03-2021 Erythrocyte distribution width (RBC) [Entitic vol] 47.4 fL 35.1-43.9 [facility] Work Phone: Erythrocyte distribution width (RBC) [Ratio] 13.2 % 11.6-14.6 [facility] Work Phone: Immature granulocytes/100 WBC (Bld) 0.400 % 0.0-0.9 [facility] Work Phone: Comment on above: IG% - Immature Granu locytes (promyelocytes, myelocytes and metamyelocytes) > 1% indicates that a LEFT SHIFT is Present. MCH (RBC) [Entitic mass] 31.4 pg 27.0-32.0 [facility] Work Phone: Nucleated RBC/100 WBC (Bld) [Ratio] 0 % 0-5 [facility] Work Phone: MCHC Auto (RBC) [Mass/Vol]on 11-03-2021 MCHC (RBC) [Mass/Vol] 32.9 g/dL 32-36 [facility] Work Phone: No Panel Informationon 11-03 Estimated GFR (MDRD) Amer 80 mL/min >60 [facility] Work Phone: Comment on above: GFR Calc Estimated GFR (MDRD) Non-Af Amer 66 mL/min >60 [facility] Work Phone: Comment on above: Non- GFR Calc Free Triiodothyronine (T3) pg/dL 2.5 pg/mL 2.18-3.98 [facility] Work Phone: Thyroid Stimulating Hormone (TSH) 1.23 uIU/mL 0.358-3.74 [facility] Work Phone: Vitamin B6 Level 4.5 ug/L [facility] Work Phone: Comment on above: Deficiency: <3.4 Mar ginal: 3.4 - 5.1 Adequate: >5.1 Vitamin D 25-Hydroxy 13.0 ng/mL [facility] Work Phone: Comment on above: Vitamin D 25(OH) Sta tus Range Deficiency <20 ng/mL (50nmol/L) Insufficiency 20 - 30 ng/mL (50 - 75 nmol/L) Sufficiency 30 - 100 ng/mL (75 - 250 nmol/L) Toxicity >100 ng/mL (>250 nmol/L) Whole Blood Vitamin B1 Level 142.7 nmol/L [facility] Work Phone: Comment on above: Performed at: [address] [id number] Director: Carroll Archuleta MD, Phone: [phone] Platelets bldon 11-03-2021 Platelets (Bld) [#/Vol] 227 10*3/uL 150-450 [facility] Work Phone: Serum or plasma C reactive p rotein measurement (mass/volume)on 11-03-2021 CRP [Mass/Vol] 3.36 mg/L 0.0-3.0 [facility] Work Phone: Comment on above: C-Reactive Protein ( CRP) provides useful information for thediagnosis, therapy and monitoring of inflammatory processesand associated diseases. For the evaluation of Relative Riskfor Cardiovascular Disease, a High Sensitivity CRP (HSCRP)should be ordered. Serum or plasma albumin bernard urement (mass/volume)on 11-03-2021 Albumin [Mass/Vol] 3.6 g/dL 3.2-5.0 [facility] Work Phone: Serum or plasma albumin/glob ulin mass ratioon 11-03-2021 Albumin/Globulin [Mass ratio] 1.1 {ratio} 0.9-2.4 [facility] Work Phone: Serum or plasma calcium bernard urement (mass/volume)on 11-03-2021 Calcium [Mass/Vol] 8.4 mg/dL 8.5-10.1 [facility] Work Phone: Serum or plasma creatinine m easurement (mass/volume)on 11-03-2021 Creatinine [Mass/Vol] 0.94 mg/dL 0.55-1.02 [facility] Work Phone: Comment on above: The validity of the calculated GFR & GFRAA in patients over 70 years has not been determined. Clinical correlation is essential. Serum or plasma folate measu rement (mass/volume)on 11-03-2021 Folate [Mass/Vol] 9.30 ng/mL 3.1-55.4 [facility] Work Phone: Serum or plasma urea nitroge n measurement (mass/volume)on 11-03-2021 Urea nitrogen [Mass/Vol] 13 mg/dL 7-18 [facility] Work Phone: Thin prep Papanicolaou smear with manual screeningon 11-03-2021 Thin prep Papanicolaou smear with manual screening 13 U/L 15-37 [facility] Work Phone: Thin prep Papanicolaou smear with manual screening 7 5-15 [facility] Work Phone: Whole blood hemoglobin A1c/t otal hemoglobin ratio (mass fraction)on 11-03-2021 HbA1c (Bld) [Mass fraction] 5.4 % 3.8-5.6 [facility] Work Phone: Comment on above: Normal < 5.7 % Predi abetic 5.7 - 6.4 % Diabetic >or= 6.5 % Please note range changes. XR Foot - right AP and Later al and obliqueon 08-19-2021 IMPRESSION: Healing right fifth metatarsal fracture without interval complication Maid Housekeeper: CHRISTINA Transcribe Date/Time: Aug 19 2021 1:33P Dictated by : GEORGE WADE MD This examination was interpreted and the report reviewed and electronically signed by: GEORGE WADE MD on Aug 19 2021 1:36PM [facility] [[email or web address]] DIVISION OF RADIOLOGY * * *Final Report* * * DATE OF EXAM: Aug 19 2021 12:46PM WOX [id number] - XR FOOT 3V AP/LAT/OBL RT / PROCEDURE REASON: Closed nondisplaced fracture of fifth metatarsal bone of right foot, initial enc * * * * Physician Interpretation * * * * EXAMINATION: XR FOOT 3V AP/LAT/OBL RT HISTORY: follow up 5th MT fx from mid May. Closed nondisplaced fracture of fifth metatarsal bone of right foot, subsequent encounter . TECHNIQUE: XR FOOT 3V AP/LAT/OBL RT Laterality: RIGHT Number of different views (projections): 3 M: XB_1 COMPARISON: Comparison is made to prior study dated 07/29/2021 RESULT: Standing frontal radiographs of the bilateral feet with oblique and lateral weightbearing views of the right foot demonstrate healing transverse fracture through the base of the right fifth metatarsal. Fracture line is less evident,consistent with progression towards healing. Anatomic alignment is maintained and there are no interval complications. Scattered degenerative changes are stable. DIVISION OF RADIOLOGY Provider, Ace Mueller - 08/19/2021 * * *Final Report* * * DATE OF EXAM: Aug 19 2021 12:46PM WOX 5337 - XR FOOT 3V AP/LAT/OBL RT / PROCEDURE REASON: Closed nondisplaced fracture of fifth metatarsal bone of right foot, initial enc * * * * Physician Interpretation * * * * EXAMINATION: XR FOOT 3V AP/LAT/OBL RT HISTORY: follow up 5th MT fx from mid May. Closed nondisplaced fracture of fifth metatarsal bone of right foot, subsequent encounter . TECHNIQUE: XR FOOT 3V AP/LAT/OBL RT Laterality: RIGHT Number of different views (projections): 3 M: XB_1 COMPARISON: Comparison is made to prior study dated 07/29/2021 RESULT: Standing frontal radiographs of the bilateral feet with oblique and lateral weightbearing views of the right foot demonstrate healing transverse fracture through the base of the right fifth metatarsal. Fracture line is less evident,consistent with progression towards healing. Anatomic alignment is maintained and there are no interval complications. Scattered degenerative changes are stable. IMPRESSION IMPRESSION: Healing right fifth metatarsal fracture without interval complication Maid Housekeeper: CHRISTINA Transcribe Date/Time: Aug 19 2021 1:33P Dictated by : GEORGE WADE MD This examination was interpreted and the report reviewed and electronically signed by: GEORGE WADE MD on Aug 19 2021 1:36PM EST [facility] Radiology Study observation (narrative) [facility] XR Foot - right AP and Later al and obliqueOrdered By: [facility] Provider on 08-19-2021 [facility] XR Foot - right AP and Later al and obliqueon 07-29-2021 IMPRESSION: Healing right fifth metatarsal fracture. Maid Housekeeper: CHRISTINA Transcribe Date/Time: Jul 29 2021 12:37P Dictated by : GEORGE WADE MD This examination was interpreted and the report reviewed and electronically signed by: GEORGE WADE MD on Jul 29 2021 12:53PM [facility] [[email or web address]] DIVISION OF RADIOLOGY * * *Final Report* * * DATE OF EXAM: Jul 29 2021 12:24PM WOX 5337 - XR FOOT 3V AP/LAT/OBL RT / PROCEDURE REASON: Closed nondisplaced fracture of fifth metatarsal bone of right foot, initial enc * * * * Physician Interpretation * * * * EXAMINATION: XR FOOT 3V AP/LAT/OBL RT HISTORY: Fracture follow up. Closed nondisplaced fracture of fifth metatarsal bone of right foot, subsequent encounter. TECHNIQUE: XR FOOT 3V AP/LAT/OBL RT Laterality: RIGHT Number of different views (projections): 3 M: XB_1 COMPARISON: Comparison is made to prior foot dated 01 July 2021 RESULT: AP, oblique and lateral radiographs of the right foot again demonstrate a transverse nondisplaced fracture through the base of the right fifth metatarsal. Fracture line is less apparent medially suggesting progression towards healing. Alignment remains anatomic and there is no interval complication. DIVISION OF RADIOLOGY Provider, [facility] - 07/29/2021 * * *Final Report* * * DATE OF EXAM: Jul 29 2021 12:24PM WOX 5337 - XR FOOT 3V AP/LAT/OBL RT / PROCEDURE REASON: Closed nondisplaced fracture of fifth metatarsal bone of right foot, initial enc * * * * Physician Interpretation * * * * EXAMINATION: XR FOOT 3V AP/LAT/OBL RT HISTORY: Fracture follow up. Closed nondisplaced fracture of fifth metatarsal bone of right foot, subsequent encounter. TECHNIQUE: XR FOOT 3V AP/LAT/OBL RT Laterality: RIGHT Number of different views (projections): 3 M: XB_1 COMPARISON: Comparison is made to prior foot dated 01 July 2021 RESULT: AP, oblique and lateral radiographs of the right foot again demonstrate a transverse nondisplaced fracture through the base of the right fifth metatarsal. Fracture line is less apparent medially suggesting progression towards healing. Alignment remains anatomic and there is no interval complication. IMPRESSION IMPRESSION: Healing right fifth metatarsal fracture. Maid Housekeeper: CHRISTINA Transcribe Date/Time: Jul 29 2021 12:37P Dictated by : GEORGE WADE MD This examination was interpreted and the report reviewed and electronically signed by: GEORGE WADE MD on Jul 29 2021 12:53PM EST [facility] Radiology Study observation (narrative) [facility] XR Foot - right AP and Later al and obliqueOrdered By: [facility] Provider on 07-29-2021 [facility] No Panel InformationOrdered By: [facility] Provider on 06-02-2021 [facility] No Panel Informationon 06-02 Radiology Study observation (narrative) [facility] XR Ankle - right AP and Late ral and obliqueon 06-02-2021 * * *Final Report* * * DATE OF EXAM: Jun 02 2021 1:27PM WOX 5297 - XR ANKLE 3V AP/LAT/OBL RT / PROCEDURE REASON: Acute right ankle pain * * * * Physician Interpretation * * * * Indication: Right ankle right foot pain Comparison: None AP, lateral and oblique views of the right ankle and right foot are obtained. There is a nondisplaced transverse fracture of the base of the right fifth metatarsal. No dislocation. Joint spaces are maintained. There is soft tissue swelling of the right ankle and foot. Impression: Transverse fracture of the base of the right fifth metatarsal Maid Housekeeper: CHRISTINA Transcribe Date/Time: Jun 02 2021 1:38P Dictated by : CARROL BIRD MD This examination was interpreted and the report reviewed and electronically signed by: CARROL BIRD MD on Jun 02 2021 1:41PM EST DIVISION OF RADIOLOGY Provider, [facility] - 06/02/2021 * * *Final Report* * * DATE OF EXAM: Jun 02 2021 1:27PM WOX 5297 - XR ANKLE 3V AP/LAT/OBL RT / PROCEDURE REASON: Acute right ankle pain * * * * Physician Interpretation * * * * Indication: Right ankle right foot pain Comparison: None AP, lateral and oblique views of the right ankle and right foot are obtained. There is a nondisplaced transverse fracture of the base of the right fifth metatarsal. No dislocation. Joint spaces are maintained. There is soft tissue swelling of the right ankle and foot. Impression: Transverse fracture of the base of the right fifth metatarsal Maid Housekeeper: PSC Transcribe Date/Time: Jun 02 2021 1:38P Dictated by : CARROL BIRD MD This examination was interpreted and the report reviewed and electronically signed by: CARROL BIRD MD on Jun 02 2021 1:41PM EST [facility] XR Foot - right AP and Later al and obliqueon 06-02-2021 * * *Final Report* * * DATE OF EXAM: Jun 02 2021 1:27PM WOX 5337 - XR FOOT 3V AP/LAT/OBL RT / PROCEDURE REASON: Foot pain, right * * * * Physician Interpretation * * * * Indication: Right ankle right foot pain Comparison: None AP, lateral and oblique views of the right ankle and right foot are obtained. There is a nondisplaced transverse fracture of the base of the right fifth metatarsal. No dislocation. Joint spaces are maintained. There is soft tissue swelling of the right ankle and foot. Impression: Transverse fracture of the base of the right fifth metatarsal Maid Housekeeper: [facility] Transcribe Date/Time: Jun 02 2021 1:38P Dictated by : CARROL BIRD MD This examination was interpreted and the report reviewed and electronically signed by: CARROL BIRD MD on Jun 02 2021 1:41PM [facility] [[email or web address]] DIVISION OF RADIOLOGY Provider, [facility] - 06/02/2021 * * *Final Report* * * DATE OF EXAM: Jun 02 2021 1:27PM WOX 5337 - XR FOOT 3V AP/LAT/OBL RT / PROCEDURE REASON: Foot pain, right * * * * Physician Interpretation * * * * Indication: Right ankle right foot pain Comparison: None AP, lateral and oblique views of the right ankle and right foot are obtained. There is a nondisplaced transverse fracture of the base of the right fifth metatarsal. No dislocation. Joint spaces are maintained. There is soft tissue swelling of the right ankle and foot. Impression: Transverse fracture of the base of the right fifth metatarsal Maid Housekeeper: [facility] Transcribe Date/Time: Jun 02 2021 1:38P Dictated by : CARROL BIRD MD This examination was interpreted and the report reviewed and electronically signed by: CARROL BIRD MD on Jun 02 2021 1:41PM EST [facility] XR Pelvis and Hip - left AP and Lateral frogon 02-08-2021 IMPRESSION: Normal left hip. Maid Housekeeper: CHRISTINA Transcribe Date/Time: Feb 08 2021 8:02P Dictated by : STEFANI COLINDRES MD This examination was interpreted and the report reviewed and electronically signed by: STEFANI COLINDRES MD on Feb 08 2021 8:05PM [facility] [[email or web address]] DIVISION OF RADIOLOGY * * *Final Report* * * DATE OF EXAM: Feb 08 2021 7:01PM WOX 5351 - XR HIP 3V PELV+ AP/LAT LT / PROCEDURE REASON: Acute hip pain, left * * * * Physician Interpretation * * * * HISTORY: pain off and on in left hip for a couple of months, when she does have pain it is lateral side and will get a cramp in her left calf no inj. Acute hip pain, left . TECHNIQUE: XR HIP 3V PELV+ AP/LAT LT Laterality: LEFT Number of different views (projections): 3 COMPARISON: None RESULT: Left hip is preserved with normal morphology of the femoral head. There is no fracture. The bony pelvis is intact. SI joints are normal. DIVISION OF RADIOLOGY Provider, [facility] - 02/08/2021 * * *Final Report* * * DATE OF EXAM: Feb 08 2021 7:01PM WOX 5351 - XR HIP 3V PELV+ AP/LAT LT / PROCEDURE REASON: Acute hip pain, left * * * * Physician Interpretation * * * * HISTORY: pain off and on in left hip for a couple of months, when she does have pain it is lateral side and will get a cramp in her left calf no inj. Acute hip pain, left . TECHNIQUE: XR HIP 3V PELV+ AP/LAT LT Laterality: LEFT Number of different views (projections): 3 COMPARISON: None RESULT: Left hip is preserved with normal morphology of the femoral head. There is no fracture. The bony pelvis is intact. SI joints are normal. IMPRESSION IMPRESSION: Normal left hip. Maid Housekeeper: CHRISTINA Transcribe Date/Time: Feb 08 2021 8:02P Dictated by : STEFANI COLINDRES MD This examination was interpreted and the report reviewed and electronically signed by: STEFANI COLINDRES MD on Feb 08 2021 8:05PM EST [facility] Radiology Study observation (narrative) [facility] XR Pelvis and Hip - left AP and Lateral frogOrdered By: Ccf Provider on 02-08-2021 [facility] XR Chest PA and Lateralon IMPRESSION: No acute radiographic abnormality. Maid Housekeeper: CHRISTINA Transcribe Date/Time: Jan 12 2021 3:25P Dictated by : JUSTICE CHIU MD This examination was interpreted and the report reviewed and electronically signed by: JUSTICE CHIU MD on Jan 12 2021 3:25PM EST DIVISION OF RADIOLOGY * * *Final Report* * * DATE OF EXAM: Jan 12 2021 3:17PM WOX 5291 - XR CHEST 2V FRONTAL/LAT / PROCEDURE REASON: Cough * * * * Physician Interpretation * * * * EXAMINATION: CHEST RADIOGRAPH (2 VIEW FRONTAL & LATERAL) CLINICAL HISTORY: Cough MQ: [id number] EXAM DATE/TIME: 01/12/2021 3:17 PM COMPARISON: No relevant prior studies available. RESULT: Lines, tubes, and devices: None. Lungs and pleura: No consolidation. No lung mass. No pleural effusion. No pneumothorax. Cardiomediastinal silhouette: Normal cardiomediastinal silhouette. Bones and soft tissues: Unremarkable. DIVISION OF RADIOLOGY Provider, [facility] - 01/12/2021 * * *Final Report* * * DATE OF EXAM: Jan 12 2021 3:17PM WOX 5291 - XR CHEST 2V FRONTAL/LAT / PROCEDURE REASON: Cough * * * * Physician Interpretation * * * * EXAMINATION: CHEST RADIOGRAPH (2 VIEW FRONTAL & LATERAL) CLINICAL HISTORY: Cough MQ: [id number] EXAM DATE/TIME: 01/12/2021 3:17 PM COMPARISON: No relevant prior studies available. RESULT: Lines, tubes, and devices: None. Lungs and pleura: No consolidation. No lung mass. No pleural effusion. No pneumothorax. Cardiomediastinal silhouette: Normal cardiomediastinal silhouette. Bones and soft tissues: Unremarkable. IMPRESSION IMPRESSION: No acute radiographic abnormality. Maid Housekeeper: JAGRUTIB Transcribe Date/Time: Jan 12 2021 3:25P Dictated by : JUSTICE CHIU MD This examination was interpreted and the report reviewed and electronically signed by: JUSTICE CHIU MD on Jan 12 2021 3:25PM EST [facility] Radiology Study observation (narrative) [facility] XR Chest PA and LateralOrder ed By: Ccf Provider on 01-12-2021 [facility] Vital Signs Date Time Vital Sign Value Performing Clinician Facility 12-16-2024 09:11-0400 Body height 170.[address] Bucky Walters MD Work Phone: 4(955)895-372581 [place] [address] 12-16-2024 07:43-0400 Body mass index (BMI) [Ratio] 30.4 kg/m2 Dr. Bucky Walters MD Work Phone: 7(715)391-185081 [place] [address] 12-16-2024 07:43-0400 Body weight 87.[address] Bucky Walters MD Work Phone: 5(088)774-553281 [place] [address] 12-16-2024 07:43-0400 Diastolic blood pressure 85 mm[Hg] Dr. Bucky Walters MD Work Phone: 1(238)231-810881 [place] [address] 12-16-2024 07:43-0400 Heart rate 70 /min Dr. Bucky Walters MD Work Phone: 2(480)301-112081 [place] [address] 12-16-2024 07:43-0400 Respiratory rate 18 /min Dr. Bucky Walters MD Work Phone: 8(250)834-804881 [place] [address] 12-16-2024 07:43-0400 SaO2% (BldA) [Mass fraction] 99 % Dr. Bucky Walters MD Work Phone: 7(396)316-684281 [place] [address] 12-16-2024 07:43-0400 Systolic blood pressure 132 mm[Hg] Dr. Bucky Walters MD Work Phone: 7(101)283-365781 [place] [address] 11-18-2024 07:34-0400 Body mass index (BMI) [Ratio] 31.92 kg/m2 Shasta Walters MD Work Phone: 5(120)784-249826 [place] [address] 11-18-2024 07:34-0400 Body weight 87 kg Shasta Walters MD Work Phone: [facility] 11-18-2024 07:34-0400 Diastolic blood pressure 70 mm[Hg] Shasta Walters MD Work Phone: [facility] 11-18-2024 07:34-0400 Heart rate 62 /min Shasta Walters MD Work Phone: [facility] 11-18-2024 07:34-0400 Respiratory rate 16 /min Shasta Walters MD Work Phone: [facility] 11-18-2024 07:34-0400 SaO2% (BldA) [Mass fraction] 97 % Shasta Walters MD Work Phone: [facility] 11-18-2024 07:34-0400 Systolic blood pressure 120 mm[Hg] Shasta Walters MD Work Phone: 9(159)684-481426 [place] [address] 11-13-2024 09:37-0400 Body height 170.[address] Bucky Walters MD Work Phone: 4(939)028-079214 [place] [address] 11-13-2024 09:37-0400 Body mass index (BMI) [Ratio] 30 kg/m2 Dr. Bucky Walters MD Work Phone: 5(991)726-454181 [place] [address] 11-13-2024 09:37-0400 Body weight 87.[address] Bucky Walters MD Work Phone: 8(016)674-642581 [place] [address] 11-13-2024 09:37-0400 Diastolic blood pressure 77 mm[Hg] Dr. Bucky Walters MD Work Phone: 5(790)713-906281 [place] [address] 11-13-2024 09:37-0400 Heart rate 74 /min Dr. Bucky Walters MD Work Phone: 6(230)684-835581 [place] [address] 11-13-2024 09:37-0400 Respiratory rate 18 /min Dr. Bucky Walters MD Work Phone: 4(722)039-929581 [place] [address] 11-13-2024 09:37-0400 SaO2% (BldA) [Mass fraction] 95 % Dr. Bucky Walters MD Work Phone: 2(617)038-577281 [place] [address] 11-13-2024 09:37-0400 Systolic blood pressure 119 mm[Hg] Dr. Bucky Walters MD Work Phone: 8(950)024-664481 [place] [address] 11-06-2024 16:39-0400 Body temperature 97.7 [degF] Dr. Bucky Walters MD Work Phone: 3(692)955-996581 [place] [address] 11-06-2024 16:39-0400 Diastolic blood pressure 87 mm[Hg] Dr. Bucky Walters MD Work Phone: 1(877)053-932681 [place] [address] 11-06-2024 16:39-0400 Heart rate 63 /min Dr. Bucky Walters MD Work Phone: 1(235)805-611881 [place] [address] 11-06-2024 16:39-0400 Respiratory rate 16 /min Dr. Bucky Walters MD Work Phone: 0(919)199-439781 [place] [address] 11-06-2024 16:39-0400 SaO2% (BldA) [Mass fraction] 95 % Dr. Bucky Walters MD Work Phone: 0(771)333-982381 [place] [address] 11-06-2024 16:39-0400 Systolic blood pressure 154 mm[Hg] Dr. Bucky Walters MD Work Phone: 1(015)314-366381 [place] [address] 11-06-2024 10:58-0400 Body weight 88.[address] Bucky Walters MD Work Phone: 2(983)038-204181 [place] [address] 11-06-2024 05:51-0400 Body mass index (BMI) [Ratio] 30.5 kg/m2 Dr. Bucky Walters MD Work Phone: 6(423)518-319381 [place] [address] 11-05-2024 22:31-0400 Body height 170.[address] Bucky Walters MD Work Phone: 4(875)653-454381 [place] [address] 11-05-2024 22:31-0400 Body mass index (BMI) [Ratio] 30.4 kg/m2 Dr. Bucky Walters MD Work Phone: 7(282)570-719281 [place] [address] 11-05-2024 22:31-0400 Body weight 88.[address] Bucky Walters MD Work Phone: [facility] 11-05-2024 22:00-0400 Diastolic blood pressure 88 mm[Hg] Dr. Bucky Walters MD Work Phone: [facility] 11-05-2024 22:00-0400 Heart rate 68 /min Dr. Bucky Walters MD Work Phone: [facility] 11-05-2024 22:00-0400 Respiratory rate 16 /min Dr. Bucky Walters MD Work Phone: [facility] 11-05-2024 22:00-0400 SaO2% (BldA) [Mass fraction] 96 % Dr. Bucky Walters MD Work Phone: 4(685)033-489614 [place] [address] 11-05-2024 22:00-0400 Systolic blood pressure 156 mm[Hg] Dr. Bucky Walters MD Work Phone: [facility] 11-05-2024 17:13-0400 Body temperature 97.4 [degF] Dr. Bucky Walters MD Work Phone: [facility] 11-04-2024 07:04-0400 Body mass index (BMI) [Ratio] 31.92 kg/m2 Shasta Walters MD Work Phone: [facility] 11-04-2024 07:04-0400 Body weight 87 kg Shasta Walters MD Work Phone: [facility] 11-04-2024 07:04-0400 Diastolic blood pressure 74 mm[Hg] Shasta Walters MD Work Phone: [facility] 11-04-2024 07:04-0400 Heart rate 71 /min Shasta Walters MD Work Phone: [facility] 11-04-2024 07:04-0400 Respiratory rate 16 /min Shasta Walters MD Work Phone: [facility] 11-04-2024 07:04-0400 SaO2% (BldA) [Mass fraction] 98 % Shasta Walters MD Work Phone: [facility] 11-04-2024 07:04-0400 Systolic blood pressure 128 mm[Hg] Shasta Walters MD Work Phone: [facility] 10-21-2024 07:11-0400 Body mass index (BMI) [Ratio] 32.28 kg/m2 Shasta Walters MD Work Phone: [facility] 10-21-2024 07:11-0400 Body weight 88 kg Shasta Walters MD Work Phone: [facility] 10-21-2024 07:11-0400 Diastolic blood pressure 84 mm[Hg] Shasta Walters MD Work Phone: [facility] 10-21-2024 07:11-0400 Heart rate 80 /min Shasta Walters MD Work Phone: [facility] 10-21-2024 07:11-0400 Respiratory rate 16 /min Shasta Walters MD Work Phone: [facility] 10-21-2024 07:11-0400 SaO2% (BldA) [Mass fraction] 99 % Shasta Walters MD Work Phone: [facility] 10-21-2024 07:11-0400 Systolic blood pressure 150 mm[Hg] Shasta Walters MD Work Phone: [facility] 08-05-2024 10:24-0500 Diastolic blood pressure 76 mm[Hg] Valerie Cantu DO Work Phone: [facility] 08-05-2024 10:24-0500 Heart rate 82 /min Valerie Cantu DO Work Phone: [facility] 08-05-2024 10:24-0500 SaO2% (BldA) [Mass fraction] 100 % Valerie Cantu DO Work Phone: [facility] 08-05-2024 10:24-0500 Systolic blood pressure 142 mm[Hg] Valerie Cantu DO Work Phone: [facility] 07-07-2024 08:57-0500 Body mass index (BMI) [Ratio] 30.69 kg/m2 Marilou Podlogar [employer] LEVERMAN.MEMBER SERVICES COORDINATOR Work Phone: [facility] 07-07-2024 08:57-0500 Body weight 83.64 kg Marilou Podlogar [employer]EVER[employer].MEMBER SERVICES COORDINATOR Work Phone: [facility] 07-07-2024 08:57-0500 Diastolic blood pressure 82 mm[Hg] Marilou Podlogar [employer] LEVERMAN.MEMBER SERVICES COORDINATOR Work Phone: [facility] 07-07-2024 08:57-0500 Heart rate 103 /min Marilou Podlogar [employer] LEVERMAN.MEMBER SERVICES COORDINATOR Work Phone: [facility] 07-07-2024 08:57-0500 Respiratory rate 18 /min Marilou Podlogar [employer] LEVERMAN.MEMBER SERVICES COORDINATOR Work Phone: [facility] 07-07-2024 08:57-0500 SaO2% (BldA) [Mass fraction] 95 % Marilou Podlogar [employer]EVER[employer].MEMBER SERVICES COORDINATOR Work Phone: [facility] 07-07-2024 08:57-0500 Systolic blood pressure 112 mm[Hg] Mariolu Podlogar [employer]EVERMAN.MEMBER SERVICES COORDINATOR Work Phone: [facility] 06-09-2024 07:44-0500 Diastolic blood pressure 87 mm[Hg] Marilou Podlogar [employer] LEVERMAN.MEMBER SERVICES COORDINATOR Work Phone: [facility] Comment on above: VENKAT BP average 06-09-2024 07:44-0500 Heart rate 74 /min Marilou Podlogar [employer].MEMBER SERVICES COORDINATOR Work Phone: [facility] 06-09-2024 07:44-0500 Systolic blood pressure 150 mm[Hg] Marilou Podlogar [employer].MEMBER SERVICES COORDINATOR Work Phone: [facility] Comment on above: VENKAT BP average 06-09-2024 07:22-0500 Body mass index (BMI) [Ratio] 31.51 kg/m2 Marilou Podlogar [employer] LEVER[employer].MEMBER SERVICES COORDINATOR Work Phone: [facility] 06-09-2024 07:22-0500 Body weight 85.9 kg Marilou Podlogar [employer].MEMBER SERVICES COORDINATOR Work Phone: [facility] 06-09-2024 07:22-0500 Respiratory rate 18 /min Marilou Podlogar [employer]EVER[employer].MEMBER SERVICES COORDINATOR Work Phone: [facility] 06-09-2024 07:22-0500 SaO2% (BldA) [Mass fraction] 97 % Marilou Podlogar [employer].MEMBER SERVICES COORDINATOR Work Phone: [facility] 02-25-2024 08:38-0400 Body height 165.1 cm Georgiashruthi Dennispster [employer].MEMBER SERVICES COORDINATOR Work Phone: [facility] 02-25-2024 08:38-0400 Body mass index (BMI) [Ratio] 31.62 kg/m2 Georgia Dennispster [employer]EVER[employer].MEMBER SERVICES COORDINATOR Work Phone: [facility] 02-25-2024 08:38-0400 Body weight 86.18 kg Georgia Farrter [employer].MEMBER SERVICES COORDINATOR Work Phone: [facility] 02-25-2024 08:38-0400 Diastolic blood pressure 62 mm[Hg] Georgia Farrter [employer] LEVERMAN.MEMBER SERVICES COORDINATOR Work Phone: [facility] 02-25-2024 08:38-0400 Heart rate 82 /min Georgia Farrter [employer] LEVERMAN.MEMBER SERVICES COORDINATOR Work Phone: [facility] 02-25-2024 08:38-0400 SaO2% (BldA) [Mass fraction] 100 % Georgia Farrter [employer].MEMBER SERVICES COORDINATOR Work Phone: [facility] 02-25-2024 08:38-0400 Systolic blood pressure 113 mm[Hg] Georgia Dennispster [employer].MEMBER SERVICES COORDINATOR Work Phone: [facility] 01-29-2024 08:39-0400 Diastolic blood pressure 75 mm[Hg] Valerie Cantu DO Work Phone: [facility] 01-29-2024 08:39-0400 Heart rate 71 /min Valerie Cantu DO Work Phone: [facility] 01-29-2024 08:39-0400 SaO2% (BldA) [Mass fraction] 98 % Valerie Cantu DO Work Phone: [facility] 01-29-2024 08:39-0400 Systolic blood pressure 115 mm[Hg] Valerie Cantu DO Work Phone: [facility] 01-14-2024 10:18-0400 Body height 165.1 cm Celeste Brady MD Work Phone: [facility] 01-14-2024 10:18-0400 Body mass index (BMI) [Ratio] 31.25 kg/m2 Celeste Brady MD Work Phone: [facility] 01-14-2024 10:18-0400 Body temperature 98.01 [degF] Celeste Brady MD Work Phone: [facility] 01-14-2024 10:18-0400 Body weight 85.19 kg Celeste Brady MD Work Phone: [facility] 01-14-2024 10:18-0400 Diastolic blood pressure 88 mm[Hg] Celeste Brady MD Work Phone: [facility] 01-14-2024 10:18-0400 Heart rate 93 /min Celeste Brady MD Work Phone: [facility] 01-14-2024 10:18-0400 SaO2% (BldA) [Mass fraction] 99 % Celeste Brady MD Work Phone: [facility] 01-14-2024 10:18-0400 Systolic blood pressure 130 mm[Hg] Celeste Brady MD Work Phone: [facility] 12-07-2023 09:14-0400 Body height 166.2 cm Marilou Singh APRN.CNP Work Phone: [facility] 12-07-2023 09:14-0400 Body mass index (BMI) [Ratio] 30.9 kg/m2 Marilou Podlogar [employer].MEMBER SERVICES COORDINATOR Work Phone: [facility] 12-07-2023 09:14-0400 Body weight 85.37 kg Marilou Podlogar [employer].MEMBER SERVICES COORDINATOR Work Phone: [facility] 12-07-2023 09:14-0400 Diastolic blood pressure 82 mm[Hg] Marilou Podlogar [employer]MAN.MEMBER SERVICES COORDINATOR Work Phone: [facility] 12-07-2023 09:14-0400 Heart rate 87 /min Marilou Podlogar [employer] LEVERMAN.MEMBER SERVICES COORDINATOR Work Phone: [facility] 12-07-2023 09:14-0400 Respiratory rate 16 /min Marilou Podlogar [employer]EVERMAN.MEMBER SERVICES COORDINATOR Work Phone: [facility] 12-07-2023 09:14-0400 SaO2% (BldA) [Mass fraction] 95 % Marilou Podlogar [employer].MEMBER SERVICES COORDINATOR Work Phone: [facility] 12-07-2023 09:14-0400 Systolic blood pressure 130 mm[Hg] Marilou Podlogar [employer] L[employer]MAN.MEMBER SERVICES COORDINATOR Work Phone: [facility] 11-06-2023 12:23-0400 Diastolic blood pressure 90 mm[Hg] Marilou Podlogar [employer].MEMBER SERVICES COORDINATOR Work Phone: [facility] Comment on above: VENKAT BP 11-06-2023 12:23-0400 Heart rate 74 /min Marilou Podlogar [employer].MEMBER SERVICES COORDINATOR Work Phone: [facility] 11-06-2023 12:23-0400 Systolic blood pressure 145 mm[Hg] Marilou Podlogar [employer].MEMBER SERVICES COORDINATOR Work Phone: [facility] Comment on above: VENKAT BP 11-06-2023 11:55-0400 Body mass index (BMI) [Ratio] 30.44 kg/m2 Marilou Podlogar [employer].MEMBER SERVICES COORDINATOR Work Phone: [facility] 11-06-2023 11:55-0400 Body weight 85.55 kg Marilou Podlogar [employer].MEMBER SERVICES COORDINATOR Work Phone: [facility] 11-06-2023 11:55-0400 Respiratory rate 18 /min Marilou Podlogar [employer].MEMBER SERVICES COORDINATOR Work Phone: [facility] 11-06-2023 11:55-0400 SaO2% (BldA) [Mass fraction] 95 % Marilou Podlogar [employer].MEMBER SERVICES COORDINATOR Work Phone: [facility] Encounters Encounter Date Encounter Type Care Provider Facility Start: 12-25-2024 End: 12-26-2024 Refill Marilou Podlogar [employer].MEMBER SERVICES COORDINATOR Work Phone: [facility] Comment on above: Refill Request Start: 12-16-2024 End: 12-16-2024 Patient encounter procedure Reena QUIÑONEZ -[facility] Work Phone: Start: 12-16-2024 End: 12-16-[address] Bucky Walters MD Work Phone: -[facility] Start: 12-01-2024 End: 12-02-2024 Telephone encounter Shasta Walters MD Work Phone: [facility] Comment on above: Zio patch report Start: 11-18-2024 End: 11-18-2024 Patient encounter procedure Shasta Walters MD Work Phone: [facility] Comment on above: SVT (supraventricula r tachycardia) ([facility]) (Primary Dx); Chest pain, unspecified type; NSTEMI (non-ST elevated myocardial infarction) (FORMER[facility]); Hospital discharge follow-up Start: 11-18-2024 End: 11-18-2024 ambulatory SELF Facility:[facility] Start: 11-13-2024 End: 11-13-2024 Patient encounter procedure Lorrie PEREZ -[facility] Work Phone: Start: 11-13-2024 End: 11-13-[address] Bucky Walters MD Work Phone: [facility] Work Phone: Start: 11-07-2024 End: 11-12-2024 Patient Outreach Roma Bolaños LPN [facility] Comment on above: Transition Of Care Start: 11-06-2024 Non-patient / Non-visit Dr. Glenny Moore DO [facility] Work Phone: Start: 11-06-2024 ambulatory Bucky Walters Facyunior lity:[facility] Start: 11-06-2024 Non-patient / Non-visit Dr. Kira Samano MD -[facility] Start: 11-05-2024 End: 11-06-2024 ambulatory Ahmed Amro Facility:[facility] Start: 11-05-2024 End: 11-06-2024 Evaluation and management of inpatient Dr. Stefan Armstrong DO -[facility] Work Phone: Start: 11-05-[address] Dante Walters MD Work Phone: [facility] Work Phone: Start: 11-04-2024 End: 11-04-2024 ambulatory SHASTA WALTERS Facility:[facility] Start: 11-04-2024 End: 11-04-2024 Patient encounter procedure Shasta Walters MD Work Phone: [facility] Comment on above: Tachycardia, paroxys mal (HCC) (Primary Dx); Hypertension, essential; Episodic lightheadedness; Fatigue, unspecified type Start: 10-28-2024 End: 10-28-2024 ambulatory SHASTA WALTERS Facility:[facility] Start: 10-24-2024 End: 10-24-2024 ambulatory SHASTA WALTERS Facility:[facility] Start: 10-23-2024 End: 12-01-2024 Follow-up encounter Shasta Walters MD Work Phone: [facility] Comment on above: Results Start: 10-21-2024 End: 10-21-2024 ambulatory SHASTA WALTERS Facility:[facility] Start: 10-21-2024 End: 10-21-2024 Patient encounter procedure Shasta Walters MD Work Phone: [facility] [place] Comment on above: Tachycardia, paroxys mal (HCC) (Primary Dx); Episodic lightheadedness; Fatigue, unspecified type Start: 10-21-2024 End: 10-21-2024 ambulatory SHASTA WALTERS Facility:[facility] Start: 09-11-2024 End: 09-11-2024 ambulatory Rivka Mayse RN NURSE [facility] [employer] Comment on above: Syncope Start: 08-05-2024 End: 08-05-2024 ambulatory SHASTA WALTERS Facility:[facility] Start: 08-05-2024 End: 08-05-2024 Patient encounter procedure Valerie Cantu DO Work Phone: Vascular Surgery Comment on above: Carotid stenosis, as ymptomatic, bilateral (Primary Dx); PAD (peripheral artery disease) ([facility]) Start: 07-29-2024 End: 07-29-2024 ambulatory SHASTA WALTERS Facility:[facility] Start: 07-07-2024 End: 07-07-2024 Patient encounter procedure Marilou Singh [employer].MEMBER SERVICES COORDINATOR Work Phone: [facility] [place] Comment on above: Hypertension, essent ial (Primary Dx) Start: 07-07-2024 End: 07-07-2024 ambulatory SHASTA WALTERS Facility:[facility] Start: 06-09-2024 End: 06-09-2024 Patient encounter procedure Marilou Singh [employer].MEMBER SERVICES COORDINATOR Work Phone: [facility] [place] Comment on above: Hypertension, essent ial (Primary Dx); Mixed hyperlipidemia; Encounter for screening examination for other mental health and behavioral disorders; PAD (peripheral artery disease) ([facility]) Start: 06-09-2024 End: 06-09-2024 ambulatory SHASTA WALTERS Facility:[facility] Start: 05-26-2024 End: 05-26-2024 Refill Shasta Walters MD Work Phone: [facility] [place] Comment on above: Refill Request Start: 05-24-2024 End: 05-24-2024 Refill Shasta Walters MD Work Phone: [facility] Comment on above: Refill Request (PLEA SE SEE RX notes) Start: 04-04-2024 End: 04-04-2024 Orders Only Georgia White APRN.MEMBER SERVICES COORDINATOR Work Phone: Pulmonary Medicine Comment on above: Encounter for screen ing for lung cancer (Primary Dx); Tobacco use current Start: 04-02-2024 End: 04-02-2024 ambulatory SHASTA WALTERS Facility:[facility] Start: 04-02-2024 End: 04-02-2024 Subsequent hospital visit by physician [facility] ([facility]) Work Phone: Cat Scan Comment on above: Encounter for screen ing for lung cancer [Z12.2] Start: 03-24-2024 End: 03-24-2024 ambulatory Georgia White APRN.MEMBER SERVICES COORDINATOR Work Phone: Pulmonary Medicine Start: 03-24-2024 End: 03-24-2024 Telephone encounter Shasta Walters MD Work Phone: [facility] [place] Start: 03-22-2024 End: 03-22-2024 ambulatory SHASTA WALTERS Facility:[facility] Start: 03-03-2024 End: 03-07-2024 ambulatory Georgia White APRN.MEMBER SERVICES COORDINATOR Work Phone: Pulmonary Medicine Comment on above: Act results Start: 02-27-2024 End: 02-27-2024 ambulatory Georgia White APRN.MEMBER SERVICES COORDINATOR Work Phone: Pulmonary Medicine Start: 02-26-2024 End: 02-26-2024 ambulatory SHASTA WALTERS Facility:[facility] Start: 02-26-2024 End: 02-26-2024 Subsequent hospital visit by physician [facility] (I-Stat) Work Phone: Cat Scan Comment on above: Lung nodules [R91.8] Start: 02-25-2024 End: 02-25-2024 ambulatory SHASTA WALTERS Facility:[facility] Start: 02-25-2024 End: 02-25-2024 Patient encounter procedure Georgiashruthi White APRN.MEMBER SERVICES COORDINATOR Work Phone: Pulmonary Medicine Comment on above: Encounter for screen ing for lung cancer (Primary Dx); Tobacco use current; Lung nodules Start: 02-23-2024 End: 02-23-2024 Telephone encounter Celeste Brady MD Work Phone: General Surgery Comment on above: Results Start: 02-19-2024 ambulatory SELF Facility:[facility] Start: 02-19-2024 End: 02-19-2024 Subsequent hospital visit by physician Stereo/Ultrasound Biopsy [facility] Comment on above: Calcification of rig ht breast on mammography [R92.1] Start: 01-29-2024 End: 01-29-2024 ambulatory SHASTA WALTERS Facility:[facility] Start: 01-29-2024 End: 01-29-2024 Patient encounter procedure Valerie Cantu DO Work Phone: Vascular Surgery Comment on above: Carotid stenosis, as ymptomatic, bilateral (Primary Dx); PAD (peripheral artery disease) ([facility]) Start: 01-18-2024 End: 01-18-2024 ambulatory SHASTA WALTERS Facility:[facility] Start: 01-14-2024 End: 01-14-2024 ambulatory SHASTA WALTERS Facility:[facility] Start: 01-14-2024 End: 01-14-2024 Patient encounter procedure Celeste Brady MD Work Phone: General Surgery Comment on above: Calcification of rig ht breast on mammography (Primary Dx) Start: 01-08-2024 End: 01-08-2024 ambulatory SHASTA WALTERS Facility:[facility] Start: 01-08-2024 End: 01-08-2024 Subsequent hospital visit by physician Diagnostic Mammo [facility] Comment on above: Abnormal mammogram [ R92.8] Start: 12-13-2023 Telephone encounter Bucky Walters MD Work Phone: [facility] [place] Comment on above: Results Start: 12-12-2023 Documentation procedure Mammog abby Coordinator [facility] Department Start: 12-12-2023 Letter encounter Mammography Coordinator [facility] Start: 12-12-2023 End: 12-12-2023 ambulatory SHASTA WALTERS Facility:[facility] Start: 12-12-2023 End: 12-12-2023 Subsequent hospital visit by physician [facility] [facility] Comment on above: Encounter for screen ing mammogram for breast cancer [Z12.31] Start: 12-07-2023 End: 12-07-2023 Patient encounter procedure Marilou Singh APRN.MEMBER SERVICES COORDINATOR Work Phone: [facility] [place] Comment on above: Annual physical exam (Primary Dx); Hypertension, essential; Mixed hyperlipidemia; Encounter for screening for lung cancer; PAD (peripheral artery disease) ([facility]); Vitamin D deficiency Start: 12-04-2023 ambulatory [facility] Provider [facility] Sharif Ramirez Comment on above: lab results Start: 12-04-2023 E-mail encounter agustín crooks caregiver [facility] Provider [facility] Medicine [place] Start: 12-03-2023 Telephone encounter Marilou natarajan APRN.MEMBER SERVICES COORDINATOR Work Phone: [facility] [place] Comment on above: Results Start: 11-06-2023 End: 11-06-2023 Patient encounter procedure Marilou Singh APRN.MEMBER SERVICES COORDINATOR Work Phone: [facility] [place] Comment on above: Hypertension, essent ial (Primary Dx); Hyperlipidemia, mixed; Dizziness Start: 11-02-2023 End: 11-02-2023 Patient encounter procedure Rosita Sandoval APRN.MEMBER SERVICES COORDINATOR Work Phone: [facility] Comment on above: Dizziness (Primary D x) Start: 08-08-2023 ambulatory Shasta Walters MD Work Phone: [facility] [place] Start: 08-23-2022 ambulatory Shasta Walters MD Work Phone: [facility] Start: 12-09-2021 Refill Shasta Walters MD Work Phone: [facility] Comment on above: Refill Request Start: 11-23-2021 End: 11-23-2021 Patient encounter procedure [facility]-Cardiovascul ar Services Start: 11-03-2021 End: 11-03-2021 Patient encounter procedure [facility]-Laboratory Start: 10-24-2021 Telephone encounter Bucky Walters MD Work Phone: [facility] Comment on above: Appointment Start: 10-17-2021 Telephone encounter Luis Ramon Baires DO Work Phone: Radiology Comment on above: Patient Question Start: 08-19-2021 End: 08-19-2021 Subsequent hospital visit by physician [facility] Work Phone: Radiology Comment on above: Closed nondisplaced fracture of fifth metatarsal bone of right foot, initial encounter [S92.354A] Start: 07-29-2021 End: 07-29-2021 Subsequent hospital visit by physician [facility] Work Phone: Radiology Comment on above: Closed nondisplaced fracture of fifth metatarsal bone of right foot, initial encounter [S92.354A] Start: 06-02-2021 End: 06-02-2021 Subsequent hospital visit by physician [facility] Work Phone: Radiology Comment on above: Foot pain, right [M7 9.671] Start: 02-08-2021 End: 02-08-2021 Subsequent hospital visit by physician [facility] Work Phone: Radiology Comment on above: Acute hip pain, left [M25.552] Start: 01-12-2021 End: 01-12-2021 Subsequent hospital visit by physician [facility] Work Phone: Radiology Comment on above: Cough [R05] Start: 01-25-2010 Patient encounter status Fausto Walters MD Work Phone: [facility] Work Phone: Procedures Date Procedure Procedure Detail Performing Clinician Start: 11-06-2024 Urnls dip stick/tabl et reagent auto microscopy Dr. Bucky Walters MD Work Phone: Start: 11-06-[address] Bucky Walters MD Work Phone: Start: 11-06-2024 Serum inorganic phos phate measurement Dr. Bucky Walters MD Work Phone: Start: 11-05-2024 Plain chest X-ray Dr. Fahad Walters MD Work Phone: Start: 11-05-2024 D-dimer assay, quantitative Dr. Bucky Walters MD Work Phone: Comment on above: NORMAL D-Dimer level (<0.50) indicates no DVT or PE. Start: 11-05-[address] Bucky Walters MD Work Phone: Start: 11-05-2024 Methadone measuremen t, urine Dr. Bucky Walters MD Work Phone: Start: 04-02-2024 CT LUNG SCREEN WO IVCON Georgia White DERRICK BOAT LEVERMAN.MEMBER SERVICES COORDINATOR Work Phone: Start: 03-22-2024 Lipid 1995 panel - S sandra or Plasma Georgia White [employer] LEVERMAN.MEMBER SERVICES COORDINATOR Work Phone: Start: 02-26-2024 Ct thorax w/o contra st material Georgia White [employer]ERR[employer] LEVERMAN.MEMBER SERVICES COORDINATOR Work Phone: Start: 02-19-2024 Bx breast w/device 1 st lesion stereotactic guid Celeste Brady MD Work Phone: Start: 01-08-2024 Digital breast tomosynthesis unilateral Shasta Walters MD Work Phone: Start: 12-12-2023 Screening mammograph y bi 2-view breast inc cad Bulk Order Provider Start: 12-01-2023 Lipid 1996 panel - S sandra or Plasma Marilou Singh [employer]EVER[employer].MEMBER SERVICES COORDINATOR Work Phone: Start: 08-19-2021 Radex foot complete minimum 3 views Deandre Valladares Work Phone: Start: 07-29-2021 Radex foot complete minimum 3 views Deandre Testrake Work Phone: Start: 06-02-2021 Radex ankle complete minimum 3 views Sekou Gomes [employer]EVERMAN.MEMBER SERVICES COORDINATOR Work Phone: Start: 02-08-2021 Radex hip unilateral with pelvis 2-3 views Shasta Walters MD Work Phone: Start: 01-12-2021 Radiologic exam ches t 2 views Sekou Gomes [employer]EVERMAN.MEMBER SERVICES COORDINATOR Work Phone: Start: 03-01-2020 Lipid 1996 panel - S sandra or Plasma Shasta Walters MD Work Phone: Start: 09-08-2019 Mammography Bucky Walters MD Work Phone: Start: 11-04-2018 Colonoscopy Bucky Walters MD Work Phone: Plan of Treatment Date Care Activity Detail Author Start: 03-22-2029 Lipid panel Lipid Screening [facility] Start: 11-30-2028 Lipid panel Lipid Screening [facility] Start: 11-04-2028 Colonoscopy COLONOSCOPY [facility] Start: 11-04-2028 COLORECTAL CANCER SCREENING COLORECTAL CANCER SCREENING [facility] Start: 11-04-2028 Screening for malignant neoplasm of colon [facility] Start: 10-22-2027 Diabetes Screening Diabetes Screening [facility] Start: 03-22-2027 Diabetes Screening Diabetes Screening [facility] Start: 09-07-2026 Urine microalbumin profile [facility] Start: 11-18-2025 Annual PCP Team Chronic Disease Visit Annual PCP Team Chronic Disease Visit [facility] Start: 11-18-2025 BP Controlled (<130/80) BP Controlled (<130/80) [facility] Start: 11-04-2025 Annual PCP Team Chronic Disease Visit Annual PCP Team Chronic Disease Visit [facility] Start: 11-04-2025 BP Controlled (<130/80) BP Controlled (<130/80) [facility] in Start: 10-21-2025 Annual PCP Team Chronic Disease Visit Annual PCP Team Chronic Disease Visit [facility] Start: 07-07-2025 Annual PCP Team Chronic Disease Visit Annual PCP Team Chronic Disease Visit [facility] Start: 07-07-2025 BP Controlled (<130/80) BP Controlled (<130/80) [facility] Start: 06-09-2025 Annual PCP Team Chronic Disease Visit Annual PCP Team Chronic Disease Visit [facility] Start: 06-09-2025 Anxiety Screening Anxiety Screening [facility] Start: 06-09-2025 Covid-19 Vaccine ( season) Covid-19 Vaccine ( season) [facility] Comment on above: Postponed from 02/17/2024 (Declined at t his time) Start: 06-09-2025 Pneumococcal Vaccine: 50+ (2 of 2 - PCV) Pneumococcal Vaccine: 50+ (2 of 2 - PCV) [facility] Comment on above: Postponed from 03/09/2015 (Declined at t his time) Start: 04-06-2025 End: 04-06-2025 Patient encounter procedure Cat Scan Comment on above: yearly LDCT yearly LCS Start: 04-02-2025 Screening for malignant neoplasm of lung Lung Cancer Screening [facility] Start: 03-17-2025 End: 05-04-2025 CT Chest for screening WO contrast CT LUNG SCREEN WO IVCON Radiology Routine Encounter for screening for lung cancer Tobacco use current Expected: 03/17/2025 (Approximate), Expires: 05/04/2025 [facility] Work Phone: Comment on above: Expected: 03/17/2025 (Approximate), Expi res: 05/04/2025 Start: 03-02-2025 End: 03-02-2025 Patient encounter procedure 03/02/2025 8:00 AM EDT Office Visit Cardiology [address] [address] Tien Patel MD [address] [place], [place] [id number] Dx: Tachycardia, paroxysmal (HCC) [I47.9]; Episodic lightheadedness [R42] Cardiology Comment on above: Dx: Tachycardia, paroxysmal (HCC) [I47.9 ]; Episodic lightheadedness [R42] Start: 03-01-2025 Lipid panel Lipid Screening [facility] Start: 03-01-2025 LIPID SCREEN LIPID SCREEN [facility] Start: 02-25-2025 Screening for malignant neoplasm of lung Lung Cancer Screening [facility] Start: 02-24-2025 BP Controlled (<130/80) BP Controlled (<130/80) [facility] Start: 02-17-2025 End: 02-17-2025 Patient encounter procedure 02/17/2025 8:00 AM EDT Office Visit [facility] [place] [address] [place] [address] PodlogarMarilou APRN.MEMBER SERVICES COORDINATOR [address] [place] [address] annual physical [facility] [place] Comment on above: annual physical Start: 02-16-2025 Influenza vaccination [facility] Start: 02-03-2025 End: 02-03-2025 Patient encounter procedure 02/03/2025 9:00 AM EDT Office Visit Vascular Surgery [address] [place] [address] Valerie Cantu, DO [address] [place], [place] [id number] 6 month follow up Vascular Surgery Comment on above: 6 month follow up Start: 01-28-2025 BP Controlled (<130/80) BP Controlled (<130/80) [facility] Start: 01-23-2025 End: 04-24-2025 25-hydroxyvitamin D3 [Mass/volume] in Serum or Plasma VITAMIN D 25 HYDROXY Lab Routine Vitamin D deficiency Expected: 01/23/2025, Expires: 04/24/2025 [facility] Work Phone: Comment on above: Expected: 01/23/2025, Expires: Start: 01-06-2025 ambulatory Ambulatory Facility:[facility] Start: 12-16-2024 Evaluation of diagnostic study results [facility] Start: 12-15-2024 Influenza vaccination Influenza Vaccine (#1) [facility] lyons Comment on above: Postponed from 02/17/2024 (Declined at t his time) Start: 12-11-2024 Screening for malignant neoplasm of breast Mammogram Screening [facility] Start: 12-08-2024 End: 12-08-2024 Patient encounter procedure 12/08/2024 9:40 AM EDT Office Visit Family Medicine [place] [address] [facility] [place] [address] PodMarilou joseph APRN.MEMBER SERVICES COORDINATOR [address] [place] [address] Physical [facility] [place] Comment on above: Physical Start: 12-06-2024 Annual PCP Team Chronic Disease Visit Annual PCP Team Chronic Disease Visit [facility] Start: 12-06-2024 Covid-19 Vaccine () Covid-19 Vaccine () [facility] Comment on above: Postponed from 02/16/2023 (Declined at t his time) Start: 12-06-2024 Pneumococcal vaccination Pneumococcal Vaccine (2 of 2 - PCV) [facility] Comment on above: Postponed from 03/09/2015 (Declined at t his time) Start: 12-06-2024 Shingrix Vaccine (1 of 2) Shingrix Vaccine (1 of 2) [facility] Comment on above: Postponed from 11/26/2017 (Declined at t his time) Start: 11-18-2024 End: 11-18-2024 Patient encounter procedure [facility] [place] Comment on above: 2 week follow up BP and HR 2 week follow up BP and HR & TCM/hospital folow up Start: 11-07-2024 Serum inorganic phosphate measurement [facility] Start: 11-06-2024 [facility] Start: 11-06-2024 Patient discharge [facility] Start: 11-06-2024 Serum inorganic phosphate measurement [facility] Start: 11-06-2024 Application of intermittent pneumatic compression device [facility] Start: 11-05-2024 Following clinical pathway protocol [facility] Start: 11-05-2024 Assessment of risk of venous thromboembolism [facility] Start: 11-05-2024 Incentive spirometry [facility] Start: 11-05-2024 Insertion of catheter into peripheral vein [facility] Start: 11-05-2024 Measuring intake and output [facility] Start: 11-05-2024 Oxygen therapy [facility] Start: 11-05-2024 Providing care according to standard [facility] Start: 11-05-2024 Provision of activity privileges [facility] Start: 11-05-2024 Referral to senior quality control inspector [facility] Start: 11-05-2024 Referral to service [facility] Start: 11-05-2024 Thyroid stimulating hormone measurement [facility] Start: 11-05-2024 [facility] Start: 11-05-2024 Urinalysis complete panel - Urine [facility] Start: 11-05-2024 Verification routine [facility] Start: 11-05-2024 Admission procedure [facility] Start: 11-05-2024 Plain chest X-ray Chest 1 View (Portable) [facility] Start: 11-05-2024 XR Chest Single view [facility] Start: 11-05-2024 End: 11-06-2024 [facility] Start: 11-05-2024 Annual PCP Team Chronic Disease Visit Annual PCP Team Chronic Disease Visit [facility] Start: 11-05-2024 Patient referral to dietitian [facility] Start: 11-05-2024 [facility] Start: 11-04-2024 End: 11-04-2024 Patient encounter procedure 11/04/2024 7:00 AM EDT Office Visit Family Medicine [place] [address] [place] [address] Shasta Walters MD [address] [facility] [place] [address] 2 week follow up BP and HR [facility] [place] Comment on above: 2 week follow up BP and HR Start: 10-24-2024 End: 10-24-2024 Patient encounter procedure 10/24/2024 8:00 AM EDT Office Visit Cardiology [address] [place] [address] Dx: Tachycardia, paroxysmal (HCC) [I47.9] Cardiology Comment on above: Dx: Tachycardia, paroxysmal (HCC) [I47.9 ] Start: 10-21-2024 End: 01-20-2025 25-hydroxyvitamin D3 [Mass/volume] in Serum or Plasma [facility] Comment on above: Expected: 10/21/2024, Expires: Start: 10-21-2024 End: 01-20-2025 Cobalamin (Vitamin B12) [Mass/volume] in Serum or Plasma [facility] Comment on above: Expected: 10/21/2024, Expires: Start: 10-21-2024 End: 01-20-2025 Comprehensive metabolic 2000 panel - Serum or Plasma [facility] Comment on above: Expected: 10/21/2024, Expires: Start: 10-21-2024 End: 01-20-2025 Magnesium [Mass/volume] in Serum or Plasma [facility] Comment on above: Expected: 10/21/2024, Expires: Start: 10-21-2024 End: 01-20-2025 Thyrotropin [Units/volume] in Serum or Plasma [facility] Comment on above: Expected: 10/21/2024, Expires: Start: 08-05-2024 End: 08-05-2024 Patient encounter procedure 08/05/2024 10:15 AM EST Office Visit Vascular Surgery [address] [place] [address] Valerie Cantu, DO [address] [place] [address] 6 month follow up after testing Vascular Surgery Comment on above: 6 month follow up after testing Start: 07-29-2024 End: 07-29-2024 Patient encounter procedure Vasculary Surgery Comment on above: PAD (peripheral artery disease) (HCC) [I 73.9] Carotid stenosis, as ymptomatic, bilateral [I65.23] [address] testing Start: 07-07-2024 End: 07-07-2024 Patient encounter procedure 07/07/2024 9:00 AM EST Office Visit [facility] [place] [address] [place] [address] Marilou Singh APRN.MEMBER SERVICES COORDINATOR [address] [place] [address] 6 month follow up [facility] [place] Comment on above: 6 month follow up Start: 06-09-2024 End: 06-09-2024 Patient encounter procedure 06/09/2024 7:20 AM EST Office Visit [facility] [place] [address] [place] [address] Marilou Singh APRN.MEMBER SERVICES COORDINATOR [address] [place] [address] 6 month follow up [facility] Comment on above: 6 month follow up Start: 04-21-2024 DIABETES SCREEN DIABETES SCREEN [facility] Start: 04-21-2024 Diabetes Screening Diabetes Screening [facility] Start: 03-08-2024 End: 06-07-2024 Comprehensive metabolic 2000 panel - Serum or Plasma COMPREHENSIVE METABOLIC PANEL Lab Routine Hypertension, essential Expected: 03/08/2024, Expires: 06/07/2024 [facility] Comment on above: Expected: 03/08/2024, Expires: 4 Start: 03-08-2024 End: 06-07-2024 Lipid 1996 panel - Serum or Plasma LIPID PANEL BASIC Lab Routine Mixed hyperlipidemia Expected: 03/08/2024, Expires: 06/07/2024 [facility] Work Phone: Comment on above: Expected: 03/08/2024, Expires: 4 Start: 02-29-2024 End: 05-30-2024 25-hydroxyvitamin D3 [Mass/volume] in Serum or Plasma VITAMIN D 25 HYDROXY Lab Routine Vitamin D deficiency Expected: 02/29/2024, Expires: 05/30/2024 [facility] Comment on above: Expected: 02/29/2024, Expires: 4 Start: 02-26-2024 End: 02-26-2024 Patient encounter procedure 02/26/2024 3:40 PM EDT Appointment Cat Scan [address] [place] [address] Lung nodules [R91.8] Cat Scan Comment on above: Lung nodules [R91.8] Start: 02-25-2024 End: 02-25-2024 Patient encounter procedure 02/25/2024 8:30 AM EDT Office Visit Pulmonary Medicine [address] [place] [address] Georgia White APRN.MEMBER SERVICES COORDINATOR [address] [place] [address] Encounter for screening for lung cancer [Z12.2] Pulmonary Medicine Comment on above: Encounter for screening for lung cancer [Z12.2] Start: 02-19-2024 End: 02-19-2024 Patient encounter procedure 02/19/2024 1:00 PM EDT Appointment [facility] [address] [facility] [place], [place] [id number] Right breast calcs-Stereotactic biopsy [facility] Comment on above: Right breast calcs-Stereotactic biopsy Start: 02-17-2024 Covid-19 Vaccine ( season) Covid-19 Vaccine ( season) [facility] Start: 02-17-2024 Covid-19 Vaccine ( season) Covid-19 Vaccine ( season) [facility] Start: 02-17-2024 Influenza vaccination [facility] Start: 01-29-2024 End: 01-29-2024 Patient encounter procedure 01/29/2024 8:30 AM EDT Office Visit Vascular Surgery [address] [place] [address] Valerie Cantu DO [address] [place] [address] CONSULT TO VASCULAR MEDICINE Vascular Surgery Comment on above: CONSULT TO VASCULAR MEDICINE Start: 01-18-2024 End: 01-18-2024 Patient encounter procedure 01/18/2024 2:30 PM EDT Office Visit [facility] [address] [facility] [place] [place] [address] PAD (peripheral artery disease) (HCC) [I73.9] [facility]culary Surgery Comment on above: PAD (peripheral artery disease) (HCC) [I 73.9] Start: 01-14-2024 End: 01-14-2024 Patient encounter procedure 01/14/2024 10:00 AM EDT Office Visit General Surgery [address] [place] [address] Celeste Brady MD [address] [place] [id number] right breast consult General Surgery Comment on above: right breast consult Start: 01-08-2024 End: 01-08-2024 Patient encounter procedure Mammogram Comment on above: Abnormal mammogram [R92.8] Start: 12-12-2023 End: 12-12-2023 Patient encounter procedure 12/12/2023 7:10 AM EDT Appointment Mammogram [address] [place] [address] Encounter for screening mammogram for breast cancer [Z12.31] Mammogram Comment on above: Encounter for screening mammogram for br east cancer [Z12.31] Start: 12-07-2023 End: 12-07-2023 Patient encounter procedure 12/07/2023 9:20 AM EDT Office Visit Family Medicine [place] [address] [facility] [address] PodlogarMarilou APRN.MEMBER SERVICES COORDINATOR [address] [place] [address] Physical/ BP check [facility] [place] Comment on above: Physical/ BP check Start: 11-06-2023 End: 02-05-2024 Lipid 1996 panel - Serum or Plasma LIPID PANEL BASIC Lab Routine Hyperlipidemia, mixed Expected: 11/06/2023, Expires: 02/05/2024 [facility] Work Phone: Comment on above: Expected: 11/06/2023, Expires: Start: 02-16-2023 Covid-19 Vaccine ( season) Covid-19 Vaccine () [facility] Start: 02-16-2023 Influenza vaccination Influenza Vaccine (#1) [facility] Start: 06-02-2022 BP CONTROLLED (<130/80) BP CONTROLLED (<130/80) [facility] Start: 04-19-2022 ANNUAL PCP TEAM CHRONIC DISEASE VISIT ANNUAL PCP TEAM CHRONIC DISEASE VISIT [facility] Start: 02-16-2022 Influenza vaccination INFLUENZA (#1) [facility] Start: 09-07-2020 Mammography MAMMOGRAM [facility] Start: 09-07-2020 Screening for malignant neoplasm of breast Mammogram Screening [facility] Start: 11-26-2017 Influenza vaccination LUNG CANCER SCREENING [facility] Start: 11-26-2017 Screening for malignant neoplasm of lung Lung Cancer Screening [facility] Start: 11-26-2017 SHINGRIX VACCINE (1 of 2) SHINGRIX VACCINE (1 of 2) [facility] Start: 03-09-2015 PNEUMOCOCCAL (2 - PCV) PNEUMOCOCCAL (2 - PCV) [facility] Start: 03-09-2015 Pneumococcal vaccination Pneumococcal Vaccine (2 of 2 - PCV) [facility] Start: 11-26-2012 COLOGUARD (FIT-DNA) COLOGUARD (FIT-DNA) [facility] Start: 11-26-[address] COLONOGRAPHY [facility] Start: 11-26-2012 FECAL OCCULT BLOOD FECAL OCCULT BLOOD [facility] Start: 11-26-2012 Screening for malignant neoplasm of colon [facility] Start: 11-26-2012 SIGMOIDOSCOPY SIGMOIDOSCOPY [facility] Start: 11-26-1986 Hepatitis B Vaccine (1 of 3 - 19+ 3-dose series) Hepatitis B Vaccine (1 of 3 - 19+ 3-dose series) [facility] Start: 11-26-1985 Anxiety Screening Anxiety Screening [facility] Start: 11-26-1985 BP CONTROLLED (<130/80) BP CONTROLLED (<130/80) [facility] Start: 11-26-1972 COVID-19 VACCINE (#1) COVID-19 VACCINE (#1) [facility] Start: 05-28-1968 COVID-19 VACCINE (#1) COVID-19 VACCINE (#1) [facility] Start: 1967 HEPATITIS B (1 of 3 - 3-dose series) HEPATITIS B (1 of 3 - 3-dose series) [facility] Start: 1967 Hepatitis B Vaccine (1 of 3 - 3-dose series) Hepatitis B Vaccine (1 of 3 - 3-dose series) [facility] Alanine aminotransfe rase [Enzymatic activity/volume] in Serum or Plasma [facility] Albumin [Mass/volume ] in Serum or Plasma [facility] Alkaline phosphatase [Enzymatic activity/volume] in Serum or Plasma [facility] Amphetamines [Presen ce] in Urine by Screen method >1000 ng/mL [facility] Anion gap in Serum o r Plasma [facility] Benzodiazepine measurement, urine [facility] Bilirubin, total measurement [facility] BUN/Creatinine ratio [facility] Calcium [Mass/volume ] in Serum or Plasma [facility] Carbon dioxide, tota l [Moles/volume] in Central venous blood [facility] Cholesterol [Mass/vo lume] in Serum or Plasma [facility] Cholesterol in HDL [Mass/volume] in Serum or Plasma [facility] Cocaine measurement, urine [facility] Creatinine [Mass/vol ume] in Serum or Plasma [facility] End: 04-06-2025 CT Chest for screening WO contrast CT LUNG SCREEN WO IVCON Radiology Routine Encounter for screening for lung cancer Tobacco use current 1 Occurrences starting 03/07/2024 until 04/06/2025 [facility] Work Phone: Comment on above: 1 Occurrences starting 03/07/2024 until 04/06/2025 CT Chest WO contrast CT CHEST WO IVCON Radiology Routine Lung nodules Ordered: 02/25/2024 [facility] Work Phone: Comment on above: Ordered: 02/25/2024 ECG COMPLETE ECG COMPLETE ECG Routine Tachycardia, paroxysmal (HCC) Ordered: 10/21/2024 [facility] Work Phone: Comment on above: Ordered: 10/21/2024 End: 10-21-2025 Echocardiography ECHO Cardiology [place] Tachycardia, paroxysmal (HCC) 1 Occurrences starting 10/21/2024 until 10/21/2025 [facility] Comment on above: 1 Occurrences starting 10/21/2024 until 10/21/2025 Erythrocyte mean corpuscular volume determination [facility] fentaNYL [Presence] in Urine by Screen method [facility] Glucose [Mass/volume ] in Serum or Plasma [facility] Hematocrit [Volume Fraction] of Blood [facility] Hemoglobin [Mass/vol ume] in Blood [facility] Hemoglobin A1c/Hemoglobin.total in Blood [facility] Leukocytes [#/volume ] in Blood [facility] Low density lipoprot ein cholesterol measurement [facility] End: 09-22-2023 JOJO SCREENING JOJO SCREENING Radiology Routine Encounter for screening mammogram for breast cancer 1 Occurrences starting 08/23/2022 until 09/22/2023 [facility] Work Phone: Comment on above: 1 Occurrences starting 08/23/2022 until 09/22/2023 Mean corpuscular hemoglobin concentration determination [facility] Mean corpuscular hemoglobin determination [facility] Measurement of renal function [facility] Methadone measuremen t, urine [facility] End: 09-06-2024 MG Breast Screening JOJO SCREENING Radiology Routine Encounter for screening mammogram for breast cancer 1 Occurrences starting 08/08/2023 until 09/06/2024 [facility] Work Phone: Comment on above: 1 Occurrences starting 08/08/2023 until 09/06/2024 End: 02-12-2025 MG stereo Guidance for biopsy of Breast - right JOJO STEREO BX BREAST RIGHT Radiology Routine Calcification of right breast on mammography 1 Occurrences starting 01/14/2024 until 02/12/2025 [facility] Work Phone: Comment on above: 1 Occurrences starting 01/14/2024 until 02/12/2025 Neutrophil count [facility] Neutrophil percent differential count [facility] OUTSIDE VENDOR CARDI AC OUTPATIENT EXTENDED RHYTHM RECORDING (WITHOUT TELEMETRY) OUTSIDE VENDOR CARDIAC OUTPATIENT EXTENDED RHYTHM RECORDING (WITHOUT TELEMETRY) Holter Routine Tachycardia, paroxysmal (HCC) Ordered: 10/21/2024 [facility] Comment on above: Ordered: 10/21/2024 Patient referral [facility] Work Phone: Phencyclidine [Prese nce] in Urine [facility] Platelets [#/volume] in Blood [facility] Potassium measurement [facility] Red blood cell count [facility] Red cell distributio n width determination [facility] Serum chloride measurement [facility] Sodium measurement [facility] End: 02-19-2024 SURGICAL PATHOLOGY SURGICAL PATHOLOGY Lab Routine ONCE for 1 Occurrences starting 02/19/2024 until 02/19/2024 [facility] Work Phone: Comment on above: ONCE for 1 Occurrences starting 02/19/20 24 until 02/19/2024 Total cholesterol:HD L ratio measurement [facility] Total protein measurement [facility] Triglycerides measurement [facility] Urea nitrogen [Mass/volume] in Serum or Plasma [facility] Urine cannabinoid measurement [facility] Urine opiate measurement [facility] End: 01-11-2025 US Breast - right limited US BREAST LTD RIGHT Radiology Routine Abnormal mammogram 1 Occurrences starting 12/13/2023 until 01/11/2025 [facility] Work Phone: Comment on above: 1 Occurrences starting 12/13/2023 until 01/11/2025 End: 01-28-2025 US Carotid arteries - bilateral US CAROTID ARTERIES [facility] Vascular Lab Routine Carotid stenosis, asymptomatic, bilateral 1 Occurrences starting 01/29/2024 until 01/28/2025 [facility] Work Phone: Comment on above: 1 Occurrences starting 01/29/2024 until 01/28/2025 End: 01-28-2025 US Lower extremity artery - bilateral PVR LEG [facility] Vascular Lab Routine PAD (peripheral artery disease) ([facility]) 1 Occurrences starting 01/29/2024 until 01/28/2025 [facility] Comment on above: 1 Occurrences starting 01/29/2024 until 01/28/2025 End: 12-06-2024 US.doppler Extremity arteries - bilateral for physiologic artery study at rest and with exercise PVR LEG W/EXC [facility] Vascular Lab Routine PAD (peripheral artery disease) (HCC) 1 Occurrences starting 12/07/2023 until 12/06/2024 [facility] Comment on above: 1 Occurrences starting 12/07/2023 until 12/06/2024 VLDL cholesterol measurement [facility] Immunizations Immunization Date Immunization Notes Care Provider Fa rodney 04-19-2021 influenza, injectabl e, quadrivalent, contains preservative Shasta Walters MD Work Phone: [facility] 04-19-2021 influenza virus vaccine, unspecified formulation Shasta Walters MD Work Phone: [facility] 03-01-2020 influenza, injectabl e, quadrivalent, contains preservative Shasta Walters MD Work Phone: [facility] 02-26-2019 influenza, injectabl e, quadrivalent, contains preservative Shasta Walters MD Work Phone: [facility] 02-26-2018 influenza, injectabl e, quadrivalent, contains preservative Shasta Walters MD Work Phone: [facility] 02-20-2018 Influenza virus vaccine [facility] 09-07-2016 tetanus toxoid, redu ruth diphtheria toxoid, and acellular pertussis vaccine, adsorbed Shasta Walters MD Work Phone: [facility] 03-09-2014 influenza, seasonal, injectable Shasta Walters MD Work Phone: [facility] Work Phone: 03-09-2014 pneumococcal polysaccharide vaccine, 23 valent Shasta Walters MD Work Phone: [facility] Work Phone: 04-25-2006 tetanus toxoid, adsorbed Shasta Walters MD Work Phone: [facility] Work Phone: Payers Date Payer Category Payer Self-pay [id number] 2021 Unknown ROSENDO ROBBINS HI X [id number] 2021-Present [phone] [place] [id number] [facility] [id number] 2021 Unknown [id number] 2010 Unknown [id number] Unknown [id number] Unknown [id number] Unknown [id number] Unknown [id number] Unknown [id number] Unknown [id number] Unknown [id number] Social History Date Type Detail Facility Start: 11-20-2017 End: 07-07-2024 Tobacco smoking status NHIS Smokes tobacco daily [facility] Work Phone: History of tobacco use Cigarette Smoker C [facility] Work Phone: Start: 08-22-2021 End: 11-18-2024 Alcohol intake Current non-drinker of alcohol (finding) [facility] Start: 02-06-2021 History SDOH Alcohol Frequency 2 [facility] Start: 02-06-2021 History SDOH Alcohol Std Drinks 1 [facility] Start: 02-06-2021 History SDOH Social Connections Phone 5 [facility] Start: 02-06-2021 History SDOH Physical Activity DPW 0 [facility] Start: 02-06-2021 History SDOH Financial 3 [facility] Start: 02-06-2021 Education 21 [facility] Start: 1965 Sex Assigned At Not on file [facility] Start: 02-28-2021 Tobacco smoking status NHIS Unknown if ever smoked [facility] Work Phone: Start: 04-13-2018 Occasional [facility] Start: 04-13-2018 Spouse/ Significant Other [facility] Start: 04-15-2018 Cigarettes [facility] Start: 1965 Sex Assigned At Female [facility] Work Phone: Start: 11-20-2017 End: 11-06-2023 Cigarettes smoked current (pack per day) - Reported 1 [facility] Start: 11-20-2017 End: 07-07-2024 Tobacco use and exposure Smokeless tobacco non-user [facility] Work Phone: Start: 02-06-2021 End: 11-06-2023 Social connection and isolation panel [facility] Do you belong to any clubs or organizations such as quaker groups, unions, fraternal or athletic groups, or school groups? No [facility] Are you now , , , , never or living with a partner? [facility] How often to you hav e a drink containing alcohol? Monthly or less [facility] How many standard dr inks containing alcohol do you have on a typical day? 1 or 2 [facility] How often do you hav e 6 or more drinks on 1 occasion? Never [facility] How hard is it for y ou to pay for the very basics like food, housing, medical care, and heating Somewhat hard [facility] Adult Depression Screening Assessment 1 [facility] Do you feel stress - tense, restless, nervous, or anxious, or unable to sleep at night because your mind is troubled all the time - these days [OSQ] Only a little [facility] (I/We) worried flores er (my/our) food would run out before (I/we) got money to buy more. Sometimes true [facility] The food that (I/we) bought just didn't last, and (I/we) didn't have money to get more. Never true [facility] In the past 12 month s, was there a time when you were not able to pay the mortgage or rent on time? Yes [facility] Start: 12-09-2020 End: 08-01-2021 Exposure to SARS-CoV-2 (event) Not sure [facility] Are you now , , , , never or living with a partner? [facility] How hard is it for y ou to pay for the very basics like food, housing, medical care, and heating Hard [facility] Do you feel stress - tense, restless, nervous, or anxious, or unable to sleep at night because your mind is troubled all the time - these days [OSQ] To some extent [facility] Start: 10-23-2024 Gender identity Identifies as female gender (finding) [facility] Start: 10-23-2024 Sexual orientation Heterosexual (finding) [facility] Goals Date Patient Goal Desired Activity /State Personal health goal Functional Status Date Assessment Result Facility 11-06-2024 Functional status Up ad ernst [facility] Work Phone: 11-06-2024 Functional status Tolerates Activity [facility] Work Phone: 10-20-2014 Are you deaf, or do you have serious difficulty hearing No 10/20/2014 9:55 AM Zenobia Pires LPN No [facility] 10-20-2014 Are you blind, or do you have serious difficulty seeing, even when wearing glasses No 10/20/2014 9:55 AM Zenobia Pires LPN No [facility] 10-20-2014 Do you have serious difficulty walking or climbing stairs No 10/20/2014 9:55 AM Zenobia Pires LPN No [facility] 10-20-2014 Do you have difficul ty dressing or bathing No 10/20/2014 9:55 AM Zenobia Pires LPN No [facility] 10-20-2014 Because of a physica l, mental, or emotional condition, do you have difficulty doing errands alone such as visiting a physician's office or shopping No 10/20/2014 9:55 AM Zenobia Pires LPN No [facility] Mental Status Date Assessment Result Facility 11-06-2024 Cognitive function Voice/Name [facility] Work Phone: 11-05-2024 Cognitive function Voice/Name [facility] Work Phone: 10-20-2014 Because of a physica l, mental, or emotional condition, do you have serious difficulty concentrating, remembering, or making decisions No 10/20/2014 9:55 AM Zenobia Pires LPN No [facility] Clinical Notes 05-16-2018 to 12-26-2024 Telephone Encounter - Martha Wallis MA - 12/26/2024 7:35 AM EDTTelephone Encounter - Martha Wallis MA - 12/26/2024 7:35 AM EDTTelephone Encounter - Keyur Whitaker RN - 12/01/2024 1:57 PM EDT Note Date & Type Note Facility 12-26-2024 Telephone encounter Note Patient MyChart message requesting the following refill. Requested Prescriptions Pending Prescriptions Disp Refills atorvastatin (LIPITOR) 20 mg tablet 90 tablet 1 Sig: Take 1 tablet by mouth daily at bedtime. For cholesterol. losartan (COZAAR) 25 mg tablet 90 tablet 1 Sig: Take 1 tablet by mouth daily at bedtime. Patient last appointment: 11/18/24 Patient Phone numbers: [phone] (home) Request is for script(s) to be escript to pharmacy. Martha Wallis MA [facility] 12-26-2024 Miscellaneous Notes Patient MyChart message requesting the following refill. Requested Prescriptions Pending Prescriptions Disp Refills atorvastatin (LIPITOR) 20 mg tablet 90 tablet 1 Sig: Take 1 tablet by mouth daily at bedtime. For cholesterol. losartan (COZAAR) 25 mg tablet 90 tablet 1 Sig: Take 1 tablet by mouth daily at bedtime. Patient last appointment: 11/18/24 Patient Phone numbers: [phone] (home) Request is for script(s) to be escript to pharmacy. Martha Wallis MA documented in this encounter [facility] 12-01-2024 Telephone encounter Note Patient informed and verbalized understanding. Martha Wallis MA [facility] 12-01-2024 Miscellaneous Notes Patient informed and verbalized understanding. Martha Wallis MA ----- Message from Shasta Walters MD sent at 12/01/2024 11:53 AM EDT ----- Holter monitor shows sinus rhythm with runs of SVT lasting as long as 16 hours and 1 pause lasting 3 seconds with possible high grade AV block. Patient was already treated in the ER for SVT episode and has appointment with cardiology for ablation. Continue current regimen and f/u with cardiology as scheduled. Notified via Rolith. ----- Message from Shasta Walters MD sent at 10/23/2024 10:22 AM EDT ----- Vitamin D level severely low. Recommend 50,000 units of vitamin D weekly x 12 weeks and recheck in 3 months. Other labs normal. documented in this encounter [facility] 12-01-2024 Telephone encounter Note ----- Message from Shasta Walters MD sent at 12/01/2024 11:53 AM EDT ----- Holter monitor shows sinus rhythm with runs of SVT lasting as long as 16 hours and 1 pause lasting 3 seconds with possible high grade AV block. Patient was already treated in the ER for SVT episode and has appointment with cardiology for ablation. Continue current regimen and f/u with cardiology as scheduled. [facility] 12-01-2024 Telephone encounter Note Reviewed. Patient was admitted for this on 11/05. [facility] 12-01-2024 Miscellaneous Notes Reviewed. Patient was admitted for this on 11/05. Sushila- I Rhythm- reporting zio results show SVT 171 bpm for 60 sec on 10-30-24 @ 4:11 pm. Doctor can find these results on page 15 strip # 6. Reports patient had 71 episodes throughout the 2 weeks of wear. documented in this encounter [facility] 12-01-2024 Telephone encounter Note Sushila- I Rhythm- reporting zio results show SVT 171 bpm for 60 sec on 10-30-24 @ 4:11 pm. Doctor can find these results on page 15 strip # 6. Reports patient had 71 episodes throughout the 2 weeks of wear. [facility] 11-18-2024 Instructions Shasta Walters MD - 11/18/2024 8:05 AM EDT - Take your current medications as prescribed, including metoprolol 50 mg once daily. - Avoid stimulants that can raise your heart rate, such as caffeine and cigarettes. - Attend your pre-ablation heart physical appointment on December 16 to clear you for the procedure. - Go to your scheduled ablation on January 06. - If you have another episode where your heart rate stays high despite medication, or if you develop chest pain, shortness of breath, dizziness, or other concerning symptoms, contact your senior quality control inspector or go to the emergency department right away. documented in this encounter [facility] 11-18-2024 Note HNO ID: [id number] Author: SHASTA WALTERS MD Service: ? Author Type: Physician Type: Progress Notes Filed: 11/18/2024 08:32 Note Text: Chief Complaint Patient presents with: Transition Of Care Blood Pressure: recheck Follow Up: HR and BP recheck Recording using ambient [employer] software for draft documentation of the visit was discussed with the patient/authorized customer operations representative; all questions welcomed and answered. Patient/authorized customer operations representative agreed to proceed HPI Saranya Bermudez is a 58 year old female who presents here today for Above Complaints. SVT: - Hospitalized at [facility] from 11/05 to 11/06 for SVT with HR of 144 bpm. - Treated with adenosine, which restored normal sinus rhythm. - Echocardiogram showed EF of 60% and a small pericardial effusion. - No changes made to current medication regimen. - Follow-up with cardiology; ablation scheduled for 01/06. - Two episodes of palpitations since discharge, lasting all day. - HR reached 150 bpm during the most recent episode. Has not had any symptoms in over a week. - Cardiology recommended using ice on neck and breathing through a straw provided some relief. - Denies current chest pain, palpitations, dyspnea, lightheadedness, or dizziness. - No side effects from medications; adherent to metoprolol 50 mg. - Zio patch returned a week ago; awaiting results. - Denies fevers, chills, nausea, emesis, or rashes. - Avoiding caffeine. Continues to smoke and is refusing help with cessation today. TRANSITION CARE MANAGEMENT (TCM) INITIAL CONTACT Micro Paleontologist Outreach Provider Action/FYI: 11/06/24 [facility] Discharge Initial contact with patient post discharge, spoke to patient. Patient identified by name and . TRANSITION CARE MANAGEMENT INITIAL OUTREACH DOCUMENTATION: 11/07/2024 Date of Outreach: Outreach Attempt 1: Contact Made Date of Discharge 11/06/2024 SUMMARY: -Pt discharged from [facility] on 11/06/24. -Admitted for: SVT, chest pain, palpitations, racing heart Do you have a hospital follow up appointment with your PCP? Appointment on 11/18/[address] Walters. Yes. Remind patient of appointment date, time, and location. If not within 14 calendar days of discharge - please reschedule accordingly. MEDICATIONS: Many patients have questions or concerns about their medications once they are home. Were you prescribed any new medications? No Were you told to hold any medications? No Were any of your medications discontinued? No Do you have any questions about getting or taking your medications? No Your discharge instructions/After visit Summary (AVS) are important in guiding you through the recovery process. Is there anything I might help you understand? No Do you have all the necessary equipment and supplies at home? Yes Medical records from recent hospitalization: Received and placed on provider's desk for review. Past medical history, appointments, medications, allergies reviewed. Previous Medical History PAST MEDICAL HISTORY Diagnosis Date Anxiety Chronic obstructive asthma with status asthmaticus (HCC) DVT (deep venous thrombosis) (HCC) History of COVID-19 03/2021 History of heavy periods s/p hysterectomy Hyperlipidemia Hypertension 2016 Iron deficiency anemia 01/06/2012 Major depressive disorder, single episode, unspecified Obesity (BMI 30.0-34.9) PAD (peripheral artery disease) 02/18/2021 moderate on left LE Polycystic kidney disease SVT (supraventricular tachycardia) (HCC) Tobacco use Previous Surgical History PAST SURGICAL HISTORY Procedure Laterality Date COLONOSCOPY FLX DX W/COLLJ SPEC WHEN PFRMD 11/04/2018 Colonoscopy DILATION AND CURETTAGE DXAND/THER NONOBSTETRIC LAPARO-VAG HYST, COMPLEX 10/19/11 vag hysterectomy with bladder sling and posterior repair, bladder tear repaired LIG/TRNSXJ FLP TUBE ABDL/VAG APPR UNI/BI PAST SURGICAL HISTORY OF 2006 upper teeth removed UNSPECIFIED ORAL SURGERY PROCEDURE, BY REPORT WISDOM TEETH REMOVED Family History FAMILY HISTORY Problem Relation Age of Onset Heart Mother no communication with patient, doesn't have details Drug abuse Sister ??? patient doesn't know for sure. Colon Cancer Maternal Grandmother Diabetes Other no details known Colon Cancer Other no details known Coronary Artery Disease Other no details known Patient Allergies ALLERGIES Allergen Reactions Zoloft [Sertraline * Diarrhea, GI Upset Current Medications Current Outpatient Medications on File Prior to Visit Medication Sig metoprolol succinate ER (TOPROL XL) 50 mg 24 hr tablet Take 1 tablet by mouth once daily. cholecalciferol, Vitamin D3, (VITAMIN D3) 1,250 mcg (50,000 unit) cap capsule Take 1 capsule by mouth one time a week. atorvastatin (LIPITOR) 20 mg tablet Take 1 tablet by mouth daily at bedtime. For cholesterol. losartan (COZAAR) 25 mg tablet Take 1 tablet by mouth daily at (more content not included)... [facility] 11-18-2024 History of Presen t illness Narrative Chief Complaint Patient presents with: Transition Of Care Blood Pressure: recheck Follow Up: HR and BP recheck Recording using [employer] software for draft documentation of the visit was discussed with the patient/authorized customer operations representative; all questions welcomed and answered. Patient/authorized customer operations representative agreed to proceed HPI Saranya Bermudez is a 58 year old female who presents here today for Above Complaints. SVT: - Hospitalized at [facility] from 11/05 to 11/06 for SVT with HR of 144 bpm. - Treated with adenosine, which restored normal sinus rhythm. - Echocardiogram showed EF of 60% and a small pericardial effusion. - No changes made to current medication regimen. - Follow-up with cardiology; ablation scheduled for 01/06. - Two episodes of palpitations since discharge, lasting all day. - HR reached 150 bpm during the most recent episode. Has not had any symptoms in over a week. - Cardiology recommended using ice on neck and breathing through a straw provided some relief. - Denies current chest pain, palpitations, dyspnea, lightheadedness, or dizziness. - No side effects from medications; adherent to metoprolol 50 mg. - Zio patch returned a week ago; awaiting results. - Denies fevers, chills, nausea, emesis, or rashes. - Avoiding caffeine. Continues to smoke and is refusing help with cessation today. TRANSITION CARE MANAGEMENT (TCM) INITIAL CONTACT Micro Paleontologist Outreach Provider Action/FYI: 11/06/24 [facility] Discharge Initial contact with patient post discharge, spoke to patient. Patient identified by name and . TRANSITION CARE MANAGEMENT INITIAL OUTREACH DOCUMENTATION: 11/07/2024 Date of Outreach: Outreach Attempt 1: Contact Made Date of Discharge 11/06/2024 SUMMARY: -Pt discharged from [facility] on 11/06/24. -Admitted for: SVT, chest pain, palpitations, racing heart Do you have a hospital follow up appointment with your PCP? Appointment on 11/18/[address] Walters. Yes. Remind patient of appointment date, time, and location. If not within 14 calendar days of discharge - please reschedule accordingly. MEDICATIONS: Many patients have questions or concerns about their medications once they are home. Were you prescribed any new medications? No Were you told to hold any medications? No Were any of your medications discontinued? No Do you have any questions about getting or taking your medications? No Your discharge instructions/After visit Summary (AVS) are important in guiding you through the recovery process. Is there anything I might help you understand? No Do you have all the necessary equipment and supplies at home? Yes Medical records from recent hospitalization: Received and placed on provider's desk for review. Past medical history, appointments, medications, allergies reviewed. Previous Medical History PAST MEDICAL HISTORY Diagnosis Date Anxiety Chronic obstructive asthma with status asthmaticus (HCC) DVT (deep venous thrombosis) (HCC) History of COVID-19 03/2021 History of heavy periods s/p hysterectomy Hyperlipidemia Hypertension 2016 Iron deficiency anemia 01/06/2012 Major depressive disorder, single episode, unspecified Obesity (BMI 30.0-34.9) PAD (peripheral artery disease) 02/18/2021 moderate on left LE Polycystic kidney disease SVT (supraventricular tachycardia) (HCC) Tobacco use Previous Surgical History PAST SURGICAL HISTORY Procedure Laterality Date COLONOSCOPY FLX DX W/COLLJ SPEC WHEN PFRMD 11/04/2018 Colonoscopy DILATION & CURETTAGE DX&/THER NONOBSTETRIC LAPARO-VAG HYST, COMPLEX 10/19/11 vag hysterectomy with bladder sling and posterior repair, bladder tear repaired LIG/TRNSXJ FLP TUBE ABDL/VAG APPR UNI/BI PAST SURGICAL HISTORY OF 2006 upper teeth removed UNSPECIFIED ORAL SURGERY PROCEDURE, BY REPORT WISDOM TEETH REMOVED Family History FAMILY HISTORY Problem Relation Age of Onset Heart Mother no communication with patient, doesn't have details Drug abuse Sister ??? patient doesn't know for sure. Colon Cancer Maternal Grandmother Diabetes Other no details known Colon Cancer Other no details known Coronary Artery Disease Other no details known Patient Allergies ALLERGIES Allergen Reactions Zoloft [Sertraline * Diarrhea, GI Upset Current Medications Current Outpatient Medications on File Prior to Visit Medication Sig metoprolol succinate ER (TOPROL XL) 50 mg 24 hr tablet Take 1 tablet by mouth once daily. cholecalciferol, Vitamin D3, (VITAMIN D3) 1,250 mcg (50,000 unit) cap capsule Take 1 capsule by mouth one time a week. atorvastatin (LIPITOR) 20 mg tablet Take 1 tablet by mouth daily at bedtime. For cholesterol. losartan (COZAAR) 25 mg tablet Take 1 tablet by mouth daily at bedtime. Blood Pressure Monitor kit Check BP at home. No current facility-administered medications on file prior to visit. Social History Social History Tobacco Use Smoking status: Every Day Current packs/day: 1.00 Average packs/day: 1 pack/day for 30.0 years (30.0 ttl pk-yrs) Types: Cigarettes Smokeless tobacco: Never Vaping Use Vaping status: Never Used Substance Use Topics Alcohol use: No Drug use: No Review of Symptoms REVIEW OF SYSTEMS GENERAL: No weight loss, malaise or fevers RESPIRATORY: Negative for cough, hemoptysis, wheezing, COPD, dyspnea or shortness of breath CARDIOVASCULAR: See HPI GI: No nausea, vomiting, or diarrhea SKIN: Negative for lesions, rash, and itching EXAM: BP 120/70 Pulse 62 Resp 16 Wt 87 kg (191 lb 12.8 oz) LMP 05/05/2011 SpO2 97% BMI 31.92 kg/m General Appearance: Well appearing, alert, in no acute distress, well-hydrated, well nourished.. Skin: Skin color, texture, turgor normal, no suspicious rashes or lesions. Lungs: Lungs clear to auscultation. No wheezing, rhonchi, rales.. Heart: RRR without murmur, gallop, or rubs. No ectopy. Abdomen: Normal abdominal exam, Abdomen soft, non-tender. Bowel sounds normal. No masses, organomegaly. Extremities: No deformities, edema, skin discoloration, clubbing or cyanosis. Good capillary refill. . Health Maintenance List Hepatitis B Vaccine(1 of 3 - 19+ 3-dose series) Never done Mammogram Screening due on 12/11/2024 Shingrix Vaccine(1 of 2) due on 12/06/2024 Covid-19 Vaccine( - season) due on 06/09/2025 Pneumococcal Vaccine: 50+(2 of 2 - PCV) due on 06/09/2025 Influenza Vaccine(Season Ended) due on 02/16/2025 Lung Cancer Screening due on 04/02/2025 Anxiety Screening due on 06/09/2025 Annual PCP Team Chronic Disease Visit due on 11/18/2025 BP Controlled (<130/80) due on 11/18/2025 DTaP,Tdap,Td Vaccine(2 - Td or Tdap) due on 09/07/2026 Diabetes Screening due on 10/22/2027 Colorectal Cancer Screening due on 11/04/2028 Lipid Screening due on 03/22/2029 Hepatitis C Screening Completed HIV Screening Completed Cervical Cancer Screening Discontinued Data reviewed Latest Ref Rng 10/21/2024 WBC 3.70 - 11.00 k/uL 8.57 RBC 3.90 - 5.20 m/uL 4.14 Hemoglobin 11.5 - 15.5 g/dL 12.5 Hematocrit 36.0 - 46.0 % 38.5 MCV 80.0 - 100.0 fL 93.0 MCH 26.0 - 34.0 pg 30.2 MCHC 30.5 - 36.0 g/dL 32.5 RDW-CV 11.5 - 15.0 % 13.6 Platelet Count 150 - 400 k/uL 257 MPV 9.0 - 12.7 fL 11.7 Neut% % 59.5 Abs Neut (ANC) 1.45 - 7.50 k/uL 5.10 Lymph% % 33.0 Abs Lymph 1.00 - 4.00 k/uL 2.83 Boyle% % 6.7 Abs Boyle <0.87 k/uL 0.57 Eosin% % 0.2 Abs Eosin <0.46 k/uL <0.03 Baso% % 0.4 Abs Baso <0.11 k/uL 0.03 Immature Gran % % 0.2 IMMATURE GRANS (ABS) <0.10 k/uL <0.03 NRBC /100 WBC 0.0 Absolute nRBC <0.01 k/uL <0.01 DTYPE Auto Protein, Total 6.3 - 8.0 g/dL 6.7 Albumin 3.9 - 4.9 g/dL 4.2 Calcium 8.5 - 10.2 mg/dL 9.4 Bilirubin, Total 0.2 - 1.3 mg/dL 0.2 Alkaline Phosphatase 34 - 123 U/L 94 AST 13 - 35 U/L 16 ALT 7 - 38 U/L 9 Glucose 74 - 99 mg/dL 99 BUN 7 - 21 mg/dL 11 Creatinine 0.58 - 0.96 mg/dL 0.96 Sodium 136 - 144 mmol/L 143 Potassium 3.7 - 5.1 mmol/L 4.2 Chloride 98 - 107 mmol/L 107 CO2 22 - 30 mmol/L 24 Anion Gap 8 - 15 mmol/L 12 eGFR >=60 mL/min/1.73m 70 TSH 0.270 - 4.200 mIU/L 1.420 Magnesium 1.7 - 2.3 mg/dL 2.0 Vitamin D 25 Hydroxy 31.0 - 80.0 ng/mL 16.6 (L) Vitamin B12 232 - 1,245 pg/mL 262 Legend: (L) Low 1. SVT (supraventricular tachycardia) ([facility]) (I47.10) 2. Chest pain, unspecified type (R07.9) 3. NSTEMI (non-ST elevated myocardial infarction) ([facility]) (I21.4) - Recent hospitalization from November 05 to due to SVT with heart rate of 144 bpm and associated chest pain; no dyspnea or nausea reported. - Treated with adenosine in the hospital, successfully converting to normal sinus rhythm. - Troponin levels were elevated, indicating NSTEMI due to increased cardiac demand. - Echocardiogram showed normal ejection fraction of 60%, no diastolic dysfunction, and a small pericardial effusion. - No changes made to current medication regimen of metoprolol 50 mg. - Two episodes of palpitations since discharge, with heart rates reaching up to 150 bpm; episodes lasted all day. - Advised to continue current medication regimen and avoid stimulants, including caffeine and tobacco. - Scheduled for cardiac ablation on January 06; pre-procedure evaluation on December 16. - Zio patch monitoring completed; awaiting results. - Advised to contact senior quality control inspector or return to hospital if experiencing severe chest pain or shortness of breath. 4. Hospital discharge follow-up (Z09) - Vital signs stable today: pulse 62 bpm, BP 120/70 mmHg. - No current chest pain, palpitations, dyspnea, lightheadedness, or dizziness. - No side effects from medications reported. - Physical exam unremarkable; heart sounds regular, no abnormal findings. - Discussed rescheduling upcoming physical exam to allow time for cardiology follow-up and ablation procedure. - Follow-up as needed; patient to monitor symptoms and report any changes. Shasta Walters MD documented in this encounter [facility] 11-13-2024 Progress note [facility] 11-13-2024 Progress note Note Date/Time November 13, 2024 3:05pm [facility] [address] [place] [address]. [address] [place] [address] OFFICE VISIT Date of Service: 11/13/24 MR#: [id number] Acct: [id number] Name: SARANYA BERMUDEZ Rep #: [id number] : 1965 Provider: ANA Tinoco Age/Sex: 58/F Location: [facility] Status: Signed HPI HPI History of Present Illness Details: Saranya Bermudez is a 58-year-old female who presented to [facility] on 11/05/2024 for palpitations and chest pain. Initial troponin was 157, delta troponin was 190. She did require an adenosine cardioversion for herSVT. It was felt that her troponins were elevated to her tachycardia. She did undergo an echocardiogram which demonstrated an EF of 60% with small pericardialeffusion and evidence of diastolic dysfunction. Patient was started on a beta-kristina and recommended to follow-up with us in the office for possible EP referral for ablation. Pt notes that this past sunday she had an episode that lasted most of the day. Her HRs were around 130-150. She notes that she was having an increase in this over the last few months. Earlier is was a few times a month now its a few times a week.These can last several hours. What brought her into the ER on 11/05, was that it was going faster, she was tired and just felt off. She did have a zio patch on at the time of her hospital stay that was ordered byher PCP. Intake Vital Signs 11/06/24 10:58 11/13/24 09:37 Height 5 ft 7 in 5 ft 7 in Weight: 195 lb 1.745 oz 192 lb BMI 30.0 BP 119/77 Blood Pressure Location Lt brachial Position Sitting Respiration 18 Pulse 74 Pulse Source Monitor Pulse Oximetry (%) 95 Intake Visit Reasons: S/P [facility] 11/06 Database Design Analyst Required: No Is patient in pain?: No Allergies sertraline (From Zoloft) Adverse Reaction (Verified 11/13/24 14:36) Abd cramps/diarrhea Medications ?Medication ?Instructions ?Recorded ?Confirmed ?Type atorvastatin 20 mg tablet 20 mg PO QHS cholesterol 11/13/24 History cholecalciferol (vitamin D3) 1,250 1,250 mcg PO QWEEK 11/05/24 11/13/24 History mcg (50,000 unit) capsule losartan 25 mg tablet 25 mg PO QHS 11/05/24 History metoprolol succinate 50 mg 50 mg PO DAILY #30 tabs 11/13/24 Rx tablet,extended release 24 hr Have you fallen in the past year?: No PFSH Medical History (Updated 11/13/24 @ 14:48 by Lorrie PEREZ, PA) SVT (supraventricular tachycardia) Depression High cholesterol HTN (hypertension) Social History current occupational status: employed Smoking Status: Current every day smoker tobacco type: cigarettes ROS Const Const: Negative for fatigue, weakness, headache(s) or frequent falls Eyes Eyes: Negative for blurry vision ENT ENT: Negative for headache(s), dizziness or Nosebleed/epistaxis Cardio Chest Pain: No Palpitations: Yes Edema: None Muscle aches with walking: None Resp Respiratory: Negative for SOB with activity, SOB at rest or SOB orthopneaundefinedSOB lying down GI GI: Negative nausea, vomiting, heartburn, bright, red blood in stools or black,tarry stools : Negative for hematuria Neuro Neuro: Negative for dizziness, lightheadedness, near syncope, syncope, frequent falls, headache(s), weakness or blurry vision Endo Endo: Negative for fatigue Cardiology Exam Const Appearance: cooperative, no acute distress and well developed Orientation: alert, awake and oriented x3 Head Head: normocephalic and atraumatic Mouth: moist mucous membranes Eyes General: appearance normal, both eyes and all related structures Conjunctivae: conjunctivae normal Pupils: PERRL EOM: EOM intact bilaterally Neck Neck: normal visual inspection, no lymphadenopathy and no JVD Carotids: Negative bruit Neck Mass: Negative Neck mass Chest Chest inspection: normal inspection of the chest and symmetric chest movement Auscultation: Bilateral: Clear to Auscultation Cardio Palpation: normal PMI Rate: regular rate Rhythm: regular rhythm Heart sounds: S1 normal and S2 normal; Negative rub, gallop or murmur GI GI: normal to inspection, soft, no hepatosplenomegaly and bowel sounds present; Negative tender Neuro General: patient alert, patient awake, patient oriented x3, CN's II-XI intact bilaterally and moves all extremities Extremities Pulses: Normal: Right Posterior Tibial Pulse, Left Posterior Tibial Pulse, RightRadial Pulse and Left Radial Pulse Lower Extremity Edema: None: Bilateral Psych Psychological: normal affect Supplemental Info Supplemental Information Echo Complete 10/2024 Interpretation Summary The estimated ejection fraction is 60 %. No evidence for diastolic dysfunction. Trivial mitral valve insufficiency. Small (<1.0 cm) pericardial effusion. Stress test 2019: 1. Rest and stress SPECT Cardiolite nuclear imaging demonstrate relative uniform tracer uptake and myocardial perfusion appearing within normal limits. 2. The gated Cardiolite study reports an LVEF of 68 %. Labs: LDL Cholesterol 112 mg/dL (0-130) HDL Cholesterol 29 mg/dL (40-) L Cholesterol 105 mg/dL (<=200) Triglycerides 117 mg/dL (-199) Diagnostics: Electrocardiogram Echocardiogram Stress Test Stress Test Nuclear Medicine Chest X-Ray Chest CTA Extremity Arterial Study Pulmonary: No Data to Display Past Visits: Cardiology Visit 11/13/24 Assessment and Plan Assessment and Plan (1) SVT (supraventricular tachycardia): Status: Acute Plan: Will continue with her Toprol. Will discuss with Dr. Hu about a possible ablation. (2) HTN (hypertension): Status: Chronic Qualifiers: Hypertension type: primary hypertension Qualified Code(s): I10 - Essential (primary) hypertension Plan: Controlled on the losartan. Medications: Changed From metoprolol succinate ER 50 mg PO DAILY To metoprolol succinate ER 50 mg PO DAILY 30 tabs 3RF Plan Details Follow Up: 11/13/24 (Please obtain zio patch from PCP) 3 Months (MMM) Coding Level of Care Code Off vis,est,level 4 Diagnoses SVT (supraventricular tachycardia) I47.10 Primary hypertension I10 Hypertension type: primary hypertension Coding Level of Care Code Off vis,est,level 4 Diagnoses SVT (supraventricular tachycardia) I47.10 Primary hypertension I10 Hypertension type: primary hypertension Clinical Quality Measures Falls Risk Screening/Assistive Devices Have you fallen in the past year?: No 11/13/24 [id number] <Electronically signed by Lorrie Ramírez> Date _ Lorrie PEREZ Cosigner Signature: Date (if applicable) CC: Dr. Bucky Walters MD ~ [facility] [employer] Work Phone: [phone] 722-311905-27-2025 NoteHNO ID: [id number] Author: SHASTA WALTERS MD Service: ? Author Type: Physician Type: Progress Notes Filed: 11/11/2024 07:22 Note Text: Reviewed.[facility]05-27-2025 History of Present illness Narrative* Shasta Walters MD - 11/11/2024 7:22 AM EDT Reviewed. * Roma Bolaños LPN - 11/07/2024 3:22 PM EDT TRANSITION CARE MANAGEMENT (TCM) INITIAL CONTACT Micro Paleontologist Outreach Provider Action/FYI: 11/06/24 [facility] Discharge Initial contact with patient post discharge, spoke to patient. Patient identified by name and . TRANSITION CARE MANAGEMENT INITIAL OUTREACH DOCUMENTATION: 11/07/2024 Date of Outreach: Outreach Attempt 1: Contact Made Date of Discharge 11/06/2024 SUMMARY: -Pt discharged from [facility] on 11/06/24. -Admitted for: SVT, chest pain, palpitations, racing heart Do you have a hospital follow up appointment with your PCP? Appointment on 11/18/[address] Walters. Yes. Remind patient of appointment date, time, and location. If not within 14 calendar days of discharge - please reschedule accordingly. MEDICATIONS: Many patients have questions or concerns about their medications once they are home. Were you prescribed any new medications? No Were you told to hold any medications? No Were any of your medications discontinued? No Do you have any questions about getting or taking your medications? No Your discharge instructions/After visit Summary (AVS) are important in guiding you through the recovery process. Is there anything I might help you understand? No Do you have all the necessary equipment and supplies at home? Yes Medical records from recent hospitalization: Received and placed on provider's desk for review. [facility] NoteHNO ID: [id number] Author: ROMA BOLAÑOS LPN Service: ? Author Type: LICENSED NURSE Type: Progress Notes Filed: 11/12/2024 10:08 Note Text: TRANSITION CARE MANAGEMENT (TCM) INITIAL CONTACT Micro Paleontologist Outreach Provider Action/FYI: 11/06/24 [facility] Discharge Initial contact with patient post discharge, spoke to patient. Patient identified by name and . TRANSITION CARE MANAGEMENT INITIAL OUTREACH DOCUMENTATION: 11/07/2024 Date of Outreach: Outreach Attempt 1: Contact Made Date of Discharge 11/06/2024 SUMMARY: -Pt discharged from [facility] on 11/06/24. -Admitted for: SVT, chest pain, palpitations, racing heart Do you have a hospital follow up appointment with your PCP? Appointment on 11/18/[address] Walters. Yes. Remind patient of appointment date, time, and location. If not within 14 calendar days of discharge - please reschedule accordingly. MEDICATIONS: Many patients have questions or concerns about their medications once they are home. Were you prescribed any new medications? No Were you told to hold any medications? No Were any of your medications discontinued? No Do you have any questions about getting or taking your medications? No Your discharge instructions/After visit Summary (AVS) are important in guiding you through the recovery process. Is there anything I might help you understand? No Do you have all the necessary equipment and supplies at home? Yes Medical records from recent hospitalization: Received and placed on provider's desk for review.[facility] 11-07-2024 NotePatient Outreach (FAMPWS) SARANYA BERMUDEZ ([id number]) 1965 F Date Time Provider Department 11/07/24 ROMA BOLAÑOS During your visit today, we recorded the following information about you: Roma Bolaños LPN 11/12/2024 10:08 AM Signed TRANSITION CARE MANAGEMENT (TCM) INITIAL CONTACT Micro Paleontologist Outreach Provider Action/FYI: 11/06/24 [facility] Discharge Initial contact with patient post discharge, spoke to patient. Patient identified by name and . TRANSITION CARE MANAGEMENT INITIAL OUTREACH DOCUMENTATION: 11/07/2024 Date of Outreach: Outreach Attempt 1: Contact Made Date of Discharge 11/06/2024 SUMMARY: -Pt discharged from [facility] on 11/06/24. -Admitted for: SVT, chest pain, palpitations, racing heart Do you have a hospital follow up appointment with your PCP? Appointment on 11/18/[address] Walters. Yes. Remind patient of appointment date, time, and location. If not within 14 calendar days of discharge - please reschedule accordingly. MEDICATIONS: Many patients have questions or concerns about their medications once they are home. Were you prescribed any new medications? No Were you told to hold any medications? No Were any of your medications discontinued? No Do you have any questions about getting or taking your medications? No Your discharge instructions/After visit Summary (AVS) are important in guiding you through the recovery process. Is there anything I might help you understand? No Do you have all the necessary equipment and supplies at home? Yes Medical records from recent hospitalization: Received and placed on provider's desk for review. Shasta Walters MD 11/11/2024 7:22 AM Signed Reviewed. Allergies As of Date: 11/07/2024 Noted Allergy Reaction ZOLOFT (SERTRALINE HCL) 12/03/2017 6 - Diarrhea 8 - GI Upset Date Reviewed: 11/04/2024 Reviewed by: Roma Bolaños LPN - Fully Assessed Reason for Visit: Transition Of Care [4074] Prescriptions as of 11/12/2024 - metoprolol succinate ER (TOPROL XL) 50 mg 24 hr tablet Take 1 tablet by mouth once daily. - cholecalciferol, Vitamin D3, (VITAMIN D3) 1,250 mcg (50,000 unit) cap capsule Take 1 capsule by mouth one time a week. - atorvastatin (LIPITOR) 20 mg tablet Take 1 tablet by mouth daily at bedtime. For cholesterol. - losartan (COZAAR) 25 mg tablet Take 1 tablet by mouth daily at bedtime. - Blood Pressure Monitor kit Check BP at home. Problem List As Of Date 11/07/2024 Noted Resolved Moderate persistent asthma without complication*05/15/2005 Major Depressive Disorder, Single Episode, Unsp* Acquired cyst of kidney [N28.1] 05/16/2018 Chronic Obstructive Asthma with Status Asthmati* Routine Gynecological Examination [Z01.419] 01/25/2010 Class: Chronic Iron deficiency anemia [D50.9] 01/06/2012 Adjustment disorder with mixed anxiety and depr*12/13/2012 Polycystic kidney disease [Q61.3] Obesity, Class I, BMI 30-34.9 [E66.811] 05/16/2018 Hypertension, essential [I10] 05/16/2018 Tobacco abuse [Z72.0] 05/16/2018 Hydronephrosis, left [N13.30] 05/16/2018 Hyperlipidemia [E78.5] PAD (peripheral artery disease) (HCC) [I73.9] 02/18/2021 Encounter Status:Closed by ROMA BOLAÑOS on 11/12/24[facility] 11-06-2024 [facility] Medical Records Department [address] [place] [address] Discharge Summary 11/06/24 1616 MR#: [id number] Acct: [id number] Name: SARANYA BERMUDEZ Rep #: [id number] : 1965 58 From: Glenny Moore DO PCP: Dr. Bucky Walters MD Status:ADM CHERYL Location: [place] [address] Providers Date of Admission: 11/05/24 Date of Discharge: 11/06/24 Primary Care Physician: Dr. Bucky Walters MD Consultations 11/05/24 22:31 Consult: Cardiology Routine Consulting Provider: Ashley Lora [facility] Reason for Consult: SVT, Chest Pain, Palpitations, Heart Racing and Elevated Troponin. EMERGENT Consult: No MD Notified: Yes Date Notified: 11/05/24 Time Notified: 22:02 Method of Notification: ED Physician Initiated Reason For Visit: SVT, CHEST PAIN, PALPATATIONS, HEART RACING Diagnosis Discharge Diagnosis (1) SVT (supraventricular tachycardia): Status: Acute Code(s): I47.10 - Supraventricular tachycardia, unspecified (2) Elevated troponin: Status: Acute Code(s): R79.89 - Other specified abnormal findings of blood chemistry (3) HTN (hypertension): Status: Chronic Code(s): I10 - Essential (primary) hypertension Qualifiers: Hypertension type: primary hypertension Qualified Code(s): I10 - Essential (primary) hypertension Medications at Discharge Home Medications atorvastatin 20 mg tablet 20 mg PO QHS cholesterol 11/05/24 cholecalciferol (vitamin D3) 1,250 mcg (50,000 unit) capsule 1,250 mcg PO QWEEK 11/05/24 losartan 25 mg tablet 25 mg PO QHS 11/05/24 metoprolol succinate 25 mg tablet,extended release 24 hr 50 mg PO DAILY 11/05/24 Hospital Course Operations None Procedures 2-D Echocardiogram, Cardioversion and - (CXR) Summary of Care Provided Minutes Spent on Discharge: 33 Hospital Course: Ms. Bermudez is a 58-year-old white female who presented to the emergency department at [facility] on 11/05/2024 with chief complaint of chest pain. Patient reported substernal chest pain at about 4:30 PM while she was getting dinner ready. She had no pain that radiated and no associated nausea or shortness of breath. Patient reported that she been having palpitations with a racing heart symptoms for about 3 months prior to presentation. She denied any lightheadedness. She never had chest pains associated with it until on the day of presentation. She does smoke and her mother had an MO in her 40s. She also has hypertension hyperlipidemia. She had a stress test about 10 years ago but no history of cardiac catheterization. She has a chronic cough associated with her tobacco abuse but nothing acute. Vital signs on presentation showed a temperature of 97.4, heart rate was 144, respiratory was 26, blood pressure was 107/76, pulse ox was 100% on room air. CBC showed a mild leukocytosis but was otherwise unremarkable. Initial troponin was 157 with a delta troponin of 190. Chemistry panel showed normal renal function, normal electrolytes and a blood glucose of 104. Due to her tachycardia she was given adenosine in the emergency department 6 mg IV push x 1 dose which converted her back into normal sinus rhythm. On- call senior quality control inspector suspected type II NSTEMI due to demand ischemia from persistent SVT and it was recommended she be admitted for echocardiogram and evaluation. She was admitted to telemetry and cardiology was consulted. She is on chronic metoprolol and losartan for her blood pressure at home. Echocardiogram was performed and showed an EF of 60% with no evidence of diastolic dysfunction and a small pericardial effusion. Case was discussed further with cardiology and the overall plan is to continue her outpatient beta-kristina and have her follow-up with cardiology for consideration of ablation for SVT. She has been instructed to come back to the emergency department if she has recurrent symptoms. No new prescriptions were given at the time of discharge and I have asked her to call the senior quality control inspector office on Sunday if they do not call her tomorrow to assist with outpatient follow-up for SVT ablation with EP. Patient discharged home in stable condition on 11/06/2024. Discharge diagnoses: Chest pain secondary to SVT Trope elevation secondary to demand ischemia from SVT Small pericardial effusion Essential hypertension Hyperlipidemia Tobacco abuse Obesity Physical Exam Const alert, oriented x3, no apparent distress, no limitations and well nourished; Negative for average body habitus or healthy appearing Constitutional Narrative: Obese, middle-aged, white female, appears older than stated age, sitting up in bed watching television, appears comfortable, nontoxic General Appearance: cooperative, comfortable, well kempt and well developed Exam Limitations: no limitations Nutritional Appearance: obese HEENT normocephalic, head/scalp atraumatic and moist (more content not included)... [facility]05-21-2025 Evaluation note* Diagnosis Onset Date Resolution Status Admit Date Chest pain acute November 05, 2024 9:59pm Elevated troponin acute October 9:59pm Overweight (BMI 25.0-29.9) acute November 05, 2024 9:59pm Palpitations acute November 05, 20 25 9:59pm Racing heart beat acute October 9:59pm SVT (supraventricular tachycardia) acute November 05, 2024 9 :59pm Tobacco abuse acute November 05, 2 025 9:59pm HTN (hypertension) chronic November 052024 9:59pm SVT (supraventricular tachycardia) acute November 13, 2024 2 :31pm HTN (hypertension) chronic November 132024 2:31pm [facility] Work Phone: 1(483) 962-969505-21-2025 Evaluation note* Diagnosis Onset Date Resolution Status Admit Date Elevated troponin acute October 9:59pm HTN (hypertension) chronic November 052024 9:59pm Chest pain resolved November 05, 2024 9:59pm Palpitations resolved November 05 9:59pm Racing heart beat resolved October 9:59pm SVT (supraventricular tachycardia) resolved November 05, 2024 9 :59pm Overweight (BMI 25.0-29.9) inactive November 05, 2024 9:59pm Tobacco abuse inactive November 05, 2 025 9:59pm HTN (hypertension) chronic November 132024 2:31pm SVT (supraventricular tachycardia) resolved November 13, 2024 2 :31pm HTN (hypertension) chronic December 162024 9:01am SVT (supraventricular tachycardia) resolved December 16, 2024 9 :01am [employer] Work Phone: 1(183) 669-382805-21-2025 Discharge summary [facility] Medical Records Department [address] [place] [address] Emergency Department Summary 11/05/24 MR#: [id number] Acct: [id number] Name: SARANYA BERMUDEZ Rep #:[id number] : 1965 58 From: Eric Loaiza PCP: Dr. Bucky Walters MD Status :ADM CHERYL Location: [address] History of Present Illness Chief Complaint: Chest Pain Informant: patient Narrative Narrative: Patient presents with left-sided burning to the chest substernal discomfort 4:30PM while getting ready for dinner. No pain down the arms no nausea. She has been having on and off palpitations racing heart for last 3 months. Saw her PCPshe currently has Zio patch day . Since having onset been more symptomatic. No lightheaded symptoms. No chest pains until today. Tobacco history mother withMI in her 40s hypertension hyperlipidemia. Denies diabetes. Stress test years ago no history of heart caths. She has had a smoker's cough. No recent travel, surgeries, or immobilizations. No history of PE or DVT. Shehas had no recent vomiting or diarrhea. CVD Risk Factors: Positive for Hypertension, Hypercholesterolemia, Family History 1' PE Risk Factors: Negative for Recent Travel/Surgery, Recent Immobilization or Prior DVT or PE PFSH PFS Medical History (Updated 11/05/24 @ 22:[address] Eric Lazcano, DO) Depression High cholesterol HTN (hypertension) Home Medications ?Medication ?Instructions ?Recorded ?Last Taken ?Type atorvastatin 20 mg tablet 20 mg PO QHS cholesterol Unknown History cholecalciferol (vitamin D3) 1,250 1,250 mcg PO QWEEK 11/05/24 Unknown History mcg (50,000 unit) capsule losartan 25 mg tablet 25 mg PO QHS 11/05/24 Unknow n History metoprolol succinate 25 mg 50 mg PO DAILY 11/05/24 Unk nown History tablet,extended release 24 hr Allergy/AdvReac Type Severity Reaction Status Date / Time No Known Allergies Allergy Verified 11/05/24 17:13 Social History current occupational status: employed Smoking Status: Current every day smoker tobacco type: cigarettes ROS ROS ED Constitutional Constitutional ED: Denies chills, fever(s) or sweats ENT ENT ED: Denies sore throat Cardiovascular Cardiovascular: Reports chest pain, palpitations and racing heartbeat; Denies leg edema Respiratory/Chest Respiratory/Chest: Reports cough; Denies dyspnea or dyspnea on exertion Gastrointestinal Gastrointestinal: Denies abdominal pain, diarrhea, nausea or vomiting Genitourinary Genitourinary ED: Denies dysuria, hematuria or urinary frequency Musculoskeletal Musculoskeletal: Denies back pain, extremity pain or neck pain Integumentary Denies rash or wounds Neurologic Neurologic: Denies headache(s), paresthesias or weakness EXAM Physical Exam Const Vital Signs: 11/05/24 17:13 11/05/24 17:33 11/05/24 18:00 Temperature 97.4 F L Temperature Source Temporal Pulse Rate 144 H 130 H Respiratory Rate 26 H 20 H Blood Pressure 107/76 99/83 H Blood Pressure Mean 86 88 Pulse Ox 100 96 96 Oxygen Delivery Method Room Air Room Air Room Air 11/05/24 18:31 11/05/24 19:00 11/05/24 20:00 Temperature Temperature Source Pulse Rate 81 77 74 Respiratory Rate 11 L 24 H 17 Blood Pressure 120/79 133/86 H 157/93 H Blood Pressure Mean 92 99 113 Pulse Ox 97 96 97 Oxygen Delivery Method Room Air 11/05/24 21:00 Temperature Temperature Source Pulse Rate 73 Respiratory Rate 22 H Blood Pressure 152/84 H Blood Pressure Mean 106 Pulse Ox 98 Oxygen Delivery Method Positive well nourished and well developed General Appearance ED: well developed and NAD HEENT Reports moist mucous membranes normocephalic and atraumatic Eyes General Eye ED: Yes normal appearance of both eyes Neck full ROM Chest Wall Chest: Negative for tenderness Resp normal respiratory effort and normal air movement Effort and Inspection: symmetric chest movement; Negative for respiratory distress Cardio regular rhythm and no murmurs Rate: tachycardic Peripheral Pulses: pulses 2+ throughout GI normal to inspection, nondistended, normoactive bowel sounds and non-tender Palpation: Negative for guarding or rebound tenderness present Extremity normal to inspection General Extremety ED: Negative for edema or tenderness General Extremity: Negative for edema Neuro oriented x3 and no sensory deficits noted Sensorium / Orientation: awake and alert Skin no rashes or lesions noted and no wounds Heart Score History: Slightly/Non-Suspicious ECG: Normal Age: >45 - <65 years Risk Factors: >/= 3 Risk Factors or History of CAD Troponin: >/=3 x Normal Limit Score: 5 MDM MDM MDM Narrative Medical decision making narrative: Interventions / MDM: Differential diagnosis: SVT, a flutter, chest pain, elevated troponin Diagnosis considered but do not suspect: Pulmonary embolism however D-dimer negative. My EKG interpretation: Narrow complex tachycardia rate of 132, no ST changes, T wave inversions leads I and aVL. T wave similar from October 2023 Repeat EKG at 1835: Sinus rhythm rate of 82, no ST changes, T wave inversions noted in leads I and aVL. Imaging independently reviewed and interpreted by myself: 1 view chest x-ray: Noacute process. External documents reviewed: N/A Test considered but not ordered:N/A ED course: Patient parent chest pains of burning however said palpitations for months worse over the last 2 weeks. Heart rate presenting 140s 130s in the roomnarrow complex tachycardia EKG questionable SVT in the 130s. Cardiac workup initiated by nursing. Added D-dimer due to tachycardia. Ordered for 500 cc of normal saline fluid to evaluate if will improve her heart rate. 1800: Initial troponin returned at 157. She is only had chest pain at 430. Shehas been having racing heart concern likely secondary to heart strain from her tachycardia. Heart rate did not improve with fluids. 180: I did speak with senior quality control inspector Dr. Coburn, EKG sent to him through backline for evaluation. He recommended trial of adenosine 6 and 12 for therapeutic and diagnostic if possible underlying a flutter which show with adenosine. This wasprepped. 182: AP pads were placed, IV fluids, 6 mg adenosine was given. Brief pause return to sinus rhythm.Blood pressure stable. Creatinine 1.17 hemoglobin 13.2white count 12.3. D-dimer pending. Repeat EKG sinus rhythm. 1939: D-dimer negative. Chest x-ray negative. Discussion with cardiology Dr. Coburn, did not recommend heparin at this time as likely type II strain from her SVT. She was given aspirin. Will plan for admission for echocardiogram with her cardiac risk factors. Repeat troponin up to 190. She had racing heart tachycardia up to chemical cardioversion. Symptom-free since then. I discussed with hospitalist Dr. Lopez for admission to PCU. Patient remains symptom-free. Re-evaluation: stable Disposition discussed with patient/family/significant other: Patient Case discussed with consulting clinician: Cardiology, hospitalist This note was generated with [employer] dictation software. It may contain incorrectwords, spelling, and punctuation that were not noted in checking the note beforesigning. Lab Data Attestation: I reviewed the patient's lab results. Labs: Laboratory Results - last 24 hr 11/05/24 11/05/24 17:20 19:48 WBC 12.3 H RBC 4.31 Hgb 13.2 Hct 40.0 MCV 92.8 MCH 30.6 MCHC 33.0 RDW Std Deviation 47.2 H RDW Coeff of Adrian 13.8 Plt Count 258 MPV 11.3 Immature Gran % (Auto) 0.200 Neut % (Auto) 57.8 Lymph % (Auto) 33.8 Boyle % (Auto) 7.5 Eos % (Auto) 0.3 Baso % (Auto) 0.4 Absolute Neuts (auto) 7.1 Absolute Lymphs (auto) 4.17 Nucleated RBC % 0 Platelet Estimate ADEQUATE D-Dimer Quant (PE/DVT) 0.48 Sodium 142 Potassium 4.0 Chloride 107 Carbon Dioxide 24.6 Anion Gap 10 BUN 19 Creatinine 1.17 Estim Creat Clear Calc 62.40 Est GFR (MDRD) Non-Af 55 L BUN/Creatinine Ratio 16.4 Glucose 104 H Calcium 9.0 Troponin T High Sens 157 H* Troponin T Hi Sens 2 Hr 190 H* Critical Care Time Critical Care Time: Yes Critical care time (excluding procedures): 30-74 minutes, Discussing w/Patient &/or Family/CareGiver, Discussing w/Consultants, Arranging Admission or Transfer, Performing Direct Patient Care atBedside and - (40 minutes) Discharge Plan Dx/Rx/DC Orders Clinical Impression: Chest pain, SVT (supraventricular tachycardia), Elevated troponin, Palpitations Disposition Disposition: Acute Care Hospital [facility] What to do if you have Problems For any increased pain, shortness of breath, bleeding, nausea or vomiting, chestpain, or any unexpected problems, contact your Primary Care Provider. Call [facility] ([phone]) or report tothe closest Emergency Room. Call 911 if necessary. 11/05/242227 Cosigner Signature (if applicable): CC: Dr. Bucky Walters MD ~ Signed [facility]05-21-2025 Discharge summary Author Eric Le [facility] Note Date/Time November 05, 2024 10:28 pm [facility] Medical Records Department [address] [place] [address] Emergency Department Summary 11/05/24 MR#: [id number] Acct: [id number] Name: SARANYA BERMUDEZ Rep #:[id number] : 1965 58 From: Eric Loaiza PCP: Dr. Bucky Walters MD Status :ADM CHERYL Location: [place] [address] HPI History of Present Illness Chief Complaint: Chest Pain Informant: patient Narrative Narrative: Patient presents with left-sided burning to the chest substernal discomfort 4:30PM while getting ready for dinner. No pain down the arms no nausea. She has been having on and off palpitations racing heart for last 3 months. Saw her PCPshe currently has Zio patch day . Since having onset been more symptomatic. No lightheaded symptoms. No chest pains until today. Tobacco history mother with [place] in her 40s hypertension hyperlipidemia. Denies diabetes. Stress test years ago no history of heart caths. She has had a smoker's cough. No recent travel, surgeries, or immobilizations. No history of PE or DVT. Shehas had no recent vomiting or diarrhea. CVD Risk Factors: Positive for Hypertension, Hypercholesterolemia, Family History 1' </=55 and Smoking; Negative for Diabetes PE Risk Factors: Negative for Recent Travel/Surgery, Recent Immobilization or Prior DVT or PE PFSH PFSH Medical History (Updated 11/05/24 @ 22:[address] Eric Lazcano, DO) Depression High cholesterol HTN (hypertension) Home Medications ?Medication ?Instructions ?Recorded ?Last Taken ?Type atorvastatin 20 mg tablet 20 mg PO QHS cholesterol Unknown History cholecalciferol (vitamin D3) 1,250 1,250 mcg PO QWEEK 11/05/24 Unknown History mcg (50,000 unit) capsule losartan 25 mg tablet 25 mg PO QHS 11/05/24 Unknow n History metoprolol succinate 25 mg 50 mg PO DAILY 11/05/24 Unk nown History tablet,extended release 24 hr Allergy/AdvReac Type Severity Reaction Status Date / Time No Known Allergies Allergy Verified 11/05/24 17:13 Social History current occupational status: employed Smoking Status: Current every day smoker tobacco type: cigarettes ROS ROS ED Constitutional Constitutional ED: Denies chills, fever(s) or sweats ENT ENT ED: Denies sore throat Cardiovascular Cardiovascular: Reports chest pain, palpitations and racing heartbeat; Denies leg edema Respiratory/Chest Respiratory/Chest: Reports cough; Denies dyspnea or dyspnea on exertion Gastrointestinal Gastrointestinal: Denies abdominal pain, diarrhea, nausea or vomiting Genitourinary Genitourinary ED: Denies dysuria, hematuria or urinary frequency Musculoskeletal Musculoskeletal: Denies back pain, extremity pain or neck pain Integumentary Denies rash or wounds Neurologic Neurologic: Denies headache(s), paresthesias or weakness EXAM Physical Exam Const Vital Signs: 11/05/24 17:13 11/05/24 17:33 11/05/24 18:00 Temperature 97.4 F L Temperature Source Temporal Pulse Rate 144 H 130 H Respiratory Rate 26 H 20 H Blood Pressure 107/76 99/83 H Blood Pressure Mean 86 88 Pulse Ox 100 96 96 Oxygen Delivery Method Room Air Room Air Room Air 11/05/24 18:31 11/05/24 19:00 11/05/24 20:00 Temperature Temperature Source Pulse Rate 81 77 74 Respiratory Rate 11 L 24 H 17 Blood Pressure 120/79 133/86 H 157/93 H Blood Pressure Mean 92 99 113 Pulse Ox 97 96 97 Oxygen Delivery Method Room Air 11/05/24 21:00 Temperature Temperature Source Pulse Rate 73 Respiratory Rate 22 H Blood Pressure 152/84 H Blood Pressure Mean 106 Pulse Ox 98 Oxygen Delivery Method Positive well nourished and well developed General Appearance ED: well developed and NAD HEENT Reports moist mucous membranes normocephalic and atraumatic Eyes General Eye ED: Yes normal appearance of both eyes Neck full ROM Chest Wall Chest: Negative for tenderness Resp normal respiratory effort and normal air movement Effort and Inspection: symmetric chest movement; Negative for respiratory distress Cardio regular rhythm and no murmurs Rate: tachycardic Peripheral Pulses: pulses 2+ throughout GI normal to inspection, nondistended, normoactive bowel sounds and non-tender Palpation: Negative for guarding or rebound tenderness present Extremity normal to inspection General Extremety ED: Negative for edema or tenderness General Extremity: Negative for edema Neuro oriented x3 and no sensory deficits noted Sensorium / Orientation: awake and alert Skin no rashes or lesions noted and no wounds Heart Score History: Slightly/Non-Suspicious ECG: Normal Age: >45 - <65 years Risk Factors: >/= 3 Risk Factors or History of CAD Troponin: >/=3 x Normal Limit Score: 5 MDM MDM MDM Narrative Medical decision making narrative: Interventions / MDM: Differential diagnosis: SVT, a flutter, chest pain, elevated troponin Diagnosis considered but do not suspect: Pulmonary embolism however D-dimer negative. My EKG interpretation: Narrow complex tachycardia rate of 132, no ST changes, T wave inversions leads I and aVL. T wave similar from October 2023 Repeat EKG at 1835: Sinus rhythm rate of 82, no ST changes, T wave inversions noted in leads I and aVL. Imaging independently reviewed and interpreted by myself: 1 view chest x-ray: Noacute process. External documents reviewed: N/A Test considered but not ordered:N/A ED course: Patient parent chest pains of burning however said palpitations for months worse over the last 2 weeks. Heart rate presenting 140s 130s in the roomnarrow complex tachycardia EKG questionable SVT in the 130s. Cardiac workup initiated by nursing. Added D-dimer due to tachycardia. Ordered for 500 cc of normal saline fluid to evaluate if will improve her heart rate. 1800: Initial troponin returned at 157. She is only had chest pain at 430. Shehas been having racing heart concern likely secondary to heart strain from her tachycardia. Heart rate did not improve with fluids. 180: I did speak with senior quality control inspector Dr. Coburn, EKG sent to him through backline for evaluation. He recommended trial of adenosine 6 and 12 for therapeutic and diagnostic if possible underlying a flutter which show with adenosine. This wasprepped. 182: AP pads were placed, IV fluids, 6 mg adenosine was given. Brief pause return to sinus rhythm. Blood pressure stable. Creatinine 1.17 hemoglobin 13.2white count 12.3. D-dimer pending. Repeat EKG sinus rhythm. 1939: D-dimer negative. Chest x-ray negative. Discussion with cardiology Dr. Coburn, did not recommend heparin at this time as likely type II strain from her SVT. She was given aspirin. Will plan for admission for echocardiogram with her cardiac risk factors. Repeat troponin up to 190. She had racing heart tachycardia up to chemical cardioversion. Symptom-free since then. I discussed with hospitalist Dr. Lopez for admission to PCU. Patient remains symptom-free. Re-evaluation: stable Disposition discussed with patient/family/significant other: Patient Case discussed with consulting clinician: Cardiology, hospitalist This note was generated with [employer] dictation software. It may contain incorrectwords, spelling, and punctuation that were not noted in checking the note beforesigning. Lab Data Attestation: I reviewed the patient's lab results. Labs: Laboratory Results - last 24 hr 11/05/24 11/05/24 17:20 19:48 WBC 12.3 H RBC 4.31 Hgb 13.2 Hct 40.0 MCV 92.8 MCH 30.6 MCHC 33.0 RDW Std Deviation 47.2 H RDW Coeff of Adrian 13.8 Plt Count 258 MPV 11.3 Immature Gran % (Auto) 0.200 Neut % (Auto) 57.8 Lymph % (Auto) 33.8 Boyle % (Auto) 7.5 Eos % (Auto) 0.3 Baso % (Auto) 0.4 Absolute Neuts (auto) 7.1 Absolute Lymphs (auto) 4.17 Nucleated RBC % 0 Platelet Estimate ADEQUATE D-Dimer Quant (PE/DVT) 0.48 Sodium 142 Potassium 4.0 Chloride 107 Carbon Dioxide 24.6 Anion Gap 10 BUN 19 Creatinine 1.17 Estim Creat Clear Calc 62.40 Est GFR (MDRD) Non-Af 55 L BUN/Creatinine Ratio 16.4 Glucose 104 H Calcium 9.0 Troponin T High Sens 157 H* Troponin T Hi Sens 2 Hr 190 H* Critical Care Time Critical Care Time: Yes Critical care time (excluding procedures): 30-74 minutes, Discussing w/Patient &/or Family/Datapower Developer, Discussing w/Consultants, Arranging Admission or Transfer, Performing Direct Patient Care at Bedside and - (40 minutes) Discharge Plan Dx/Rx/DC Orders Clinical Impression: Chest pain, SVT (supraventricular tachycardia), Elevated troponin, Palpitations Disposition Disposition: Acute Care Hospital [facility] What to do if you have Problems For any increased pain, shortness of breath, bleeding, nausea or vomiting, chestpain, or any unexpected problems, contact your Primary Care Provider. Call [facility] ([phone]) or report to the closest Emergency Room. Call 911 if necessary. 11/05/242227 <Electronically signed by Eric Loaiza> Cosigner Signature (if applicable): CC: Dr. Bucky Walters MD ~ Signed [facility] Work Phone: 1(617) 444-462105-21-2025 Evaluation note* Diagnosis Onset Date Resolution Status Admit Date Chest pain acute November 05, 2024 9:59pm Elevated troponin acute October 9:59pm Overweight (BMI 25.0-29.9) acute November 05, 2024 9:59pm Palpitations acute November 05 9:59pm Racing heart beat acute October 9:59pm SVT (supraventricular tachycardia) acute November 05, 2024 9 :59pm Tobacco abuse acute November 05, 2 025 9:59pm HTN (hypertension) chronic November 052024 9:59pm [facility] Work Phone: 1(368) 681-621605-20-2025 Instructions* Patient Instructions* Shasta Walters MD - 11/04/2024 7:23 AM EDT - Increase your metoprolol to 50 mg once daily by taking two 25 mg tablets; a new 50 mg prescription has been sent to [facility] in [place] which you can take when you run out of the 25 mg tablets. - Start an 81 mg aspirin (baby aspirin) once daily. - Continue to check your blood pressure and heart rate at home; call our office if your blood pressure drops below 100/60 mm Hg, your heart rate falls into the 50s-40s, or you feel lightheaded or dizzy. - Limit your caffeine to one cup of coffee per day. - Wear the Zio patch for the full 2 weeks (it will come off this weekend); we will review the results once it s returned. If you don t hear from us within a few days after the patch is off, please call. - Keep your scheduled cardiology appointment; we may move it sooner if the Zio patch shows an arrhythmia requiring earlier evaluation. - Schedule a follow-up office visit in about two weeks to assess how you re doing on the higher metoprolol dose. [facility] NoteHNO ID: [id number] Author: SHASTA WALTERS MD Service: ? Author Type: Physician Type: Progress Notes Filed: 11/04/2024 07:24 Note Text: Chief Complaint Patient presents with: Follow Up: HR and BP recheck Recording using [employer] software for draft documentation of the visit was discussed with the patient/authorized customer operations representative; all questions welcomed and answered. Patient/authorized customer operations representative agreed to proceed HPI Saranya Bermudez is a 58 year old female who presents here today for Above Complaints. Tachycardia: - Previously reported heart rates of 150-160 bpm. - Started on metoprolol; taking 25 mg daily. - Current heart rates range from 70-85 bpm. - Occasional episodes of tachycardia up to 120 bpm, 1-2 times per week, lasting ~15 minutes. - Sometimes experiences fatigue during episodes. - Denies chest pain, dyspnea, or palpitations. - Wearing a Zio patch for 2 weeks; has been on for 1 week. - Contact [employer] appointment scheduled for February. - Decreased caffeine intake; continues to smoke cigarettes. Hypertension: - Home blood pressure readings: 120s/80s mmHg. - Denies lightheadedness, dizziness, or leg swelling. Past medical history, appointments, medications, allergies reviewed. Previous Medical History PAST MEDICAL HISTORY Diagnosis Date Anxiety Chronic obstructive asthma with status asthmaticus ([facility]) DVT (deep venous thrombosis) ([facility]) History of COVID-19 03/2021 History of heavy periods s/p hysterectomy Hyperlipidemia Hypertension 2016 Iron deficiency anemia 01/06/2012 Major depressive disorder, single episode, unspecified Obesity (BMI 30.0-34.9) PAD (peripheral artery disease) ([facility]) 02/18/2021 moderate on left LE Polycystic kidney disease Tobacco use Previous Surgical History PAST SURGICAL HISTORY Procedure Laterality Date COLONOSCOPY FLX DX W/COLLJ SPEC WHEN PFRMD 11/04/2018 Colonoscopy DILATION AND CURETTAGE DXAND/THER NONOBSTETRIC LAPARO-VAG HYST, COMPLEX 10/19/11 vag hysterectomy with bladder sling and posterior repair, bladder tear repaired LIG/TRNSXJ FLP TUBE ABDL/VAG APPR UNI/BI PAST SURGICAL HISTORY OF 2006 upper teeth removed UNSPECIFIED ORAL SURGERY PROCEDURE, BY REPORT WISDOM TEETH REMOVED Family History FAMILY HISTORY Problem Relation Age of Onset Heart Mother no communication with patient, doesn't have details Drug abuse Sister ??? patient doesn't know for sure. Colon Cancer Maternal Grandmother Diabetes Other no details known Colon Cancer Other no details known Coronary Artery Disease Other no details known Patient Allergies ALLERGIES Allergen Reactions Zoloft [Sertraline * Diarrhea, GI Upset Current Medications Current Outpatient Medications on File Prior to Visit Medication Sig cholecalciferol, Vitamin D3, (VITAMIN D3) 1,250 mcg (50,000 unit) cap capsule Take 1 capsule by mouth one time a week. metoprolol succinate ER (TOPROL XL) 25 mg 24 hr tablet Take 1 tablet by mouth once daily. atorvastatin (LIPITOR) 20 mg tablet Take 1 tablet by mouth daily at bedtime. For cholesterol. losartan (COZAAR) 25 mg tablet Take 1 tablet by mouth daily at bedtime. pentoxifylline ER (TRENTAL) 400 mg CR tablet Take 1 tablet by mouth three times a day with meals. (Patient not taking: Reported on 10/21/2024) Blood Pressure Monitor kit Check BP at home. No current facility-administered medications on file prior to visit. Social History Social History Tobacco Use Smoking status: Every Day Current packs/day: 1.00 Average packs/day: 1 pack/day for 30.0 years (30.0 ttl pk-yrs) Types: Cigarettes Smokeless tobacco: Never Vaping Use Vaping status: Never Used Substance Use Topics Alcohol use: No Drug use: No Review of Symptoms REVIEW OF SYSTEMS GENERAL: No weight loss, malaise or fevers RESPIRATORY: Negative for cough, hemoptysis, wheezing, COPD, dyspnea or shortness of breath CARDIOVASCULAR: Negative for chest pain, leg swelling, hypertension, CHF or palpitations GI: No nausea, vomiting, or diarrhea SKIN: Negative for lesions, rash, and itching EXAM: BP 128/74 Pulse 71 Resp 16 Wt 87 kg (191 lb 12.8 oz) LMP 05/05/2011 SpO2 98% BMI 31.92 kg/m? General Appearance: Well appearing, alert, in no acute distress, well-hydrated, well nourished.. Skin: Skin color, texture, turgor normal, no suspicious rashes or lesions. Lungs: Lungs clear to auscultation. No wheezing, rhonchi, rales.. Heart: RRR without murmur, gallop, or rubs. No ectopy. Extremities: No deformities, edema, skin discoloration, clubbing or cyanosis. Good capillary refill. Health Maintenance List Hepatitis B Vaccine(1 of 3 - 19+ 3-dose series) Never done Mammogram Screening due on 12/11/2024 Shingrix Vaccine(1 of 2) due on 12/06/2024 Covid-19 Vaccine( - season) due on 06/09/2025 Pneumococcal Vaccine: 50+(2 of 2 - PCV) due on 06/09/2025 Influenza Vaccine(Season E (more content not included)...[facility]05-20-2025 History of Present illness Narrative* Shasta Walters MD - 11/04/2024 7:07 AM EDT Chief Complaint Patient presents with: Follow Up: HR and BP recheck Recording using Tivity software for draft documentation of the visit was discussed with the patient/authorized customer operations representative; all questions welcomed and answered. Patient/authorized customer operations representative agreed to proceed HPI Saranya Bermudez is a 58 year old female who presents here today for Above Complaints. Tachycardia: - Previously reported heart rates of 150-160 bpm. - Started on metoprolol; taking 25 mg daily. - Current heart rates range from 70-85 bpm. - Occasional episodes of tachycardia up to 120 bpm, 1-2 times per week, lasting ~15 minutes. - Sometimes experiences fatigue during episodes. - Denies chest pain, dyspnea, or palpitations. - Wearing a Zio patch for 2 weeks; has been on for 1 week. - Contact [employer] appointment scheduled for February. - Decreased caffeine intake; continues to smoke cigarettes. Hypertension: - Home blood pressure readings: 120s/80s mmHg. - Denies lightheadedness, dizziness, or leg swelling. Past medical history, appointments, medications, allergies reviewed. Previous Medical History PAST MEDICAL HISTORY Diagnosis Date Anxiety Chronic obstructive asthma with status asthmaticus ([facility]) DVT (deep venous thrombosis) ([facility]) History of COVID-19 03/2021 History of heavy periods s/p hysterectomy Hyperlipidemia Hypertension 2016 Iron deficiency anemia 01/06/2012 Major depressive disorder, single episode, unspecified Obesity (BMI 30.0-34.9) PAD (peripheral artery disease) ([facility]) 02/18/2021 moderate on left LE Polycystic kidney disease Tobacco use Previous Surgical History PAST SURGICAL HISTORY Procedure Laterality Date COLONOSCOPY FLX DX W/COLLJ SPEC WHEN PFRMD 11/04/2018 Colonoscopy DILATION & CURETTAGE DX&/THER NONOBSTETRIC LAPARO-VAG HYST, COMPLEX 10/19/11 vag hysterectomy with bladder sling and posterior repair, bladder tear repaired LIG/TRNSXJ FLP TUBE ABDL/VAG APPR UNI/BI PAST SURGICAL HISTORY OF 2006 upper teeth removed UNSPECIFIED ORAL SURGERY PROCEDURE, BY REPORT WISDOM TEETH REMOVED Family History FAMILY HISTORY Problem Relation Age of Onset Heart Mother no communication with patient, doesn't have details Drug abuse Sister ??? patient doesn't know for sure. Colon Cancer Maternal Grandmother Diabetes Other no details known Colon Cancer Other no details known Coronary Artery Disease Other no details known Patient Allergies ALLERGIES Allergen Reactions Zoloft [Sertraline * Diarrhea, GI Upset Current Medications Current Outpatient Medications on File Prior to Visit Medication Sig cholecalciferol, Vitamin D3, (VITAMIN D3) 1,250 mcg (50,000 unit) cap capsule Take 1 capsule by mouth one time a week. metoprolol succinate ER (TOPROL XL) 25 mg 24 hr tablet Take 1 tablet by mouth once daily. atorvastatin (LIPITOR) 20 mg tablet Take 1 tablet by mouth daily at bedtime. For cholesterol. losartan (COZAAR) 25 mg tablet Take 1 tablet by mouth daily at bedtime. pentoxifylline ER (TRENTAL) 400 mg CR tablet Take 1 tablet by mouth three times a day with meals. (Patient not taking: Reported on 10/21/2024) Blood Pressure Monitor kit Check BP at home. No current facility-administered medications on file prior to visit. Social History Social History Tobacco Use Smoking status: Every Day Current packs/day: 1.00 Average packs/day: 1 pack/day for 30.0 years (30.0 ttl pk-yrs) Types: Cigarettes Smokeless tobacco: Never Vaping Use Vaping status: Never Used Substance Use Topics Alcohol use: No Drug use: No Review of Symptoms REVIEW OF SYSTEMS GENERAL: No weight loss, malaise or fevers RESPIRATORY: Negative for cough, hemoptysis, wheezing, COPD, dyspnea or shortness of breath CARDIOVASCULAR: Negative for chest pain, leg swelling, hypertension, CHF or palpitations GI: No nausea, vomiting, or diarrhea SKIN: Negative for lesions, rash, and itching EXAM: BP 128/74 Pulse 71 Resp 16 Wt 87 kg (191 lb 12.8 oz) LMP 05/05/2011 SpO2 98% BMI 31.92 kg/m General Appearance: Well appearing, alert, in no acute distress, well-hydrated, well nourished.. Skin: Skin color, texture, turgor normal, no suspicious rashes or lesions. Lungs: Lungs clear to auscultation. No wheezing, rhonchi, rales.. Heart: RRR without murmur, gallop, or rubs. No ectopy. Extremities: No deformities, edema, skin discoloration, clubbing or cyanosis. Good capillary refill. Health Maintenance List Hepatitis B Vaccine(1 of 3 - 19+ 3-dose series) Never done Mammogram Screening due on 12/11/2024 Shingrix Vaccine(1 of 2) due on 12/06/2024 Covid-19 Vaccine(1 - season) due on 06/09/2025 Pneumococcal Vaccine: 50+(2 of 2 - PCV) due on 06/09/2025 Influenza Vaccine(Season Ended) due on 02/16/2025 Lung Cancer Screening due on 04/02/2025 Anxiety Screening due on 06/09/2025 BP Controlled (<130/80) due on 07/07/2025 Annual PCP Team Chronic Disease Visit due on 10/21/2025 DTaP,Tdap,Td Vaccine(2 - Td or Tdap) due on 09/07/2026 Diabetes Screening due on 10/22/2027 Colorectal Cancer Screening due on 11/04/2028 Lipid Screening due on 03/22/2029 Hepatitis C Screening Completed HIV Screening Completed Cervical Cancer Screening Discontinued Data reviewed Latest Ref Rng 10/21/2024 WBC 3.70 - 11.00 k/uL 8.57 RBC 3.90 - 5.20 m/uL 4.14 Hemoglobin 11.5 - 15.5 g/dL 12.5 Hematocrit 36.0 - 46.0 % 38.5 MCV 80.0 - 100.0 fL 93.0 MCH 26.0 - 34.0 pg 30.2 MCHC 30.5 - 36.0 g/dL 32.5 RDW-CV 11.5 - 15.0 % 13.6 Platelet Count 150 - 400 k/uL 257 MPV 9.0 - 12.7 fL 11.7 Neut% % 59.5 Abs Neut (ANC) 1.45 - 7.50 k/uL 5.10 Lymph% % 33.0 Abs Lymph 1.00 - 4.00 k/uL 2.83 Boyle% % 6.7 Abs Boyle <0.87 k/uL 0.57 Eosin% % 0.2 Abs Eosin <0.46 k/uL <0.03 Baso% % 0.4 Abs Baso <0.11 k/uL 0.03 Immature Gran % % 0.2 IMMATURE GRANS (ABS) <0.10 k/uL <0.03 NRBC /100 WBC 0.0 Absolute nRBC <0.01 k/uL <0.01 DTYPE Auto Protein, Total 6.3 - 8.0 g/dL 6.7 Albumin 3.9 - 4.9 g/dL 4.2 Calcium 8.5 - 10.2 mg/dL 9.4 Bilirubin, Total 0.2 - 1.3 mg/dL 0.2 Alkaline Phosphatase 34 - 123 U/L 94 AST 13 - 35 U/L 16 ALT 7 - 38 U/L 9 Glucose 74 - 99 mg/dL 99 BUN 7 - 21 mg/dL 11 Creatinine 0.58 - 0.96 mg/dL 0.96 Sodium 136 - 144 mmol/L 143 Potassium 3.7 - 5.1 mmol/L 4.2 Chloride 98 - 107 mmol/L 107 CO2 22 - 30 mmol/L 24 Anion Gap 8 - 15 mmol/L 12 eGFR >=60 mL/min/1.73m 70 TSH 0.270 - 4.200 mIU/L 1.420 Magnesium 1.7 - 2.3 mg/dL 2.0 Vitamin D 25 Hydroxy 31.0 - 80.0 ng/mL 16.6 (L) Vitamin B12 232 - 1,245 pg/mL 262 Legend: (L) Low ECHO 10/24/2024 Impression CONCLUSIONS: - Exam indication: Palpitations - The left ventricle is normal in size. Left ventricular systolic function is normal. EF = 56 5% (2D biplane) Grade I left ventricular diastolic dysfunction. - The right ventricle is normal in size. Right ventricular systolic function is normal. - There are no significant valvular abnormalities. - The patient has not had a prior CC echocardiographic exam for comparison. 1. Tachycardia, paroxysmal (HCC) (I47.9) - Episodes of tachycardia reduced in frequency and severity with metoprolol 25 mg daily; highest recorded HR 120 bpm lasting ~15 minutes, occurring 1-2 times per week. - No significant findings on recent blood work or echocardiogram. - Currently wearing Zio patch for 2-week monitoring; results pending. - Increased metoprolol to 50 mg daily; instructed to take two 25 mg tablets until current supply isexhausted, then continue with new prescription. - Initiated aspirin 81 mg daily. - Advised to monitor HR and BP at home; report if BP <100/60 mmHg or HR <60 bpm. - Follow-up with cardiology scheduled for February; will expedite if Zio patch reveals concerning arrhythmias. - Follow-up appointment in 2 weeks to assess response to increased metoprolol dosage. 2. Hypertension, essential (I10) - BP readings at home averaging 120s/80s mmHg; no reports of dizziness or lightheadedness. - Continue home BP monitoring; instructed to report if BP <100/60 mmHg. 3. Episodic lightheadedness (R42) - Occasional lightheadedness during tachycardia episodes. - Monitor for changes with increased metoprolol dosage. 4. Fatigue, unspecified type (R53.83) - Intermittent fatigue noted during episodes of tachycardia. - Monitor for changes with increased metoprolol dosage. Shasta Walters MD [facility]* Result Encounter Note - Glenny Hi MA - 10/23/2024 1:45 PM EDT Notified via Rol[employer]. [facility]05-08-2025 Telephone encounter Note* Telephone Encounter - Glenny Hi MA - 10/23/2024 1:44 PM EDT ----- Message from Shasta Walters MD sent at 10/23/2024 10:22 AM EDT ----- Vitamin D level severely low. Recommend 50,000 units of vitamin D weekly x 12 weeks and recheck in 3 months. Other labs normal. [facility]05-06-2025 NoteHNO ID: [id number] Author: ROMA BOLAÑOS LPN Service: ? Author Type: LICENSED NURSE Type: Progress Notes Filed: 10/21/2024 10:26 Note Text: Patient currently doesn't have insurance. Patient to check with financial to see about cost for Zio before patient agrees to application of Zio. [facility] NoteHNO ID: [id number] Author: ROMA BOLAÑOS LPN Service: ? Author Type: LICENSED NURSE Type: Progress Notes Filed: 10/21/2024 10:26 Note Text: Subjective Patient ID: Saranya is a 58 year old female who presents for Dizziness, Fatigue, and elevated heart rate. HPI Objective BP 150/84 Pulse 80 Resp 16 Wt 88 kg (194 lb) LMP 05/05/2011 SpO2 99% BMI 32.28 kg/m? Physical Exam Assessment AND Plan Tachycardia, paroxysmal (HCC) Orders: ECG COMPLETE COMPLETE BLOOD COUNT AND DIFFERENTIAL; Future COMPREHENSIVE METABOLIC PANEL; Future THYROID STIMULATING HORMONE; Future MAGNESIUM; Future OUTSIDE VENDOR CARDIAC OUTPATIENT EXTENDED RHYTHM RECORDING (WITHOUT TELEMETRY) CONSULT TO CARDIOLOGY; Future ECHO; Future perflutren lipid microspheres 1.3 mL in NaCl (PF) 0.9% 10 mL injection (DEFINITY) sodium chloride 0.9 % (flush) 10 mL (BD POSIFLUSH) Episodic lightheadedness Orders: CONSULT TO CARDIOLOGY; Future Fatigue, unspecified type Orders: VITAMIN D 25 HYDROXY; Future VITAMIN B12; Future Other orders metoprolol succinate ER (TOPROL XL) 25 mg 24 hr tablet; Take 1 tablet by mouth once daily.[facility] History of Present illness Narrative* Roma Bolaños LPN - 10/21/2024 8:09 AM EDT Patient currently doesn't have insurance. Patient to check with financial to see about cost for Ziobefore patient agrees to application of Zio. Roma Bolaños LPN * Roma Bolaños LPN - 10/21/2024 8:09 AM EDT Subjective Patient ID: Saranya is a 58 year old female who presents for Dizziness, Fatigue, and elevated heart rate. HPI Objective BP 150/84 Pulse 80 Resp 16 Wt 88 kg (194 lb) LMP 05/05/2011 SpO2 99% BMI 32.28 kg/m Physical Exam Assessment & Plan Tachycardia, paroxysmal (HCC) Orders: ECG COMPLETE COMPLETE BLOOD COUNT AND DIFFERENTIAL; Future COMPREHENSIVE METABOLIC PANEL; Future THYROID STIMULATING HORMONE; Future MAGNESIUM; Future OUTSIDE VENDOR CARDIAC OUTPATIENT EXTENDED RHYTHM RECORDING (WITHOUT TELEMETRY) CONSULT TO CARDIOLOGY; Future ECHO; Future perflutren lipid microspheres 1.3 mL in NaCl (PF) 0.9% 10 mL injection (DEFINITY) sodium chloride 0.9 % (flush) 10 mL (BD POSIFLUSH) Episodic lightheadedness Orders: CONSULT TO CARDIOLOGY; Future Fatigue, unspecified type Orders: VITAMIN D 25 HYDROXY; Future VITAMIN B12; Future Other orders metoprolol succinate ER (TOPROL XL) 25 mg 24 hr tablet; Take 1 tablet by mouth once daily. * Shasta Walters MD - 10/21/2024 7:33 AM EDT Chief Complaint Patient presents with: Dizziness Fatigue elevated heart rate HPI Saranya Bermudez is a 58 year old female who presents here today for Above Complaints. Patient here today with complaint of episodes of feeling lightheaded and fatigue which started about 4 months ago. Episodes occur about every 2 weeks and can last a couple of hours. Most recent episode was yesterday. States that she got a watch yesterday which showed her HR was in the 150's to 160's. Was sitting ather desk while this was going on. Drinks 2 cups of coffee in the morning. Does smoke 1 pack per day. Denies chest pain, SOB, palpitations, nausea, vomiting, diarrhea, syncope, anxiety symptoms, bleeding/bruising. BP elevated today. Compliant with losartan as prescribed. Past medical history, appointments, medications, allergies reviewed. Previous Medical History PAST MEDICAL HISTORY Diagnosis Date Anxiety Chronic obstructive asthma with status asthmaticus (HCC) DVT (deep venous thrombosis) ([facility]) History of COVID-19 03/2021 History of heavy periods s/p hysterectomy Hyperlipidemia Hypertension 2016 Iron deficiency anemia 01/06/2012 Major depressive disorder, single episode, unspecified Obesity (BMI 30.0-34.9) PAD (peripheral artery disease) ([facility]) 02/18/2021 moderate on left LE Polycystic kidney disease Tobacco use Previous Surgical History PAST SURGICAL HISTORY Procedure Laterality Date COLONOSCOPY FLX DX W/COLLJ SPEC WHEN PFRMD 11/04/2018 Colonoscopy DILATION & CURETTAGE DX&/THER NONOBSTETRIC LAPARO-VAG HYST, COMPLEX 10/19/11 vag hysterectomy with bladder sling and posterior repair, bladder tear repaired LIG/TRNSXJ FLP TUBE ABDL/VAG APPR UNI/BI PAST SURGICAL HISTORY OF 2006 upper teeth removed UNSPECIFIED ORAL SURGERY PROCEDURE, BY REPORT WISDOM TEETH REMOVED Family History FAMILY HISTORY Problem Relation Age of Onset Heart Mother no communication with patient, doesn't have details Drug abuse Sister ??? patient doesn't know for sure. Colon Cancer Maternal Grandmother Diabetes Other no details known Colon Cancer Other no details known Coronary Artery Disease Other no details known Patient Allergies ALLERGIES Allergen Reactions Zoloft [Sertraline * Diarrhea, GI Upset Current Medications Current Outpatient Medications on File Prior to Visit Medication Sig atorvastatin (LIPITOR) 20 mg tablet Take 1 tablet by mouth daily at bedtime. For cholesterol. losartan (COZAAR) 25 mg tablet Take 1 tablet by mouth daily at bedtime. pentoxifylline ER (TRENTAL) 400 mg CR tablet Take 1 tablet by mouth three times a day with meals. (Patient not taking: Reported on 10/21/2024) Blood Pressure Monitor kit Check BP at home. No current facility-administered medications on file prior to visit. Social History Social History Tobacco Use Smoking status: Every Day Current packs/day: 1.00 Average packs/day: 1 pack/day for 30.0 years (30.0 ttl pk-yrs) Types: Cigarettes Smokeless tobacco: Never Vaping Use Vaping status: Never Used Substance Use Topics Alcohol use: No Drug use: No Review of Symptoms REVIEW OF SYSTEMS See HPI EXAM: BP 150/84 Pulse 80 Resp 16 Wt 88 kg (194 lb) LMP 05/05/2011 SpO2 99% BMI 32.28 kg/m BP w/Orthostatic Vitals Date and Time Orthostatic BP Orthostatic Pulse BP Pulse BP Position BP Site BP Cuff Size 10/21/24 0758 142/94 79 -- -- Standing Right Arm Large Adult 10/21/24 0757 138/86 72 -- -- Sitting Right Arm Large Adult 10/21/24 0756 142/90 72 -- -- Supine Right Arm Large Adult 10/21/2411 -- -- 150/84 80 -- -- -- Peak Flow Date and Time PF Resp 10/21/24710 -- 16 General Appearance: Well appearing, alert, in no acute distress, well-hydrated, well nourished.. Skin: Skin color, texture, turgor normal, no suspicious rashes or lesions. Neck: Supple, no adenopathy; thyroid symmetric, normal size, no bruits. Lungs: Lungs clear to auscultation. No wheezing, rhonchi, rales.. Heart: RRR without murmur, gallop, or rubs. No ectopy. Abdomen: Normal abdominal exam, Abdomen soft, non-tender. Bowel sounds normal. No masses, organomegaly. Extremities: No deformities, edema, skin discoloration, clubbing or cyanosis. Good capillary refill. . Health Maintenance List Hepatitis B Vaccine(1 of 3 - 19+ 3-dose series) Never done Mammogram Screening due on 12/11/2024 Shingrix Vaccine(1 of 2) due on 12/06/2024 Covid-19 Vaccine( - season) due on 06/09/2025 Pneumococcal Vaccine: 50+(2 of 2 - PCV) due on 06/09/2025 Influenza Vaccine(Season Ended) due on 02/16/2025 Lung Cancer Screening due on 04/02/2025 Anxiety Screening due on 06/09/2025 BP Controlled (<130/80) due on 07/07/2025 Annual PCP Team Chronic Disease Visit due on 10/21/2025 DTaP,Tdap,Td Vaccine(2 - Td or Tdap) due on 09/07/2026 Diabetes Screening due on 03/22/2027 Colorectal Cancer Screening due on 11/04/2028 Lipid Screening due on 03/22/2029 Hepatitis C Screening Completed HIV Screening Completed Cervical Cancer Screening Discontinued Data reviewed EKG: NSR at 73 bpm ASSESSMENT/PLAN: 1. Tachycardia, paroxysmal (HCC) - ICD9: 427.2, ICD10: I47.9 (primary diagnosis) EKG today normal. 2 week holter ordered, but patient does not have insurance. Will check with financial. Obtain labs as ordered. Referral order placed to cardiology. Limit sodium intake <2,000 mg per day and avoid stimulants such as coffee and cigarettes. Start beta kristina and will recheck in 2weeks. If she has another episode of tachycardia in the 150-'160's would recommend ER evaluation. - ECG COMPLETE - COMPLETE BLOOD COUNT AND DIFFERENTIAL - COMPREHENSIVE METABOLIC PANEL - THYROID STIMULATING HORMONE - MAGNESIUM - OUTSIDE VENDOR CARDIAC OUTPATIENT EXTENDED RHYTHM RECORDING (WITHOUT TELEMETRY) - CONSULT TO CARDIOLOGY - ECHO - PERFLUTREN LIPID MICROSPHERES 1.1 MG/ML INJECTION IN NS 10 ML - SODIUM CHLORIDE 0.9 % (FLUSH) INJECTION SYRINGE 2. Episodic lightheadedness - ICD9: 780.4, ICD10: R42 See above. - CONSULT TO CARDIOLOGY 3. Fatigue, unspecified type - ICD9: 780.79, ICD10: R53.83 See above. - VITAMIN D 25 HYDROXY - VITAMIN B12 Shasta Walters MD [facility] NoteHNO ID: [id number] Author: SHASTA WALTERS MD Service: ? Author Type: Physician Type: Progress Notes Filed: 10/21/2024 10:26 Note Text: Chief Complaint Patient presents with: Dizziness Fatigue elevated heart rate HPI Saranya Bermudez is a 58 year old female who presents here today for Above Complaints. Patient here today with complaint of episodes of feeling lightheaded and fatigue which started about 4 months ago. Episodes occur about every 2 weeks and can last a couple of hours. Most recent episode was yesterday. States that she got a watch yesterday which showed her HR was in the 150's to 160's. Was sitting at her desk while this was going on. Drinks 2 cups of coffee in the morning. Does smoke 1 pack per day. Denies chest pain, SOB, palpitations, nausea, vomiting, diarrhea, syncope, anxiety symptoms, bleeding/bruising. BP elevated today. Compliant with losartan as prescribed. Past medical history, appointments, medications, allergies reviewed. Previous Medical History PAST MEDICAL HISTORY Diagnosis Date Anxiety Chronic obstructive asthma with status asthmaticus (HCC) DVT (deep venous thrombosis) ([facility]) History of COVID-19 03/2021 History of heavy periods s/p hysterectomy Hyperlipidemia Hypertension 2016 Iron deficiency anemia 01/06/2012 Major depressive disorder, single episode, unspecified Obesity (BMI 30.0-34.9) PAD (peripheral artery disease) ([facility]) 02/18/2021 moderate on left LE Polycystic kidney disease Tobacco use Previous Surgical History PAST SURGICAL HISTORY Procedure Laterality Date COLONOSCOPY FLX DX W/COLLJ SPEC WHEN PFRMD 11/04/2018 Colonoscopy DILATION AND CURETTAGE DXAND/THER NONOBSTETRIC LAPARO-VAG HYST, COMPLEX 10/19/11 vag hysterectomy with bladder sling and posterior repair, bladder tear repaired LIG/TRNSXJ FLP TUBE ABDL/VAG APPR UNI/BI PAST SURGICAL HISTORY OF 2006 upper teeth removed UNSPECIFIED ORAL SURGERY PROCEDURE, BY REPORT WISDOM TEETH REMOVED Family History FAMILY HISTORY Problem Relation Age of Onset Heart Mother no communication with patient, doesn't have details Drug abuse Sister ??? patient doesn't know for sure. Colon Cancer Maternal Grandmother Diabetes Other no details known Colon Cancer Other no details known Coronary Artery Disease Other no details known Patient Allergies ALLERGIES Allergen Reactions Zoloft [Sertraline * Diarrhea, GI Upset Current Medications Current Outpatient Medications on File Prior to Visit Medication Sig atorvastatin (LIPITOR) 20 mg tablet Take 1 tablet by mouth daily at bedtime. For cholesterol. losartan (COZAAR) 25 mg tablet Take 1 tablet by mouth daily at bedtime. pentoxifylline ER (TRENTAL) 400 mg CR tablet Take 1 tablet by mouth three times a day with meals. (Patient not taking: Reported on 10/21/2024) Blood Pressure Monitor kit Check BP at home. No current facility-administered medications on file prior to visit. Social History Social History Tobacco Use Smoking status: Every Day Current packs/day: 1.00 Average packs/day: 1 pack/day for 30.0 years (30.0 ttl pk-yrs) Types: Cigarettes Smokeless tobacco: Never Vaping Use Vaping status: Never Used Substance Use Topics Alcohol use: No Drug use: No Review of Symptoms REVIEW OF SYSTEMS See HPI EXAM: BP 150/84 Pulse 80 Resp 16 Wt 88 kg (194 lb) LMP 05/05/2011 SpO2 99% BMI 32.28 kg/m? BP w/Orthostatic Vitals Date and Time Orthostatic BP Orthostatic Pulse BP Pulse BP Position BP Site BP Cuff Size 10/21/24 0758 142/94 79 -- -- Standing Right Arm Large Adult 10/21/24 0757 138/86 72 -- -- Sitting Right Arm Large Adult 10/21/24 0756 142/90 72 -- -- Supine Right Arm Large Adult 10/21/2411 -- -- 150/84 80 -- -- -- Peak Flow Date and Time PF Resp 10/21/24710 -- 16 General Appearance: Well appearing, alert, in no acute distress, well-hydrated, well nourished.. Skin: Skin color, texture, turgor normal, no suspicious rashes or lesions. Neck: Supple, no adenopathy; thyroid symmetric, normal size, no bruits. Lungs: Lungs clear to auscultation. No wheezing, rhonchi, rales.. Heart: RRR without murmur, gallop, or rubs. No ectopy. Abdomen: Normal abdominal exam, Abdomen soft, non-tender. Bowel sounds normal. No masses, organomegaly. Extremities: No deformities, edema, skin discoloration, clubbing or cyanosis. Good capillary refill. . Health Maintenance List Hepatitis B Vaccine(1 of 3 - 19+ 3-dose series) Never done Mammogram Screening due on 12/11/2024 Shingrix Vaccine(1 of 2) due on 12/06/2024 Covid-19 Vaccine( - season) due on 06/09/2025 Pneumococcal Vaccine: 50+(2 of 2 - PCV) due on 06/09/2025 Influenza Vaccine(Season Ended) due on 02/16/2025 Lung Cancer Screening due on 04/02/2025 Anxiety Screening due on 06/09/2025 BP Controlled (<130/80) due on 07/07/2025 Annual PCP Team Chronic Disease Visit due on 10/21/2025 DT (more content not included)...[facility]05-06-2025 NoteHNO ID: [id number] Author: KARLEE PELLETIER MD Service: ? Author Type: Physician Type: Procedures Filed: 12/08/2024 10:07 Note Text: Patient Name: Saranya Bermudez : 1965 Ordering Provider: Shasta Walters Indication: I47.9 Paroxysmal tachycardia, unspecified Type of Monitor: Extended Monitoring-Zio Patch Enrollment Dates: 10/25/2024-11/08/2024 IRHYTHM FINDINGS: Patient had a min HR of 21 bpm, max HR of 185 bpm, and avg HR of 80 bpm. Predominant underlying rhythm was Sinus Rhythm. 71 Supraventricular Tachycardia runs occurred, the run with the fastest interval lasting 15 hours 53 mins with a max rate of 185 bpm (avg 134 bpm); the run with the fastest interval was also the longest. 1 Pause occurred lasting 3.2 secs (19 bpm). Pause(s) occurred due to Possible High Grade AV Block. 1 episode(s) of AV Block (2ndA?) occurred, lasting a total of 3 secs. Supraventricular Tachycardia was detected within +/- 45 seconds of symptomatic patient event(s). Isolated SVEs were rare (<1.0%), SVE Couplets were rare (<1.0%), and no SVE Triplets were present. Isolated VEs were rare (<1.0%), VE Couplets were rare (<1.0%), and no VE Triplets were present. Ventricular Trigeminy was present. MD notification criteria for Supraventricular Tachycardia met - [facility]03-27-2025 Telephone encounter Note* Telephone Encounter - Rivka Mayes RN - 09/11/2024 7:26 AM EDT Reason for Call: dizziness and fainted this morning. Outcome: Patient confirmed she will seek transport to [facility] now. Reason for Disposition [1] Age > 50 years AND [2] now alert and feels fine Answer Assessment - Initial Assessment Questions 1. ONSET: occurred at 0500, syncope lasted 5-10 minutes 2. CONTENT: when dizzy she sat on the floor and woke up laying on the floor 3. MENTAL STATUS: alert & oriented now 4. TRIGGER: moderate dizziness earlier doing normal activities, it was better after sitting down with head between knees, then returned when she walked again, then sat on floor and fainted. 5. RECURRENT SYMPTOM: yes, fainted last week 6. INJURY: none 7. CARDIAC SYMPTOMS: none 8. NEUROLOGIC SYMPTOMS: none except for dizziness 9. GI SYMPTOMS: none today, had stomach ache yesterday 10. OTHER SYMPTOMS: none 11. : no; s/p [facility] Protocols used: [id number] [facility]03-27-2025 Miscellaneous Notes* Telephone Encounter - Rivka Mayes RN - 09/11/2024 7:26 AM EDT Reason for Call: dizziness and fainted this morning. Outcome: Patient confirmed she will seek transport to [facility] now. Reason for Disposition [1] Age > 50 years AND [2] now alert and feels fine Answer Assessment - Initial Assessment Questions 1. ONSET: occurred at 0500, syncope lasted 5-10 minutes 2. CONTENT: when dizzy she sat on the floor and woke up laying on the floor 3. MENTAL STATUS: alert & oriented now 4. TRIGGER: moderate dizziness earlier doing normal activities, it was better after sitting down with head between knees, then returned when she walked again, then sat on floor and fainted. 5. RECURRENT SYMPTOM: yes, fainted last week 6. INJURY: none 7. CARDIAC SYMPTOMS: none 8. NEUROLOGIC SYMPTOMS: none except for dizziness 9. GI SYMPTOMS: none today, had stomach ache yesterday 10. OTHER SYMPTOMS: none 11. : no; s/p [facility] Protocols used: [id number] documented in this encounterBar[facility]ton [facility]25 NoteHNO ID: [id number] Author: VALERIE CANTU, DO Service: ? Author Type: Physician Type: Progress Notes Filed: 08/05/2024 10:51 Note Text: [facility] [place] DEPARTMENT OF VASCULAR SURGERY OUTPATIENT VISIT DATE August 05, 2024 OUTPATIENT VISIT TYPE ESTABLISHED SERVICE DATE: 08/05/2024 SERVICE TIME: 10:34 AM PRIMARY CARE PHYSICIAN: Shasta Walters MD HISTORY OF PRESENT ILLNESS: Ms. Bermudez is a 58 year old female who presents today for a vascular surgery follow-up visit for peripheral arterial disease. She has known left iliac occlusion. Denies significant lifestyle limiting claudication. She will get episodes of significant left leg pain especially with long distance walking [place] the zoo. PAST MEDICAL HISTORY Diagnosis Date Anxiety Chronic obstructive asthma with status asthmaticus ([facility]) DVT (deep venous thrombosis) ([facility]) History of COVID-19 03/2021 History of heavy periods s/p hysterectomy Hyperlipidemia Hypertension 2016 Iron deficiency anemia 01/06/2012 Major depressive disorder, single episode, unspecified Obesity (BMI 30.0-34.9) PAD (peripheral artery disease) ([facility]) 02/18/2021 moderate on left LE Polycystic kidney disease Tobacco use PAST SURGICAL HISTORY Procedure Laterality Date COLONOSCOPY FLX DX W/COLLJ SPEC WHEN PFRMD 11/04/2018 Colonoscopy DILATION AND CURETTAGE DXAND/THER NONOBSTETRIC LAPARO-VAG HYST, COMPLEX 10/19/11 vag hysterectomy with bladder sling and posterior repair, bladder tear repaired LIG/TRNSXJ FLP TUBE ABDL/VAG APPR UNI/BI PAST SURGICAL HISTORY OF 2006 upper teeth removed UNSPECIFIED ORAL SURGERY PROCEDURE, BY REPORT WISDOM TEETH REMOVED SOCIAL HISTORY Social History Tobacco Use Smoking status: Every Day Current packs/day: 1.00 Average packs/day: 1 pack/day for 30.0 years (30.0 ttl pk-yrs) Types: Cigarettes Smokeless tobacco: Never Vaping Use Vaping status: Never Used Substance Use Topics Alcohol use: No Drug use: No MEDICATIONS: atorvastatin (LIPITOR) 20 mg tablet Take 1 tablet by mouth daily at bedtime. For cholesterol. losartan (COZAAR) 25 mg tablet Take 1 tablet by mouth daily at bedtime. Blood Pressure Monitor kit Check BP at home. pentoxifylline ER (TRENTAL) 400 mg CR tablet Take 1 tablet by mouth three times a day with meals. ALLERGIES: ALLERGIES Allergen Reactions Zoloft [Sertraline * Diarrhea, GI Upset PHYSICAL EXAM: BP 142/76 (BP Site: Left Arm, BP Position: Sitting, BP Cuff Size: Regular Adult) Pulse 82 LMP 05/05/2011 SpO2 100% Gen- no distress Ext- no ulceration, no edema, non palpable distal pulse Diagnostic tests reviewed for today's visit: Most recent labs Most recent imaging PVRs Compared to prior study of 01/18/2024, Right ankle brachial index was 1.06 and left was 0.59. RIGHT SIDE Resting right ankle brachial index: 1.13 Normal ankle brachial index at rest in the right leg. Right ankle: Normal at rest. LEFT SIDE Resting left ankle brachial index: 0.68 Abnormal ankle brachial index at rest diagnostic of peripheral artery disease. Left ankle: Moderate disease at rest. Carotid Duplex RIGHT SIDE Internal carotid artery: <50% stenosis consistent with mild carotid artery disease. Vertebral artery: Patent and antegrade flow noted. Subclavian artery: Plaque visualized without evidence of hemodynamically significant stenosis. LEFT SIDE Internal carotid artery: <50% stenosis consistent with mild carotid artery disease. -Moderate homogeneous plaque noted appearing >50%; however, velocity and ICA/CCA Ratio do not meet >50% stenosis criteria. Vertebral artery: Patent and antegrade flow noted. Subclavian artery: Patent. IMPRESSION: Ms. Bermudez is a 58 year old female with carotid artery disease and peripheral arterial disease . PLAN and RECOMMENDATIONS: Recommend continue antiplatelet agent and statin Discussed importance of smoking cessation Continue walking and exercise as tolerated Follow up in 6 months for leg check Recommend repeat imaging in one year SIGNATURE: Valerie Cantu DO PATIENT NAME: Saranya Bermudez DATE: August 05, 2024 TIME: 10:34 [facility]02-18-2025 History of Present illness Narrative* Valerie Cantu DO - 08/05/2024 10:34 AM EST Images from the original note were not included. [facility] [place] DEPARTMENT OF VASCULAR SURGERY OUTPATIENT VISIT DATE August 05, 2024 OUTPATIENT VISIT TYPE ESTABLISHED SERVICE DATE: 08/05/2024 SERVICE TIME: 10:34 AM PRIMARY CARE PHYSICIAN: Shasta Walters MD HISTORY OF PRESENT ILLNESS: Ms. Bermudez is a 58 year old female who presents today for a vascular surgery follow-up visit for peripheral arterial disease. She has known left iliac occlusion. Denies significant lifestyle limiting claudication. She will get episodes of significant left leg pain especially with long distance walking like [place] the zoo. PAST MEDICAL HISTORY Diagnosis Date Anxiety Chronic obstructive asthma with status asthmaticus ([facility]) DVT (deep venous thrombosis) ([facility]) History of COVID-19 03/2021 History of heavy periods s/p hysterectomy Hyperlipidemia Hypertension 2016 Iron deficiency anemia 01/06/2012 Major depressive disorder, single episode, unspecified Obesity (BMI 30.0-34.9) PAD (peripheral artery disease) ([facility]) 02/18/2021 moderate on left LE Polycystic kidney disease Tobacco use PAST SURGICAL HISTORY Procedure Laterality Date COLONOSCOPY FLX DX W/COLLJ SPEC WHEN PFRMD 11/04/2018 Colonoscopy DILATION & CURETTAGE DX&/THER NONOBSTETRIC LAPARO-VAG HYST, COMPLEX 10/19/11 vag hysterectomy with bladder sling and posterior repair, bladder tear repaired LIG/TRNSXJ FLP TUBE ABDL/VAG APPR UNI/BI PAST SURGICAL HISTORY OF 2006 upper teeth removed UNSPECIFIED ORAL SURGERY PROCEDURE, BY REPORT WISDOM TEETH REMOVED SOCIAL HISTORY Social History Tobacco Use Smoking status: Every Day Current packs/day: 1.00 Average packs/day: 1 pack/day for 30.0 years (30.0 ttl pk-yrs) Types: Cigarettes Smokeless tobacco: Never Vaping Use Vaping status: Never Used Substance Use Topics Alcohol use: No Drug use: No MEDICATIONS: atorvastatin (LIPITOR) 20 mg tablet Take 1 tablet by mouth daily at bedtime. For cholesterol. losartan (COZAAR) 25 mg tablet Take 1 tablet by mouth daily at bedtime. Blood Pressure Monitor kit Check BP at home. pentoxifylline ER (TRENTAL) 400 mg CR tablet Take 1 tablet by mouth three times a day with meals. ALLERGIES: ALLERGIES Allergen Reactions Zoloft [Sertraline * Diarrhea, GI Upset PHYSICAL EXAM: BP 142/76 (BP Site: Left Arm, BP Position: Sitting, BP Cuff Size: Regular Adult) Pulse 82 LMP 05/05/2011 SpO2 100% Gen- no distress Ext- no ulceration, no edema, non palpable distal pulse Diagnostic tests reviewed for today's visit: Most recent labs Most recent imaging PVRs Compared to prior study of 01/18/2024, Right ankle brachial index was 1.06 and left was 0.59. RIGHT SIDE Resting right ankle brachial index: 1.13 Normal ankle brachial index at rest in the right leg. Right ankle: Normal at rest. LEFT SIDE Resting left ankle brachial index: 0.68 Abnormal ankle brachial index at rest diagnostic of peripheral artery disease. Left ankle: Moderate disease at rest. Carotid Duplex RIGHT SIDE Internal carotid artery: <50% stenosis consistent with mild carotid artery disease. Vertebral artery: Patent and antegrade flow noted. Subclavian artery: Plaque visualized without evidence of hemodynamically significant stenosis. LEFT SIDE Internal carotid artery: <50% stenosis consistent with mild carotid artery disease. -Moderate homogeneous plaque noted appearing >50%; however, velocity and ICA/CCA Ratio do not meet >50% stenosis criteria. Vertebral artery: Patent and antegrade flow noted. Subclavian artery: Patent. IMPRESSION: Ms. Bermudez is a 58 year old female with carotid artery disease and peripheral arterial disease . PLAN and RECOMMENDATIONS: Recommend continue antiplatelet agent and statin Discussed importance of smoking cessation Continue walking and exercise as tolerated Follow up in 6 months for leg check Recommend repeat imaging in one year SIGNATURE: Valerie Cantu DO PATIENT NAME: Saranya Bermudez DATE: August 05, 2024 TIME: 10:34 AM documented in this encounterBar[facility]01-[facility]25 History of Present illness Narrative* Marilou Singh APRN.MEMBER SERVICES COORDINATOR - 07/07/2024 9:00 AM EST 07/04/2024 Patient presents with: BP Check SUBJECTIVE: This is a 58 year old that is here today for Above Complaints. BP elevated at last office appointment. No medication changes made. Taking and toleating medicationwithout side effects.Checking BP at home with range of 128/80's.Denies visual changes, headaches lightheadedness, dizziness, slurred speech, facial drooping, extremity numbness tingling or weakness PAST MEDICAL HISTORY Diagnosis Date Anxiety Chronic obstructive asthma with status asthmaticus ([facility]) DVT (deep venous thrombosis) ([facility]) History of COVID-19 03/2021 History of heavy periods s/p hysterectomy Hyperlipidemia Hypertension 2016 Iron deficiency anemia 01/06/2012 Major depressive disorder, single episode, unspecified Obesity (BMI 30.0-34.9) PAD (peripheral artery disease) ([facility]) 02/18/2021 moderate on left LE Polycystic kidney disease Tobacco use ALLERGIES Zoloft [Sertraline Hcl] MEDICATIONS Current Outpatient Medications Medication Sig atorvastatin (LIPITOR) 20 mg tablet Take 1 tablet by mouth daily at bedtime. For cholesterol. losartan (COZAAR) 25 mg tablet Take 1 tablet by mouth daily at bedtime. pentoxifylline ER (TRENTAL) 400 mg CR tablet Take 1 tablet by mouth three times a day with meals. Blood Pressure Monitor kit Check BP at home. No current facility-administered medications for this visit. Medications and allergies reviewed by this provider. SOCIAL HISTORY Social History Tobacco Use Smoking status: Every Day Current packs/day: 1.00 Average packs/day: 1 pack/day for 30.0 years (30.0 ttl pk-yrs) Types: Cigarettes Smokeless tobacco: Never Vaping Use Vaping status: Never Used Substance Use Topics Alcohol use: No Drug use: No REVIEW OF SYSTEMS All other reviewed and negative other than HPI. OBJECTIVE: BP 112/82 Pulse 103 Resp 18 Wt 83.6 kg (184 lb 6.4 oz) LMP 05/05/2011 SpO2 95% BMI 30.69 kg/m . Vital signs reviewed by this provider. APPEARANCE Well appearing, alert, in no acute distress, well-hydrated, well nourished. Hepatitis B Vaccine(1 of 3 - 19+ 3-dose series) Never done Mammogram Screening due on 12/11/2024 Shingrix Vaccine(1 of 2) due on 12/06/2024 Influenza Vaccine(1) due on 12/15/2024 Covid-19 Vaccine(1 - season) due on 06/09/2025 Pneumococcal Vaccine: 50+(2 of 2 - PCV) due on 06/09/2025 Lung Cancer Screening due on 04/02/2025 Annual PCP Team Chronic Disease Visit due on 06/09/2025 Anxiety Screening due on 06/09/2025 BP Controlled (<130/80) due on 07/07/2025 DTaP,Tdap,Td Vaccine(2 - Td or Tdap) due on 09/07/2026 Diabetes Screening due on 03/22/2027 Colorectal Cancer Screening due on 11/04/2028 Lipid Screening due on 03/22/2029 Spirometry Completed Hepatitis C Screening Completed HIV Screening Completed Cervical Cancer Screening Discontinued ASSESSMENT/PLAN: 1. Hypertension, essential - ICD9: 401.9, ICD10: I10 - Controlled - Continue current medications - Recommend home blood pressure monitoring, to bring results to next visit - Encouraged sodium restriction, DASH or Mediterranean diet - Recommend regular aerobic exercise - Discussed need for and benefit of weight loss. BMI 30.69 kg/(m^2) - Smoking cessation encouraged; discussed risks to health and quitting strategies. Patient is not ready to quit - Follow up in 5 months for annual physical Marilou Singh APRN.CNP Prescription instructions reviewed with patient as applicable. Patient advised if symptoms do not improve or if symptoms worsen sooner, to contact their primary care physician. Potential red flag symptoms discussed with the patient. Reviewed appropriate action plan to take if red flag symptoms occur. Patient agreeable to treatment plan. Medical Decision Making: Problems: Low: Stable chronic illness Risk: Moderate: Moderate risk from testing/treatment Medical Decision Making Level: 3 - Low documented in this encounterBarberton [facility]01-[facility]25 NoteHNO ID: [id number] Author: MARILOU SINGH APRN.PALOMA Service: ? Author Type: Nurse Practitioner Type: Progress Notes Filed: 07/07/2024 09:07 Note Text: 07/04/2024 Patient presents with: BP Check SUBJECTIVE: This is a 58 year old that is here today for Above Complaints. BP elevated at last office appointment. No medication changes made. Taking and toleating medication without side effects.Checking BP at home with range of 128/80's.Denies visual changes, headaches lightheadedness, dizziness, slurred speech, facial drooping, extremity numbness tingling or weakness PAST MEDICAL HISTORY Diagnosis Date Anxiety Chronic obstructive asthma with status asthmaticus ([facility]) DVT (deep venous thrombosis) ([facility]) History of COVID-19 03/2021 History of heavy periods s/p hysterectomy Hyperlipidemia Hypertension 2016 Iron deficiency anemia 01/06/2012 Major depressive disorder, single episode, unspecified Obesity (BMI 30.0-34.9) PAD (peripheral artery disease) ([facility]) 02/18/2021 moderate on left LE Polycystic kidney disease Tobacco use ALLERGIES Zoloft [Sertraline Hcl] MEDICATIONS Current Outpatient Medications Medication Sig atorvastatin (LIPITOR) 20 mg tablet Take 1 tablet by mouth daily at bedtime. For cholesterol. losartan (COZAAR) 25 mg tablet Take 1 tablet by mouth daily at bedtime. pentoxifylline ER (TRENTAL) 400 mg CR tablet Take 1 tablet by mouth three times a day with meals. Blood Pressure Monitor kit Check BP at home. No current facility-administered medications for this visit. Medications and allergies reviewed by this provider. SOCIAL HISTORY Social History Tobacco Use Smoking status: Every Day Current packs/day: 1.00 Average packs/day: 1 pack/day for 30.0 years (30.0 ttl pk-yrs) Types: Cigarettes Smokeless tobacco: Never Vaping Use Vaping status: Never Used Substance Use Topics Alcohol use: No Drug use: No REVIEW OF SYSTEMS All other reviewed and negative other than HPI. OBJECTIVE: BP 112/82 Pulse 103 Resp 18 Wt 83.6 kg (184 lb 6.4 oz) LMP 05/05/2011 SpO2 95% BMI 30.69 kg/m? . Vital signs reviewed by this provider. APPEARANCE Well appearing, alert, in no acute distress, well-hydrated, well nourished. Hepatitis B Vaccine(1 of 3 - 19+ 3-dose series) Never done Mammogram Screening due on 12/11/2024 Shingrix Vaccine(1 of 2) due on 12/06/2024 Influenza Vaccine(1) due on 12/15/2024 Covid-19 Vaccine(1 - season) due on 06/09/2025 Pneumococcal Vaccine: 50+(2 of 2 - PCV) due on 06/09/2025 Lung Cancer Screening due on 04/02/2025 Annual PCP Team Chronic Disease Visit due on 06/09/2025 Anxiety Screening due on 06/09/2025 BP Controlled (<130/80) due on 07/07/2025 DTaP,Tdap,Td Vaccine(2 - Td or Tdap) due on 09/07/2026 Diabetes Screening due on 03/22/2027 Colorectal Cancer Screening due on 11/04/2028 Lipid Screening due on 03/22/2029 Spirometry Completed Hepatitis C Screening Completed HIV Screening Completed Cervical Cancer Screening Discontinued ASSESSMENT/PLAN: 1. Hypertension, essential - ICD9: 401.9, ICD10: I10 - Controlled - Continue current medications - Recommend home blood pressure monitoring, to bring results to next visit - Encouraged sodium restriction, DASH or Mediterranean diet - Recommend regular aerobic exercise - Discussed need for and benefit of weight loss. BMI 30.69 kg/(m2) - Smoking cessation encouraged; discussed risks to health and quitting strategies. Patient is not ready to quit - Follow up in 5 months for annual physical Marilou Singh APRN.MEMBER SERVICES COORDINATOR Prescription instructions reviewed with patient as applicable. Patient advised if symptoms do not improve or if symptoms worsen sooner, to contact their primary care physician. Potential red flag symptoms discussed with the patient. Reviewed appropriate action plan to take if red flag symptoms occur. Patient agreeable to treatment plan. Medical Decision Making: Problems: Low: Stable chronic illness Risk: Moderate: Moderate risk from testing/treatment Medical Decision Making Level: 3 - [facility] HNO ID: [id number] Author: MARILOU SINGH APRN.MEMBER SERVICES COORDINATOR Service: ? Author Type: Nurse Practitioner Type: Progress Notes Filed: 06/09/2024 08:01 Note Text: 06/09/2024 Patient presents with: F/U 6 Month SUBJECTIVE: This is a 58 year old that is here today for Above Complaints. HTN: Patient is compliant with meds Yes Monitors bp at home: Yes 128-132/82-85 Denies side effects: Yes. Chest pain: No. Dyspnea: No. Edema: No. Palpitations: No. Syncope: No. Headache: No. Dizziness: Yes at times HYPERLIPIDEMIA: Patient is taking medications: Yes. Patient is watching diet: Yes. Patient denies myalgias: Yes. Patient denies gi upset: Yes PAD: following with vascular with last office appointment on 01/29/2024. No changes in current regime. Recommended follow-up in 6 months which is scheduled for 07/29/2024. Taking Trental as prescribed. Smoking: up to date on lung cancer screening. Still smoking about 3/4 pack of cigarettes a day PAST MEDICAL HISTORY Diagnosis Date Anxiety Chronic obstructive asthma with status asthmaticus ([facility]) DVT (deep venous thrombosis) ([facility]) History of COVID-19 03/2021 History of heavy periods s/p hysterectomy Hyperlipidemia Hypertension 2016 Iron deficiency anemia 01/06/2012 Major depressive disorder, single episode, unspecified Obesity (BMI 30.0-34.9) PAD (peripheral artery disease) ([facility]) 02/18/2021 moderate on left LE Polycystic kidney disease Tobacco use ALLERGIES Zoloft [Sertraline Hcl] MEDICATIONS Current Outpatient Medications Medication Sig losartan (COZAAR) 25 mg tablet Take 1 tablet by mouth daily at bedtime. atorvastatin (LIPITOR) 20 mg tablet Take 1 tablet by mouth daily at bedtime. For cholesterol. pentoxifylline ER (TRENTAL) 400 mg CR tablet Take 1 tablet by mouth three times a day with meals. ergocalciferol 50,000 unit capsule (VITAMIN D2, DRISDOL) Take 1 capsule by mouth one time a week. (Patient not taking: Reported on 02/25/2024) Blood Pressure Monitor kit Check BP at home. No current facility-administered medications for this visit. Medications and allergies reviewed by this provider. SOCIAL HISTORY Social History Tobacco Use Smoking status: Every Day Current packs/day: 1.00 Average packs/day: 1 pack/day for 30.0 years (30.0 ttl pk-yrs) Types: Cigarettes Smokeless tobacco: Never Vaping Use Vaping status: Never Used Substance Use Topics Alcohol use: No Drug use: No REVIEW OF SYSTEMS All other reviewed and negative other than HPI. OBJECTIVE: BP 154/92 Pulse 86 Resp 18 Wt 85.9 kg (189 lb 6 oz) LMP 05/05/2011 SpO2 97% BMI 31.51 kg/m? . Vital signs reviewed by this provider. APPEARANCE Well appearing, alert, in no acute distress, well-hydrated, well nourished. EYES conjunctiva and sclera normal. EARS External ears normal, canals clear NECK Supple, no adenopathy; thyroid symmetric, normal size, no bruits HEART RRR with normal S1 and S2, no murmurs, no gallops, no JVD appreciated LUNG clear to auscultation. No wheezes, rhonchi or rales EXTREMITIES Extremities normal, No deformities, No skin discoloration, and No edema SKIN Skin color, texture, turgor normal, no suspicious rashes or lesions to exposed skin Latest Ref Rng 03/22/2024 Protein, Total 6.3 - 8.0 g/dL 6.3 Albumin 3.9 - 4.9 g/dL 3.8 (L) Calcium 8.5 - 10.2 mg/dL 8.9 Bilirubin, Total 0.2 - 1.3 mg/dL 0.2 Alkaline Phosphatase 34 - 123 U/L 88 AST 13 - 35 U/L 17 ALT 7 - 38 U/L 10 Glucose 74 - 99 mg/dL 87 BUN 7 - 21 mg/dL 15 Creatinine 0.58 - 0.96 mg/dL 1.17 (H) Sodium 136 - 144 mmol/L 143 Potassium 3.7 - 5.1 mmol/L 4.3 Chloride 98 - 107 mmol/L 109 (H) CO2 22 - 30 mmol/L 23 Anion Gap 8 - 15 mmol/L 11 eGFR >=60 mL/min/1.73m? 55 (L) Cholesterol, Total <200 mg/dL 134 Triglyceride <150 mg/dL 118 HDL Cholesterol >39 mg/dL 31 (L) Non HDL Cholesterol <130 mg/dL 103 Fasting Time hrs 12 VLDL Cholesterol <30 mg/dL 24 TC:HDL Ratio <5.10 4.32 LDL Cholesterol <100 mg/dL 79 LDL:HDL Ratio <2.54 2.55 (H) Vitamin D 25 Hydroxy 31.0 - 80.0 ng/mL 42.5 Legend: (L) Low (H) High ASSESSMENT/PLAN: 1. Hypertension, essential - ICD9: 401.9, ICD10: I10 (primary diagnosis) - Uncontrolled - Continue current medications - Recommend home blood pressure monitoring, to bring results to next visit - Encouraged sodium restriction, DASH or Mediterranean diet - Recommend regular aerobic exercise - Discussed need for and benefit of weight loss. BMI 31.51 kg/(m2) - Smoking cessation encouraged; discussed risks to health and quitting strategies. Patient is not ready to quit - Follow up in 1 month for hypertension visit - LOSARTAN 25 MG TABLET 2. Mixed hyperlipidemia - ICD9: 272.2, ICD10: E78.2 - Controlled - Continue current medications - Counseled on healthy diet and regular exercise - Discussed need for and benefit of weight loss. BMI 31.51 kg/(m2) - Follow up in 6 months, sooner should any other iss (more content not included)...[facility]12-23-2024 History of Present illness Narrative* PodlogMarilou traore APRN.[facility] - 06/09/2024 7:19 AM EST 06/09/2024 Patient presents with: F/U 6 Month SUBJECTIVE: This is a 58 year old that is here today for Above Complaints. HTN: Patient is compliant with meds Yes Monitors bp at home: Yes 128-132/82-85 Denies side effects: Yes. Chest pain: No. Dyspnea: No. Edema: No. Palpitations: No. Syncope: No. Headache: No. Dizziness: Yes at times HYPERLIPIDEMIA: Patient is taking medications: Yes. Patient is watching diet: Yes. Patient denies myalgias: Yes. Patient denies gi upset: Yes PAD: following with vascular with last office appointment on 01/29/2024. No changes in current regime. Recommended follow-up in 6 months which is scheduled for 07/29/2024. Taking Trental as prescribed. Smoking: up to date on lung cancer screening. Still smoking about 3/4 pack of cigarettes a day PAST MEDICAL HISTORY Diagnosis Date Anxiety Chronic obstructive asthma with status asthmaticus (HCC) DVT (deep venous thrombosis) (HCC) History of COVID-19 03/2021 History of heavy periods s/p hysterectomy Hyperlipidemia Hypertension 2016 Iron deficiency anemia 01/06/2012 Major depressive disorder, single episode, unspecified Obesity (BMI 30.0-34.9) PAD (peripheral artery disease) ([facility]) 02/18/2021 moderate on left LE Polycystic kidney disease Tobacco use ALLERGIES Zoloft [Sertraline Hcl] MEDICATIONS Current Outpatient Medications Medication Sig losartan (COZAAR) 25 mg tablet Take 1 tablet by mouth daily at bedtime. atorvastatin (LIPITOR) 20 mg tablet Take 1 tablet by mouth daily at bedtime. For cholesterol. pentoxifylline ER (TRENTAL) 400 mg CR tablet Take 1 tablet by mouth three times a day with meals. ergocalciferol 50,000 unit capsule (VITAMIN D2, DRISDOL) Take 1 capsule by mouth one time a week. (Patient not taking: Reported on 02/25/2024) Blood Pressure Monitor kit Check BP at home. No current facility-administered medications for this visit. Medications and allergies reviewed by this provider. SOCIAL HISTORY Social History Tobacco Use Smoking status: Every Day Current packs/day: 1.00 Average packs/day: 1 pack/day for 30.0 years (30.0 ttl pk-yrs) Types: Cigarettes Smokeless tobacco: Never Vaping Use Vaping status: Never Used Substance Use Topics Alcohol use: No Drug use: No REVIEW OF SYSTEMS All other reviewed and negative other than HPI. OBJECTIVE: BP 154/92 Pulse 86 Resp 18 Wt 85.9 kg (189 lb 6 oz) LMP 05/05/2011 SpO2 97% BMI 31.51 kg/m . Vital signs reviewed by this provider. APPEARANCE Well appearing, alert, in no acute distress, well-hydrated, well nourished. EYES conjunctiva and sclera normal. EARS External ears normal, canals clear NECK Supple, no adenopathy; thyroid symmetric, normal size, no bruits HEART RRR with normal S1 and S2, no murmurs, no gallops, no JVD appreciated LUNG clear to auscultation. No wheezes, rhonchi or rales EXTREMITIES Extremities normal, No deformities, No skin discoloration, and No edema SKIN Skin color, texture, turgor normal, no suspicious rashes or lesions to exposed skin Latest Ref Rng 03/22/2024 Protein, Total 6.3 - 8.0 g/dL 6.3 Albumin 3.9 - 4.9 g/dL 3.8 (L) Calcium 8.5 - 10.2 mg/dL 8.9 Bilirubin, Total 0.2 - 1.3 mg/dL 0.2 Alkaline Phosphatase 34 - 123 U/L 88 AST 13 - 35 U/L 17 ALT 7 - 38 U/L 10 Glucose 74 - 99 mg/dL 87 BUN 7 - 21 mg/dL 15 Creatinine 0.58 - 0.96 mg/dL 1.17 (H) Sodium 136 - 144 mmol/L 143 Potassium 3.7 - 5.1 mmol/L 4.3 Chloride 98 - 107 mmol/L 109 (H) CO2 22 - 30 mmol/L 23 Anion Gap 8 - 15 mmol/L 11 eGFR >=60 mL/min/1.73m 55 (L) Cholesterol, Total <200 mg/dL 134 Triglyceride <150 mg/dL 118 HDL Cholesterol >39 mg/dL 31 (L) Non HDL Cholesterol <130 mg/dL 103 Fasting Time hrs 12 VLDL Cholesterol <30 mg/dL 24 TC:HDL Ratio <5.10 4.32 LDL Cholesterol <100 mg/dL 79 LDL:HDL Ratio <2.54 2.55 (H) Vitamin D 25 Hydroxy 31.0 - 80.0 ng/mL 42.5 Legend: (L) Low (H) High ASSESSMENT/PLAN: 1. Hypertension, essential - ICD9: 401.9, ICD10: I10 (primary diagnosis) - Uncontrolled - Continue current medications - Recommend home blood pressure monitoring, to bring results to next visit - Encouraged sodium restriction, DASH or Mediterranean diet - Recommend regular aerobic exercise - Discussed need for and benefit of weight loss. BMI 31.51 kg/(m^2) - Smoking cessation encouraged; discussed risks to health and quitting strategies. Patient is not ready to quit - Follow up in 1 month for hypertension visit - LOSARTAN 25 MG TABLET 2. Mixed hyperlipidemia - ICD9: 272.2, ICD10: E78.2 - Controlled - Continue current medications - Counseled on healthy diet and regular exercise - Discussed need for and benefit of weight loss. BMI 31.51 kg/(m^2) - Follow up in 6 months, sooner should any other issues arise. - ATORVASTATIN 20 MG TABLET 3. Encounter for screening examination for other mental health and behavioral disorders - ICD9: V79.8, ICD10: Z13.39 - ANXIETY SCREENING 4. PAD (peripheral artery disease) (HCC) - ICD9: 443.9, ICD10: I73.9 - stable on current regime - follow-up with vascular as scheduled Marilou Singh APRN.MEMBER SERVICES COORDINATOR Prescription instructions reviewed with patient as applicable. Patient advised if symptoms do not improve or if symptoms worsen sooner, to contact their primary care physician. Potential red flag symptoms discussed with the patient. Reviewed appropriate action plan to take if red flag symptoms occur. Patient agreeable to treatment plan. Medical Decision Making: Problems: Low: Stable chronic illness Moderate: 1+ chronic illnesses with change Data: Unique test(s) ordered: 1 Risk: Moderate: Moderate risk from testing/treatment and Drug management Medical Decision Making Level: 4 - Moderate [facility]Bar[facility] Telephone encounter Note * Telephone Encounter - Lissette Colón LPN - 05/26/2024 8:58 AM EST Pt called on 05/24/24 she was completely out of [facility] medicine. Dr coconut candy maker did authorize 30 tablets. Pt will need another supply for next month Jun 2024. Last saw POLYMERIZATION ENGINEER 12/07/23. Next appt with POLYMERIZATION ENGINEER 06/09/24. Can give refills then. [facility]12-09-2024 Miscellaneous Notes* Telephone Encounter - Lissette Colón LPN - 05/26/2024 8:58 AM EST Pt called on 05/24/24 she was completely out of [facility] medicine. coconut candy maker did authorize 30 tablets. Pt will need another supply for next month Jun 2024. Last saw POLYMERIZATION ENGINEER 12/07/23. Next appt with POLYMERIZATION ENGINEER 06/09/24. Can give refills then. documented in this encounterBarberton [facility]12-07-2024 Telephone encounter Note * Telephone Encounter - Lissette Colón LPN - 05/24/2024 11:20 AM EST [facility] doesn't take refill requests from the pharmacy. Called the pharmacy to see if they can dispense 2 tablets until pcp can review Sunday. They are notable to. [facility]12-07-2024 Miscellaneous Notes* Telephone Encounter - Lissette Colón LPN - 05/24/2024 11:20 AM EST [facility] doesn't take refill requests from the pharmacy. Called the pharmacy to see if they can dispense 2 tablets until pcp can review Sunday. They are notable to. * Telephone Encounter - Zeynep Agustin - 05/24/2024 10:35 AM EST Prescription Refill Information The patient has been identified by name and date of : Yes Caregiver verified no other encounters exist for this prescription request: Yes Caregiver confirmed with patient/requestor that no other refills are due, in the near future, with this provider at this time: Yes The last office visit in the department: 12/07/23 Does the patient have a future office visit with this provider/department: Yes Requested Prescriptions Pending Prescriptions Disp Refills losartan (COZAAR) 25 mg tablet 90 tablet 3 Sig: Take 1 tablet by mouth daily at bedtime. Patient called today, she is out of medication, she is upset because she stated she was told by [facility]pharmacy they called last week and our office ignored the request. She is asking if anyone can sendday. Zeynep Lynch May 24, 2024 10:35 AM documented in this encounterBarberton [facility]12-07-2024 Telephone encounter Note * Telephone Encounter - Zeynep Agustin - 05/24/2024 10:35 AM EST Prescription Refill Information The patient has been identified by name and date of : Yes Caregiver verified no other encounters exist for this prescription request: Yes Caregiver confirmed with patient/requestor that no other refills are due, in the near future, with this provider at this time: Yes The last office visit in the department: 12/07/23 Does the patient have a future office visit with this provider/department: Yes Requested Prescriptions Pending Prescriptions Disp Refills losartan (COZAAR) 25 mg tablet 90 tablet 3 Sig: Take 1 tablet by mouth daily at bedtime. Patient called today, she is out of medication, she is upset because she stated she was told by herpharmacy they called last week and our office ignored the request. She is asking if anyone can sendtoday. Zeynep Lynch May 24, 2024 10:35 AM [facility]10-16-2024 History of Present illness Narrative* Sarah Beth Buckner RT(R) - 04/02/2024 8:00 AM EDT Radiology Service Progress Note PATIENT NAME: Saranya Bermudez DATE OF SERVICE: April 02, 2024 TIME: 1:58 PM PATIENT IDENTITY VERIFICATION COMPLETED USING TWO (2) IDENTIFIERS: Name and Date of confirmedby patient verbally. FALL SCREENING: Has the patient had 2 falls in the last year or 1 fall with injury or currently using an Ambulatory Assistive Device (Walker, Cane, Wheelchair, Crutches, etc.)? No PATIENT GENDER DATA: Female. status: : No status: NO. PATIENT RELEVANT IMPLANT DATA REVIEWED: Yes PATIENT PRESENTS WITH AN IMPLANTABLE OR ATTACHED WORKFORCE MANAGEMENT COORDINATOR: No RADIOLOGY DEPARTMENT: CT; Exam(s) Completed: Lung Screening PERIPHERAL IV DATA: Not applicable SIGNED BY: RT Ifrah(Yeison) April 02, 2024 1:58 PM documented in this encounterBarberton [facility]10-16-2024 NoteHNO ID: [id number] Author: SARAH BETH BUCKNER RT(Yeison) Service: ? Author Type: Regional Tanker Truck Driver Type: Progress Notes Filed: 04/02/2024 13:58 Note Text: Radiology Service Progress Note PATIENT NAME: Saranya Bermudez DATE OF SERVICE: April 02, 2024 TIME: 1:58 PM PATIENT IDENTITY VERIFICATION COMPLETED USING TWO (2) IDENTIFIERS: Name and Date of confirmed by patient verbally. FALL SCREENING: Has the patient had 2 falls in the last year or 1 fall with injury or currently using an Ambulatory Assistive Device (Walker, Cane, Wheelchair, Crutches, etc.)? No PATIENT GENDER DATA: Female. status: : No status: NO. PATIENT RELEVANT IMPLANT DATA REVIEWED: Yes PATIENT PRESENTS WITH AN IMPLANTABLE OR ATTACHED WORKFORCE MANAGEMENT COORDINATOR: No RADIOLOGY DEPARTMENT: CT; Exam(s) Completed: Lung Screening PERIPHERAL IV DATA: Not applicable SIGNED BY: RT Ifrah(R) April 02, 2024 1:58 [facility]10-07-2024 Telephone encounter Note* Telephone Encounter - Roma Bolaños LPN - 03/24/2024 3:55 PM EDT Phoned patient and reviewed results and recommendations with her. She voiced understanding. Roma Bolaños LPN [facility]10-07-2024 Miscellaneous Notes* Telephone Encounter - Roma Bolaños LPN - 03/24/2024 3:55 PM EDT Phoned patient and reviewed results and recommendations with her. She voiced understanding. Roma Bolaños LPN * Telephone Encounter - Roma Bolaños LPN - 03/24/2024 3:53 PM EDT ----- Message from Marilou Singh APRN.MEMBER SERVICES COORDINATOR sent at 03/24/2024 3:44 PM EDT ----- Cholesterol has improved- continue medication, diet and exercise. Kidney function down slightly- eat low salt diet, avoid NSAID products and stay well hydrated. Marilou Singh APRN.MEMBER SERVICES COORDINATOR documented in this encounterBarberton [facility]10-07-2024 Telephone encounter Note * Telephone Encounter - Roma Bolaños LPN - 03/24/2024 3:53 PM EDT ----- Message from Marilou Singh APRN.MEMBER SERVICES COORDINATOR sent at 03/24/2024 3:44 PM EDT ----- Cholesterol has improved- continue medication, diet and exercise. Kidney function down slightly- eat low salt diet, avoid NSAID products and stay well hydrated. Marilou Singh APRN.MEMBER SERVICES COORDINATOR [facility]10-07-2024 NoteHNO ID: [id number] Author: ?, ?, ? Service: ? Author Type: ? Type: Progress Notes Filed: 03/24/2024 13:23 Note Text: Follow Up Diagnosis: Lung Nodule Recommendation: CT Scan Follow up Date: 03/16/2025 Follow-Up Scheduled: No Pulmonary Follow-Up Type: Lung Nodule Surveillance Enrolled in Lung Nodule program: Yes Lung Nodule Program Location: [facility]10-07-2024 History of Present illness Narrative* Brina Coleman - 03/24/2024 1:23 PM EDT Follow Up Diagnosis: Lung Nodule Recommendation: CT Scan Follow up Date: 03/16/2025 Follow-Up Scheduled: No Pulmonary Follow-Up Type: Lung Nodule Surveillance Enrolled in Lung Nodule program: Yes Lung Nodule Program Location: [facility] documented in this encounterBarberton [facility]10-07-2024 NoteHNO ID: [id number] Author: ?, ?, ? Service: ? Author Type: ? Type: Progress Notes Filed: 03/24/2024 12:56 Note Text: [facility] POP LUNG CANCER SCREENING FOLLOWUP ADVANCED: Diagnosis: Lung Nodule Patient should be added to the Lung Cancer Screening Followup Report: No Patient being transferred to lung nodule clinic.[facility] 03-24-2024 History of Present illness Narrative* Aisha Martinez - 03/24/2024 12:55 PM EDT [facility] POP LUNG CANCER SCREENING FOLLOWUP ADVANCED: Diagnosis: Lung Nodule Patient should be added to the Lung Cancer Screening Followup Report: No Patient being transferred to lung nodule clinic. documented in this encounterBarberton [facility]10-07-2024 NotePatient Outreach (PULMMN) SARANYA BERMUDEZ ([id number]) 1965 F Date Time Provider Department 03/24/24 BRINA COLEMAN During your visit today, we recorded the following information about you: Brina Coleman 03/24/2024 1:23 PM Signed Follow Up Diagnosis: Lung Nodule Recommendation: CT Scan Follow up Date: 03/16/2025 Follow-Up Scheduled: No Pulmonary Follow-Up Type: Lung Nodule Surveillance Enrolled in Lung Nodule program: Yes Lung Nodule Program Location: [facility] Allergies As of Date: 03/24/2024 Noted Allergy Reaction ZOLOFT (SERTRALINE HCL) 12/03/2017 6 - Diarrhea 8 - GI Upset Date Reviewed: 02/25/2024 Reviewed by: Sarah Beth Buckner, RT(R) - Fully Assessed Prescriptions as of 03/24/2024 - atorvastatin (LIPITOR) 20 mg tablet Take 1 tablet by mouth daily at bedtime. For cholesterol. - pentoxifylline ER (TRENTAL) 400 mg CR tablet Take 1 tablet by mouth three times a day with meals. - ergocalciferol 50,000 unit capsule (VITAMIN D2, DRISDOL) Take 1 capsule by mouth one time a week. - losartan (COZAAR) 25 mg tablet Take 1 tablet by mouth daily at bedtime. - Blood Pressure Monitor kit Check BP at home. Problem List As Of Date 03/24/2024 Noted Resolved Moderate persistent asthma without complication*05/15/2005 Major Depressive Disorder, Single Episode, Unsp* Acquired cyst of kidney [N28.1] 05/16/2018 Chronic Obstructive Asthma with Status Asthmati* Routine Gynecological Examination [Z01.419] 01/25/2010 Class: Chronic Iron deficiency anemia [D50.9] 01/06/2012 Adjustment disorder with mixed anxiety and depr*12/13/2012 Polycystic kidney disease [Q61.3] Obesity, Class I, BMI 30-34.9 [E66.811] 05/16/2018 Hypertension, essential [I10] 05/16/2018 Tobacco abuse [Z72.0] 05/16/2018 Hydronephrosis, left [N13.30] 05/16/2018 Hyperlipidemia [E78.5] PAD (peripheral artery disease) (HCC) [I73.9] 02/18/2021 Encounter Status:Closed by BRINA COLEMAN on 03/24/24[facility]10[facility] NotePatient Outreach (PULMMN) SARANYA BERMUDEZ ([id number]) 1965 F Date Time Provider Department 03/24/24 GEORGIA WHITE During your visit today, we recorded the following information about you: Allergies As of Date: 03/24/2024 Noted Allergy Reaction ZOLOFT (SERTRALINE HCL) 12/03/2017 6 - Diarrhea 8 - GI Upset Date Reviewed: 02/25/2024 Reviewed by: Sarah Beth Buckner, RT(R) - Fully Assessed Prescriptions as of 03/24/2024 - atorvastatin (LIPITOR) 20 mg tablet Take 1 tablet by mouth daily at bedtime. For cholesterol. - pentoxifylline ER (TRENTAL) 400 mg CR tablet Take 1 tablet by mouth three times a day with meals. - ergocalciferol 50,000 unit capsule (VITAMIN D2, DRISDOL) Take 1 capsule by mouth one time a week. - losartan (COZAAR) 25 mg tablet Take 1 tablet by mouth daily at bedtime. - Blood Pressure Monitor kit Check BP at home. Problem List As Of Date 03/24/2024 Noted Resolved Moderate persistent asthma without complication*05/15/2005 Major Depressive Disorder, Single Episode, Unsp* Acquired cyst of kidney [N28.1] 05/16/2018 Chronic Obstructive Asthma with Status Asthmati* Routine Gynecological Examination [Z01.419] 01/25/2010 Class: Chronic Iron deficiency anemia [D50.9] 01/06/2012 Adjustment disorder with mixed anxiety and depr*12/13/2012 Polycystic kidney disease [Q61.3] Obesity, Class I, BMI 30-34.9 [E66.811] 05/16/2018 Hypertension, essential [I10] 05/16/2018 Tobacco abuse [Z72.0] 05/16/2018 Hydronephrosis, left [N13.30] 05/16/2018 Hyperlipidemia [E78.5] PAD (peripheral artery disease) (HCC) [I73.9] 02/18/2021 Encounter Status:Closed by AISHA MARTINEZ on 03/24/24[facility] 03-24-2024 NotePatient Outreach (PULMMN) SARANYA BERMUDEZ ([id number]) 1965 F Date Time Provider Department 03/24/24 GEORGIA WHITE During your visit today, we recorded the following information about you: Aisha Martinez 03/24/2024 12:56 PM Signed [facility] POP LUNG CANCER SCREENING FOLLOWUP ADVANCED: Diagnosis: Lung Nodule Patient should be added to the Lung Cancer Screening Followup Report: No Patient being transferred to lung nodule clinic. Allergies As of Date: 03/24/2024 Noted Allergy Reaction ZOLOFT (SERTRALINE HCL) 12/03/2017 6 - Diarrhea 8 - GI Upset Date Reviewed: 02/25/2024 Reviewed by: Sarah Beth Buckner, RT(R) - Fully Assessed Prescriptions as of 03/24/2024 - atorvastatin (LIPITOR) 20 mg tablet Take 1 tablet by mouth daily at bedtime. For cholesterol. - pentoxifylline ER (TRENTAL) 400 mg CR tablet Take 1 tablet by mouth three times a day with meals. - ergocalciferol 50,000 unit capsule (VITAMIN D2, DRISDOL) Take 1 capsule by mouth one time a week. - losartan (COZAAR) 25 mg tablet Take 1 tablet by mouth daily at bedtime. - Blood Pressure Monitor kit Check BP at home. Problem List As Of Date 03/24/2024 Noted Resolved Moderate persistent asthma without complication*05/15/2005 Major Depressive Disorder, Single Episode, Unsp* Acquired cyst of kidney [N28.1] 05/16/2018 Chronic Obstructive Asthma with Status Asthmati* Routine Gynecological Examination [Z01.419] 01/25/2010 Class: Chronic Iron deficiency anemia [D50.9] 01/06/2012 Adjustment disorder with mixed anxiety and depr*12/13/2012 Polycystic kidney disease [Q61.3] Obesity, Class I, BMI 30-34.9 [E66.811] 05/16/2018 Hypertension, essential [I10] 05/16/2018 Tobacco abuse [Z72.0] 05/16/2018 Hydronephrosis, left [N13.30] 05/16/2018 Hyperlipidemia [E78.5] PAD (peripheral artery disease) (HCC) [I73.9] 02/18/2021 Encounter Status:Closed by AISHA MARTINEZ on 03/24/24[facility] 03-07-2024 Telephone encounter Note* Telephone Encounter - Georgia White APRN.CNP - 03/07/2024 10:34 AM EDT . [facility]09-20-2024 Miscellaneous Notes* Telephone Encounter - Georgia White APRN.CNP - 03/07/2024 10:34 AM EDT . documented in this encounterBarberton [facility] Hospital09-11-2024 History of Present illness Narrative* Georgia Whiet APRN.CNP - 02/27/2024 2:19 PM EDT [facility] POP LUNG CANCER SCREENING FOLLOWUP ADVANCED: Diagnosis: Lung Nodule Recommendation: CT Scan Follow Up Due Date: 02/26/2024 All Follow Up Scheduled: Yes Pulmonary Follow Up Type: Lung Nodule Surveillance Patient should be added to the Lung Cancer Screening Followup Report: Yes Lung Cancer Screening Program Location: [facility] Prior scan with 3.2 x 2.8 cm density in LLL without any follow up imaging. CT Chest was ordered instead of LDCT. documented in this encounterBarberton Citizens Hospital09-11-2024 NoteHNO ID: [id number] Author: GEORGIA WHITE APRN.CNP Service: ? Author Type: Nurse Practitioner Type: Progress Notes Filed: 02/27/2024 14:20 Note Text: [facility] POP LUNG CANCER SCREENING FOLLOWUP ADVANCED: Diagnosis: Lung Nodule Recommendation: CT Scan Follow Up Due Date: 02/26/2024 All Follow Up Scheduled: Yes Pulmonary Follow Up Type: Lung Nodule Surveillance Patient should be added to the Lung Cancer Screening Followup Report: Yes Lung Cancer Screening Program Location: [facility] Prior scan with 3.2 x 2.8 cm density in LLL without any follow up imaging. CT Chest was ordered instead of LDCT.[facility]09-10-2024 History of Present illness Narrative* Sarah Beth Buckner RT(Yeison) - 02/26/2024 3:40 PM EDT Radiology Service Progress Note PATIENT NAME: Saranya Bermudez DATE OF SERVICE: February 26, 2024 TIME: 4:00 PM PATIENT IDENTITY VERIFICATION COMPLETED USING TWO (2) IDENTIFIERS: Name and Date of confirmedby patient verbally. FALL SCREENING: Has the patient had 2 falls in the last year or 1 fall with injury or currently using an Ambulatory Assistive Device (Walker, Cane, Wheelchair, Crutches, etc.)? No PATIENT GENDER DATA: Female. status: : No status: NO. PATIENT RELEVANT IMPLANT DATA REVIEWED: Yes PATIENT PRESENTS WITH AN IMPLANTABLE OR ATTACHED WORKFORCE MANAGEMENT COORDINATOR: No RADIOLOGY DEPARTMENT: CT; Exam(s) Completed: Chest PERIPHERAL IV DATA: Not applicable SIGNED BY: MIK Rg) February 26, 2024 4:00 PM documented in this encounterBarberton Citizens Hospital09-10-2024 NoteHNO ID: [id number] Author: SARAH BETH BUCKNER RT(R) Service: ? Author Type: Regional Tanker Truck Driver Type: Progress Notes Filed: 02/26/2024 16:00 Note Text: Radiology Service Progress Note PATIENT NAME: Saranya Bermudez DATE OF SERVICE: February 26, 2024 TIME: 4:00 PM PATIENT IDENTITY VERIFICATION COMPLETED USING TWO (2) IDENTIFIERS: Name and Date of confirmed by patient verbally. FALL SCREENING: Has the patient had 2 falls in the last year or 1 fall with injury or currently using an Ambulatory Assistive Device (Walker, Cane, Wheelchair, Crutches, etc.)? No PATIENT GENDER DATA: Female. status: : No status: NO. PATIENT RELEVANT IMPLANT DATA REVIEWED: Yes PATIENT PRESENTS WITH AN IMPLANTABLE OR ATTACHED WORKFORCE MANAGEMENT COORDINATOR: No RADIOLOGY DEPARTMENT: CT; Exam(s) Completed: Chest PERIPHERAL IV DATA: Not applicable SIGNED BY: RT Ifrah(Yeison) February 26, 2024 4:00 [facility]09-09-2024 Instructions* Patient Instructions* Georgia White APRN.MEMBER SERVICES COORDINATOR - 02/25/2024 8:50 AM EDT SMOKING CESSATION EDUCATION Why do I need to know about the health risks of cigarette smoking? Cigarette smoking is the most preventable cause of illness and . Cigarettes are filled with nicotine, which acts like a poison in your body. What are the health risks of cigarette smoking? You may have breathing problems that make it difficult for you to do daily activities or play sports. You have a higher risk of bone fractures because smoking can cause osteoporosis (brittle bones). If you fall asleep with a lit cigarette, you can start a fire. Cigarette smoking can also cause the following health problems: Cancer: Heart and blood vessel disease: The nicotine in tobacco causes an increase in your heart rate and blood pressure. Nicotine also causes your blood vessels to narrow. This can lead to blood clots in your heart or brain and cause a heart attack or stroke. Cigarette smoke has carbon monoxide init. This can decrease the amount of oxygen flowing to your heart and other organs. Lung disease: The chemicals in cigarette smoke can damage your lungs. This causes a buildup of dirtand waste products in your lungs. Many people who smoke have a long-term cough as a result. Cigarette smoking may also cause long-term lung infections or diseases, such as asthma, emphysema, or chronic bronchitis. You are also at higher risk for respiratory illnesses, such as colds or pneumonia. Gastrointestinal disease: Cigarette smoking increases the amount of acid in your stomach. This can cause an ulcer or gastric reflux. Women and smoking: You have a higher risk of heart and blood vessel disease if you smoke and take control pills. The risk is more serious is you are 35 years or older. Why should I quit smoking? Your health will improve and your risks for many diseases will decrease.Your breath, clothes, and hair will no longer smell like smoke. Tobacco will no longer stain your teeth. Tobacco smoke is dangerous to others. If you quit, you will decrease the risks to those aroundyou, such as your children or family members. Where can I go for support and more information? There are many ways to quit smoking. Some may workbetter for you than others. Your caregiver can help you find the best plan to quit. Smokefree.gov Web Address: www.smokefree.gov Phone: [place] [employer] Web Address: www.lung.org [address] [place] , [place] Phone: - [phone] Phone: [facility] Smoking Cessation Program [email or web address] CT Lung Screen Results The CT scan that you will have done will show if you have any nodules (small spots) in your lungs that are suspicious for cancer. Around 90% of the patients who have this scan done are found to have at least one nodule. Most nodules are benign (not cancer) and of no harm to you at all. A specialistwill make a scientific evaluation about whether or not a nodule is worrisome based on its size and shape. The radiologist who will read your scan will put it into one of four categories: LUNG-RADS Category Description Overall Probability of Malignancy Recommended Follow-Up 1 Negative No nodules and definitely benign (non-cancerous nodules) Essentially 0. 1 Year - Follow-up Low dose CT 2 Benign Appearance or Behavior Nodules with a very low likelihood of becoming cancer due to size or lack of growth Less than 1% 1 Year - Follow-up Low dose CT 3 Probably Benign Probably benign finding, short term follow-up recommended 1 to 2% 6 Months - Follow-up Low dose CT 4 Suspicious Findings for which additional diagnostic testing and/or biopsy is recommended Will be calculated based on nodule characteristics. Dependent on what is seen on the exam. (3 month follow-up CT, PET-CT, or biopsy) 0 Incomplete Findings suggestive of an inflammatory or infectious process AND/OR part of the lung cannot be evaluated Additional lung cancer screening CT imaging needed AND/OR comparison with prior chest CT imaging At times, we may see something outside of the lungs on the scan that could be a health concern. Below are some of the most common findings: S Clinically Significant or Potentially Clinically Significant Findings (non lung cancer) Referral or additional imaging/labs depending on result. Approximately 10% of people receive this result. Coronary Artery Calcifications (Moderate or Severe) - Referral to cardiology for further work-up and recommendations. Thyroid Nodule - TSH level and Thyroid Ultrasound dependent on size, referral to endocrinology. Adrenal Nodule - blood work and referral to endocrinology. Others Lung Cancer Screening hotline: [phone] Lung Cancer Screening [phone] Billing Questions: or [email or web address] Specialist Providers: (Arelis Willams PA-C; Ellen Emery CNP; Maude De La Paz CNP, Reena Braga CNP; Sarah Beth Hastings CNP; ROSHAN Camacho; Georgia White CNP; Alisha Handley CNP; Yusra Malin CNP; Kelin Reese CNP; Valerie Castro PA-C; Dalia Flower PA-C; Uzma Bowen CNP; Lynne Giraldo CNP; Janel Guerrero CNP): [phone] documented in this encounterBar[facility]24 NoteHNO ID: [id number] Author: GEORGIA WHITE APRN.CNP Service: ? Author Type: Nurse Practitioner Type: Progress Notes Filed: 02/25/2024 10:45 Note Text: LUNG SCREENING VISIT PRIMARY CARE PHYSICIAN: Shasta Walters MD PULMONARY PROVIDER: none Results will be communicated via letter or electronic record if applicable. Visit Delivery: In Person Patient Visit Type: New to Screening Current or Ex-smoker? [Current Exam Type: baseline LDCT Number of Pack Years: 37 Current smoker (=0) REQUESTER: The referring provider advised the patient to have screening. HISTORY OF PRESENT ILLNESS: Saranya Bermudez is a 58 year old Active smoker who presents for lung screening. Currently smoking 20 cigarettes daily. Pt has previously noted 3.2 x 2.8 cm LLL density on [facility] CTA scan from 02/28/2021. Pt does not recall this finding or any follow up. She had URI 12/2020, and she had COVID 03/24/2021. She was seen in ER for chest pain and CTA was done for elevated D Dimer. Respiratory symptoms include: SOB: No Chest tightness: No Coughing: Yes: Without mucus, occasionally Hemoptysis: No Wheezing: Yes, sometimes with asthma Fever/Chills: No Recent Respiratory Infection: No Unintentional weight loss: No Last 6 Encounter Wt Readings: Date: Wt: 02/25/2024 86.2 kg (190 lb) 01/14/2024 85.2 kg (187 lb 12.8 oz) 12/07/2023 85.4 kg (188 lb 3.2 oz) 11/06/2023 85.5 kg (188 lb 9.6 oz) 06/02/2021 83.9 kg (185 lb) 04/19/2021 87.1 kg (192 lb) ECOG PERFORMANCE STATUS: 0- Fully active, able to carry on all pre-disease performance w/o restriction. Modified Medical Research [place] Dyspnea Scale (MMRC) I only get breathless with strenous exercise 0 PAST MEDICAL HISTORY No date: Anxiety No date: Chronic obstructive asthma with status asthmaticus ([facility]) No date: DVT (deep venous thrombosis) ([facility]) 03/2021: History of COVID-19 No date: History of heavy periods Comment: s/p hysterectomy No date: Hyperlipidemia 2016: Hypertension 01/06/2012: Iron deficiency anemia No date: Major depressive disorder, single episode, unspecified No date: Obesity (BMI 30.0-34.9) 02/18/2021: PAD (peripheral artery disease) ([facility]) Comment: moderate on left LE No date: Polycystic kidney disease No date: Tobacco use PAST SURGICAL HISTORY 11/04/2018: COLONOSCOPY FLX DX W/COLLJ SPEC WHEN PFRMD Comment: Colonoscopy : DILATION AND CURETTAGE DXAND/THER NONOBSTETRIC 10/19/11: LAPARO-VAG HYST, COMPLEX Comment: vag hysterectomy with bladder sling and posterior repair, bladder tear repaired No date: LIG/TRNSXJ FLP TUBE ABDL/VAG APPR UNI/BI 2006: PAST SURGICAL HISTORY OF Comment: upper teeth removed No date: UNSPECIFIED ORAL SURGERY PROCEDURE, BY REPORT Comment: WISDOM TEETH REMOVED FAMILY HISTORY Problem Relation Age of Onset Heart Mother no communication with patient, doesn't have details Drug abuse Sister ??? patient doesn't know for sure. Colon Cancer Maternal Grandmother Diabetes Other no details known Colon Cancer Other no details known Coronary Artery Disease Other no details known atorvastatin (LIPITOR) 20 mg tablet Take 1 tablet by mouth daily at bedtime. For cholesterol. pentoxifylline ER (TRENTAL) 400 mg CR tablet Take 1 tablet by mouth three times a day with meals. losartan (COZAAR) 25 mg tablet Take 1 tablet by mouth daily at bedtime. Blood Pressure Monitor kit Check BP at home. ergocalciferol 50,000 unit capsule (VITAMIN D2, DRISDOL) Take 1 capsule by mouth one time a week. (Patient not taking: Reported on 02/25/2024) ALLERGIES Allergen Reactions Zoloft [Sertraline * Diarrhea, GI Upset The medications and allergies were reviewed and reconciled for this patient and deemed current. Lung Cancer Risk Factors: 1.Tobacco Use: Start Age 21, Quit Age: N/A, Average packs per day 1, Pack Years 37 2. Passive Smoke Exposure: Yes, as a Child and as an Adult 3. Personal hx of malignancy: No, Type of Cancer: 4. Significant exposures (1 year or more of exposure): Dusts, 5. Race: White 6. Education: Some College 7. BMI:Body mass index is 31.62 kg/m?. Patient-entered Height: 5'5 Patient-entered Weight: 187 pounds 8. COPD: Yes 9. Pneumonia in the past 5 years: No 10. Is there a history of lung cancer in a first degree relative? No 11. Is there a history of lung cancer in a non-first degree relative? No 12. Is there a history of any other cancer in a first degree relative? No Health Maintenance Immunization History Administered Date(s) Administered influenza (IIV3) vaccine, age 6 mo - 64 yr, trivalent (AFLURIA, FLULAVAL, FLUVIRIN, FLUZONE) 03/09/2014 influenza (IIV4) vaccine, age 6 mo - 64 yr, quadrivalent (AFLURIA, FLULAVAL, FLUZONE) 02/26/2018 02/26/2019 03/01/2020 04/19/2021 pneumococcal polysaccharide (PPV23) vaccine, 23 valent (PNEUMOVAX 23) 03/09/2014 tetanus diphtheria pertussis (Tdap) vaccine, age 7+ yr (ADACEL, BOOSTRIX) (more content not included)...[facility]09-09-2024 History of Present illness Narrative* Georgia White APRN.MEMBER SERVICES COORDINATOR - 02/25/2024 8:46 AM EDT Images from the original note were not included. LUNG SCREENING VISIT PRIMARY CARE PHYSICIAN: Shasta Walters MD PULMONARY PROVIDER: none Results will be communicated via letter or electronic record if applicable. Visit Delivery: In Person Patient Visit Type: New to Screening Current or Ex-smoker? [Current Exam Type: baseline LDCT Number of Pack Years: 37 Current smoker (=0) REQUESTER: The referring provider advised the patient to have screening. HISTORY OF PRESENT ILLNESS: Saranya Bermudez is a 58 year old Active smoker who presents for lung screening. Currently [id number] cigarettes daily. Pt has previously noted 3.2 x 2.8 cm LLL density on [facility] CTA scan from 02/28/2021. Pt does not recall this finding or any follow up. She had URI 12/2020, and she had COVID 03/24/2021. She was seen in ER for chest pain and CTA was done for elevated D Dimer. Respiratory symptoms include: SOB: No Chest tightness: No Coughing: Yes: Without mucus, occasionally Hemoptysis: No Wheezing: Yes, sometimes with asthma Fever/Chills: No Recent Respiratory Infection: No Unintentional weight loss: No Last 6 Encounter Wt Readings: Date: Wt: 02/25/2024 86.2 kg (190 lb) 01/14/2024 85.2 kg (187 lb 12.8 oz) 12/07/2023 85.4 kg (188 lb 3.2 oz) 11/06/2023 85.5 kg (188 lb 9.6 oz) 06/02/2021 83.9 kg (185 lb) 04/19/2021 87.1 kg (192 lb) ECOG PERFORMANCE STATUS: 0- Fully active, able to carry on all pre-disease performance w/o restriction. Modified Medical Research [place] Dyspnea Scale (MMRC) I only get breathless with strenous exercise 0 PAST MEDICAL HISTORY No date: Anxiety No date: Chronic obstructive asthma with status asthmaticus ([facility]) No date: DVT (deep venous thrombosis) ([facility]) 03/2021: History of COVID-19 No date: History of heavy periods Comment: s/p hysterectomy No date: Hyperlipidemia 2016: Hypertension 01/06/2012: Iron deficiency anemia No date: Major depressive disorder, single episode, unspecified No date: Obesity (BMI 30.0-34.9) 02/18/2021: PAD (peripheral artery disease) ([facility]) Comment: moderate on left LE No date: Polycystic kidney disease No date: Tobacco use PAST SURGICAL HISTORY 11/04/2018: COLONOSCOPY FLX DX W/COLLJ SPEC WHEN PFRMD Comment: Colonoscopy : DILATION & CURETTAGE DX&/THER NONOBSTETRIC 10/19/11: LAPARO-VAG HYST, COMPLEX Comment: vag hysterectomy with bladder sling and posterior repair, bladder tear repaired No date: LIG/TRNSXJ FLP TUBE ABDL/VAG APPR /2006: PAST SURGICAL HISTORY OF Comment: upper teeth removed No date: UNSPECIFIED ORAL SURGERY PROCEDURE, BY REPORT Comment: WISDOM TEETH REMOVED FAMILY HISTORY Problem Relation Age of Onset Heart Mother no communication with patient, doesn't have details Drug abuse Sister ??? patient doesn't know for sure. Colon Cancer Maternal Grandmother Diabetes Other no details known Colon Cancer Other no details known Coronary Artery Disease Other no details known atorvastatin (LIPITOR) 20 mg tablet Take 1 tablet by mouth daily at bedtime. For cholesterol. pentoxifylline ER (TRENTAL) 400 mg CR tablet Take 1 tablet by mouth three times a day with meals. losartan (COZAAR) 25 mg tablet Take 1 tablet by mouth daily at bedtime. Blood Pressure Monitor kit Check BP at home. ergocalciferol 50,000 unit capsule (VITAMIN D2, DRISDOL) Take 1 capsule by mouth one time a week. (Patient not taking: Reported on 02/25/2024) ALLERGIES Allergen Reactions Zoloft [Sertraline * Diarrhea, GI Upset The medications and allergies were reviewed and reconciled for this patient and deemed current. Lung Cancer Risk Factors: 1.Tobacco Use: Start Age 21, Quit Age: N/A, Average packs per day 1, Pack Years 37 2. Passive Smoke Exposure: Yes, as a Child and as an Adult 3. Personal hx of malignancy: No, Type of Cancer: 4. Significant exposures (1 year or more of exposure): Dusts, 5. Race: White 6. Education: Some College 7. BMI:Body mass index is 31.62 kg/m . Patient-entered Height: 5'5 Patient-entered Weight: 187 pounds 8. COPD: Yes 9. Pneumonia in the past 5 years: No 10. Is there a history of lung cancer in a first degree relative? No 11. Is there a history of lung cancer in a non-first degree relative? No 12. Is there a history of any other cancer in a first degree relative? No Health Maintenance Immunization History Administered Date(s) Administered influenza (IIV3) vaccine, age 6 mo - 64 yr, trivalent (AFLURIA, FLULAVAL, FLUVIRIN, FLUZONE) 03/09/2014 influenza (IIV4) vaccine, age 6 mo - 64 yr, quadrivalent (AFLURIA, FLULAVAL, FLUZONE) 02/26/2018 02/26/2019 03/01/2020 04/19/2021 pneumococcal polysaccharide (PPV23) vaccine, 23 valent (PNEUMOVAX 23) 03/09/2014 tetanus diphtheria pertussis (Tdap) vaccine, age 7+ yr (ADACEL, BOOSTRIX) 09/07/2016 tetanus toxoid (TT) vaccine 04/25/2006 Colonoscopy: 11/04/2018 Mammogram: 02/19/2024 DATA REVIEW I have directly visualized the testing documented: none Prior Imaging: Last CT/CTA Chest/Lungs No resulted procedures found. Last CT Chest - Impression Only No resulted procedures found. Last XR Chest - Impression Only XR CHEST 2V FRONTAL/LAT Exam End: 01/12/2021 3:17 PM (Final result) Impression: IMPRESSION: No acute radiographic abnormality. ... Pulmonary Function Testing: SPIROMETRY - BASELINE AND POST DILATOR ([id number]) - ordered on 03/16/20 [id number] [facility] [place] [address] Test Date: 2020-03-16 Pat Name: SARANYA BERMUDEZ Department: Room: Gender: Female [employer] Driver: SHIVANI Yepez : 1965 Requested By: Fahad WALTERS Order Number: [id number] Reading MD: Rolly Fernandez Interpretive Statements ATS/ERS acceptability and repeatability standards for spirometry met. 2 Puffs of albuterol (180mcg) delivered by MDI via Aerochamber HRpre =90/min, HRpost=90 /min. IMPRESSION: The flow volume loop is normal. Spirometry is normal. There was a borderline significant (FEV1 +220mL, +9%) response to bronchodilator. Electronically Signed On 03-16-2020 16:50:52 EDT by Rolly Fernandez Site: WO ID: [id number] Name: SARANYA BERMUDEZ Visit Date: 03/16/2020 Second ID: [id number] Referring Doctor: Fahad WALTERS [employer] Truck Driver: SHIVANI Yepez Age: 54 : 1965 Sex: Female Race: Height: 65.00 Inches Weight: 188.80 Lbs BSA: 1.93 Order IDs: [id number] Requested Test(s): Spirometry - baselline and post dilator Post Test Comments: ATS/ERS acceptability and repeatability standards for spirometry met. 2 Puffs of albuterol (180mcg) delivered by MDI via Aerochamber HRpre =90/min, HRpost=90 /min. Review Status: Not Reviewed Pre-Bronch Post-Bronch Pred LLN ULN Actual %Pred Actual %Chng SPIROMETRY FVC (L) 3.52 2.74 4.34 3.03 86 3.22 6 FEV1 (L) 2.81 2.17 3.41 2.28 81 2.50 9 FEV1/FVC (%) 80 69 90 75 93 77 2 FEF 25% (L/sec) 5.28 3.13 7.42 3.59 68 4.74 31 FEF 50% (L/sec) 3.86 2.05 5.68 2.30 59 2.68 16 FEF 75% (L/sec) 0.88 0.38 1.88 0.86 97 1.25 45 FEF 25-75% (L/sec) 2.70 1.49 4.25 1.83 68 2.36 28 FEF Max (L/sec) 6.82 4.57 66 5.51 20 FIVC (L) 2.94 3.12 6 FIF 50% (L/sec) 3.81 2.37 5.24 3.20 84 3.49 8 FIF Max (L/sec) 3.23 3.75 15 FET (sec) 7.24 6.77 -6 Back Extrap Vol (L) 0.05 0.06 21 Time To FEFmax (sec) 0.072 0.081 13 PHYSICAL EXAM: BP 113/62 Pulse 82 Ht 165.1 cm (5' 5) Wt 86.2 kg (190 lb) LMP 05/05/2011 SpO2 100% BMI 31.62 kg/m PHYSICAL EXAMINATION: General appearance: Well appearing, alert, in no acute distress, well-hydrated, well nourished. Neck: Supple, no adenopathy; thyroid symmetric, normal size Lungs: Lungs clear to auscultation. No wheezing, rhonchi, rales. Heart: RRR without murmur, gallop, or rubs. No ectopy Neuro: Oriented X 3 ASSESSMENT and RECOMMENDATIONS: 1. Screening for lung cancer: Six year risk for lung cancer: 1.71% I have determined that the patient is eligible for a low dose CT based on age, absence of signs or symptoms of lung cancer, and total pack years: No. Lung nodule noted on prior CTA scan that needs follow up. 2. Nicotine dependence: The patient was counseled on the importance of smoking cessation if currentsmoker and, if appropriate, offered additional tobacco cessation counseling services - Smoking Cessation Counseling. SMOKING CESSATION COUNSELING Smoking cessation methods including Nicotine Replacement Therapies and Behavior Modification were discussed with the patient and assistance offered. The medical conditions adversely affected by cigarette use include:COPD, Emphysema, and Lung Cancer. The patient is currently not ready to quit. I personally spent 3 minutes in counseling. The time spent in smoking cessation counseling is exclusive of any other counseling during this visit. 3. Lung Nodule: 02/28/2021 CTA Chest at [facility] notes a 3.2 x 2.8 cm LLL density. Records and images requested. No interim follow up noted in documentation available at time of visit. Pt was unaware. Plan: CT Chest for follow up of lung nodule. Medical Decision Making: Problems: Moderate: New problem with uncertain prognosis Data: Unique test result(s) reviewed: 1 Unique test(s) ordered: 1 Independent interpretation of test from other physician/QHCP Medical Decision Making Level: 4 - Moderate Georgia White APRN.CNP NPI #: February 25, [id number] 8:46 AM documented in [facility] Telephone encounter Note * Telephone Encounter - Celeste Brady MD - 02/23/2024 10:04 AM EDT Told patient pathology from breast biopsy done on 02/19/2024 reveals no evidence of malignancy. Patient acknowledges above. [facility] Work Phone: 1(867) 413-323409-07-2024 Miscellaneous Notes* Telephone Encounter - Celeste Brady MD - 02/23/2024 10:04 AM EDT Told patient pathology from breast biopsy done on 02/19/2024 reveals no evidence of malignancy. Patient acknowledges above. documented in this encounterBarberton [facility]08-13-2024 NoteHNO ID: [id number] Author: VALERIE CANTU, DO Service: ? Author Type: Physician Type: Progress Notes Filed: 01/29/2024 09:20 Note Text: [facility] V[facility] [place] DEPARTMENT OF VASCULAR SURGERY OUTPATIENT VISIT DATE January 29, 2024 OUTPATIENT VISIT TYPE CONSULTATION SERVICE DATE: 01/29/2024 SERVICE TIME: 8:33 AM PRIMARY CARE PHYSICIAN: Shasta Walters MD REFERRING PROVIDER: Marilou Singh [address] [place] [id number] Consult requested for an opinion regarding the evaluation and treatment of the above. My final impression and recommendations will be communicated back to the requesting physician by way of the shared medical record or letter via US mail. CHIEF COMPLAINT: Patient presents with: New Patient History of Present Illness: Patient is a 58 year old White female presenting for consultation, evaluation and possible treatment of peripheral arterial disease with claudication. Since last visit with Dr. Goodson she had experienced significant loss and is now getting back for follow up. She describes short distance claudication at work and must use elevator to walk up stairs but able to walk down. She does admit to left hip numbness and tingling which can get aggravated at night when sleeping on left side. PAIN ASSESSMENT: PAIN EVALUATION No data found in the last 1 encounters. Obstetric History T4 L4 SAB1 IAB0 Ectopic0 Multiple0 Live Births0 Comment: ONE CHILD, A DAUGHTER WAS PUT UP FOR ADOPTION. Name of Baby 1: Not recorded Date: Not recorded GA: Not recorded Delivery: Not recorded Apgar1: Not recorded Apgar5: Not recorded Living: Not recorded Name of Baby 2: Not recorded Date: Not recorded GA: Not recorded Delivery: Not recorded Apgar1: Not recorded Apgar5: Not recorded Living: Not recorded Name of Baby 3: Not recorded Date: Not recorded GA: Not recorded Delivery: Not recorded Apgar1: Not recorded Apgar5: Not recorded Living: Not recorded Name of Baby 4: Not recorded Date: Not recorded GA: Not recorded Delivery: Not recorded Apgar1: Not recorded Apgar5: Not recorded Living: Not recorded Name of Baby 5: Not recorded Date: Not recorded GA: Not recorded Delivery: Not recorded Apgar1: Not recorded Apgar5: Not recorded Living: Not recorded PAST MEDICAL HISTORY No date: Anxiety No date: Chronic obstructive asthma with status asthmaticus ([facility]) No date: DVT (deep venous thrombosis) ([facility]) 03/2021: History of COVID-19 No date: History of heavy periods Comment: s/p hysterectomy No date: Hyperlipidemia 2016: Hypertension 01/06/2012: Iron deficiency anemia No date: Major depressive disorder, single episode, unspecified No date: Obesity (BMI 30.0-34.9) 02/18/2021: PAD (peripheral artery disease) ([facility]) Comment: moderate on left LE No date: Polycystic kidney disease No date: Tobacco use PAST SURGICAL HISTORY 11/04/2018: COLONOSCOPY FLX DX W/COLLJ SPEC WHEN PFRMD Comment: Colonoscopy : DILATION AND CURETTAGE DXAND/THER NONOBSTETRIC 10/19/11: LAPARO-VAG HYST, COMPLEX Comment: vag hysterectomy with bladder sling and posterior repair, bladder tear repaired No date: LIG/TRNSXJ FLP TUBE ABDL/VAG APPR UNI/BI 2006: PAST SURGICAL HISTORY OF Comment: upper teeth removed No date: UNSPECIFIED ORAL SURGERY PROCEDURE, BY REPORT Comment: WISDOM TEETH REMOVED SOCIAL HISTORY: Social History Tobacco Use Smoking status: Every Day Packs/day: 1.00 Years: 30.00 Additional pack years: 0.00 Total pack years: 30.00 Types: Cigarettes Smokeless tobacco: Never Vaping Use Vaping Use: Never used Substance Use Topics Alcohol use: No Drug use: No FAMILY HISTORY Problem Relation Age of Onset Heart Mother no communication with patient, doesn't have details Drug abuse Sister ??? patient doesn't know for sure. Colon Cancer Maternal Grandmother Diabetes Other no details known Colon Cancer Other no details known Coronary Artery Disease Other no details known MEDICATIONS: atorvastatin (LIPITOR) 20 mg tablet Take 1 tablet by mouth daily at bedtime. For cholesterol. pentoxifylline ER (TRENTAL) 400 mg CR tablet Take 1 tablet by mouth three times a day with meals. ergocalciferol 50,000 unit capsule (VITAMIN D2, DRISDOL) Take 1 capsule by mouth one time a week. losartan (COZAAR) 25 mg tablet Take 1 tablet by mouth daily at bedtime. Blood Pressure Monitor kit Check BP at home. ALLERGIES: ALLERGIES Allergen Reactions Zoloft [Sertraline * Diarrhea, GI Upset REVIEW of SYSTEMS: Constitutional: No weight loss, malaise or fevers. HEENT: Negative for frequent or significant headaches, No changes in hearing or vision, no nose bleeds or other nasal problems Respiratory: Negative for cough, wheezing, or shortness of breath Cardiovascular: Negative for chest pain, leg swelling or palpitations Gatrointestinal: Negative for abdominal discomfort, blood in stools or black (more content not included)...[facility]08-13-2024 History of Present illness Narrative* Valerie Cantu, DO - 01/29/2024 8:33 AM EDT Images from the original note were not included. Heart, Vascular and Thoracic [place] DEPARTMENT OF VASCULAR SURGERY OUTPATIENT VISIT DATE January 29, 2024 OUTPATIENT VISIT TYPE CONSULTATION SERVICE DATE: 01/29/2024 SERVICE TIME: 8:33 AM PRIMARY CARE PHYSICIAN: Shasta Walters MD REFERRING PROVIDER: Marilou Singh [id number] [facility] [id number] Consult requested for an opinion regarding the evaluation and treatment of the above. My final impression and recommendations will be communicated back to the requesting physician by way of the shared medical record or letter via US mail. CHIEF COMPLAINT: Patient presents with: New Patient History of Present Illness: Patient is a 58 year old White female presenting for consultation, evaluation and possible treatment of peripheral arterial disease with claudication. Since last visit with Dr. Goodson she had experienced significant loss and is now getting back for follow up. She describes short distance claudication at work and must use elevator to walk up stairs but able to walk down. She does admit to left hip numbness and tingling which can get aggravated at night when sleeping on left side. PAIN ASSESSMENT: PAIN EVALUATION No data found in the last 1 encounters. Obstetric History T4 L4 SAB1 IAB0 Ectopic0 Multiple0 Live Births0 Comment: ONE CHILD, A DAUGHTER WAS PUT UP FOR ADOPTION. Name of Baby 1: Not recorded Date: Not recorded GA: Not recorded Delivery: Not recorded Apgar1: Not recorded Apgar5: Not recorded Living: Not recorded Name of Baby 2: Not recorded Date: Not recorded GA: Not recorded Delivery: Not recorded Apgar1: Not recorded Apgar5: Not recorded Living: Not recorded Name of Baby 3: Not recorded Date: Not recorded GA: Not recorded Delivery: Not recorded Apgar1: Not recorded Apgar5: Not recorded Living: Not recorded Name of Baby 4: Not recorded Date: Not recorded GA: Not recorded Delivery: Not recorded Apgar1: Not recorded Apgar5: Not recorded Living: Not recorded Name of Baby 5: Not recorded Date: Not recorded GA: Not recorded Delivery: Not recorded Apgar1: Not recorded Apgar5: Not recorded Living: Not recorded PAST MEDICAL HISTORY No date: Anxiety No date: Chronic obstructive asthma with status asthmaticus ([facility]) No date: DVT (deep venous thrombosis) ([facility]) 03/2021: History of COVID-19 No date: History of heavy periods Comment: s/p hysterectomy No date: Hyperlipidemia 2016: Hypertension 01/06/2012: Iron deficiency anemia No date: Major depressive disorder, single episode, unspecified No date: Obesity (BMI 30.0-34.9) 02/18/2021: PAD (peripheral artery disease) ([facility]) Comment: moderate on left LE No date: Polycystic kidney disease No date: Tobacco use PAST SURGICAL HISTORY 11/04/2018: COLONOSCOPY FLX DX W/COLLJ SPEC WHEN PFRMD Comment: Colonoscopy : DILATION & CURETTAGE DX&/THER NONOBSTETRIC 10/19/11: LAPARO-VAG HYST, COMPLEX Comment: vag hysterectomy with bladder sling and posterior repair, bladder tear repaired No date: LIG/TRNSXJ FLP TUBE ABDL/VAG APPR UNI/BI 2006: PAST SURGICAL HISTORY OF Comment: upper teeth removed No date: UNSPECIFIED ORAL SURGERY PROCEDURE, BY REPORT Comment: WISDOM TEETH REMOVED SOCIAL HISTORY: Social History Tobacco Use Smoking status: Every Day Packs/day: 1.00 Years: 30.00 Additional pack years: 0.00 Total pack years: 30.00 Types: Cigarettes Smokeless tobacco: Never Vaping Use Vaping Use: Never used Substance Use Topics Alcohol use: No Drug use: No FAMILY HISTORY Problem Relation Age of Onset Heart Mother no communication with patient, doesn't have details Drug abuse Sister ??? patient doesn't know for sure. Colon Cancer Maternal Grandmother Diabetes Other no details known Colon Cancer Other no details known Coronary Artery Disease Other no details known MEDICATIONS: atorvastatin (LIPITOR) 20 mg tablet Take 1 tablet by mouth daily at bedtime. For cholesterol. pentoxifylline ER (TRENTAL) 400 mg CR tablet Take 1 tablet by mouth three times a day with meals. ergocalciferol 50,000 unit capsule (VITAMIN D2, DRISDOL) Take 1 capsule by mouth one time a week. losartan (COZAAR) 25 mg tablet Take 1 tablet by mouth daily at bedtime. Blood Pressure Monitor kit Check BP at home. ALLERGIES: ALLERGIES Allergen Reactions Zoloft [Sertraline * Diarrhea, GI Upset REVIEW of SYSTEMS: Constitutional: No weight loss, malaise or fevers. HEENT: Negative for frequent or significant headaches, No changes in hearing or vision, no nose bleeds or other nasal problems Respiratory: Negative for cough, wheezing, or shortness of breath Cardiovascular: Negative for chest pain, leg swelling or palpitations Gatrointestinal: Negative for abdominal discomfort, blood in stools or black stools or change in bowel habits Genitourinary: No difficulty urination, nocturia >1 times per night or hematuria Musculoskeletal: Negative for joint pain or swelling, back pain or muscle pain Endocrine: Positive for cold intolerance and heat intolerance Hematology/Lymphatic: Positive for bruises easily Neurologic: No history or headaches, syncope, paralysis, seizures or tremors Integumentary: Negative for lesions, rash, and itching. PHYSICAL EXAM: VITALS: [facility] 05/05/2011 General: Alert, oriented, cooperative, healthy appearance Integumentary: Normal color, no rash, no lesions. HEENT: EOM, pupils equal, round and reactive. Cardiovascular: Normal S1 & S2, no rubs, murmurs or gallops. No JVD., Pulse regular. Lungs: Normal breath sounds, no wheezes or crackles. Abdomen: Not examined Extremities: No deformity, no edema or tenderness, no joint swelling or clubbing. Neurological: AAOx3. Normal cognition and motor skills. Vascular: non palpable distal pulses, warm well perfused, no tissue loss Diagnostic tests reviewed for today's visit: Most recent labs Most recent imaging IMPRESSION: Ms. Bermudez is a 58 year old female with peripheral arterial disease, known left iliac occlusion . Studies from Vascular Lab indicate PVRs Compared to prior study of 02/16/2021, Right ankle brachial index was 1.12 and left was 0.62. RIGHT SIDE Resting right ankle brachial index: 1.06 Post exercise right ankle brachial index: 0.98 Normal ankle brachial index at rest in the right leg. Right ankle: Normal at rest. Note mild drop in pressure and/or ankle-brachial index after exercise, consistent with peripheral artery disease. Unable to determine exact area of narrowing. LEFT SIDE Resting left ankle brachial index: 0.59 Post exercise left ankle brachial index: 0.52 Abnormal ankle brachial index at rest diagnostic of peripheral artery disease. Left ankle: Moderate disease at rest. Left iliofemoral disease. No significant change in pressure and/or ankle-brachial index with exercise. PLAN and RECOMMENDATIONS: Recommend continued non-interventional therapy Discussed importance of smoking cessation with patient- she is going a cruise in upcoming weeks andis unable to smoke and would like to try to continue not smoking Follow up in 6 months with repeat PVRs and carotid duplex SIGNATURE: Valerie Cantu DO PATIENT NAME: Saranya Bermudez DATE: January 29, 2024 TIME: 8:33 AM [facility] Telephone encounter Note * Telephone Encounter - Glenny Hi MA - 01/22/2024 9:50 AM EDT Pt notified of results via [employer]. Glenny Hi Ma [facility]08-06-2024 Miscellaneous Notes* Telephone Encounter - Glenny Hi MA - 01/22/2024 9:50 AM EDT Pt notified of results via [employer]. Glenny Hi Ma * Telephone Encounter - Lorrie Encarnacion LPN - 01/21/2024 3:03 PM EDT Patient telephoned, mailbox is full and unable to accept any further messages at this time. Please try back later. Lorrie Encarnacion LPN * Telephone Encounter - Marilou Singh APRN.CNP - 01/21/2024 2:23 PM EDT PVR testing shows peripheral artery disease. Continue trental and follow-up with vascular as scheduled. Marilou Singh APRN.PALOMA * Telephone Encounter - Judit Gallagher OCCA - 12/13/2023 9:15 AM EDT TC to patient who is informed of below and is agreeable to additional imaging. Please contact patient to assist in scheduling. Thank you. KLAUDIA Manriquez * Telephone Encounter - Shasta Walters MD - 12/13/2023 7:02 AM EDT Screening mammogram incomplete. Needs additional imaging to further characterize asymmetry in rightbreast. Diagnostic mammogram and US ordered. Please assist patient with scheduling. [facility]Bar[facility] Telephone encounter Note * Telephone Encounter - Lorrie Encarnacion LPN - 01/21/2024 3:03 PM EDT Patient telephoned, mailbox is full and unable to accept any further messages at this time. Please try back later. Lorrie Encarnacion LPN [facility]08-05-2024 Telephone encounter Note* Telephone Encounter - Marilou Singh APRN.CNP - 01/21/2024 2:23 PM EDT PVR testing shows peripheral artery disease. Continue trental and follow-up with vascular as scheduled. Marilou Singh APRN.CNP [facility]07-29-2024 Nurse Note* Ruthy Das RN - 01/14/2024 10:15 AM EDT REVIEW OF SYSTEMS: General: The patient NOTES fatigue, denies weight loss, NOTES weight gain, NOTES feeling hot, and NOTES feelings of cold. Eyes: The patient denies glaucoma, denies eye injury/surgery, wears glasses or contacts. Ear/Nose/Throat: The patient denies allergies, denies hayfever, denies ear infections, and denies bloody noses. Cardiovascular: The patient denies chest pain, denies heart disease, NOTES high blood pressure,denies cardiac stent, denies prior heart attack, denies irregular heart beat, NOTES high cholesterol, NOTES poor circulation, denies heart failure, other cardiac issues, NOTES claudication, denies cold feet, denies peripheral arterial stent. Respiratory: The patient denies tuberculosis, denies pneumonia, denies frequent cough, denies pulmonary embolism, denies shortness of breath, and denies coughing up blood. Gastrointestinal: The patient denies difficulty swallowing, denies acid reflux, denies ulcers, denies vomiting, denies jaundice/hepatitis, denies gallbladder problems, denies black or tarry stools, NOTES hemorrhoids, denies bleeding from rectum, denies diverticulitis, denies constipation, denies diarrhea, denies loss of stool control, and denies hernias. Kidney/Bladder: The patient denies kidney stones, denies urine infections, and denies bloody urine. Skin: The patient denies a history of skin cancer, denies bleeding/changing moles, and denies a history of skin rash. Neurologic: The patient denies a history of epilepsy/convulsions, denies headaches, denies head/spinal injuries, and denies stroke/TIA. Psychiatric: The patient denies psychiatric medications, NOTES depression, and denies voices, denies substance abuse. Endocrine: The patient denies thyroid disorders, denies diabetes, and denies hormonal problems. Hematologic: The patient denies a history of bruising, denies bleeding, and NOTES anemia, NOTES blood clots. Infections: The patient NOTES a history of measles and mumps, denies rheumatic fever, and denies sexually transmitted diseases. Musculoskeletal: The patient denies back pain/injury, denies back problems, denies sciatica, deniesknee/foot trouble, denies arthritis, or denies gout. When was patient's last Mammogram screening? DECEMBER 2023 Last Colonoscopy: 2017 Ruthy Das RN [facility]07-29-2024 Nurse Note* Ruthy Das RN - 01/14/2024 10:15 AM EDT REVIEW OF SYSTEMS: General: The patient NOTES fatigue, denies weight loss, NOTES weight gain, NOTES feeling hot, and NOTES feelings of cold. Eyes: The patient denies glaucoma, denies eye injury/surgery, wears glasses or contacts. Ear/Nose/Throat: The patient denies allergies, denies hayfever, denies ear infections, and denies bloody noses. Cardiovascular: The patient denies chest pain, denies heart disease, NOTES high blood pressure,denies cardiac stent, denies prior heart attack, denies irregular heart beat, NOTES high cholesterol, NOTES poor circulation, denies heart failure, other cardiac issues, NOTES claudication, denies cold feet, denies peripheral arterial stent. Respiratory: The patient denies tuberculosis, denies pneumonia, denies frequent cough, denies pulmonary embolism, denies shortness of breath, and denies coughing up blood. Gastrointestinal: The patient denies difficulty swallowing, denies acid reflux, denies ulcers, denies vomiting, denies jaundice/hepatitis, denies gallbladder problems, denies black or tarry stools, NOTES hemorrhoids, denies bleeding from rectum, denies diverticulitis, denies constipation, denies diarrhea, denies loss of stool control, and denies hernias. Kidney/Bladder: The patient denies kidney stones, denies urine infections, and denies bloody urine. Skin: The patient denies a history of skin cancer, denies bleeding/changing moles, and denies a history of skin rash. Neurologic: The patient denies a history of epilepsy/convulsions, denies headaches, denies head/spinal injuries, and denies stroke/TIA. Psychiatric: The patient denies psychiatric medications, NOTES depression, and denies voices, denies substance abuse. Endocrine: The patient denies thyroid disorders, denies diabetes, and denies hormonal problems. Hematologic: The patient denies a history of bruising, denies bleeding, and NOTES anemia, NOTES blood clots. Infections: The patient NOTES a history of measles and mumps, denies rheumatic fever, and denies sexually transmitted diseases. Musculoskeletal: The patient denies back pain/injury, denies back problems, denies sciatica, deniesknee/foot trouble, denies arthritis, or denies gout. When was patient's last Mammogram screening? DECEMBER 2023 Last Colonoscopy: 2017 Ruthy Das RN documented in [facility]Bar[facility]07[facility] History of Present illness Narrative* Celeste Brady MD - 01/14/2024 10:07 AM EDT Saranya Bermudez 1965 REFERRING PHYSICIAN: Self CHIEF COMPLAINT: right breast abnormal mammograms HPI: The patient is a 58 year old female presents with abnormal right breast mammograms. She denies palpable breast masses She denies nipple discharge She denies previous breast surgeries She denies breast pain She denies breast or ovarian cancer in family. Her gynecological history is as follows: menarche onset at age 15, , first at age 20,breast feeding 8-9 months, BCP use initially early 20s for 7 years, surgical menopause age 45 with ovaries maintained, , denies HRT use Mammograms 01/08/2024 - grouped punctate calcifications in the right breast are at a low suspicion for malignancy. PAST MEDICAL HISTORY Diagnosis Date Anxiety Chronic obstructive asthma with status asthmaticus (HCC) DVT (deep venous thrombosis) (HCC) History of COVID-19 03/2021 History of heavy periods s/p hysterectomy Hyperlipidemia Hypertension 2016 Iron deficiency anemia 01/06/2012 Major depressive disorder, single episode, unspecified Obesity (BMI 30.0-34.9) PAD (peripheral artery disease) ([facility]) 02/18/2021 moderate on left LE Polycystic kidney disease Tobacco use PAST SURGICAL HISTORY Procedure Laterality Date COLONOSCOPY FLX DX W/COLLJ SPEC WHEN PFRMD 11/04/2018 Colonoscopy DILATION & CURETTAGE DX&/THER NONOBSTETRIC LAPARO-VAG HYST, COMPLEX 10/19/11 vag hysterectomy with bladder sling and posterior repair, bladder tear repaired LIG/TRNSXJ FLP TUBE ABDL/VAG APPR UNI/BI PAST SURGICAL HISTORY OF 2006 upper teeth removed UNSPECIFIED ORAL SURGERY PROCEDURE, BY REPORT WISDOM TEETH REMOVED Current Outpatient Medications Medication Sig atorvastatin (LIPITOR) 20 mg tablet Take 1 tablet by mouth daily at bedtime. For cholesterol. pentoxifylline ER (TRENTAL) 400 mg CR tablet Take 1 tablet by mouth three times a day with meals. ergocalciferol 50,000 unit capsule (VITAMIN D2, DRISDOL) Take 1 capsule by mouth one time a week. losartan (COZAAR) 25 mg tablet Take 1 tablet by mouth daily at bedtime. Blood Pressure Monitor kit Check BP at home. No current facility-administered medications for this visit. ALLERGIES: Zoloft [Sertraline Hcl] PERSONAL HISTORY: Social History Tobacco Use Smoking status: Every Day Packs/day: 1.00 Years: 30.00 Additional pack years: 0.00 Total pack years: 30.00 Types: Cigarettes Smokeless tobacco: Never Vaping Use Vaping Use: Never used Substance Use Topics Alcohol use: No Drug use: No FAMILY HISTORY Problem Relation Age of Onset Heart Mother no communication with patient, doesn't have details Drug abuse Sister ??? patient doesn't know for sure. Colon Cancer Maternal Grandmother Diabetes Other no details known Colon Cancer Other no details known Coronary Artery Disease Other no details known The review of systems data was entered by the nurse and reviewed by me Nursing Notes: Ruthy Das RN 01/14/2024 10:18 AM Signed REVIEW OF SYSTEMS: General: The patient NOTES fatigue, denies weight loss, NOTES weight gain, NOTES feeling hot, and NOTES feelings of cold. Eyes: The patient denies glaucoma, denies eye injury/surgery, wears glasses or contacts. Ear/Nose/Throat: The patient denies allergies, denies hayfever, denies ear infections, and denies bloody noses. Cardiovascular: The patient denies chest pain, denies heart disease, NOTES high blood pressure,denies cardiac stent, denies prior heart attack, denies irregular heart beat, NOTES high cholesterol, NOTES poor circulation, denies heart failure, other cardiac issues, NOTES claudication, denies cold feet, denies peripheral arterial stent. Respiratory: The patient denies tuberculosis, denies pneumonia, denies frequent cough, denies pulmonary embolism, denies shortness of breath, and denies coughing up blood. Gastrointestinal: The patient denies difficulty swallowing, denies acid reflux, denies ulcers, denies vomiting, denies jaundice/hepatitis, denies gallbladder problems, denies black or tarry stools, NOTES hemorrhoids, denies bleeding from rectum, denies diverticulitis, denies constipation, denies diarrhea, denies loss of stool control, and denies hernias. Kidney/Bladder: The patient denies kidney stones, denies urine infections, and denies bloody urine. Skin: The patient denies a history of skin cancer, denies bleeding/changing moles, and denies a history of skin rash. Neurologic: The patient denies a history of epilepsy/convulsions, denies headaches, denies head/spinal injuries, and denies stroke/TIA. Psychiatric: The patient denies psychiatric medications, NOTES depression, and denies voices, denies substance abuse. Endocrine: The patient denies thyroid disorders, denies diabetes, and denies hormonal problems. Hematologic: The patient denies a history of bruising, denies bleeding, and NOTES anemia, NOTES blood clots. Infections: The patient NOTES a history of measles and mumps, denies rheumatic fever, and denies sexually transmitted diseases. Musculoskeletal: The patient denies back pain/injury, denies back problems, denies sciatica, deniesknee/foot trouble, denies arthritis, or denies gout. When was patient's last Mammogram screening? DECEMBER 2023 Last Colonoscopy: 2017 Ruthy Das RN PHYSICAL EXAMINATION: General: The patient is 58 year old female, well nourished, well hydrated in no acute distress. Thepatient is oriented to time, place, and person. VITALS: Blood pressure 130/88, pulse 93, temperature 36.7 C (98 F), height 165.1 cm (5' 5), vftgua02.2 kg (187 lb 12.8 oz), SpO2 99%. Body mass index is 31.25 kg/m . Head - Normocephalic. EOM intact with sclera clear and no icterus noted. Wearing glasses. Mouth with mucus membranes moist. Neck - supple with no jugular venous distention noted. Trachea is midline. . No thyroid enlargementor thyroid nodules detected. No masses noted. Chest/breast - no asymmetry of breasts noted, no suspicious skin lesions noted, no nipple dischargeand both nipples everted, no breast masses noted Lungs - clear to auscultation. Normal breath sounds. No rales/rhonchi/wheezing noted. No labored breathing noted, such as retractions. No cough heard. Heart - normal S1 and S2 auscultated. No rubs/clicks/murmurs noted. Regular rate. Abdomen - soft and benign. . Extremities - no calf tenderness noted. No pitting edema noted. Skin - normal skin integrity. Lymph - no cervical adenopathy detected, no supraclavicular adenopathy detected, no axillary adenopathy detected Neurological - gait normal, no focal deficits noted Psych - calm and appropriate RADIOLOGIC STUDIES: As Noted Assessment IMPRESSION: abnormal right breast mammograms PLAN: I have discussed the above with the patient. I have offered referral to [facility] breast imaging center. I have explained the procedure to the patient. I told the patient that I will call her with the results. The patient acknowledges the above. I have answered all questions to the patient s satisfaction and the patient has no further questions. I have confirmed and edited as necessary, the PFSH and ROS obtained by others. . Diagnoses: (R92.1) Calcification of right breast on mammography (primary encounter diagnosis) Medical Decision Making: Problems: Moderate: New problem with uncertain prognosis Risk: Low: Low risk from testing/treatment Medical Decision Making Level: 3 - Low Celeste Brady MD documented in this encounterBar[facility]07-[facility] NoteHNO ID: [id number] Author: CELESTE BRADY MD Service: ? Author Type: Physician Type: Progress Notes Filed: 01/15/2024 15:07 Note Text: Saranya Bermudez 1965 REFERRING PHYSICIAN: Self CHIEF COMPLAINT: right breast abnormal mammograms HPI: The patient is a 58 year old female presents with abnormal right breast mammograms. She denies palpable breast masses She denies nipple discharge She denies previous breast surgeries She denies breast pain She denies breast or ovarian cancer in family. Her gynecological history is as follows: menarche onset at age 15, , first at age 20, breast feeding 8-9 months, BCP use initially early 20s for 7 years, surgical menopause age 45 with ovaries maintained, , denies HRT use Mammograms 01/08/2024 - grouped punctate calcifications in the right breast are at a low suspicion for malignancy. PAST MEDICAL HISTORY Diagnosis Date Anxiety Chronic obstructive asthma with status asthmaticus (HCC) DVT (deep venous thrombosis) ([facility]) History of COVID-19 03/2021 History of heavy periods s/p hysterectomy Hyperlipidemia Hypertension 2016 Iron deficiency anemia 01/06/2012 Major depressive disorder, single episode, unspecified Obesity (BMI 30.0-34.9) PAD (peripheral artery disease) ([facility]) 02/18/2021 moderate on left LE Polycystic kidney disease Tobacco use PAST SURGICAL HISTORY Procedure Laterality Date COLONOSCOPY FLX DX W/COLLJ SPEC WHEN PFRMD 11/04/2018 Colonoscopy DILATION AND CURETTAGE DXAND/THER NONOBSTETRIC LAPARO-VAG HYST, COMPLEX 10/19/11 vag hysterectomy with bladder sling and posterior repair, bladder tear repaired LIG/TRNSXJ FLP TUBE ABDL/VAG APPR UNI/BI PAST SURGICAL HISTORY OF 2006 upper teeth removed UNSPECIFIED ORAL SURGERY PROCEDURE, BY REPORT WISDOM TEETH REMOVED Current Outpatient Medications Medication Sig atorvastatin (LIPITOR) 20 mg tablet Take 1 tablet by mouth daily at bedtime. For cholesterol. pentoxifylline ER (TRENTAL) 400 mg CR tablet Take 1 tablet by mouth three times a day with meals. ergocalciferol 50,000 unit capsule (VITAMIN D2, DRISDOL) Take 1 capsule by mouth one time a week. losartan (COZAAR) 25 mg tablet Take 1 tablet by mouth daily at bedtime. Blood Pressure Monitor kit Check BP at home. No current facility-administered medications for this visit. ALLERGIES: Zoloft [Sertraline Hcl] PERSONAL HISTORY: Social History Tobacco Use Smoking status: Every Day Packs/day: 1.00 Years: 30.00 Additional pack years: 0.00 Total pack years: 30.00 Types: Cigarettes Smokeless tobacco: Never Vaping Use Vaping Use: Never used Substance Use Topics Alcohol use: No Drug use: No FAMILY HISTORY Problem Relation Age of Onset Heart Mother no communication with patient, doesn't have details Drug abuse Sister ??? patient doesn't know for sure. Colon Cancer Maternal Grandmother Diabetes Other no details known Colon Cancer Other no details known Coronary Artery Disease Other no details known The review of systems data was entered by the nurse and reviewed by me Nursing Notes: Ruthy Das RN 01/14/2024 10:18 AM Signed REVIEW OF SYSTEMS: General: The patient NOTES fatigue, denies weight loss, NOTES weight gain, NOTES feeling hot, and NOTES feelings of cold. Eyes: The patient denies glaucoma, denies eye injury/surgery, wears glasses or contacts. Ear/Nose/Throat: The patient denies allergies, denies hayfever, denies ear infections, and denies bloody noses. Cardiovascular: The patient denies chest pain, denies heart disease, NOTES high blood pressure,denies cardiac stent, denies prior heart attack, denies irregular heart beat, NOTES high cholesterol, NOTES poor circulation, denies heart failure, other cardiac issues, NOTES claudication, denies cold feet, denies peripheral arterial stent. Respiratory: The patient denies tuberculosis, denies pneumonia, denies frequent cough, denies pulmonary embolism, denies shortness of breath, and denies coughing up blood. Gastrointestinal: The patient denies difficulty swallowing, denies acid reflux, denies ulcers, denies vomiting, denies jaundice/hepatitis, denies gallbladder problems, denies black or tarry stools, NOTES hemorrhoids, denies bleeding from rectum, denies diverticulitis, denies constipation, denies diarrhea, denies loss of stool control, and denies hernias. Kidney/Bladder: The patient denies kidney stones, denies urine infections, and denies bloody urine. Skin: The patient denies a history of skin cancer, denies bleeding/changing moles, and denies a history of skin rash. Neurologic: The patient denies a history of epilepsy/convulsions, denies headaches, denies head/spinal injuries, and denies stroke/TIA. Psychiatric: The patient denies psychiatric medications, NOTES depression, and denies voices, denies substance abuse. Endocrine: The patient denies thyroid disorders, denies (more content not included)...[facility]07-23-2024 History of Present illness Narrative* Rommel Barnett Mammo Tech - 01/08/2024 8:30 AM EDT Radiology Service Progress Note PATIENT NAME: Saranya Bermudez DATE OF SERVICE: January 08, 2024 TIME: 8:29 AM PATIENT IDENTITY VERIFICATION COMPLETED USING TWO (2) IDENTIFIERS: Name and Date of confirmedby patient verbally. FALL SCREENING: Has the patient had 2 falls in the last year or 1 fall with injury or currently using an Ambulatory Assistive Device (Walker, Cane, Wheelchair, Crutches, etc.)? No PATIENT GENDER DATA: Female. status: : No status: NO. PATIENT RELEVANT IMPLANT DATA REVIEWED: Not Applicable PATIENT PRESENTS WITH AN IMPLANTABLE OR ATTACHED WORKFORCE MANAGEMENT COORDINATOR: No RADIOLOGY DEPARTMENT: Mammography PERIPHERAL IV DATA: Not applicable SIGNED BY: Blanche Wright January 08, 2024 8:29 AM documented in this encounterBar[facility]07[facility]24 NoteHNO ID: [id number] Author: ROMMEL BARNETT Mammo Tech Service: ? Author Type: Regional Tanker Truck Driver Type: Progress Notes Filed: 01/08/2024 08:48 Note Text: Radiology Service Progress Note PATIENT NAME: Saranya Bermudez DATE OF SERVICE: January 08, 2024 TIME: 8:29 AM PATIENT IDENTITY VERIFICATION COMPLETED USING TWO (2) IDENTIFIERS: Name and Date of confirmed by patient verbally. FALL SCREENING: Has the patient had 2 falls in the last year or 1 fall with injury or currently using an Ambulatory Assistive Device (Walker, Cane, Wheelchair, Crutches, etc.)? No PATIENT GENDER DATA: Female. status: : No status: NO. PATIENT RELEVANT IMPLANT DATA REVIEWED: Not Applicable PATIENT PRESENTS WITH AN IMPLANTABLE OR ATTACHED WORKFORCE MANAGEMENT COORDINATOR: No RADIOLOGY DEPARTMENT: Mammography PERIPHERAL IV DATA: Not applicable SIGNED BY: Blanche Wright January 08, 2024 8:29 [facility]06-27-2024 Telephone encounter Note* Telephone Encounter - Judit Gallagher OCCA - 12/13/2023 9:15 AM EDT TC to patient who is informed of below and is agreeable to additional imaging. Please contact patient to assist in scheduling. Thank you. KLAUDIA Manriquez [facility]06-27-2024 Telephone encounter Note* Telephone Encounter - Shasta Walters MD - 12/13/2023 7:02 AM EDT Screening mammogram incomplete. Needs additional imaging to further characterize asymmetry in rightbreast. Diagnostic mammogram and US ordered. Please assist patient with scheduling. [facility]06-26-2024 NoteIMPRESSION: INCOMPLETE: NEEDS ADDITIONAL IMAGING EVALUATION The cluster of calcifications in the right breast upper outer aspect anterior depth is indeterminate. Magnification views are recommended. The possible asymmetry in the right breast posterior depth upper region seen on the mediolateral oblique view only is indeterminate. Additional views are recommended. Marilou Eric M.D., jr/caleb:12/12/2023 17:10:46 Motorcycle Mechanic(s): RT Deep(R)(M), [facility] letter sent: Additional Imaging Needed Mammogram BI-RADS: 0 Incomplete: needs additional imaging evaluation If this report indicates you need additional imaging, and it has NOT yet been performed, please call , to schedule. We sincerely thank you for choosing the [facility] for your breast imaging needs. Multiple national specialty organizations have released breast cancer screening guidelines for women at average risk for developing breast cancer - guidelines that are based on both evidence and opinion, yet differ on when to start and how often to screen for breast cancer. With representation from Breast Imaging, Internal Medicine, Women's Health, Family Medicine, and Medical/Surgical Oncology, the [facility] has carefully reviewed the data and reached the following consensus: 1) All women should engage in shared decision-making with their providers to decide when to start and how often to screen; 2) All women should have the opportunity to start screening mammography at age 40; 3) For women ages 45-55, we recommend annual screening mammograms; 4) For women ages 55 and over, we support both the transition from an annual to a biennial interval if this aligns more with patient's values and preferences, or continuation with annual screening; 5) All women should discuss with their providers when to stop screening mammograms. Maid Housekeeper: Caleb Transcribe Date/Time: Dec 12 2023 7:14A Dictated by: MARILOU ERIC MD This examination was interpreted and the report reviewed and electronically signed by: MARILOU ERIC MD on Dec 12 2023 5:10PM [facility] [[email or web address]] DIVISION OF [id number] Note* Letter - Coordinator, Mammography - 12/12/2023 5:10 PM EDT December 12, 2023 PID: [id number] Saranya Bermudez [address] [place] [address] Dear Ms. Bermudez, Your recent breast imaging exam on 12/12/2023 showed a possible finding that requires additional imaging studies for a complete evaluation. Most such findings are probably benign (not cancer). If you have a healthcare provider who ordered/prescribed your screening mammogram: Please call [phone] or EXT: [phone] to schedule an appointment for your additional imaging (if youhave not already done so). If you DO NOT have a healthcare provider (ie you did not have an order/prescription for your screening mammogram): Please call to schedule an appointment for your additional imaging (if you have not already done so). You must have an order/prescription from your physician when calling to schedule your appointment. If your order/prescription is not electronic, you must bring the hard copy with you on the day of your exam to avoid delays. Your imaging studies and reports are kept on file at [facility] as part of your permanent medical record, and are available for your continuing care. Thank you for allowing us to help in meeting your health care needs. Sincerely, Dr. Eric Interpreting Radiologist [facility] (Additional imaging) [facility]06-26-2024 Miscellaneous Notes* Letter - Coordinator, Mammography - 12/12/2023 5:10 PM EDT December 12, 2023 PID: [id number] Saranya Bermudez [address] [place] [address] Dear Ms. Bermudez, Your recent breast imaging exam on 12/12/2023 showed a possible finding that requires additional imaging studies for a complete evaluation. Most such findings are probably benign (not cancer). If you have a healthcare provider who ordered/prescribed your screening mammogram: Please call [phone] or EXT: [phone] to schedule an appointment for your additional imaging (if youhave not already done so). If you DO NOT have a healthcare provider (ie you did not have an order/prescription for your screening mammogram): Please call to schedule an appointment for your additional imaging (if you have not already done so). You must have an order/prescription from your physician when calling to schedule your appointment. If your order/prescription is not electronic, you must bring the hard copy with you on the day of your exam to avoid delays. Your imaging studies and reports are kept on file at [facility] as part of your permanent medical record, and are available for your continuing care. Thank you for allowing us to help in meeting your health care needs. Sincerely, Dr. Eric Interpreting Radiologist [facility] (Additional imaging) documented in this encounterBarberton [facility] Hospital06-26-2024 History of Present illness Narrative* Rommel Barnett, Mammo Tech - 12/12/2023 7:10 AM EDT Radiology Service Progress Note PATIENT NAME: Saranya Bermudez DATE OF SERVICE: December 12, 2023 TIME: 7:05 AM PATIENT IDENTITY VERIFICATION COMPLETED USING TWO (2) IDENTIFIERS: Name and Date of confirmedby patient verbally. FALL SCREENING: Has the patient had 2 falls in the last year or 1 fall with injury or currently using an Ambulatory Assistive Device (Walker, Cane, Wheelchair, Crutches, etc.)? No PATIENT GENDER DATA: Female. status: : No status: NO. PATIENT RELEVANT IMPLANT DATA REVIEWED: Not Applicable PATIENT PRESENTS WITH AN IMPLANTABLE OR ATTACHED WORKFORCE MANAGEMENT COORDINATOR: No RADIOLOGY DEPARTMENT: Mammography PERIPHERAL IV DATA: Not applicable SIGNED BY: Blanche Wright December 12, 2023 7:05 AM documented in this encounterBarberton [facility] Hospital06-26-2024 NoteHNO ID: [id number] Author: ROMMEL BARNETT Mammo Tech Service: ? Author Type: Regional Tanker Truck Driver Type: Progress Notes Filed: 12/12/2023 07:26 Note Text: Radiology Service Progress Note PATIENT NAME: Saranya Bermudez DATE OF SERVICE: December 12, 2023 TIME: 7:05 AM PATIENT IDENTITY VERIFICATION COMPLETED USING TWO (2) IDENTIFIERS: Name and Date of confirmed by patient verbally. FALL SCREENING: Has the patient had 2 falls in the last year or 1 fall with injury or currently using an Ambulatory Assistive Device (Walker, Cane, Wheelchair, Crutches, etc.)? No PATIENT GENDER DATA: Female. status: : No status: NO. PATIENT RELEVANT IMPLANT DATA REVIEWED: Not Applicable PATIENT PRESENTS WITH AN IMPLANTABLE OR ATTACHED WORKFORCE MANAGEMENT COORDINATOR: No RADIOLOGY DEPARTMENT: Mammography PERIPHERAL IV DATA: Not applicable SIGNED BY: Blanche Wright December 12, 2023 7:05 [facility]06-22-2024 Telephone encounter Note* Telephone Encounter - Lissette Colón LPN - 12/08/2023 10:05 AM EDT Pt was seen in the office 12/07/23 and did review lab results. [facility]06-22-2024 Miscellaneous Notes* Telephone Encounter - Lissette Colón LPN - 12/08/2023 10:05 AM EDT Pt was seen in the office 12/07/23 and did review lab results. * Telephone Encounter - Ayah Huizar LPN - 12/07/2023 9:23 AM EDT Attempted to reach pt by phone x 2 and each time someone picks up but does not talk. Phoned emergency contact and ask him to have pt call the office. Ayah Huizar LPN * Telephone Encounter - Xuan Wadsworth MA - 12/06/2023 8:54 AM EDT [employer] message was reviewed by pt on 12/05/23 at 8:09 pm. No response. Xuan Wadsworth MA * Telephone Encounter - Glenny Hi MA - 12/04/2023 10:07 AM EDT [employer] message sent to pt, asking them to call back for results. Glenny Hi MA * Telephone Encounter - Xuan Wadsworth MA - 12/03/2023 11:14 AM EDT Tried calling pt but unable to LM due to VM being full. Will try calling again later. Xuan Wadsworth MA * Telephone Encounter - Xuan Wadsworth MA - 12/03/2023 11:12 AM EDT ----- Message from Marilou Singh APRN.CNP sent at 12/03/2023 8:55 AM EDT ----- Based on your age, race, gender, blood pressure, cholesterol, and smoking status, your 10 year riskfor having a cardiovascular event such as a stroke or heart attack is 12.9 %. Current guidelines suggest lipid lowering medication at a risk of 7.5%. Recommend addition of cholesterol lowering medication. Most common side effect is muscle aches. If agreeable will send to pharmacy. Marilou Singh APRN.CNP FOR REFERENCE ONLY The 10-year ASCVD risk score (Kathie HARTMAN, et al., 2019) is: 12.9% Values used to calculate the score: Age: 58 years Sex: Female Is Non- : No Diabetic: No Tobacco smoker: Yes Systolic Blood Pressure: 145 mmHg Is BP treated: Yes HDL Cholesterol: 37 mg/dL Total Cholesterol: 210 mg/dL documented in this encounterBarberton [facility] Hospital06-21-2024 Instructions* Patient Instructions* Marilou Singh APRN.CNP - 12/07/2023 9:36 AM EDT Get labs in 3 months - fast 10-12 hours prior documented in this encounterBarberton [facility] Hospital06-21-2024 Telephone encounter Note * Telephone Encounter - Ayah Huizar LPN - 12/07/2023 9:23 AM EDT Attempted to reach pt by phone x 2 and each time someone picks up but does not talk. Phoned emergency contact and ask him to have pt call the office. Ayah Huizar LPN [facility]06-21-2024 History of Present illness Narrative* Marilou Singh APRN.CNP - 12/07/2023 9:20 AM EDT 12/05/2023 Patient presents with: Physical Blood Pressure Check SUBJECTIVE: This is a 58 year old that is here today for Above Complaints. Losartan started at last office visit or hypertension. Taking and tolerating without side effects. Checking BP at home with ranges of 128-140/85-90. Denies visual changes, headaches, dizziness, lightheadedness, slurred speech, facial drooping, extremity numbness, tingling or weakness Did a lot of walking recently and having some left hip and leg pain. She reports she has blockage in left hip and was following with vascular medicine but has not seen them for a few years. PAST MEDICAL HISTORY Diagnosis Date Anxiety Chronic obstructive asthma with status asthmaticus ([facility]) History of COVID-19 03/2021 History of heavy periods s/p hysterectomy Hyperlipidemia Hypertension 2016 Iron deficiency anemia 01/06/2012 Major depressive disorder, single episode, unspecified Obesity (BMI 30.0-34.9) PAD (peripheral artery disease) ([facility]) 02/18/2021 moderate on left LE Polycystic kidney disease Tobacco use ALLERGIES Zoloft [Sertraline Hcl] MEDICATIONS Current Outpatient Medications Medication Sig losartan (COZAAR) 25 mg tablet Take 1 tablet by mouth daily at bedtime. Blood Pressure Monitor kit Check BP at home. (Patient not taking: Reported on 11/06/2023) No current facility-administered medications for this visit. Medications and allergies reviewed by this provider. SOCIAL HISTORY Social History Tobacco Use Smoking status: Every Day Packs/day: 1.00 Years: 30.00 Additional pack years: 0.00 Total pack years: 30.00 Types: Cigarettes Smokeless tobacco: Never Vaping Use Vaping Use: Never used Substance Use Topics Alcohol use: No Drug use: No REVIEW OF SYSTEMS GENERAL: No weight loss, malaise or fevers HEENT: Negative for frequent or significant headaches, No changes in hearing or vision, no nose bleeds or other nasal problems NECK: Negative for lumps, goiter, pain and significant neck swelling RESPIRATORY: Negative for cough, hemoptysis, wheezing, COPD, dyspnea or shortness of breath CARDIOVASCULAR: Negative for chest pain, leg swelling, hypertension, CHF or palpitations GI: No nausea, vomiting, or diarrhea : No history of dysuria, frequency or incontinence SENIOR RESIDENT CARE DIRECTOR: Negative for abnormal vaginal bleeding, abnormal vaginal discharge MUSCULOSKELETAL: See HPI SKIN: Negative for lesions, rash, and itching PSYCH: Negative for sleep disturbance, mood disorder and recent psychosocial stressors HEMATOLOGY/LYMPHOLOGY: Negative for prolonged bleeding, bruising easily or swollen nodes ENDOCRINE: Negative for cold or heat intolerance, polyuria, polydipsia and goiter NEURO: No history of headaches, syncope, paralysis, seizures or tremors All other reviewed and negative other than HPI. OBJECTIVE: BP 130/82 Pulse 87 Resp 16 Ht 166.2 cm (5' 5.43) Wt 85.4 kg (188 lb 3.2 oz) LMP 05/05/2011 SpO2 95% BMI 30.90 kg/m . Vital signs reviewed by this provider. APPEARANCE Well appearing, alert, in no acute distress, well-hydrated, well nourished. EYES conjunctiva and sclera normal. EARS External ears normal, canals clear NECK Supple, no adenopathy; thyroid symmetric, normal size, no bruits HEART RRR with normal S1 and S2, no murmurs, no gallops, no JVD appreciated LUNG clear to auscultation. No wheezes, rhonchi or rales ABDOMEN bowel sounds normoactive, no bruits, soft, non-tender, non-distended, without organomegaly or palpable masses EXTREMITIES Extremities normal, No deformities, No skin discoloration, No edema, and 1+ pedal o theright. Unable to palpate left pedal pulse- cap refill WNL and leg and foot war and pink SKIN Skin color, texture, turgor normal, no suspicious rashes or lesions to exposed skin Latest Ref [facility] 12/01/2023 Cholesterol, Total <200 mg/dL 210 (H) Triglyceride <150 mg/dL 135 HDL Cholesterol >39 mg/dL 37 (L) Non HDL Cholesterol <130 mg/dL 173 (H) Fasting Time hrs 12 VLDL Cholesterol <30 mg/dL 27 TC:HDL Ratio <5.10 5.68 (H) LDL Cholesterol <100 mg/dL 146 (H) LDL:HDL Ratio <2.54 3.95 (H) Legend: (H) High (L) Low The 10-year ASCVD risk score (Kathie HARTMAN, et al., 2019) is: 12.9% Values used to calculate the score: Age: 58 years Sex: Female Is Non- : No Diabetic: No Tobacco smoker: Yes Systolic Blood Pressure: 145 mmHg Is BP treated: Yes HDL Cholesterol: 37 mg/dL Total Cholesterol: 210 mg/dL ASSESSMENT/PLAN: 1. Annual physical exam - ICD9: V70.0, ICD10: Z00.00 (primary diagnosis) - Counseled on healthy diet and regular exercise - Discussed need and benefit for weight loss. BMI 30.90 kg/(m^2) - Mammogram ordered - exam recommended once yearly - Smoking cessation encouraged; discussed risks to health and quitting strategies. Patient is not ready to quit - Follow up for annual exam in one year 2. Hypertension, essential - ICD9: 401.9, ICD10: I10 - Controlled - Continue current medications - Recommend home blood pressure monitoring, to bring results to next visit - Encouraged sodium restriction, DASH or Mediterranean diet - Recommend regular aerobic exercise - Discussed need for and benefit of weight loss. BMI 30.90 kg/(m^2) - Smoking cessation encouraged; discussed risks to health and quitting strategies. Patient is not ready to quit - Follow up in 6 months for hypertension visit - COMPREHENSIVE METABOLIC PANEL 3. Mixed hyperlipidemia - ICD9: 272.2, ICD10: E78.2 - Uncontrolled - recheck labs in 3 months fasting - Start atorvastatin (Lipitor) - Counseled on healthy diet and regular exercise - Discussed need for and benefit of weight loss. BMI 30.90 kg/(m^2) - Follow up in 6 months, sooner should any other issues arise. - ATORVASTATIN 20 MG TABLET - LIPID PANEL BASIC 4. Encounter for screening for lung cancer - ICD9: V76.0, ICD10: Z12.2 - CONSULT LUNG CANCER SCREENING CLINIC 5. PAD (peripheral artery disease) (HCC) - ICD9: 443.9, ICD10: I73.9 - no red flag symptoms or exam findings - red flag symptoms discussed, verbalizes - PENTOXIFYLLINE ER 400 MG TABLET,EXTENDED RELEASE - PVR LEG W/EXC YUNG VAS LAB - CONSULT TO VASCULAR MEDICINE 6. Vitamin D deficiency - ICD9: 268.9, ICD10: E55.9 - ERGOCALCIFEROL (VITAMIN D2) 1,250 MCG (50,000 UNIT) CAPSULE - VITAMIN D 25 HYDROXY Marilou Singh, DERRICK BOAT LEVERMAN.MEMBER SERVICES COORDINATOR Prescription instructions reviewed with patient as applicable. Patient advised if symptoms do not improve or if symptoms worsen sooner, to contact their primary care physician. Potential red flag symptoms discussed with the patient. Reviewed appropriate action plan to take if red flag symptoms occur. Patient agreeable to treatment plan. documented in this encounterBar[facility]06-20-2024 Telephone encounter Note * Telephone Encounter - Xuan Wadsworth MA - 12/06/2023 8:54 AM EDT [employer] message was reviewed by pt on 12/05/23 at 8:09 pm. No response. Xuan Wadsworth MA [facility]06-18-2024 Telephone encounter Note* Telephone Encounter - Glenny Hi MA - 12/04/2023 10:07 AM EDT [employer] message sent to pt, asking them to call back for results. Glenny Hi MA [facility]06-17-2024 Telephone encounter Note* Telephone Encounter - Xuan Wadsworth MA - 12/03/2023 11:14 AM EDT Tried calling pt but unable to LM due to VM being full. Will try calling again later. Xuan Wadsworth MA [facility]06-17-2024 Telephone encounter Note* Telephone Encounter - Xuan Wadsworth MA - 12/03/2023 11:12 AM EDT ----- Message from Marilou Singh APRN.MEMBER SERVICES COORDINATOR sent at 12/03/2023 8:55 AM EDT ----- Based on your age, race, gender, blood pressure, cholesterol, and smoking status, your 10 year riskfor having a cardiovascular event such as a stroke or heart attack is 12.9 %. Current guidelines suggest lipid lowering medication at a risk of 7.5%. Recommend addition of cholesterol lowering medication. Most common side effect is muscle aches. If agreeable will send to pharmacy. Marilou Singh APRN.PALOMA FOR REFERENCE ONLY The 10-year ASCVD risk score (Kathie DK, et al., 2019) is: 12.9% Values used to calculate the score: Age: 58 years Sex: Female Is Non- : No Diabetic: No Tobacco smoker: Yes Systolic Blood Pressure: 145 mmHg Is BP treated: Yes HDL Cholesterol: 37 mg/dL Total Cholesterol: 210 mg/dL [facility]05-21-2024 History of Present illness Narrative* Marilou Singh APRN.CNP - 11/06/2023 11:58 AM EDT 11/06/2023 Patient presents with: ED Follow-up: [facility] 11/03 for dizziness SUBJECTIVE: This is a 57 year old that is here today for Above Complaints.. HOSPITAL/ER FOLLOW UP: Reason for visit: dizzy Which facility: [facility] Date of visit: 11/02/2023 Diagnosis: near syncope Testing done: Blood work, CXR, EKG Treatment given: 1 liter of fluids , Zofran Since discharge feeling better but still feels fatigued. Has not seen PCP since 04/19/2021 so she has been out of her medications. Denies weight loss, fevers, chills, current dizziness or lightheadedness, syncope, SOB, dyspnea, chest pain, palpitations or leg swelling ER records reviewed. PAST MEDICAL HISTORY Diagnosis Date Anxiety Chronic obstructive asthma with status asthmaticus ([facility]) History of COVID-19 03/2021 History of heavy periods s/p hysterectomy Hyperlipidemia Hypertension 2016 Iron deficiency anemia 01/06/2012 Major depressive disorder, single episode, unspecified Obesity (BMI 30.0-34.9) PAD (peripheral artery disease) ([facility]) 02/18/2021 moderate on left LE Polycystic kidney disease Tobacco use ALLERGIES Zoloft [Sertraline Hcl] MEDICATIONS Current Outpatient Medications Medication Sig atorvastatin (LIPITOR) 20 mg tablet Take 1 tablet by mouth daily at bedtime. For cholesterol. FLUoxetine (PROZAC) 40 mg capsule Take 2 capsules by mouth once daily. losartan (COZAAR) 25 mg tablet Take 1 tablet by mouth daily at bedtime. hydrOXYzine pamoate (VISTARIL) 25 mg capsule Take 1 capsule by mouth twice daily as needed for anxiety. (Patient not taking: Reported on 11/06/2023) aspirin 81 mg cap Take 81 mg by mouth once daily. (Patient not taking: Reported on 11/06/2023) fluticasone (FLOVENT) 44 mcg/actuation inhaler Inhale 2 Puffs as instructed twice daily. (Patient not taking: Reported on 11/06/2023) albuterol HFA (PROAIR HFA) 90 mcg/actuation inhaler Inhale 2 Puffs as instructed every 4 hours as needed. (Patient not taking: Reported on 11/06/2023) Blood Pressure Monitor kit Check BP at home. (Patient not taking: Reported on 11/06/2023) No current facility-administered medications for this visit. Medications and allergies reviewed by this provider. SOCIAL HISTORY Social History Tobacco Use Smoking status: Every Day Packs/day: 1.00 Years: 30.00 Additional pack years: 0.00 Total pack years: 30.00 Types: Cigarettes Smokeless tobacco: Never Vaping Use Vaping Use: Never used Substance Use Topics Alcohol use: No Drug use: No REVIEW OF SYSTEMS All other reviewed and negative other than HPI. OBJECTIVE: BP 145/90 Pulse 74 Resp 18 Wt 85.5 kg (188 lb 9.6 oz) LMP 05/05/2011 SpO2 95% BMI 30.44kg/m . Vital signs reviewed by this provider. APPEARANCE Well appearing, alert, in no acute distress, well-hydrated, well nourished. EYES conjunctiva and sclera normal. HEART RRR with normal S1 and S2, no murmurs, no gallops, no JVD appreciated LUNG A few scattered expiratory wheezes cleared with cough, otherwise clear to auscultation EXTREMITIES Extremities normal, No deformities, No skin discoloration, and No edema SKIN Skin color, texture, turgor normal, no suspicious rashes or lesions to exposed skin BP Controlled (<130/80) Never done Hepatitis B Vaccine(1 of 3 - 19+ 3-dose series) Never done Pneumococcal Vaccine(2 of 2 - PCV) due on 03/09/2015 Lung Cancer Screening Never done Shingrix Vaccine(1 of 2) Never done Mammogram Screening due on 09/07/2020 Annual PCP Team Chronic Disease Visit due on 04/19/2022 Covid-19 Vaccine( season) Never done Influenza Vaccine(Season Ended) due on 02/17/2024 Diabetes Screening due on 04/21/2024 Lipid Screening due on 03/01/2025 DTaP,Tdap,Td Vaccine(2 - Td or Tdap) due on 09/07/2026 Colorectal Cancer Screening due on 11/04/2028 Spirometry Completed Hepatitis C Screening Completed HIV Screening Completed Pap Testing Discontinued HPV Testing Discontinued ASSESSMENT/PLAN: 1. Hypertension, essential - ICD9: 401.9, ICD10: I10 (primary diagnosis) - Uncontrolled - Start losartan - Recommend home blood pressure monitoring, to bring results to next visit - Encouraged sodium restriction, DASH or Mediterranean diet - Recommend regular aerobic exercise - Discussed need for and benefit of weight loss. BMI 30.44 kg/(m^2) - Smoking cessation encouraged; discussed risks to health and quitting strategies. Patient is not ready to quit - Follow up in 4 weeks for hypertension visit and physical - LOSARTAN 25 MG TABLET 2. Hyperlipidemia, mixed - ICD9: 272.2, ICD10: E78.2 - Control undetermined, due for labs - Counseled on healthy diet and regular exercise - Discussed need for and benefit of weight loss. BMI 30.44 kg/(m^2) - Follow up in 1 month, sooner should any other issues arise. - LIPID PANEL BASIC 3. Dizziness - ICD9: 780.4, ICD10: R42 - resolved - follow-up as needed Marilou Singh APRN.CNP Prescription instructions reviewed with patient as applicable. Patient advised if symptoms do not improve or if symptoms worsen sooner, to contact their primary care physician. Potential red flag symptoms discussed with the patient. Reviewed appropriate action plan to take if red flag symptoms occur. Patient agreeable to treatment plan. Medical Decision Making: Problems: Moderate: 1+ chronic illnesses with change Data: Unique test(s) ordered: 1 Risk: Moderate: Drug management Medical Decision Making Level: 4 - Moderate documented in [facility] encounter[facility] History of Present illness Narrative* Rosita Sandoval APRN.CNP - 11/02/2023 12:05 PM EDT Called to triage patient. 57 year old female with PMH HTN, hyperlipidemia, COPD presents for dizziness. I feel lightheaded Endorses + nausea States she woke up this way Endorses that she has not been on her BP medicines for approximately 2 years related to lack of insurance I think I feel this way because my BP is probably high BP here 148/88 Heart rate 101 She is tearful Just feel not right Given the limitation of express care and need to rule out intracranial process, electrolyte abnormality and/or life threatening anemia-referred to ED Declines EMS documented in this encounterBar[facility]06-24-2022 Miscellaneous Notes* Telephone Encounter - Janel Reyes RN - 12/09/2021 12:51 PM EDT Pt called in reporting she had to cancel her last appointment with provider because she doesn't have insurance and she couldn't afford to see provider. She reports she is working on getting insurance. Let Pt know that provider may only give her a 30 day supply until she comes in to see him. Patient has been identified by name and date of : Yes Patient phones for refill(s): Pending Prescriptions Disp Refills ATORVASTATIN 20 MG TABLET 30 tablet 5 Sig: Take 1 tablet by mouth daily at bedtime. For cholesterol. DEQUAN: No FLUOXETINE 40 MG CAPSULE 60 capsule 5 Sig: Take 2 capsules by mouth once daily. DEQUAN: No LOSARTAN 25 MG TABLET 30 tablet 5 Sig: Take 1 tablet by mouth daily at bedtime. DEQUAN: No HYDROXYZINE PAMOATE 25 MG CAPSULE 30 capsule 0 Sig: Take 1 capsule by mouth twice daily as needed for anxiety. DEQUAN: No Date of last office visit in primary care: 04/19/21 Future visit: none Last 2 Encounter Wt Readings: Date: Wt: 06/02/2021 83.9 kg (185 lb) 04/19/2021 87.1 kg (192 lb) Previous labs/tests for medication: Cholesterol: HDL Cholesterol, Nonfasting (mg/dL) Date Value 03/01/2020 35 LDL Chol, Ashley (mg/dL) Date Value 02/01/2010 117 LDL Cholesterol, Nonfasting (mg/dL) Date Value 03/01/2020 56 ALT (U/L) Date Value 04/21/2021 13 Non HDL Cholesterol, Nonfasting (mg/dL) Date Value 03/01/2020 89 Blood Pressure: BUN (mg/dL) Date Value 04/21/2021 11 Sodium (mmol/L) Date Value 04/21/2021 142 Last 1 Encounter BP Readings: Date: BP: 06/02/2021 122/72 Liver Function: ALT (U/L) Date Value 04/21/2021 13 AST (U/L) Date Value 04/21/2021 18 Please advise. Thank you. Janel Reyes RN documented in this encounterBar[facility]05-09-2022 Miscellaneous Notes* Telephone Encounter - Shasta Walters MD - 10/24/2021 3:00 PM EDT Reviewed. * Telephone Encounter - Erin Romeo MA - 10/24/2021 2:13 PM EDT Confirmed with patient. Patient was notified 10/14 via telephone call & told the person who called that she would not be able to keep the appointment. No action was taken after that, no update to appointment note was made & phone call/outreach to patient was not documented or noted. Erin Romeo MA * Telephone Encounter - Shasta Walters MD - 10/24/2021 1:19 PM EDT She still should have cancelled the appointment. We did not know if she was willing/able to pay so she was left on the schedule. * Telephone Encounter - Jeanette Cartagena LPN - 10/24/2021 12:21 PM EDT Pt calls to report she received a letter in the mail that she no showed an appt on 10/18/21. Pt reports she wasn't allowed to see dr because she did not have $240 that pt was told she had to pay in order to see the dr. Pt wanted to let dr know that is why she wasn't at appt. Pt reports she is trying to work something out so she can see the dr. 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 Thank you documented in this encounterBarberton [facility]03-04-2022 History of Present illness Narrative* Saranya Zambrano, RT(R) - 08/19/2021 12:40 PM EST Radiology Service Progress Note PATIENT NAME: Saranya Bermudez DATE OF SERVICE: August 19, 2021 TIME: 12:38 PM PATIENT IDENTITY VERIFICATION COMPLETED USING TWO (2) IDENTIFIERS: Name and Date of confirmedby patient verbally. FALL SCREENING: Has the patient had 2 falls in the last year or 1 fall with injury or currently using an Ambulatory Assistive Device (Walker, Cane, Wheelchair, Crutches, etc.)? No PATIENT GENDER DATA: Female. status: : No status: NO. PATIENT RELEVANT IMPLANT DATA REVIEWED: Not Applicable RADIOLOGY DEPARTMENT: General X-ray: Exam(s) Completed: Lower Extremity X- Ray(s): Foot, Right and Wt. Bearing PERIPHERAL IV DATA: Not applicable SIGNED BY: RT Will(R) August 19, 2021 12:38 PM documented in this encounterBarberton [facility]02-11-2022 History of Present illness Narrative* Nichole Cisneros RT(R) - 07/29/2021 12:20 PM EST Radiology Service Progress Note PATIENT NAME: Saranya Bermudez DATE OF SERVICE: July 29, 2021 TIME: 12:14 PM PATIENT IDENTITY VERIFICATION COMPLETED USING TWO (2) IDENTIFIERS: Name and Date of confirmedby patient verbally. FALL SCREENING: Has the patient had 2 falls in the last year or 1 fall with injury or currently using an Ambulatory Assistive Device (Walker, Cane, Wheelchair, Crutches, etc.)? No PATIENT GENDER DATA: Female. status: : No status: NO. PATIENT RELEVANT IMPLANT DATA REVIEWED: Yes RADIOLOGY DEPARTMENT: General X-ray: Exam(s) Completed: Lower Extremity X- Ray(s): Foot, Right PERIPHERAL IV DATA: Not applicable SIGNED BY: RT Jovani(R) July 29, 2021 12:14 PM documented in this encounterBarberton [facility]12-16-2021 History of Present illness Narrative* Saranya Zambrano RT(R) - 06/02/2021 1:20 PM EST Radiology Service Progress Note PATIENT NAME: Saranya Bermudez DATE OF SERVICE: June 02, 2021 TIME: 1:27 PM PATIENT IDENTITY VERIFICATION COMPLETED USING TWO (2) IDENTIFIERS: Name and Date of confirmedby patient verbally. FALL SCREENING: Has the patient had 2 falls in the last year or 1 fall with injury or currently using an Ambulatory Assistive Device (Walker, Cane, Wheelchair, Crutches, etc.)? No PATIENT GENDER DATA: Female. status: : No status: NO. PATIENT RELEVANT IMPLANT DATA REVIEWED: Not Applicable RADIOLOGY DEPARTMENT: General X-ray: Exam(s) Completed: Lower Extremity X- Ray(s): Ankle, Right and Foot, Right PERIPHERAL IV DATA: Not applicable SIGNED BY: RT Will(R) June 02, 2021 1:27 PM documented in this encounterBar[facility]08-24-2021 History of Present illness Narrative* Saranya Zambrano RT(R) - 02/08/2021 7:00 PM EDT Radiology Service Progress Note PATIENT NAME: Saranya Bermudez DATE OF SERVICE: February 08, 2021 TIME: 6:54 pm PATIENT IDENTITY VERIFICATION COMPLETED USING TWO (2) IDENTIFIERS: Name and Date of confirmedby patient verbally. FALL SCREENING: Has the patient had 2 falls in the last year or 1 fall with injury or currently using an Ambulatory Assistive Device (Walker, Cane, Wheelchair, Crutches, etc.)? No PATIENT GENDER DATA: Female. status: : No status: NO. PATIENT RELEVANT IMPLANT DATA REVIEWED: Not Applicable RADIOLOGY DEPARTMENT: General X-ray: Exam(s) Completed: Pelvis X-Ray: Pelvis with Hip Left PERIPHERAL IV DATA: Not applicable SIGNED BY: RT Will(R) February 08, 2021 7:01 PM documented in this encounterBarber[facility]07-28-2021 History of Present illness Narrative* Saranya Zambrano RT(R) - 01/12/2021 3:20 PM EDT Radiology Service Progress Note PATIENT NAME: Saranya Bermudez DATE OF SERVICE: January 12, 2021 TIME: 3:17 PM PATIENT IDENTITY VERIFICATION COMPLETED USING TWO (2) IDENTIFIERS: Name and Date of confirmedby patient verbally. FALL SCREENING: Has the patient had 2 falls in the last year or 1 fall with injury or currently using an Ambulatory Assistive Device (Walker, Cane, Wheelchair, Crutches, etc.)? No PATIENT GENDER DATA: Female. status: : No status: NO. PATIENT RELEVANT IMPLANT DATA REVIEWED: Not Applicable RADIOLOGY DEPARTMENT: General X-ray: Exam(s) Completed: Chest X-Ray PERIPHERAL IV DATA: Not applicable SIGNED BY: RT Will(R) January 12, 2021 3:17 PM documented in this encounterBarberton [facility]11-29-2018 History of Past illness Narrative* Problem Noted Date Resolved Date Acquired cyst of kidney 05/16/20 18 Overview: Multiple renal cysts bilaterally documented as of this encounter (statuses as of 10/24/2021) [facility] of Past illness Narrative* Problem Noted Date Resolved Date Acquired cyst of kidney 05/16/20 18 Overview: Multiple renal cysts bilaterally documented as of this encounter (statuses as of 12/07/2021) [facility] History of Past illness Narrative* Problem Noted Date Resolved Date Acquired cyst of kidney 05/16/20 18 Overview: Multiple renal cysts bilaterally documented as of this encounter (statuses as of 12/09/2021) [facility] of Past illness Narrative* Problem Noted Date Resolved Date Acquired cyst of kidney 05/16/20 18 Overview: Multiple renal cysts bilaterally documented as of this encounter (statuses as of 08/28/2022) [facility] of Past illness Narrative* Problem Noted Date Diagnosed Date Resolved Date Acquired cyst of kidney 04/19 Overview: Multiple renal cysts bilaterally documented as of this encounter (statuses as of 08/13/2023) [facility]Evaluation noteNo assessment information availableWUniversity [facility] Work Phone: Evaluation note* Diagnosis Mixed hyperlipidemia Hypertension, essential Unspecified essential hypertension documented in this encounter [facility]* Diagnosis Encounter for screening mammogram for breast cancer documented [facility] encounter [facility]* Diagnosis Encounter for screening mammogram for breast cancer documented [facility] encounter [facility]* Diagnosis Dizziness- Primary Dizziness and giddiness documented [facility] this encounter [facility]* Diagnosis Hypertension, essential- Primary Unspecified essential hypertension Hyperlipidemia, mixed Mixed hyperlipidemia Dizziness Dizziness and giddiness documented in this encounter [facility]* Diagnosis Annual physical exam- Primary Routine general medical examination at a health care facility Hypertension, essential Unspecified essential hypertension Mixed hyperlipidemia Encounter for screening for lung cancer PAD (peripheral artery disease) (HCC) Peripheral vascular disease, unspecified Vitamin D deficiency Unspecified vitamin D deficiency documented in this encounter [facility]* Diagnosis Encounter for screening mammogram for breast cancer documented in this encounter [facility]* Diagnosis Abnormal mammogram Abnormal mammogram, unspecified documented in this encounter [facility]* Diagnosis Calcification of right breast on mammography- Primary documented in this encounter [facility]* Diagnosis Abnormal mammogram- Primary Abnormal mammogram, unspecified documented in this encounter [facility]* Diagnosis Carotid stenosis, asymptomatic, bilateral- Primary PAD (peripheral artery disease) (HCC) Peripheral vascular disease, unspecified documented [facility] encounter [facility]* Diagnosis Calcification of right breast on mammography documented in this encounter [facility]* Diagnosis Encounter for screening for lung cancer- Primary Tobacco use current Lung nodules Other nonspecific abnormal finding of lung field documented in this encounter [facility]* Diagnosis Encounter for screening for lung cancer- Primary Tobacco use current documented in this encounter [facility]* Diagnosis Closed nondisplaced fracture of fifth metatarsal bone of right foot, initial encounter documented in this encounter [facility]* Diagnosis Foot pain, right Pain in limb Acute right ankle pain documented [facility] this encounter [facility]* Diagnosis Acute hip pain, left documented in this encounter [facility]* Diagnosis Cough documented in this encounter [facility]* Diagnosis Encounter for screening for lung cancer Tobacco use current documented in this encounter [facility] note* Diagnosis Encounter for screening for lung cancer- Primary Tobacco use current documented in this encounter [facility] note* Diagnosis Hypertension, essential Unspecified essential hypertension documented in this encounter [facility] note* Diagnosis Hypertension, essential Unspecified essential hypertension documented in this encounter [facility] note* Diagnosis Hypertension, essential- Primary Unspecified essential hypertension Mixed hyperlipidemia Encounter for screening examination for other mental health and behavioral disorders PAD (peripheral artery disease) ([facility]) Peripheral vascular disease, unspecified documented in this encounter [facility] note* Diagnosis Hypertension, essential- Primary Unspecified essential hypertension documented in this encounter [facility] note* Diagnosis Carotid stenosis, asymptomatic, bilateral- Primary PAD (peripheral artery disease) ([facility]) Peripheral vascular disease, unspecified documented in this encounter [facility] note* Diagnosis Tachycardia, paroxysmal (HCC)- Primary Paroxysmal tachycardia, unspecified Episodic lightheadedness Dizziness and giddiness Fatigue, unspecified type documented in this encounter [facility] note* Diagnosis Tachycardia, paroxysmal (HCC)- Primary Paroxysmal tachycardia, unspecified Hypertension, essential Unspecified essential hypertension Episodic lightheadedness Dizziness and giddiness Fatigue, unspecified type documented in this encounter [facility] note* Diagnosis SVT (supraventricular tachycardia) (HCC)- Primary Other specified cardiac dysrhythmias Chest pain, unspecified type NSTEMI (non-ST elevated myocardial infarction) ([facility]) Acute myocardial infarction, subendocardial infarction, episode of care unspecified Hospital discharge follow-up Other follow-up examination documented in this encounter [facility] note* Diagnosis Vitamin D deficiency- Primary Unspecified vitamin D deficiency documented in this encounter [facility] for referral (narrative)* Diagnostic Procedure Only (Routine) - Pending Review Specialty Diagnoses / Procedures Referred By Annie steven Referred To Contact [facility] Diagnoses Encounter for screening mammogram for breast cancer Procedures JOJO SCREENING SCREENING MAMMOGRAPHY BI 2-VIEW BREAST INC CAD Shasta Walters MD [address] [place] [address] [facility] [address] [place] [address] Referral ID Status Reason Start Date Expiration Date Visits Requested Visits Authorized [id number] Pending Review Auto-Generat ed Referral 08/23/2022 09/22/2023 1 1 [facility] for referral (narrative)* Diagnostic Procedure Only (Routine) - Pending Review Specialty Diagnoses / Procedures Referred By Annie steven Referred To Contact [facility] Diagnoses Encounter for screening mammogram for breast cancer Procedures JOJO SCREENING SCREENING MAMMOGRAPHY BI 2-VIEW BREAST INC Shasta Corado MD [address] [place] [address] [facility] [address] [place] [address] Referral ID Status Reason Start Date Expiration Date Visits Requested Visits Authorized [id number] Pending Review Auto-Generat ed Referral 08/08/2023 09/06/2024 1 1 [facility] for referral (narrative)* Diagnostic Procedure Only (Routine) - Pending Review Specialty Diagnoses / Procedures Referred By Annie steven Referred To Contact [facility] Diagnoses Encounter for screening mammogram for breast cancer Procedures JOJO SCREENING SCREENING MAMMOGRAPHY BI 2-VIEW BREAST INC Shasta Corado MD [address] [place] [address] [facility] [address] [place] [address] Referral ID Status Reason Start Date Expiration Date Visits Requested Visits Authorized [id number] Pending Review Auto-Generat ed Referral 08/08/2023 09/06/2024 1 1 [facility] for referral (narrative)* Diagnostic Procedure Only (Routine) - Pending Review Specialty Diagnoses / Procedures Referred By Annie steven Referred To Contact [facility] Diagnoses Abnormal mammogram Procedures US BREAST LTD RIGHT US BREAST UNI REAL TIME WITH IMAGE LIMITED Shasta Walters MD [address] [place] [address] [facility] [address] [place] [address] Referral ID Status Reason Start Date Expiration Date Visits Requested Visits Authorized [id number] Pending Review Auto-Generat ed Referral 12/13/2023 01/11/2025 1 1 [facility] for referral (narrative)* Outpatient Procedure (Routine) - Pending Review Specialty Diagnoses / Procedures Referred By Contac t Referred To Contact [facility] Diagnoses PAD (peripheral artery disease) (HCC) Procedures PVR LEG [facility] NON-INVASIVE PHYSIOLOGIC STUDY EXTREMITY 3 LEVLS Valerie Cantu DO [address] [place] [address] [facility] [address] [address] Referral ID Status Reason Start Date Expiration Date Visits Requested Visits Authorized [id number] Pending Review Auto-Generat ed Referral 01/29/2024 01/28/2025 1 1 * Outpatient Procedure (Routine) - Pending Review Specialty Diagnoses / Procedures Referred By Contac t Referred To Contact [facility] Diagnoses Carotid stenosis, asymptomatic, bilateral Procedures US CAROTID ARTERIES [facility] DUPLEX SCAN EXTRACRANIAL ART COMPL BI STUDY Valerie Cantu DO [address] [place] [address] [address] Referral ID Status Reason Start Date Expiration Date Visits Requested Visits Authorized [id number] Pending Review Auto-Generat ed Referral 01/29/2024 01/28/2025 1 1 [facility] for referral (narrative)* Diagnostic Procedure Only (Routine) - Closed Specialty Diagnoses / Procedures Referred By Contac t Referred To Contact [facility] Diagnoses Closed nondisplaced fracture of fifth metatarsal bone of right foot, initial encounter Procedures XR FOOT GENERAL 3V AP/LAT/OBL RIGHT RADEX FOOT COMPLETE MINIMUM [address] [place] [address] [place] [address] Referral ID Status Reason Start Date Expiration Date V isits Requested Visits Authorized [id number] Closed Auto-Generate d Referral 08/01/2021 06/17/2022 1 1 [facility] for referral (narrative)* Diagnostic Procedure Only (Routine) - Closed Specialty Diagnoses / Procedures Referred By Contac t Referred To Contact [facility] IMAGING Diagnoses Closed nondisplaced fracture of fifth metatarsal bone of right foot, initial encounter Procedures XR FOOT GENERAL 3V AP/LAT/OBL RIGHT X-RAY FOOT MINIMUM 3 VIEWS Deandre Valladares [address] [place] [address] [place] [address] Referral ID Status Reason Start Date Expiration Date V isits Requested Visits Authorized [id number] Closed Auto-Generate d Referral 07/01/2021 07/31/2022 1 1 [facility] for referral (narrative)* Diagnostic Procedure Only (Urgent) - Closed Specialty Diagnoses / Procedures Referred By Contac t Referred To Contact XR IMAGING Diagnoses Acute right ankle pain Procedures XR ANKLE GENERAL 3V AP/LAT/OBL RIGHT X-RAY ANKLE MINIMUM 3 VIEWS Sekou Gomes, JHONY.PALOMA [address] [place] [address] [place] [address] Referral ID Status Reason Start Date Expiration Date V isits Requested Visits Authorized [id number] Closed Auto-Generate d Referral 06/02/2021 07/02/2022 1 1 * Diagnostic Procedure Only (Urgent) - Closed Specialty Diagnoses / Procedures Referred By Contac t Referred To Contact XR IMAGING Diagnoses Foot pain, right Procedures XR FOOT GENERAL 3V AP/LAT/OBL RIGHT X-RAY FOOT MINIMUM 3 VIEWS Sekou Gomes, JHONY.MEMBER SERVICES COORDINATOR [address] [place] [address] [place] [address] Referral ID Status Reason Start Date Expiration Date V isits Requested Visits Authorized [id number] Closed Auto-Generate d Referral 06/02/2021 07/02/2022 1 1 [facility] for referral (narrative)* Diagnostic Procedure Only (Routine) - Closed Specialty Diagnoses / Procedures Referred By Annie steven Referred To Contact XR IMAGING Diagnoses Acute hip pain, left Procedures XR HIP GENERAL 3V PELV/AP/LAT LT RADEX HIP UNILATERAL WITH PELVIS 2-3 VIEWS Shasta Walters MD [address] [place] [address] [place] [address] Referral ID Status Reason Start Date Expiration Date V isits Requested Visits Authorized [id number] Closed Auto-Generate d Referral 02/08/2021 03/10/2022 1 1 [facility] for referral (narrative)No reason for referral information availableW[facility] Work Phone: Reason for visit Narrative* Diagnostic Procedure Only (Routine) - Pending Review Specialty Diagnoses / Procedures Referred By Annie steven Referred To Contact BR IMAGING Diagnoses Encounter for screening mammogram for breast cancer Procedures JOJO SCREENING SCREENING MAMMOGRAPHY BI 2-VIEW BREAST INC CAD Shasta Walters MD [address] [place] [address] [facility] [address] [facility] [place] [address] Referral ID Status Reason Start Date Expiration Date Visits Requested Visits Authorized [id number] Pending Review Auto-Generat ed Referral 08/08/2023 09/06/2024 1 1 [facility] for visit Narrative* Diagnostic Procedure Only (Routine) - Pending Review Specialty Diagnoses / Procedures Referred By Annie t Referred To Contact BR IMAGING Diagnoses Abnormal mammogram Procedures US BREAST LTD RIGHT US BREAST UNI REAL TIME WITH IMAGE LIMITED Shasta Walters MD [address] [place] [address] [facility] [address] [place] [address] Referral ID Status Reason Start Date Expiration Date Visits Requested Visits Authorized [id number] Pending Review Auto-Generat ed Referral 12/13/2023 01/11/2025 1 1 [facility] Procedure Only (Routine) - Closed Specialty Diagnoses / Procedures Referred By Contac t Referred To Contact XR IMAGING Diagnoses Acute hip pain, left Procedures XR HIP GENERAL 3V PELV/AP/LAT LT RADEX HIP UNILATERAL WITH PELVIS 2-3 VIEWS Shasta Walters MD [address] [place] [address] [place] [address] Referral ID Status Reason Start Date Expiration Date V isits Requested Visits Authorized [id number] Closed Auto-Generate d Referral 02/08/2021 03/10/2022 1 1 [facility] Advance Directives No Advanced Directives Records FoundDocuments on File Type Date Recorded Patient Dealership Manager Expl anation Advance Directive(s) 11/04/2018 1:26 PM Advance Directive(s) 10/18/2018 4:08 PM Advance Directive(s) 12/21/2017 3:04 PM Advance Directive Response Recorded Date/ Time Living Will No February 28, 2021 2:04pm Power of Clinic Physician Director No February 2:04pm Advance Directive Response Recorded Date/ Time Do you have a Healthcare Power of Clinic Physician Director? No November 05, 2024 10:31pm Family History No Family History Records Found Relationship Condition Age at Onset Recorded Date/T alysa Unknown Family History?Unknown Unknown Octob er 2017 7:11pm Family History?Unknown Unknown Octob er 2017 7:11pm Chief Complaint and Reason for Visit Chief Complaint Other specified kelly pheral vascular diseases Chief Complaint Admit Date SVT, CHEST PAIN, PALPATATIONS, HEART RAC ING November 05, 2024 9:59pm Reason for Visit Admit Date Chest pain November 05, 2024 9:59p m Elevated troponin November 05, 2024 9:59p m Overweight (BMI 25.0-29.9) November 05 9:59pm Palpitations November 05, 2024 9:59p m Racing heart beat November 05, 2024 9:59p m SVT (supraventricular tachycardia) October 172024 9:59pm Tobacco abuse November 05, 2024 9:59p m HTN (hypertension) November 05, 2024 9:59p m Chief Complaint Admit Date SVT, CHEST PAIN, PALPATATIONS, HEART RAC ING November 05, 2024 9:59pm SVT, CHEST PAIN, PALPATATIONS, HEART RAC ING November 06, 2024 4:16pm S/P [facility] 11/06November 13, 2024 2:31p m Reason for Visit Admit Date Chest pain November 05, 2024 9:59p m Elevated troponin November 05, 2024 9:59p m Overweight (BMI 25.0-29.9) November 05 9:59pm Palpitations November 05, 2024 9:59p m Racing heart beat November 05, 2024 9:59p m SVT (supraventricular tachycardia) October 172024 9:59pm Tobacco abuse November 05, 2024 9:59p m HTN (hypertension) November 05, 2024 9:59p m SVT (supraventricular tachycardia) October 172024 2:31pm HTN (hypertension) November 13, 2024 2:31p m Chief Complaint Admit Date SVT, CHEST PAIN, PALPATATIONS, HEART RAC ING November 05, 2024 9:59pm SVT, CHEST PAIN, PALPATATIONS, HEART RAC ING November 06, 2024 4:16pm S/P [facility] 11/06November 13, 2024 2:31p m UPDATE H&P December 16, 2024 9:01a m Reason for Visit Admit Date Elevated troponin November 05, 2024 9:59p m HTN (hypertension) November 05, 2024 9:59p m Chest pain November 05, 2024 9:59p m Palpitations November 05, 2024 9:59p m Racing heart beat November 05, 2024 9:59p m SVT (supraventricular tachycardia) October 172024 9:59pm Overweight (BMI 25.0-29.9) November 05 9:59pm Tobacco abuse November 05, 2024 9:59p m HTN (hypertension) November 13, 2024 2:31p m SVT (supraventricular tachycardia) October 172024 2:31pm HTN (hypertension) December 16, 2024 9:01a m SVT (supraventricular tachycardia) December 16, 2024 9:01am Reason for Referral Specialty Diagnoses / Procedures Referred By Contac t Referred To Contact Vascular Medicine Diagnoses PAD (peripheral artery disease) (HCC) Procedures CONSULT TO VASCULAR MEDICINE OFFICE/OUTPATIENT SELECT AT [place] 60 MINUTES Podlogar, Marilou, DERRICK BOAT LEVERMAN.MEMBER SERVICES COORDINATOR [address] [place] [address] Referral ID Status Reason Start Date Expiration Date Visits Requested Visits Authorized [id number] Authorized PCP Requested Referral 12/07/2023 12/06/2024 1 1 Specialty Diagnoses / Procedures Referred By Contac t Referred To [facility] Diagnoses PAD (peripheral artery disease) (HCC) Procedures PVR LEG W/EXC YUNG VAS LAB N-INVAS PHYSIOLOGIC STD LXTR ART COMPL BI Podlogar, Marilou, DERRICK BOAT LEVERMAN.MEMBER SERVICES COORDINATOR [address] [place] [address] [facility] [place] [address] [place] [address] Referral ID Status Reason Start Date Expiration Date Visits Requested Visits Authorized [id number] Pending Review Auto-Generat ed Referral 12/07/2023 12/06/2024 1 1 Specialty Diagnoses / Procedures Referred By Contac t Referred To Contact BR IMAGING Diagnoses Calcification of right breast on mammography Procedures JOJO STEREO BX BREAST RIGHT BX BREAST W/DEVICE 1ST LESION STEREOTACTIC GUID Celeste Brady MD [address] [place] [address] [facility] [address] [place] [address] Referral ID Status Reason Start Date Expiration Date Visits Requested Visits Authorized [id number] Pending Review Auto-Generate d Referral Patient Cleared - Qualified 100% FAS 01/14/2024 02/12/2025 99 99 Referral ID Status Reason Start Date Expiration Date Visits Requested Visits Authorized [id number] Authorized Auto-Generate d Referral Patient Cleared - Qualified 100% FAS 02/19/2024 05/19/2024 99 99 Specialty Diagnoses / Procedures Referred By Contac t Referred To Contact CT IMAGING Diagnoses Lung nodules Procedures CT CHEST WO IVCON DIAGNOSTIC COMPUTED TOMOGRAPHY THORAX W/O CNTRST Jazzy Whiteinda, DERRICK BOAT LEVERMAN.MEMBER SERVICES COORDINATOR [address] [place] [address] [place] [address] Referral ID Status Reason Start Date Expiration Date Visits Requested Visits Authorized [id number] Pending Review Auto-Generat ed Referral 02/25/2024 03/26/2025 1 1 Specialty Diagnoses / Procedures Referred By Contac t Referred To Contact CT IMAGING Diagnoses Encounter for screening for lung cancer Tobacco use current Procedures CT LUNG SCREEN WO IVCON COMPUTED TOMOGRAPHY THORAX LW DOSE LNG CA SCR C- Jazzy Whiteinda, DERRICK BOAT LEVERMAN.MEMBER SERVICES COORDINATOR [address] [place] [address] [place] [address] Referral ID Status Reason Start Date Expiration Date Visits Requested Visits Authorized [id number] New Request Auto-Generat ed Referral 03/07/2024 04/06/2025 1 1 Referral ID Status Reason Start Date Expiration Date V isits Requested Visits Authorized [id number] Closed Auto-Generated Referral Patient Cleared - Qualified 100% FAS 03/07/2024 04/06/2025 1 1 Referral ID Status Reason Start Date Expiration Date Visits Requested Visits Authorized [id number] New Request Auto-Generat ed Referral 03/17/2025 05/04/2025 1 1 Summary Purpose Additional Source Comments Source Comments (unrecognize d section and content) In the event this informatio n is protected by the Federal Confidentiality of Alcohol and Drug Abuse Patient Records regulations: The Federal rules restrict any use of the information to criminally investigate or prosecute any alcohol or drug abuse patient.[facility] the event this information is protected by the Federal Confidentiality of Alcohol and Drug Abuse Patient Records regulations: The Federal rules restrict any use of the information to criminally investigate or prosecute any alcohol or drug abuse patient.[facility]In the event this information is protected by the Federal Confidentiality of Alcohol and Drug Abuse Patient Records regulations: The Federal rules restrict any use of the information to criminally investigate or prosecute any alcohol or drug abuse patient.[facility] the event this information is protected by the Federal Confidentiality of Alcohol and Drug Abuse Patient Records regulations: The Federal rules restrict any use of the information to criminally investigate or prosecute any alcohol or drug abuse patient.[facility] the event this information is protected by the Federal Confidentiality of Alcohol and Drug Abuse Patient Records regulations: The Federal rules restrict any use of the information to criminally investigate or prosecute any alcohol or drug abuse patient.[facility] the event this information is protected by the Federal Confidentiality of Alcohol and Drug Abuse Patient Records regulations: The Federal rules restrict any use of the information to criminally investigate or prosecute any alcohol or drug abuse patient.[facility] the event this information is protected by the Federal Confidentiality of Alcohol and Drug Abuse Patient Records regulations: The Federal rules restrict any use of the information to criminally investigate or prosecute any alcohol or drug abuse patient.[facility] the event this information is protected by the Federal Confidentiality of Alcohol and Drug Abuse Patient Records regulations: The Federal rules restrict any use of the information to criminally investigate or prosecute any alcohol or drug abuse patient.[facility] the event this information is protected by the Federal Confidentiality of Alcohol and Drug Abuse Patient Records regulations: The Federal rules restrict any use of the information to criminally investigate or prosecute any alcohol or drug abuse patient.[facility]In the event this information is protected by the Federal Confidentiality of Alcohol and Drug Abuse Patient Records regulations: The Federal rules restrict any use of the information to criminally investigate or prosecute any alcohol or drug abuse patient.[facility]In the event this information is protected by the Federal Confidentiality of Alcohol and Drug Abuse Patient Records regulations: The Federal rules restrict any use of the information to criminally investigate or prosecute any alcohol or drug abuse patient.[facility] the event this information is protected by the Federal Confidentiality of Alcohol and Drug Abuse Patient Records regulations: The Federal rules restrict any use of the information to criminally investigate or prosecute any alcohol or drug abuse patient.[facility]In the event this information is protected by the Federal Confidentiality of Alcohol and Drug Abuse Patient Records regulations: The Federal rules restrict any use of the information to criminally investigate or prosecute any alcohol or drug abuse patient.[facility]In the event this information is protected by the Federal Confidentiality of Alcohol and Drug Abuse Patient Records regulations: The Federal rules restrict any use of the information to criminally investigate or prosecute any alcohol or drug abuse patient.[facility]In the event this information is protected by the Federal Confidentiality of Alcohol and Drug Abuse Patient Records regulations: The Federal rules restrict any use of the information to criminally investigate or prosecute any alcohol or drug abuse patient.[facility]In the event this information is protected by the Federal Confidentiality of Alcohol and Drug Abuse Patient Records regulations: The Federal rules restrict any use of the information to criminally investigate or prosecute any alcohol or drug abuse patient.[facility] the event this information is protected by the Federal Confidentiality of Alcohol and Drug Abuse Patient Records regulations: The Federal rules restrict any use of the information to criminally investigate or prosecute any alcohol or drug abuse patient.[facility] the event this information is protected by the Federal Confidentiality of Alcohol and Drug Abuse Patient Records regulations: The Federal rules restrict any use of the information to criminally investigate or prosecute any alcohol or drug abuse patient.[facility]In the event this information is protected by the Federal Confidentiality of Alcohol and Drug Abuse Patient Records regulations: The Federal rules restrict any use of the information to criminally investigate or prosecute any alcohol or drug abuse patient.[facility]In the event this information is protected by the Federal Confidentiality of Alcohol and Drug Abuse Patient Records regulations: The Federal rules restrict any use of the information to criminally investigate or prosecute any alcohol or drug abuse patient.[facility]In the event this information is protected by the Federal Confidentiality of Alcohol and Drug Abuse Patient Records regulations: The Federal rules restrict any use of the information to criminally investigate or prosecute any alcohol or drug abuse patient.[facility] HospitalIn the event this information is protected by the Federal Confidentiality of Alcohol and Drug Abuse Patient Records regulations: The Federal rules restrict any use of the information to criminally investigate or prosecute any alcohol or drug abuse patient.[facility]In the event this information is protected by the Federal Confidentiality of Alcohol and Drug Abuse Patient Records regulations: The Federal rules restrict any use of the information to criminally investigate or prosecute any alcohol or drug abuse patient.[facility]In the event this information is protected by the Federal Confidentiality of Alcohol and Drug Abuse Patient Records regulations: The Federal rules restrict any use of the information to criminally investigate or prosecute any alcohol or drug abuse patient.[facility]In the event this information is protected by the Federal Confidentiality of Alcohol and Drug Abuse Patient Records regulations: The Federal rules restrict any use of the information to criminally investigate or prosecute any alcohol or drug abuse patient.[facility] HospitalIn the event this information is protected by the Federal Confidentiality of Alcohol and Drug Abuse Patient Records regulations: The Federal rules restrict any use of the information to criminally investigate or prosecute any alcohol or drug abuse patient.[facility] HospitalIn the event this information is protected by the Federal Confidentiality of Alcohol and Drug Abuse Patient Records regulations: The Federal rules restrict any use of the information to criminally investigate or prosecute any alcohol or drug abuse patient.[facility]In the event this information is protected by the Federal Confidentiality of Alcohol and Drug Abuse Patient Records regulations: The Federal rules restrict any use of the information to criminally investigate or prosecute any alcohol or drug abuse patient.[facility] HospitalIn the event this information is protected by the Federal Confidentiality of Alcohol and Drug Abuse Patient Records regulations: The Federal rules restrict any use of the information to criminally investigate or prosecute any alcohol or drug abuse patient.[facility] the event this information is protected by the Federal Confidentiality of Alcohol and Drug Abuse Patient Records regulations: The Federal rules restrict any use of the information to criminally investigate or prosecute any alcohol or drug abuse patient.[facility]In the event this information is protected by the Federal Confidentiality of Alcohol and Drug Abuse Patient Records regulations: The Federal rules restrict any use of the information to criminally investigate or prosecute any alcohol or drug abuse patient.[facility]In the event this information is protected by the Federal Confidentiality of Alcohol and Drug Abuse Patient Records regulations: The Federal rules restrict any use of the information to criminally investigate or prosecute any alcohol or drug abuse patient.[facility]In the event this information is protected by the Federal Confidentiality of Alcohol and Drug Abuse Patient Records regulations: The Federal rules restrict any use of the information to criminally investigate or prosecute any alcohol or drug abuse patient.[facility]In the event this information is protected by the Federal Confidentiality of Alcohol and Drug Abuse Patient Records regulations: The Federal rules restrict any use of the information to criminally investigate or prosecute any alcohol or drug abuse patient.[facility]In the event this information is protected by the Federal Confidentiality of Alcohol and Drug Abuse Patient Records regulations: The Federal rules restrict any use of the information to criminally investigate or prosecute any alcohol or drug abuse patient.[facility]In the event this information is protected by the Federal Confidentiality of Alcohol and Drug Abuse Patient Records regulations: The Federal rules restrict any use of the information to criminally investigate or prosecute any alcohol or drug abuse patient.[facility]In the event this information is protected by the Federal Confidentiality of Alcohol and Drug Abuse Patient Records regulations: The Federal rules restrict any use of the information to criminally investigate or prosecute any alcohol or drug abuse patient.[facility]In the event this information is protected by the Federal Confidentiality of Alcohol and Drug Abuse Patient Records regulations: The Federal rules restrict any use of the information to criminally investigate or prosecute any alcohol or drug abuse patient.[facility]In the event this information is protected by the Federal Confidentiality of Alcohol and Drug Abuse Patient Records regulations: The Federal rules restrict any use of the information to criminally investigate or prosecute any alcohol or drug abuse patient.[facility]In the event this information is protected by the Federal Confidentiality of Alcohol and Drug Abuse Patient Records regulations: The Federal rules restrict any use of the information to criminally investigate or prosecute any alcohol or drug abuse patient.[facility]In the event this information is protected by the Federal Confidentiality of Alcohol and Drug Abuse Patient Records regulations: The Federal rules restrict any use of the information to criminally investigate or prosecute any alcohol or drug abuse patient.[facility]In the event this information is protected by the Federal Confidentiality of Alcohol and Drug Abuse Patient Records regulations: The Federal rules restrict any use of the information to criminally investigate or prosecute any alcohol or drug abuse patient.[facility]In the event this information is protected by the Federal Confidentiality of Alcohol and Drug Abuse Patient Records regulations: The Federal rules restrict any use of the information to criminally investigate or prosecute any alcohol or drug abuse patient.[facility]In the event this information is protected by the Federal Confidentiality of Alcohol and Drug Abuse Patient Records regulations: The Federal rules restrict any use of the information to criminally investigate or prosecute any alcohol or drug abuse patient.[facility]In the event this information is protected by the Federal Confidentiality of Alcohol and Drug Abuse Patient Records regulations: The Federal rules restrict any use of the information to criminally investigate or prosecute any alcohol or drug abuse patient.[facility]In the event this information is protected by the Federal Confidentiality of Alcohol and Drug Abuse Patient Records regulations: The Federal rules restrict any use of the information to criminally investigate or prosecute any alcohol or drug abuse patient.[facility] Reason for Visit (unrecogniz ed section and content) Reason Comments Appointment Reason Comments Patient Question Reason Comments Refill Request Reason Comments ED Follow-up [facility] 11/03 for dizzine ss Reason Comments Physical Blood Pressure Check Reason Comments Results Reason Comments Consult Rt breast consult Specialty Diagnoses / Procedures Referred By Annie t Referred To Contact Diagnoses WELLNESS Procedures wellness [place] [facility] [place] [address] Referral ID Status Reason Start Date Expiration Date Visits Requested Visits Authorized [id number] Authorized Patient Cleared - Qualified 100% FAS 11/02/2023 01/31/2024 99 99 Reason Comments Results Reason Comments New Patient Specialty Diagnoses / Procedures Referred By Contmilka t Referred To Contact Vascular Medicine Diagnoses PAD (peripheral artery disease) (HCC) Procedures CONSULT TO VASCULAR MEDICINE OFFICE/OUTPATIENT NEW HIGH MDM 60 MINUTES PodMarilou joseph APRN.MEMBER SERVICES COORDINATOR [address] [place] [address] Referral ID Status Reason Start Date Expiration Date V isits Requested Visits Authorized [id number] Closed PCP Requested Referral 12/07/2023 12/06/2024 1 1 Referral ID Status Reason Start Date Expiration Date V isits Requested Visits Authorized [id number] Closed Patient Cleared - Qualified 100% FAS 11/02/2023 01/31/2024 99 99 Reason Comments Consult Specialty Diagnoses / Procedures Referred By Contac t Referred To Contact [facility] Diagnoses Calcification of right breast on mammography Procedures JOJO STEREO BX BREAST RIGHT BX BREAST W/DEVICE 1ST [facility] Celeste Velasquez MD [address] [place] [address] [facility] [address] [place] [address] Referral ID Status Reason Start Date Expiration Date Visits Requested Visits Authorized [id number] Authorized Auto-Generate d Referral Patient Cleared - Qualified 100% FAS 02/19/2024 05/19/2024 99 [address] Specialty Diagnoses / Procedures Referred By Contac t Referred To Contact [facility]AGING Diagnoses Calcification of right breast on mammography Procedures JOJO STEREO BX BREAST RIGHT BX BREAST W/DEVICE 1ST [facility] Celeste Velasquez MD [address] [facility] [place] [address] [facility] [address] [place] [address] Specialty Diagnoses / Procedures Referred By Contac t Referred To Contact [facility] Diagnoses Fracture R foot Procedures Fracture R foot Shasta Walters MD [address] [place] [address] [facility] [place] [address] Referral ID Status Reason Start Date Expiration Date Visits Requested Visits Authorized [id number] Closed OON/Self Pay Override OON Notification Letter Financial Clearance Required - OON Payor Patient Cleared - Qualified [id number] 07/27/2021 10/25/2021 99 99 Specialty Diagnoses / Procedures Referred By Contac t Referred To Contact Diagnoses PAD (peripheral artery disease) (HCC) Procedures PVR ANK PRESS W/EXC YUNG VAS LAB [id number] LEVEL John Goodson MD [address] [place] [address] [place] [address] Referral ID Status Reason Start Date Expiration Date V isits Requested Visits Authorized [id number] Closed Financial Clearance Required - Self Pay Patient Cleared - Qualified 100% FAS OON/Self Pay Override 04/19/2021 06/17/2021 99 [address] Reason Onset Date Comments Refill Request 05/24/2024 PLEASE SEE RX no gwen Reason Onset Date Comments Refill Request 05/26/2024 Reason Comments F/U 6 Month Reason Comments BP Check Reason Comments Established Patient Specialty Diagnoses / Procedures Referred By Contac t Referred To Contact Peripheral Vascular / VASCULAR SURGERY Diagnoses 6 month follow up after testing Procedures EST PATIENT Valerie Cantu, DO [address] [place] [address] Phone: tel: Valerie Cantu, DO [address] [place] [address] Phone: tel: fax: Referral ID Status Reason Start Date Expiration Date V isits Requested Visits Authorized [id number] Closed Financial Clearance Required - Self Pay Patient Cleared - Qualified 100% FAS 06/09/2024 09/07/2024 1 1 Reason Comments Syncope Reason Comments Dizziness Fatigue elevated heart rate Specialty Diagnoses / Procedures Referred By Contac t Referred To Contact INTERNAL MEDICINE Diagnoses ANYTHING MEDICALLY NECESSARY Procedures OFFICE CONSULTATION NEW/ESTAB PATIENT 15 MIN Self [address] [place] [address] [place] [address] Referral ID Status Reason Start Date Expiration Date Visits Requested Visits Authorized [id number] Authorized Patient Cleared - Qualified 100% FAS 09/11/2024 12/10/2024 99 99 Reason Comments Follow Up HR and BP recheck Specialty Diagnoses / Procedures Referred By Contac t Referred To Contact INTERNAL MEDICINE Diagnoses ANYTHING MEDICALLY NECESSARY Procedures OFFICE CONSULTATION NEW/ESTAB PATIENT 15 MIN Self [address] [place] [address] [place] [address] Referral ID Status Reason Start Date Expiration Date Visits Requested Visits Authorized [id number] Authorized Patient Cleared - Qualified 100% FAS 09/11/2024 12/10/2024 99 99 Reason Onset Date Comments Transition Of Care 11/07/2024 Reason Comments Transition Of Care Blood Pressure recheck Follow Up HR and BP recheck Specialty Diagnoses / Procedures Referred By Contac t Referred To Contact INTERNAL MEDICINE Diagnoses ANYTHING MEDICALLY NECESSARY Procedures OFFICE CONSULTATION NEW/ESTAB PATIENT 15 MIN Self [place] [address] [facility] [place] [address] Referral ID Status Reason Start Date Expiration Date Visits Requested Visits Authorized [id number] Authorized Patient Cleared - Qualified 100% FAS 09/11/2024 12/10/2024 99 99 Reason Onset Date Comments Results 10/23/2024 Reason Comments Zio patch report Reason Onset Date Comments Refill Request 12/25/2024 Care Teams (unrecognized sec tion and content) Team Status: Active Member Role Status Dates Dr. Bucky Walters MD Primary Care Provider Acti ve Team Status: Inactive Member Role Status Dates Dr. Bucky Walters MD Primary Care Provider Acti ve Start: November 05, 2024 End: November 06, 2024 Dr. Eric Lazcano DO Emergency Provider Active Start : November 05, 2024 End: November 06, 2024 Dr. Stefan Armstrong DO Admit Provider Active Start: November 05, 2024 End: November 06, 2024 Dr. Stefan Armstrong DO Other Provider Active Start: November 05, 2024 End: November 06, 2024 Dr. Daria Jacques MD Other Provider Active Start: November 05, 2024 End: November 06, 2024 Dr. Dereje Holguin MD Other Provider Active St art: November 05, 2024 End: November 06, 2024 Dr. Ching San MD Other Provider Active Star t: November 05, 2024 End: November 06, 2024 Dr. Jonathan Smith MD Other Provider Active Sta rt: November 05, 2024 End: November 06, 2024 Dr. Micah Stahl MD Other Provider Active Star t: November 05, 2024 End: November 06, 2024 Dr. Jones Coburn MD Other Provider Active Start : November 05, 2024 End: November 06, 2024 Dr. Bette Maier MD Other Provider Active Star t: November 05, 2024 End: November 06, 2024 Dr. Travis Montanez MD Other Provider Active St art: November 05, 2024 End: November 06, 2024 Dr. Pablo Samano MD Other Provider Active Start: November 05, 2024 End: November 06, 2024 Dr. Jonah Justice MD Other Provider Active S tart: November 05, 2024 End: November 06, 2024 Dr. Angel Hu MD Other Provider Active Start: November 05, 2024 End: November 06, 2024 Jelani Davis [place] POLYMERIZATION ENGINEER, POLYMERIZATION ENGINEER-C Other Provider Active Start : November 05, 2024 End: November 06, 2024 Lorrie Dawkins PA, PA Other Provider Active Start: November 05, 2024 End: November 06, 2024 ANA Brody Other Provider Active Start: November 05, 2024 End: November 06, 2024 Dr. Glenny Moore DO Attending Provider Active S tart: November 05, 2024 End: November 06, 2024 Team Status: Active Member Role Status Dates Dr. Bucky Walters MD Primary Care Provider Acti ve Start: November 06, 2024 Dr. Pablo Samano MD Attending Provider Activ e Start: November 06, 2024 Team Status: Active Member Role Status Dates Dr. Bucky Walters MD Primary Care Provider Acti ve Start: November 06, 2024 Dr. Eric Lazcano , Emergency Provider Active Start : November 06, 2024 Dr. Stefan Armstrong DO Admit Provider Active Start: November 06, 2024 Dr. Stefan Armstrong , Other Provider Active Start: November 06, 2024 Dr. Daria Jacques MD Other Provider Active Start: November 06, 2024 Dr. Dereje Holguin MD Other Provider Active St art: November 06, 2024 Dr. Ching San MD Other Provider Active Star t: November 06, 2024 Dr. Jonathan Smith MD Other Provider Active Sta rt: November 06, 2024 Dr. Micah Stahl MD Other Provider Active Star t: November 06, 2024 Dr. Jones Coburn MD Other Provider Active Start : November 06, 2024 Dr. Bette Maier MD Other Provider Active Star t: November 06, 2024 Dr. Travis Montanez MD Other Provider Active St art: November 06, 2024 Dr. Pablo Samano MD Other Provider Active Start: November 06, 2024 Dr. Jonah Justice MD Other Provider Active S tart: November 06, 2024 Dr. Angel uH MD Other Provider Active Start: November 06, 2024 Jelani Abdi POLYMERIZATION ENGINEER, POLYMERIZATION ENGINEER-C Other Provider Active Start : November 06, 2024 Lorrie Dawkins PA, PA Other Provider Active Start: November 06, 2024 ANA Brody Other Provider Active Start: November 06, 2024 Dr. Glenny Moore , DO Attending Provider Active S tart: November 06, 2024 Dr. Glenny Moore , DO Other Provider Active Start : November 06, 2024 Team Status: Inactive Member Role Status Dates Dr. Bucky Walters MD Primary Care Provider Acti ve Start: November 13, 2024 End: November 13, 2024 Dr. Bucky Walters MD Referring Provider Active Start: November 13, 2024 End: November 13, 2024 Lorrie Dawkins PA, PA Attending Provider Active Start: November 13, 2024 End: November 13, 2024 Powerhouse Tender Relationship Specialty Start Date End Date Shasta Walters MD [address] [place], [place] [address] PCP - General Family Practice 11/20/17 Powerhouse Tender Relationship Specialty Start Date End Date Shasta Walters MD [address] [place] [address] PCP - General Family Practice 11/20/17 Powerhouse Tender Relationship Specialty Start Date End Date Shasta Walters MD [address] [place] [address] PCP - General Family Practice 11/20/17 Powerhouse Tender Relationship Specialty Start Date End Date Shasta Walters MD [address] [place] [address] PCP - General Family Medicine 11/20/17 Powerhouse Tender Relationship Specialty Start Date End Date Shasta Walters MD [address] [facility] [place] [address] PCP - General Family Medicine 11/20/17 Powerhouse Tender Relationship Specialty Start Date End Date Shasta Walters MD [address] [facility] [place] [address] PCP - General Family Medicine 11/20/17 Powerhouse Tender Relationship Specialty Start Date End Date Shasta Walters MD [address] [place] [address] PCP - General Family Medicine 11/20/17 Powerhouse Tender Relationship Specialty Start Date End Date Shasta Walters MD [address] [place] [address] PCP - General Family Medicine 11/20/17 Powerhouse Tender Relationship Specialty Start Date End Date Shasta Walters MD [address] [place] [address] PCP - General Family Medicine 11/20/17 Powerhouse Tender Relationship Specialty Start Date End Date Shasta Walters MD [address] [facility] [place] [address] PCP - General Family Medicine 11/20/17 Powerhouse Tender Relationship Specialty Start Date End Date Shasta Walters MD [address] [facility] [place] [address] PCP - General Family Medicine 11/20/17 Powerhouse Tender Relationship Specialty Start Date End Date Shasta Walters MD [address] [place] [address] PCP - General Family Medicine 11/20/17 Powerhouse Tender Relationship Specialty Start Date End Date Shasta Walters MD [address] [facility] [facility] [place] [address] PCP - General Family Medicine 11/20/17 Powerhouse Tender Relationship Specialty Start Date End Date Shasta Walters MD [address] [facility] [facility] [place] [address] PCP - General Family Medicine 11/20/17 Powerhouse Tender Relationship Specialty Start Date End Date Shasta Walters MD [address] [facility] [place] [address] PCP - General Family Medicine 11/20/17 Powerhouse Tender Relationship Specialty Start Date End Date Shasta Walters MD [address] [facility] [place] [address] PCP - General Family Medicine 11/20/17 Powerhouse Tender Relationship Specialty Start Date End Date Shasta Walters MD [address] [facility] [place] [address] PCP - General Family Medicine 11/20/17 Powerhouse Tender Relationship Specialty Start Date End Date Shasta Waletrs MD [address] [facility] [place] [address] PCP - General Family Medicine 11/20/17 Powerhouse Tender Relationship Specialty Start Date End Date Shasta Walters MD [address] [facility] [place] [address] PCP - General Family Medicine 11/20/17 Powerhouse Tender Relationship Specialty Start Date End Date Shasta Walters MD [address] [place] [address] PCP - General Family Medicine 11/20/17 Powerhouse Tender Relationship Specialty Start Date End Date Shasta Walters MD [address] [place] [address] PCP - General Family Medicine 11/20/17 Powerhouse Tender Relationship Specialty Start Date End Date Shasta Walters MD [address] [facility] [place] [address] PCP - General Family Medicine 11/20/17 Powerhouse Tender Relationship Specialty Start Date End Date Shasta Walters MD [address] [facility] [facility] [place] [address] PCP - General Family Medicine 11/20/17 Powerhouse Tender Relationship Specialty Start Date End Date Shasta Walters MD [address] [facility] [place] [address] PCP - General Family Medicine 11/20/17 PodlogarMarilou APRN.MEMBER SERVICES COORDINATOR [address] [place] [address] Victims Advocate Clerk/Specialist Family Medicine 05/24/24 Powerhouse Tender Relationship Specialty Start Date End Date Shasta Walters MD [address] [facility] [facility] [place] [address] PCP - General Family Medicine 11/20/17 PodlogarMarilou APRN.MEMBER SERVICES COORDINATOR [address] [facility] [facility] [place] [address] Victims Advocate Clerk/Specialist Family Medicine 05/24/24 Powerhouse Tender Relationship Specialty Start Date End Date Shasta Walters MD [address] [facility] [facility] [place] [address] PCP - General Family Medicine 11/20/17 PodlogarMariluo APRN.MEMBER SERVICES COORDINATOR [address] [facility] [facility] [place] [address] Victims Advocate Clerk/Specialist Family Medicine 05/24/24 Powerhouse Tender Relationship Specialty Start Date End Date Shasta Walters MD [address] [facility] [facility] [place] [address] PCP - General Family Medicine 11/20/17 PodlogarMarilou APRN.MEMBER SERVICES COORDINATOR [address] [facility] [facility] [place] [address] Victims Advocate Clerk/Specialist Family Medicine 05/24/24 Powerhouse Tender Relationship Specialty Start Date End Date Shasta Walters MD [address] [facility] [place] [address] PCP - General Family Medicine 11/20/17 PodlogarMarilou DERRICK BOAT LEVERMAN.MEMBER SERVICES COORDINATOR [address] [facility] [facility] [place] [address] Victims Advocate Clerk/Specialist Family Medicine 05/24/24 Powerhouse Tender Relationship Specialty Start Date End Date Shasta Walters MD [address] [facility] [place] [address] PCP - General Family Medicine 11/20/17 Podlogar, JHONY Zamarripa.MEMBER SERVICES COORDINATOR [address] [facility] [place] [address] Victims Advocate Clerk/Specialist Family Medicine 05/24/24 Angelita Gaines APRN.MEMBER SERVICES COORDINATOR [address] [place] [address] [facility]ly [facility] 09/08/24 Powerhouse Tender Relationship Specialty Start Date End Date Shasta Walters MD [address] [place] [address] PCP - General Family Medicine 11/20/17 PodMarilou joseph APRN.MEMBER SERVICES COORDINATOR [address] [place] [address] [facility]24 Angelita Gaines APRN.MEMBER SERVICES COORDINATOR [address] [place], [place] [address] Formerly [facility] 09/08/24 Team Status: Active Member Role Status Dates Dr. Bucky Walters MD Primary Care Provider Acti ve Start: November 05, 2024 Dr. Eric Lazcano DO Emergency Provider Active Start : November 05, 2024 Dr. Stefan Armstrong DO Admit Provider Active Start: November 05, 2024 Dr. Stefan Armstrong DO Attending Provider Active Start: November 05, 2024 Dr. Daria Jacques MD Other Provider Active Start: November 05, 2024 Dr. Dereje Holguin MD Other Provider Active St art: November 05, 2024 Dr. Ching San MD Other Provider Active Star t: November 05, 2024 Dr. Jonathan Smith MD Other Provider Active Sta rt: November 05, 2024 Dr. Micah Stahl MD Other Provider Active Star t: November 05, 2024 Dr. Jones Coburn MD Other Provider Active Start : November 05, 2024 Dr. Bette Maier MD Other Provider Active Star t: November 05, 2024 Dr. Travis Montanez MD Other Provider Active St art: November 05, 2024 Dr. Pablo Samano MD Other Provider Active Start: November 05, 2024 Dr. Jonah Justice MD Other Provider Active S tart: November 05, 2024 Dr. Angel Hu MD Other Provider Active Start: November 05, 2024 Jelani Abdi POLYMERIZATION ENGINEER, POLYMERIZATION ENGINEER-C Other Provider Active Start : November 05, 2024 Lorrie Dawkins PA, PA Other Provider Active Start: November 05, 2024 ANA Brody Other Provider Active Start: November 05, 2024 Powerhouse Tender Relationship Specialty Start Date End Date Shasta Walters MD [address] [place] [address] PCP - General Family Medicine 11/20/17 PodlogarMarilou, DERRICK BOAT LEVERMAN.MEMBER SERVICES COORDINATOR [address] [place] [address] Victims Advocate Clerk/Specialist Family Medicine 05/24/24 Powerhouse Tender Relationship Specialty Start Date End Date Shasta Walters MD [address] [place] [address] PCP - General Family Medicine 11/20/17 Podlogar, Marilou, DERRICK BOAT LEVERMAN.MEMBER SERVICES COORDINATOR [address] [place] [address] Victims Advocate Clerk/Specialist Family Medicine 05/24/24 Angelita Gaines, DERRICK BOAT LEVERMAN.MEMBER SERVICES COORDINATOR [address] [place] [address] Victims Advocate Clerk/Specialist Family Medicine 09/08/24 11/02/24 Angelita Gaines, DERRICK BOAT LEVERMAN.MEMBER SERVICES COORDINATOR [address] [place], [place] [address] Victims Advocate Clerk/Specialist Family Medicine 11/27/24 Powerhouse Tender Relationship Specialty Start Date End Date Shasta Walters MD [address] [place] [address] PCP - General Family Medicine 11/20/17 Marilou Singh DERRICK BOAT LEVERMAN.MEMBER SERVICES COORDINATOR [address] [place], [place] [address] Formerly [facility] 05/24/24 Angelita Gaines, DERRICK BOAT LEVERMAN.MEMBER SERVICES COORDINATOR [address] [place] [address] [facility]ly [facility] 11/27/24 Team Status: Active Member Role/Relationship Status Dates Dr. Bucky Walters MD Primary Care Provider Acti ve Team Status: Inactive Member Role/Relationship Status Dates Dr. Bucky Walters MD Primary Care Provider Acti ve Start: November 05, 2024 End: November 06, 2024 Dr. Eric Lazcano DO Emergency Provider Active Start : November 05, 2024 End: November 06, 2024 Dr. Stefan Armstrong DO Admit Provider Active Start: November 05, 2024 End: November 06, 2024 Dr. Stefan Armstrong DO Other Provider Active Start: November 05, 2024 End: November 06, 2024 Dr. Daria Jacques MD Other Provider Active Start: November 05, 2024 End: November 06, 2024 Dr. Dereje Holguin MD Other Provider Active St art: November 05, 2024 End: November 06, 2024 Dr. Ching San MD Other Provider Active Star t: November 05, 2024 End: November 06, 2024 Dr. Jonathan Smith MD Other Provider Active Sta rt: November 05, 2024 End: November 06, 2024 Dr. Micah Stahl MD Other Provider Active Star t: November 05, 2024 End: November 06, 2024 Dr. Jones Coburn MD Other Provider Active Start : November 05, 2024 End: November 06, 2024 Dr. Bette Maier MD Other Provider Active Star t: November 05, 2024 End: November 06, 2024 Dr. Travis Montanez MD Other Provider Active St art: November 05, 2024 End: November 06, 2024 Dr. Pablo Samano MD Other Provider Active Start: November 05, 2024 End: November 06, 2024 Dr. Jonah Justice MD Other Provider Active S tart: November 05, 2024 End: November 06, 2024 Dr. Angel Hu MD Other Provider Active Start: November 05, 2024 End: November 06, 2024 Jelani Abdi POLYMERIZATION ENGINEER, POLYMERIZATION ENGINEER-C Other Provider Active Start : November 05, 2024 End: November 06, 2024 Lorrie Dawkins PA, PA Other Provider Active Start: November 05, 2024 End: November 06, 2024 ANA Brody Other Provider Active Start: November 05, 2024 End: November 06, 2024 Dr. Glenny Moore DO Attending Provider Active S tart: November 05, 2024 End: November 06, 2024 Team Status: Active Member Role/Relationship Status Dates Dr. Bucky Walters MD Primary Care Provider Acti ve Start: November 06, 2024 Dr. Pablo Samano MD Attending Provider Activ e Start: November 06, 2024 Team Status: Active Member Role/Relationship Status Dates Dr. Bucky Walters MD Primary Care Provider Acti ve Start: November 06, 2024 Dr. Eric Lazcano DO Emergency Provider Active Start : November 06, 2024 Dr. Stefan Armstrong DO Admit Provider Active Start: November 06, 2024 Dr. Stefan Armstrong DO Other Provider Active Start: November 06, 2024 Dr. Darai Jacques MD Other Provider Active Start: November 06, 2024 Dr. Dereje Holguin MD Other Provider Active St art: November 06, 2024 Dr. Ching San MD Other Provider Active Star t: November 06, 2024 Dr. Jonathan Smith MD Other Provider Active Sta rt: November 06, 2024 Dr. Micah Stahl MD Other Provider Active Star t: November 06, 2024 Dr. Jones Coburn MD Other Provider Active Start : November 06, 2024 Dr. Bette Maier MD Other Provider Active Star t: November 06, 2024 Dr. Travis Montanez MD Other Provider Active St art: November 06, 2024 Dr. Pablo Samano MD Other Provider Active Start: November 06, 2024 Dr. Jonah Justice MD Other Provider Active S tart: November 06, 2024 Dr. Angel Hu MD Other Provider Active Start: November 06, 2024 Jelani Abdi POLYMERIZATION ENGINEER, POLYMERIZATION ENGINEER-C Other Provider Active Start : November 06, 2024 Lorrie Dawkins PA, PA Other Provider Active Start: November 06, 2024 ANA Brody Other Provider Active Start: November 06, 2024 Dr. Glenny Moore , DO Attending Provider Active S tart: November 06, 2024 Dr. Glenny Moore , DO Other Provider Active Start : November 06, 2024 Team Status: Inactive Member Role/Relationship Status Dates Dr. Bucky Walters MD Primary Care Provider Acti ve Start: November 13, 2024 End: November 13, 2024 Dr. Bucky Walters MD Referring Provider Active Start: November 13, 2024 End: November 13, 2024 Lorrie Dawkins PA, PA Attending Provider Active Start: November 13, 2024 End: November 13, 2024 Team Status: Inactive Member Role/Relationship Status Dates Dr. Bucky Walters MD Primary Care Provider Acti ve Start: December 16, 2024 End: December 16, 2024 Dr. Bucky Walters MD Referring Provider Active Start: December 16, 2024 End: December 16, 2024 Reena Joyner POLYMERIZATION ENGINEER, POLYMERIZATION ENGINEER-C Attending Provider Active Start: December 16, 2024 End: December 16, 2024 Powerhouse Tender Relationship Specialty Start Date End Date Shasta Walters MD [address] [place] [address] PCP - General Family Medicine 11/20/17 PodlogarMarilou APRN.MEMBER SERVICES COORDINATOR [address] [place] [id number] Victims Advocate Clerk/Specialist Family Medicine 05/24/24 Angelita Gaines APRN.MEMBER SERVICES COORDINATOR [address] [place] [address] Victims Advocate Clerk/Specialist Family Medicine 11/27/24 Goals (unrecognized section and content) Goals may be documented in a n alternate sectionGoals may be documented in an alternate sectionGoals may be documented in an alternate section INFORMATION SOURCE (unrecogn ized section and content) DATE CREATED AUTHOR 03/04/2024 [facility] DATE CREATED AUTHOR AUTHOR'S ORGANIZ ATION 12/09/2024 [facility] DATE CREATED AUTHOR AUTHOR'S ORGANIZ ATION 01/01/2025 [facility] FOR RECORDS PERTAINING TO PATIENTS WHO ARE OR HAVE BEEN ENROLLED IN A CHEMICAL DEPENDENCY/SUBSTANCEABUSE PROGRAM, SOME INFORMATION MAY BE OMITTED. This clinical summary was aggregated from multiple sources. Caution should be exercised in using it in the provision of clinical care. This summary normalizes information from multiple sources, and as a consequence, information in this document may materially change the coding, format and clinical context of patient data. In addition, data may be omitted in some cases. CLINICAL DECISIONS SHOULD BE BASED ON THE PRIMARY CLINICAL RECORDS. [facility]. provides no warranty or guarantee of the accuracy or completeness of information in this document.
[2025-01-06 08:22] LABS: Anion Gap 10 (5-15); BUN 14 mg/dL (4-19); BUN/Creat Ratio 12.8 RATIO (10-20); Calcium,Total 9.1 mg/dL (7.6-11.0); Carbon Dioxide 25.2 mmol/L (21.0-32.0); Chloride 108 mmol/L (98-108); Estimated Creatinine Clearance 65.75 ml/min (50-250); Glucose 100 mg/dL (70-99); Potassium 4.0 mmol/L (3.3-5.1)
--- NOTE | 2025-01-06 10:40 | ELECTROSTU_ITS ---
Electrophysiology Report Electrophysiology Report Sisi Donis is a 59 year old female who has a past medical history of HTN, SVT, who presented to the [facility] for further evaluation regarding SVT. Procedure Summary * Patient prepped and draped in sterile fashion. * Right groin infiltrated with lidocaine. * Right femoral access obtained x3 with ultrasound guidance. * Sheaths inserted into femoral veins via Seldinger technique. * Catheters inserted through right groin. * EPS results listed below in conclusions. * Sheaths pulled in lab and hemostasis achieved per protocol. Findings: BASELINE ISUPREL (Not Performed) SCL: 747ms SCL: N/A AH: 80ms AH: N/A HV: 47ms HV: N/A Maximum SNRT: 976 ms CSNRT: 229ms AVBCL: 390ms AVBCL: N/A VABCL: N/A VABCL: N/Ams AVN ERP 280ms @ 600ms BASELINE ISUPREL (Not performed) Inducible Tachycardia: Y Inducible Tachycardia: N/A Diagnosis: SVNRT Diagnosis: N/A VA interval at Hisduring tachycardia: 40ms VA interval at Hisduring tachycardia: N/A Ablation of: slow pathway Ablation Parameters: non-irrigated, power titrated Results of Ablation Site of Ablation: slow pathway Succesfull Post Ablation Testing BASELINE ISUPREL (not performed) SCL: 740 ms SCL: N/A AH: 99 ms AH: N/A HV: 50ms HV: N/A AVBCL: 400ms AVBCL: N/A AVN ERP 300ms @ 600ms AVN ERP N/A VA BCL: 310ms VA BCL: N/A VERP 200ms @ 500ms Conclusions 1. Baseline rhythm is sinus rhythm. 2. Normal sinus node function 3. Normal AV node function, normal infranodal conduction 4. No evidence of accessory pathway. 5. Evidence of dual AV node physiology. 6. VA conduction present and is decremental (post ablation).? 7. Easily inducible AVNRT. Ablation of slow pathway performed. Post ablation, there was only a single echo beat, no inducible tachycardia, and no crossover. Recommendations 1. Routine sheath care 2. Bedrest for 3 hours 3. The patient can continue to follow-up with [facility]. 4. Observe overnight.
[2025-01-06 17:25] VITALS: BP 144/82; PULSE 80; RESP 15; TEMP 36.9; O2SAT 97
[2025-01-06 17:39] VITALS: BMI 30.5
[2025-01-06 18:35] VITALS: BP 152/79; PULSE 79; RESP 108; TEMP 36.8; O2SAT 98
[2025-01-06 21:04] VITALS: BP 155/86; PULSE 74; RESP 16; TEMP 36.6
[2025-01-06 21:21] VITALS: BP 155/86; PULSE 74
[2025-01-06] MEDS: Metoprolol(XL)Succ 25 MG Tablet PO (21:21)
[2025-01-07 03:30] VITALS: BP 133/64; PULSE 72; RESP 16; TEMP 37.1; O2SAT 94
[2025-01-07 08:15] VITALS: BP 140/93; PULSE 60; RESP 18; TEMP 36.9; O2SAT 94
--- NOTE | 2025-01-07 08:32 | PCM.DC ---
Documented by User: ANA Garcia 01/07/25 08:34 Discharge Instructions DC O2, CPAP, BIPAP needs Home O2 Discharge instructions: No Dressing / Incision Additional Activity Instructions:: Do not lift anything greater than 10 pounds for 3 days. Dressing / Incision Call your doctor if your incision/area has: Continuous Slow Oozing, Sudden Increased Bleeding, Increased Pain/ Swelling, Increased Redness, Foul Smelling Discharge and Swelling at the incision site Remove Dressing in: 1 day Follow Up Care Test Results: Test results from this visit will be discussed in further detail at your follow-up appointment, if applicable. Discharge Plan Admission Admit Date/Time: 01/06/25 16:41 Primary Reason for Your Visit: AV kurt reentrant tachycardia-RF ablation Attending Provider: Angel Hu Primary Care Provider: Bucky Walters Discharge Orders/Prescriptions Prescriptions: Continued atorvastatin 20 mg tablet 20 mg PO QHS losartan 25 mg tablet 25 mg PO QHS cholecalciferol (vitamin D3) 1,250 mcg (50,000 unit) capsule 1,250 mcg PO QWEEK metoprolol succinate 25 mg tablet extended release 24 hr 25 mg PO DAILY Qty: 1 3RF Referrals / Follow Up: Bucky Walters MD [Primary Care Provider] - 01/14/25 8:20 am Lorrie Dawkins PA [Med Staff - [facility]] - Within 1 Week Disposition Disposition (needs filled in before D/C Order can be placed): Home, Self Care Documented by User: Dr. 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 Attending Provider: Angel Hu Primary Care Provider: Bucky Walters Discharge Orders/Prescriptions Prescriptions: Continued atorvastatin 20 mg tablet 20 mg PO QHS losartan 25 mg tablet 25 mg PO QHS cholecalciferol (vitamin D3) 1,250 mcg (50,000 unit) capsule 1,250 mcg PO QWEEK metoprolol succinate 25 mg tablet extended release 24 hr 25 mg PO DAILY Qty: 1 3RF Referrals / Follow Up: Bucky Walters MD [Primary Care Provider] - 01/14/25 8:20 am Lorrie Dawkins PA [Med Staff - [facility]] - Within 1 Week Disposition Disposition (needs filled in before D/C Order can be placed): Home, Self Care
--- NOTE | 2025-01-07 08:38 | DS.PCM_ITS ---
Providers Date of Admission: 01/06/25 Primary Care Physician: Dr. Bucky Walters MD Reason For Visit: SVT Diagnosis Discharge Diagnosis (1) SVT (supraventricular tachycardia): Status: Acute Code(s): I47.10 - Supraventricular tachycardia, unspecified Plan: Patient underwent successful radiofrequency ablation of the slow pathway of the AV node. The patient be followed up in the [facility] in 7 to 14 days. Plan Follow-up in the [facility] group 7 to 14 days continue home medications. Medications at Discharge Home Medications atorvastatin 20 mg tablet 20 mg PO QHS cholesterol 11/05/24 cholecalciferol (vitamin D3) 1,250 mcg (50,000 unit) capsule 1,250 mcg PO QWEEK 11/05/24 losartan 25 mg tablet 25 mg PO QHS 11/05/24 metoprolol succinate 25 mg tablet,extended release 24 hr 25 mg PO DAILY #1 TAB 12/03/24 Hospital Course Operations None Procedures - (RF ablation of the slow pathway of the AV node.) Summary of Care Provided Minutes Spent on Discharge: 20 Physical Exam Const alert and oriented x3 General Appearance: cooperative and comfortable HEENT normocephalic Neck no JVD Chest inspection of chest normal Resp normal respiratory effort Cardio regular rate and regular rhythm Cardio Narrative: Right groin intact. Extremity no pedal edema Neuro oriented x3 Weight / BMI Weight Weight: 195 lb 3.2 oz Body Mass Index (BMI) 30.5 ABG / Lab / Microbiology Data 01/06/25 07:44 01/06/25 07:44 D/C Instructions Discharge Activity: Return to Normal Activity May resume sexual activity in: 10-14 days Lifting Restricted to (Lbs): 10 Lifting Restrictions: For 3 days Keep extremity elevated above heart level: Right Leg Additional Activity Instructions: Do not lift anything greater than 10 pounds for 3 days. 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
--- NOTE | 2025-01-07 10:13 | PHA.DC.MR.R ---
Pharmacy [facility] Med Reconciliation Pharmacy Service has performed discharge medication reconciliation for this patient. The patient's discharge medication list was reviewed for discrepancies and discrepancies were resolved. Medications at Discharge Home Medications atorvastatin 20 mg tablet 20 mg PO QHS cholesterol 11/05/24 cholecalciferol (vitamin D3) 1,250 mcg (50,000 unit) capsule 1,250 mcg PO QWEEK vitamin 11/05/24 losartan 25 mg tablet 25 mg PO QHS blood pressure 11/05/24 metoprolol succinate 25 mg tablet,extended release 24 hr 25 mg PO DAILY blood pressure #1 TAB 12/03/24
[2025-01-07 12:49] VITALS: BP 145/82; PULSE 70; RESP 14; TEMP 37.4; O2SAT 95
== END 2025-01-07 13:14 | disposition home or self-care (01) ==
LOC: PCU 17:18
PROVIDERS: Admitting Provider Physician Assistant Medical; PCP Family Medicine; Referring Provider Physician Assistant Medical; Visit Provider Internal Medicine
DX: I47.10 Supraventricular tachycardia, unspecified (principal); Z79.899 Other long term (current) drug therapy; I10 Essential (primary) hypertension; E78.00 Pure hypercholesterolemia, unspecified; F17.210 Nicotine dependence, cigarettes, uncomplicated
CPT/HCPCS: 36415; 76937; 80048; 85025; 93653; 99152; 99153; 99221; C1730; C1733; C1894; G0378

== ENCOUNTER → 2025-03-27 | Outpatient (CLI) | payer SELFPAY | END | disposition home or self-care (01) | PROVIDERS: PCP Family Medicine; Referring Provider Nurse Practitioner Gerontology; Visit Provider Nurse Practitioner Gerontology | DX: R06.2 Wheezing (principal) | CPT/HCPCS: 71046 ==